=== PATIENT | male | born 1970 | race Caucasian/White ===

== ENCOUNTER 2017-12-09 12:13 | Inpatient (IN) | payer OTHER ==
[2017-12-09 13:50] VITALS: BMI 27.1
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
[2017-12-09] MEDS ORDERED: LOPERAMIDE HCL 2 MG CAPSULE PO PRN (15:02)
[2017-12-09] MEDS ORDERED: guaiFENesin/D-METHORPHAN HB 10 ML UNIT-DOSE CUPS PO PRN (15:02)
[2017-12-09] MEDS ORDERED: ACETAMINOPHEN 325 MG TABLET (FP) PO PRN (15:02)
[2017-12-09] MEDS ORDERED: NICOTINE POLACRILEX 4 MG GUM BUC PRN (15:02)
[2017-12-09] MEDS ORDERED: MAGNESIUM CITRATE 300 ML BOTTLE PO PRN (15:02)
[2017-12-09] MEDS ORDERED: MAG HYDROX/AL HYDROX/SIMETH 30 ML UNIT-DOSE CUP PO PRN (15:02)
[2017-12-09] MEDS ORDERED: P-EPHED 60MG/TRIPROLIDI 2.5MG TABLET PO PRN (15:02)
[2017-12-09] MEDS ORDERED: MAGNESIUM HYDROX 2400MG/30ML ORAL SUSPENSION 30 ML CUP PO PRN (15:02)
[2017-12-09] MEDS ORDERED: MENTHOL/PHENOL 1 EACH UD MM PRN (15:02)
[2017-12-09] MEDS ORDERED: ALBUTEROL SO4 18 GM HFA INHALER IH PRN (15:03)
[2017-12-09] MEDS ORDERED: COLLOIDAL OATMEAL 1 BAR EACH TP PRN (15:09)
[2017-12-09] MEDS: THIAMINE HCL 100 MG TABLET (FP) PO SCH (21:30)
[2017-12-09] MEDS: MELATONIN 5 MG TABLETS PO PRN (21:30)
[2017-12-09] MEDS: POLYETHYLENE GLYCOL 3350 119 GM BTL PO SCH (21:30)
[2017-12-09] MEDS: BUDESONIDE/FORMETEROL FUMARATE 160/4.5 mcg INHALER IH SCH (21:30)
[2017-12-09] MEDS: NICOTINE 14 MG/24 HOURS TOPICAL PATCH TD SCH (21:30)
[2017-12-09] MEDS: MINERAL OIL/PETROLAT/WATER TOPICAL CREAM 113 GM JAR TP SCH (21:31)
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
[2017-12-10] MEDS ORDERED: METHADONE HCL 10 MG TABLET PO SCH (07:45)
[2017-12-10] MEDS ORDERED: METHADONE HCL 40 MG DISPERSABLE TABLET ONE (08:41)
[2017-12-10] MEDS ORDERED: METHADONE HCL 10 MG TABLET ONE (08:41)
[2017-12-10] MEDS: METHADONE 120 MG, METHADONE 20 MG PO SCH (08:42)
[2017-12-10] MEDS ORDERED: EMTRICITAB/RILPIVIRI/TENOF ALA (ODEFSEY) TABLET PO SCH (10:00)
[2017-12-10] MEDS ORDERED: BUDESONIDE/FORMETEROL FUMARATE 160/4.5 mcg INHALER IH SCH (10:00)
[2017-12-10] MEDS: NICOTINE 14 MG/24 HOURS TOPICAL PATCH TD SCH (10:24)
[2017-12-10] MEDS: PRENATAL VITAMINS W/ FOLIC ACID TABLET (FP) PO SCH (10:24)
[2017-12-10] MEDS: BUDESONIDE/FORMETEROL FUMARATE 160/4.5 mcg INHALER IH SCH ×2 (10:24→21:37)
--- NOTE | 2017-12-10 14:21 | PN ---
S Progress Note Note: Pruritus on both lower extremities, decrease apatite Vital Signs Temperature 97.4 F L 12/10/17 07:06 Pulse Rate 65 12/10/17 07:06 Respiratory Rate 18 12/10/17 07:06 Blood Pressure 129/91 12/10/17 07:06 O2 Sat by Pulse Oximetry (%) A/P : AOx 3 no apparent distress Cardiac: normal HR and rhythm Skin: +hyper pigmentation on both ankles Extremities: pulse present, + b/t varicose veins and b/l lower extremities hyperpigmentation - pruritus secondary suspected peripheral vascular disease Plan: Leg elevation aveno soap Bethmethasome top Cream BID ASA 81 mg QD Increase fluids ambulate Patient to follow up with primary medical provider upon discharge Continue to monitor
[2017-12-10] MEDS: IBUPROFEN 400 MG TABLET (FP) PO PRN ×2 (16:06→21:39)
[2017-12-10] MEDS: THIAMINE HCL 100 MG TABLET (FP) PO SCH (21:37)
[2017-12-10] MEDS: BETAMETHASONE VALER 0.1% OINT 15 GM TUBE TP SCH (21:37)
[2017-12-10] MEDS: MINERAL OIL/PETROLAT/WATER TOPICAL CREAM 113 GM JAR TP SCH (21:38)
[2017-12-10] MEDS ORDERED: PT OWN MED DRAWER 7, Y5N ONE (21:39)
[2017-12-10] MEDS: POLYETHYLENE GLYCOL 3350 119 GM BTL PO SCH (21:40)
[2017-12-11] MEDS: IBUPROFEN 400 MG TABLET (FP) PO PRN (03:29)
[2017-12-11] MEDS ORDERED: METHADONE HCL 10 MG TABLET ONE (04:42)
[2017-12-11] MEDS ORDERED: METHADONE HCL 40 MG DISPERSABLE TABLET ONE (04:42)
[2017-12-11] MEDS: METHADONE 120 MG, METHADONE 20 MG PO SCH (06:07)
[2017-12-11] MEDS: NICOTINE 14 MG/24 HOURS TOPICAL PATCH TD SCH (10:14)
[2017-12-11] MEDS: PRENATAL VITAMINS W/ FOLIC ACID TABLET (FP) PO SCH (10:15)
[2017-12-11] MEDS: EMTRICITAB/RILPIVIRI/TENOF ALA (ODEFSEY) TABLET PO SCH (10:15)
[2017-12-11] MEDS: BUDESONIDE/FORMETEROL FUMARATE 160/4.5 mcg INHALER IH SCH ×2 (10:15→21:38)
[2017-12-11] MEDS: BETAMETHASONE VALER 0.1% OINT 15 GM TUBE TP SCH ×2 (10:16→21:39)
--- NOTE | 2017-12-11 10:27 | PN ---
S Progress Note Note: received nurse call that set of book work and urine analysis results not available a new set of blood work and ua ordered
[2017-12-11 14:34] LABS: HEMATOCRIT 34.4 % (35.4-49); HEMOGLOBIN 11.5 GM/dL (11.7-16.9); MCH 29.5 pg (25.7-33.7); MCHC 33.5 g/dl (32.0-35.9); MEAN CELL VOLUME 88.1 fl (80-96); MEAN PLT VOLUME 8.7 fl (7.5-11.1); PLATELET COUNT 234 K/MM3 (134-434); RBC 3.91 M/mm3 (4.00-5.60); RDW 14.3 % (11.9-15.9)
[2017-12-11 14:47] LABS: ALBUMIN 3.4 g/dl (3.4-5.0); ANION GAP 6 (8-16); BLOOD UREA NITROGEN 13 mg/dL (7-18); CALCIUM 8.7 mg/dL (8.5-10.1); CHLORIDE 102 mmol/L (98-107); CO2 32 mmol/L (21-32); GLUCOSE,RANDOM 88 mg/dL (74-106); POTASSIUM 4.5 mmol/L (3.5-5.1); SGOT/AST 19 U/L (15-37); SGPT/ALT 15 U/L (12-78); SODIUM 140 mmol/L (136-145)
[2017-12-11 14:49] LABS: ALK PHOS 101 U/L (45-117); BILIRUBIN,TOTAL 0.2 mg/dL (0.2-1.0); TOT PROT 8.1 g/dl (6.4-8.2)
--- NOTE | 2017-12-11 14:57 | PN ---
S Progress Note Note: Patient complain of back and joint pain. Vital Signs Temperature 97.7 F 12/11/17 07:07 Pulse Rate 59 L 12/11/17 07:07 Respiratory Rate 18 12/11/17 07:07 Blood Pressure 134/88 12/11/17 07:07 O2 Sat by Pulse Oximetry (%) Laboratory Tests 12/11/17 12/11/17 12:30 12:30 WBC 4.0 RBC 3.91 L Hgb 11.5 L Hct 34.4 L MCV 88.1 MCH 29.5 D MCHC 33.5 RDW 14.3 Plt Count 234 D MPV 8.7 D Sodium 140 Potassium 4.5 Chloride 102 Carbon Dioxide 32 Anion Gap 6 L BUN 13 D Creatinine 1.0 Creat Clearance w eGFR > 60 Random Glucose 88 D Calcium 8.7 Total Bilirubin 0.2 D AST 19 D ALT 15 D Alkaline Phosphatase 101 Total Protein 8.1 Albumin 3.4 OBJ: Skin:warm and dry Car: S1S2, RRR Resp: CTA BL Ext: no edema, FROM A/P: Increase ibuprofen to 600mg TID and add flexeril 10mg TID Continue to monitor
[2017-12-11 16:03] LABS: URINE APPEARANCE CLEAR; URINE BILIRUBIN NEGATIVE (<2.0 mg/dL); URINE BLOOD NEGATIVE (NEGATIVE); URINE COLOR YELLOW; URINE GLUCOSE (UA) NEGATIVE (NEGATIVE); URINE KETONE NEGATIVE (NEGATIVE); URINE LEUK ESTERASE NEGATIVE (NEGATIVE); URINE NITRITE NEGATIVE (NEGATIVE); URINE PROTEIN NEGATIVE (NEGATIVE); URINE UROBILINOGEN NEGATIVE mg/dL (0.2-1.0)
[2017-12-11] MEDS: IBUPROFEN 600 MG TABLET (FP) PO PRN (20:18)
[2017-12-11] MEDS: POLYETHYLENE GLYCOL 3350 119 GM BTL PO SCH (21:38)
[2017-12-11] MEDS: MELATONIN 5 MG TABLETS PO PRN (21:38)
[2017-12-11] MEDS: CYCLOBENZAPRINE HCL 10 MG TABLET (FP) PO PRN (21:38)
[2017-12-11] MEDS: THIAMINE HCL 100 MG TABLET (FP) PO SCH (21:38)
[2017-12-11] MEDS: MINERAL OIL/PETROLAT/WATER TOPICAL CREAM 113 GM JAR TP SCH (21:39)
[2017-12-12] MEDS ORDERED: METHADONE HCL 10 MG TABLET ONE (04:25)
[2017-12-12] MEDS ORDERED: METHADONE HCL 40 MG DISPERSABLE TABLET ONE (04:25)
[2017-12-12] MEDS: METHADONE 120 MG, METHADONE 20 MG PO SCH (05:55)
[2017-12-12] MEDS: NICOTINE 14 MG/24 HOURS TOPICAL PATCH TD SCH (10:13)
[2017-12-12] MEDS: PRENATAL VITAMINS W/ FOLIC ACID TABLET (FP) PO SCH (10:13)
[2017-12-12] MEDS: BETAMETHASONE VALER 0.1% OINT 15 GM TUBE TP SCH ×2 (10:14→22:40)
[2017-12-12] MEDS: EMTRICITAB/RILPIVIRI/TENOF ALA (ODEFSEY) TABLET PO SCH (10:15)
[2017-12-12] MEDS ORDERED: PT OWN MED DRAWER 7, Y5N ONE ×4 (10:18→16:44)
[2017-12-12] MEDS: BUDESONIDE/FORMETEROL FUMARATE 160/4.5 mcg INHALER IH SCH ×2 (10:19→23:09)
[2017-12-12] MEDS: MELATONIN 5 MG TABLETS PO PRN (21:06)
[2017-12-12] MEDS: THIAMINE HCL 100 MG TABLET (FP) PO SCH (21:06)
[2017-12-12] MEDS: CYCLOBENZAPRINE HCL 10 MG TABLET (FP) PO PRN (22:39)
[2017-12-12] MEDS: IBUPROFEN 600 MG TABLET (FP) PO PRN (22:39)
[2017-12-12] MEDS: POLYETHYLENE GLYCOL 3350 119 GM BTL PO SCH (22:40)
[2017-12-12] MEDS: MINERAL OIL/PETROLAT/WATER TOPICAL CREAM 113 GM JAR TP SCH (22:40)
[2017-12-13] MEDS ORDERED: METHADONE HCL 10 MG TABLET ONE (04:18)
[2017-12-13] MEDS ORDERED: METHADONE HCL 40 MG DISPERSABLE TABLET ONE (04:19)
[2017-12-13] MEDS: METHADONE 120 MG, METHADONE 20 MG PO SCH (05:59)
[2017-12-13] MEDS: PRENATAL VITAMINS W/ FOLIC ACID TABLET (FP) PO SCH (10:26)
[2017-12-13] MEDS: EMTRICITAB/RILPIVIRI/TENOF ALA (ODEFSEY) TABLET PO SCH (10:26)
[2017-12-13] MEDS ORDERED: PT OWN MED DRAWER 7, Y5N ONE ×3 (10:29→22:30)
[2017-12-13] MEDS: BETAMETHASONE VALER 0.1% OINT 15 GM TUBE TP SCH ×2 (10:29→21:29)
[2017-12-13] MEDS: BUDESONIDE/FORMETEROL FUMARATE 160/4.5 mcg INHALER IH SCH ×2 (10:29→21:26)
[2017-12-13] MEDS: NICOTINE 14 MG/24 HOURS TOPICAL PATCH TD SCH (10:29)
[2017-12-13] MEDS: THIAMINE HCL 100 MG TABLET (FP) PO SCH (21:27)
[2017-12-13] MEDS: MELATONIN 5 MG TABLETS PO PRN (21:27)
[2017-12-13] MEDS: CYCLOBENZAPRINE HCL 10 MG TABLET (FP) PO PRN (21:27)
[2017-12-13] MEDS: IBUPROFEN 600 MG TABLET (FP) PO PRN (21:28)
[2017-12-13] MEDS: POLYETHYLENE GLYCOL 3350 119 GM BTL PO SCH (21:29)
[2017-12-13] MEDS: MINERAL OIL/PETROLAT/WATER TOPICAL CREAM 113 GM JAR TP SCH (21:30)
[2017-12-14] MEDS ORDERED: METHADONE HCL 10 MG TABLET ONE (03:11)
[2017-12-14] MEDS ORDERED: METHADONE HCL 40 MG DISPERSABLE TABLET ONE (03:11)
[2017-12-14] MEDS: METHADONE 120 MG, METHADONE 20 MG PO SCH (06:01)
[2017-12-14] MEDS: EMTRICITAB/RILPIVIRI/TENOF ALA (ODEFSEY) TABLET PO SCH (09:51)
[2017-12-14] MEDS: BUDESONIDE/FORMETEROL FUMARATE 160/4.5 mcg INHALER IH SCH ×2 (09:52→22:44)
[2017-12-14] MEDS: PRENATAL VITAMINS W/ FOLIC ACID TABLET (FP) PO SCH (09:52)
[2017-12-14] MEDS: BETAMETHASONE VALER 0.1% OINT 15 GM TUBE TP SCH ×2 (09:52→21:51)
[2017-12-14] MEDS: NICOTINE 14 MG/24 HOURS TOPICAL PATCH TD SCH (09:52)
[2017-12-14] MEDS: IBUPROFEN 600 MG TABLET (FP) PO PRN ×2 (09:53→22:56)
[2017-12-14] MEDS: CYCLOBENZAPRINE HCL 10 MG TABLET (FP) PO PRN ×2 (09:53→21:49)
[2017-12-14] MEDS: POLYETHYLENE GLYCOL 3350 119 GM BTL PO SCH (21:48)
[2017-12-14] MEDS ORDERED: PT OWN MED DRAWER 7, Y5N ONE (21:48)
[2017-12-14] MEDS: THIAMINE HCL 100 MG TABLET (FP) PO SCH (21:49)
[2017-12-14] MEDS: MINERAL OIL/PETROLAT/WATER TOPICAL CREAM 113 GM JAR TP SCH (22:44)
[2017-12-15] MEDS ORDERED: METHADONE HCL 10 MG TABLET ONE (02:47)
[2017-12-15] MEDS ORDERED: METHADONE HCL 40 MG DISPERSABLE TABLET ONE (02:48)
[2017-12-15] MEDS: METHADONE 120 MG, METHADONE 20 MG PO SCH (06:04)
[2017-12-15] MEDS ORDERED: PT OWN MED DRAWER 7, Y5N ONE ×3 (08:58→20:16)
[2017-12-15] MEDS: NICOTINE 14 MG/24 HOURS TOPICAL PATCH TD SCH (10:10)
[2017-12-15] MEDS: BUDESONIDE/FORMETEROL FUMARATE 160/4.5 mcg INHALER IH SCH ×2 (10:10→21:54)
[2017-12-15] MEDS: PRENATAL VITAMINS W/ FOLIC ACID TABLET (FP) PO SCH (10:10)
[2017-12-15] MEDS: EMTRICITAB/RILPIVIRI/TENOF ALA (ODEFSEY) TABLET PO SCH (10:10)
[2017-12-15] MEDS: BETAMETHASONE VALER 0.1% OINT 15 GM TUBE TP SCH ×2 (10:10→21:54)
[2017-12-15] MEDS: IBUPROFEN 600 MG TABLET (FP) PO PRN (21:51)
[2017-12-15] MEDS: THIAMINE HCL 100 MG TABLET (FP) PO SCH (21:51)
[2017-12-15] MEDS: POLYETHYLENE GLYCOL 3350 119 GM BTL PO SCH (21:52)
[2017-12-15] MEDS: MELATONIN 5 MG TABLETS PO PRN (21:52)
[2017-12-15] MEDS: CYCLOBENZAPRINE HCL 10 MG TABLET (FP) PO PRN (21:52)
[2017-12-15] MEDS: MINERAL OIL/PETROLAT/WATER TOPICAL CREAM 113 GM JAR TP SCH (21:54)
[2017-12-16] MEDS ORDERED: METHADONE HCL 40 MG DISPERSABLE TABLET ONE (04:27)
[2017-12-16] MEDS ORDERED: METHADONE HCL 10 MG TABLET ONE (04:27)
[2017-12-16] MEDS: METHADONE 120 MG, METHADONE 20 MG PO SCH (06:24)
[2017-12-16] MEDS: BUDESONIDE/FORMETEROL FUMARATE 160/4.5 mcg INHALER IH SCH ×2 (10:24→21:37)
[2017-12-16] MEDS: BETAMETHASONE VALER 0.1% OINT 15 GM TUBE TP SCH ×2 (10:25→21:40)
[2017-12-16] MEDS: PRENATAL VITAMINS W/ FOLIC ACID TABLET (FP) PO SCH (10:25)
[2017-12-16] MEDS: NICOTINE 14 MG/24 HOURS TOPICAL PATCH TD SCH (10:25)
[2017-12-16] MEDS: EMTRICITAB/RILPIVIRI/TENOF ALA (ODEFSEY) TABLET PO SCH (10:25)
--- NOTE | 2017-12-16 15:23 | PN ---
[facility] Progress Note Note: Patient presents with complaints of constipation and left earache x 2 days. Denies sore throat, fever and cough. Vital Signs Period Temp Pulse Resp BP Sys/Benz Pulse Ox Last 24 Hr 97.3 F 56 18 151/89 Obj: Gen: alert and oriented x 3, in NAD, afebrile. ENT: left ear canal with cerumen, TM not visible. +preauricular tenderness. A/P: Left ear pain constipation Exam limited, however, due to ongoing pain will order amoxicillin 500mg BID x 5 days increase oral fluids fleets enema [place] x one continue to monitor clinically
[2017-12-16] MEDS ORDERED: PT OWN MED DRAWER 7, Y5N ONE (19:55)
[2017-12-16] MEDS: MELATONIN 5 MG TABLETS PO PRN (21:37)
[2017-12-16] MEDS: AMOXICILLIN 500 MG CAPSULE (FP) PO SCH (21:38)
[2017-12-16] MEDS: CYCLOBENZAPRINE HCL 10 MG TABLET (FP) PO PRN (21:38)
[2017-12-16] MEDS: POLYETHYLENE GLYCOL 3350 119 GM BTL PO SCH (21:40)
[2017-12-16] MEDS: MINERAL OIL/PETROLAT/WATER TOPICAL CREAM 113 GM JAR TP SCH (21:40)
[2017-12-16] MEDS: THIAMINE HCL 100 MG TABLET (FP) PO SCH (21:40)
[2017-12-16] MEDS: SODIUM PHOSPHATE/NA BIPHOS 133 ML ENEMA PR ONE ×2 (22:02→22:04)
[2017-12-17] MEDS ORDERED: METHADONE HCL 40 MG DISPERSABLE TABLET ONE (04:27)
[2017-12-17] MEDS ORDERED: METHADONE HCL 10 MG TABLET ONE (04:27)
[2017-12-17] MEDS: IBUPROFEN 600 MG TABLET (FP) PO PRN ×2 (06:00→19:19)
[2017-12-17] MEDS: METHADONE 120 MG, METHADONE 20 MG PO SCH (06:01)
[2017-12-17] MEDS: PRENATAL VITAMINS W/ FOLIC ACID TABLET (FP) PO SCH (10:10)
[2017-12-17] MEDS: BUDESONIDE/FORMETEROL FUMARATE 160/4.5 mcg INHALER IH SCH ×2 (10:10→21:36)
[2017-12-17] MEDS: EMTRICITAB/RILPIVIRI/TENOF ALA (ODEFSEY) TABLET PO SCH (10:10)
[2017-12-17] MEDS: AMOXICILLIN 500 MG CAPSULE (FP) PO SCH ×2 (10:11→21:37)
[2017-12-17] MEDS: BETAMETHASONE VALER 0.1% OINT 15 GM TUBE TP SCH ×2 (10:11→21:38)
[2017-12-17] MEDS: NICOTINE 14 MG/24 HOURS TOPICAL PATCH TD SCH (10:11)
[2017-12-17] MEDS ORDERED: PT OWN MED DRAWER 7, Y5N ONE (20:24)
[2017-12-17] MEDS: POLYETHYLENE GLYCOL 3350 119 GM BTL PO SCH (21:36)
[2017-12-17] MEDS: CYCLOBENZAPRINE HCL 10 MG TABLET (FP) PO PRN (21:37)
[2017-12-17] MEDS: MELATONIN 5 MG TABLETS PO PRN (21:37)
[2017-12-17] MEDS: THIAMINE HCL 100 MG TABLET (FP) PO SCH (21:37)
[2017-12-17] MEDS: MINERAL OIL/PETROLAT/WATER TOPICAL CREAM 113 GM JAR TP SCH (21:38)
[2017-12-18] MEDS ORDERED: METHADONE HCL 10 MG TABLET ONE (04:18)
[2017-12-18] MEDS ORDERED: METHADONE HCL 40 MG DISPERSABLE TABLET ONE (04:19)
[2017-12-18] MEDS: METHADONE 120 MG, METHADONE 20 MG PO SCH (05:56)
[2017-12-18] MEDS ORDERED: PT OWN MED DRAWER 7, Y5N ONE (08:55)
[2017-12-18] MEDS: BUDESONIDE/FORMETEROL FUMARATE 160/4.5 mcg INHALER IH SCH ×2 (10:21→21:37)
[2017-12-18] MEDS: EMTRICITAB/RILPIVIRI/TENOF ALA (ODEFSEY) TABLET PO SCH (10:21)
[2017-12-18] MEDS: AMOXICILLIN 500 MG CAPSULE (FP) PO SCH ×2 (10:21→21:37)
[2017-12-18] MEDS: PRENATAL VITAMINS W/ FOLIC ACID TABLET (FP) PO SCH (10:21)
[2017-12-18] MEDS: IBUPROFEN 600 MG TABLET (FP) PO PRN ×2 (10:23→21:58)
[2017-12-18] MEDS: BETAMETHASONE VALER 0.1% OINT 15 GM TUBE TP SCH ×2 (10:24→21:39)
[2017-12-18] MEDS: NICOTINE 14 MG/24 HOURS TOPICAL PATCH TD SCH (10:44)
[2017-12-18] MEDS: MELATONIN 5 MG TABLETS PO PRN (21:38)
[2017-12-18] MEDS: CYCLOBENZAPRINE HCL 10 MG TABLET (FP) PO PRN (21:38)
[2017-12-18] MEDS: THIAMINE HCL 100 MG TABLET (FP) PO SCH (21:39)
[2017-12-18] MEDS: POLYETHYLENE GLYCOL 3350 119 GM BTL PO SCH (21:39)
[2017-12-18] MEDS: MINERAL OIL/PETROLAT/WATER TOPICAL CREAM 113 GM JAR TP SCH (21:39)
[2017-12-19] MEDS ORDERED: METHADONE HCL 10 MG TABLET ONE (05:43)
[2017-12-19] MEDS ORDERED: METHADONE HCL 40 MG DISPERSABLE TABLET ONE (05:43)
[2017-12-19] MEDS: METHADONE 120 MG, METHADONE 20 MG PO SCH (05:52)
[2017-12-19] MEDS ORDERED: PT OWN MED DRAWER 7, Y5N ONE ×3 (08:57→22:32)
[2017-12-19] MEDS: PRENATAL VITAMINS W/ FOLIC ACID TABLET (FP) PO SCH (10:12)
[2017-12-19] MEDS: AMOXICILLIN 500 MG CAPSULE (FP) PO SCH ×2 (10:12→21:51)
[2017-12-19] MEDS: NICOTINE 14 MG/24 HOURS TOPICAL PATCH TD SCH (10:12)
[2017-12-19] MEDS: EMTRICITAB/RILPIVIRI/TENOF ALA (ODEFSEY) TABLET PO SCH (10:12)
[2017-12-19] MEDS: BUDESONIDE/FORMETEROL FUMARATE 160/4.5 mcg INHALER IH SCH ×2 (10:12→21:57)
[2017-12-19] MEDS: BETAMETHASONE VALER 0.1% OINT 15 GM TUBE TP SCH ×2 (10:13→21:54)
[2017-12-19] MEDS: IBUPROFEN 600 MG TABLET (FP) PO PRN ×2 (10:46→17:47)
--- NOTE | 2017-12-19 14:10 | PN ---
[facility] Progress Note Note: Patient presents with complaints of constipation and left earache x 3 days. Reports frequent hx of otitis externa Denies sore throat, fever and cough. Vital Signs Temperature 97.6 F 12/19/17 06:58 Pulse Rate 71 12/19/17 06:58 Respiratory Rate 18 12/19/17 06:58 Blood Pressure 139/82 12/19/17 06:58 O2 Sat by Pulse Oximetry (%) Obj: Gen: alert and oriented x 3, in NAD, afebrile. ENT: left ear canal with cerumen, TM not visible. +preauricular tenderness. A/P: Left ear pain Start cortiporin left ear x 5 days Ibuprofen 600mg PRN for pain increase oral fluids continue to monitor clinically
[2017-12-19] MEDS: THIAMINE HCL 100 MG TABLET (FP) PO SCH (21:51)
[2017-12-19] MEDS: MINERAL OIL/PETROLAT/WATER TOPICAL CREAM 113 GM JAR TP SCH (21:52)
[2017-12-19] MEDS: POLYETHYLENE GLYCOL 3350 119 GM BTL PO SCH (21:55)
[2017-12-19] MEDS: CYCLOBENZAPRINE HCL 10 MG TABLET (FP) PO PRN (21:56)
[2017-12-19] MEDS: MELATONIN 5 MG TABLETS PO PRN (21:56)
[2017-12-20] MEDS: IBUPROFEN 600 MG TABLET (FP) PO PRN ×3 (01:13→21:28)
[2017-12-20] MEDS ORDERED: METHADONE HCL 40 MG DISPERSABLE TABLET ONE (04:10)
[2017-12-20] MEDS ORDERED: METHADONE HCL 10 MG TABLET ONE (04:10)
[2017-12-20] MEDS: METHADONE 120 MG, METHADONE 20 MG PO SCH (06:01)
[2017-12-20] MEDS: PRENATAL VITAMINS W/ FOLIC ACID TABLET (FP) PO SCH (10:15)
[2017-12-20] MEDS: NICOTINE 14 MG/24 HOURS TOPICAL PATCH TD SCH (10:15)
[2017-12-20] MEDS: AMOXICILLIN 500 MG CAPSULE (FP) PO SCH ×2 (10:15→21:28)
[2017-12-20] MEDS: EMTRICITAB/RILPIVIRI/TENOF ALA (ODEFSEY) TABLET PO SCH (10:16)
[2017-12-20] MEDS: BUDESONIDE/FORMETEROL FUMARATE 160/4.5 mcg INHALER IH SCH ×2 (10:16→21:31)
[2017-12-20] MEDS: NEOMYCIN/POLYMYXN/HC OTIC SOLUTION 10 ML BOTTLE AS SCH ×4 (10:16→21:30)
[2017-12-20] MEDS: BETAMETHASONE VALER 0.1% OINT 15 GM TUBE TP SCH ×2 (10:17→21:31)
[2017-12-20] MEDS ORDERED: PT OWN MED DRAWER 7, Y5N ONE (10:18)
[2017-12-20] MEDS: MELATONIN 5 MG TABLETS PO PRN (21:28)
[2017-12-20] MEDS: MINERAL OIL/PETROLAT/WATER TOPICAL CREAM 113 GM JAR TP SCH (21:31)
[2017-12-20] MEDS: THIAMINE HCL 100 MG TABLET (FP) PO SCH (21:31)
[2017-12-20] MEDS: POLYETHYLENE GLYCOL 3350 119 GM BTL PO SCH (21:31)
[2017-12-21] MEDS ORDERED: METHADONE HCL 40 MG DISPERSABLE TABLET ONE (04:01)
[2017-12-21] MEDS ORDERED: METHADONE HCL 10 MG TABLET ONE (04:01)
[2017-12-21] MEDS: METHADONE 120 MG, METHADONE 20 MG PO SCH (06:05)
[2017-12-21] MEDS: AMOXICILLIN 500 MG CAPSULE (FP) PO SCH (10:04)
[2017-12-21] MEDS: NICOTINE 14 MG/24 HOURS TOPICAL PATCH TD SCH (10:04)
[2017-12-21] MEDS: NEOMYCIN/POLYMYXN/HC OTIC SOLUTION 10 ML BOTTLE AS SCH ×4 (10:04→22:11)
[2017-12-21] MEDS: PRENATAL VITAMINS W/ FOLIC ACID TABLET (FP) PO SCH (10:04)
[2017-12-21] MEDS: BUDESONIDE/FORMETEROL FUMARATE 160/4.5 mcg INHALER IH SCH ×2 (10:06→21:40)
[2017-12-21] MEDS: EMTRICITAB/RILPIVIRI/TENOF ALA (ODEFSEY) TABLET PO SCH (10:06)
[2017-12-21] MEDS: IBUPROFEN 600 MG TABLET (FP) PO PRN ×2 (10:07→21:40)
[2017-12-21] MEDS: BETAMETHASONE VALER 0.1% OINT 15 GM TUBE TP SCH ×2 (10:07→21:41)
[2017-12-21] MEDS ORDERED: PT OWN MED DRAWER 7, Y5N ONE ×2 (10:10→14:28)
[2017-12-21] MEDS: THIAMINE HCL 100 MG TABLET (FP) PO SCH (21:40)
[2017-12-21] MEDS: MELATONIN 5 MG TABLETS PO PRN (21:40)
[2017-12-21] MEDS: POLYETHYLENE GLYCOL 3350 119 GM BTL PO SCH (21:41)
[2017-12-21] MEDS: MINERAL OIL/PETROLAT/WATER TOPICAL CREAM 113 GM JAR TP SCH (22:12)
[2017-12-22] MEDS ORDERED: METHADONE HCL 10 MG TABLET ONE (04:12)
[2017-12-22] MEDS ORDERED: METHADONE HCL 40 MG DISPERSABLE TABLET ONE (04:12)
[2017-12-22] MEDS: METHADONE 120 MG, METHADONE 20 MG PO SCH (06:06)
[2017-12-22] MEDS ORDERED: PT OWN MED DRAWER 7, Y5N ONE (08:54)
[2017-12-22] MEDS: PRENATAL VITAMINS W/ FOLIC ACID TABLET (FP) PO SCH (09:54)
[2017-12-22] MEDS: NEOMYCIN/POLYMYXN/HC OTIC SOLUTION 10 ML BOTTLE AS SCH ×4 (09:54→22:03)
[2017-12-22] MEDS: NICOTINE 14 MG/24 HOURS TOPICAL PATCH TD SCH (09:54)
[2017-12-22] MEDS: BUDESONIDE/FORMETEROL FUMARATE 160/4.5 mcg INHALER IH SCH ×2 (09:54→21:32)
[2017-12-22] MEDS: EMTRICITAB/RILPIVIRI/TENOF ALA (ODEFSEY) TABLET PO SCH (09:54)
[2017-12-22] MEDS: IBUPROFEN 600 MG TABLET (FP) PO PRN ×2 (09:55→21:31)
[2017-12-22] MEDS: BETAMETHASONE VALER 0.1% OINT 15 GM TUBE TP SCH ×2 (10:30→21:32)
[2017-12-22] MEDS: MELATONIN 5 MG TABLETS PO PRN (21:31)
[2017-12-22] MEDS: CYCLOBENZAPRINE HCL 10 MG TABLET (FP) PO PRN (21:31)
[2017-12-22] MEDS: THIAMINE HCL 100 MG TABLET (FP) PO SCH (21:31)
[2017-12-22] MEDS: POLYETHYLENE GLYCOL 3350 119 GM BTL PO SCH (22:03)
[2017-12-22] MEDS: MINERAL OIL/PETROLAT/WATER TOPICAL CREAM 113 GM JAR TP SCH (22:03)
[2017-12-23] MEDS ORDERED: METHADONE HCL 10 MG TABLET ONE (03:07)
[2017-12-23] MEDS ORDERED: METHADONE HCL 40 MG DISPERSABLE TABLET ONE (03:08)
[2017-12-23] MEDS: METHADONE 120 MG, METHADONE 20 MG PO SCH (06:17)
[2017-12-23 07:18] VITALS: BP 159/99; PULSE 62; TEMP 97.8
--- NOTE | 2017-12-23 08:08 | PN ---
Psychiatric Progress Note Vital Signs: Vital Signs Period Temp Pulse Resp BP Sys/Benz Pulse Ox Last 24 Hr 97.8 F 62 18-18 159/99 Date of Session: 12/23/17 Chief Complaint:: Discharge Note HPI: Patient addressing Alcohol and Sedative Dependence comorbid with Opioid Dependence on Agonist Therapy. Nicotine Dependence, Substance-Induced Mood Disorder and Substance-induced Sleep Disorder ROS: HIV, Hep C, Asthma, Drug withdrawal seizure Current Medications: Active Medications Generic Name Dose Route Start Last Admin Trade Name Freq PRN Reason Stop Dose Admin Acetaminophen 650 mg 12/09/17 15:02 Tylenol - PO Q4H PRN FEVER Al Hydroxide/Mg Hydroxide 30 ml 12/09/17 15:02 Mylanta Oral Suspension - PO Q6H PRN DYSPEPSIA Albuterol Sulfate 2 puff 12/09/17 15:03 12/15/17 19:56 Ventolin Hfa Inhaler - IH 2 puff Q4H PRN Administration SHORT OF BREATH/WHEEZING Betamethasone Valerate 1 applic 12/10/17 22:00 12/22/17 21:32 Valisone 0.1% Ointment - TP 1 applic BID RENEE Administration Budesonide/Formoterol Fumarate 2 puff 12/09/17 22:00 12/22/17 21:32 Symbicort 160/4.5mcg - IH 2 inh BID RENEE Administration Colloidal Oatmeal 1 applic 12/09/17 15:09 12/10/17 16:06 Aveeno Soap - TP 1 bar DAILY PRN Administration HYGEINE Cyclobenzaprine HCl 10 mg 12/11/17 14:55 12/22/17 21:31 Flexeril - PO 10 mg TID PRN Administration MUSCLE SPASMS Eucalyptus/Menthol/Phenol/Sorbitol 1 each 12/09/17 15:02 Cepastat Lozenge - MM Q4H PRN SORE THROAT Guaifenesin 10 ml 12/09/17 15:02 Robitussin Dm - PO Q6H PRN COUGH Ibuprofen 600 mg 12/11/17 14:54 12/22/17 21:31 Motrin - PO 600 mg Q6H PRN Administration FEVER Loperamide HCl 4 mg 12/09/17 15:02 Imodium - PO Q6H PRN DIARRHEA Magnesium Citrate 300 ml 12/09/17 15:02 Citroma - PO Q48H PRN CONSTIPATION Magnesium Hydroxide 30 ml 12/09/17 15:02 12/12/17 10:16 Milk Of Magnesia - PO 30 ml DAILY PRN Administration CONSTIPATION Melatonin 5 mg 12/09/17 22:00 12/22/17 21:31 Melatonin PO 5 mg HS PRN Administration INSOMNIA Methadone HCl 120 mg/ 140 mg 12/22/17 06:00 12/23/17 06:17 Methadone HCl 20 mg PO 12/29/17 05:59 140 mg DAILY@0600 RENEE Administration Multi-Ingredient Lotion 1 applic 12/09/17 22:00 12/22/17 22:03 Eucerin (Small Jar) - TP 1 applic HS RENEE Administration Neomycin/Polymyxin/Hydrocortisone 4 drop 12/20/17 10:00 12/22/17 22:03 Cortisporin Otic Solution - 4 drop QID RENEE Administration Nicotine 14 mg 12/09/17 15:15 12/22/17 09:54 Nicoderm Patch - TD Not Given DAILY RENEE Nicotine Polacrilex 4 mg 12/09/17 15:02 Nicorette Gum - BUC Q2H PRN NICOTINE REPLACEMENT RX Polyethylene Glycol 17 gm 12/09/17 22:00 12/22/17 22:03 Miralax (For Daily Use) - PO 17 gm HS RENEE Administration Multivit/Folic Acid/Iron 1 tab 12/10/17 10:00 12/22/17 09:54 Vitamins (Sjr) - PO 1 tab DAILY RENEE Administration Pseudoephedrine/Triprolidine 1 combo 12/09/17 15:02 Actifed - PO TID PRN NASAL CONGESTION Thiamine HCl 100 mg 12/09/17 22:00 12/22/17 21:31 Vitamin B1 - PO 100 mg HS RENEE Administration Current Side Effect: No Lab tests ordered: Yes Lab tests reviewed: Yes Provider note:: Patient has completed this program today. He has met his treatment goals and will continue to address his issues in outpatient treatment at [facility]. 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 He is stable for discharge today Total face to face time:: 35 Mental Status Exam - Mental Status Exam Alert and Oriented to: Time, Place, Person Cognitive Function: Fair Patient Appearance: Well Groomed Mood: Hopeful, Euthymic Affect: Appropriate Patient Behavior: Cooperative Speech Pattern: Clear Voice Loudness: Normal Thought Process: Intact, Goal Oriented Thought Disorder: Not Present Hallucinations: Denies Suicidal Ideation: Denies Homicidal Ideation: Denies Insight/Judgement: Fair Sleep: Fair Appetite: Good Muscle strength/Tone: Normal Gait/Station: Normal Psychiatric Treatment Plan - Problem List (1) Alcohol dependence Current Visit: No (2) Sedative hypnotic or anxiolytic dependence Current Visit: Yes (3) Opioid dependence on agonist therapy Current Visit: No (4) Nicotine dependence Current Visit: Yes (5) Schizoaffective disorder Current Visit: Yes (6) Substance induced mood disorder Current Visit: Yes (7) Substance-induced sleep disorder Current Visit: Yes (8) HIV (human immunodeficiency virus infection) Current Visit: Yes (9) Hepatitis C Current Visit: Yes (10) Asthma Current Visit: Yes (11) Drug withdrawal seizure Current Visit: Yes Initial treatment plan: Patient is discharged today and referred to [facility] for outpatient treatment
[2017-12-23] MEDS ORDERED: PT OWN MED DRAWER 7, Y5N ONE (08:48)
[2017-12-23] MEDS: BETAMETHASONE VALER 0.1% OINT 15 GM TUBE TP SCH (09:10)
[2017-12-23] MEDS: PRENATAL VITAMINS W/ FOLIC ACID TABLET (FP) PO SCH (09:10)
[2017-12-23] MEDS: BUDESONIDE/FORMETEROL FUMARATE 160/4.5 mcg INHALER IH SCH (09:10)
[2017-12-23] MEDS: NEOMYCIN/POLYMYXN/HC OTIC SOLUTION 10 ML BOTTLE AS SCH (09:11)
[2017-12-23] MEDS: NICOTINE 14 MG/24 HOURS TOPICAL PATCH TD SCH (09:11)
[2017-12-23] MEDS: EMTRICITAB/RILPIVIRI/TENOF ALA (ODEFSEY) TABLET PO SCH (09:11)
== END 2017-12-23 11:47 | disposition home or self-care (01) | DRG 772 ==
LOC: YASAS 12:13 → Y3W 15:25
PROVIDERS: ADMIT Psychiatry & Neurology Psychiatry; ATTEND Psychiatry & Neurology Psychiatry
PROC: HZ42ZZZ Group Counseling for Substance Abuse Treatment, Cognitive-Behavioral (ICD-10-PCS; principal; 2017-12-09)
DX: F11.20 Opioid dependence, uncomplicated (principal); F13.230 Sedative, hypnotic or anxiolytic dependence with withdrawal, uncomplicated; F10.20 Alcohol dependence, uncomplicated; F17.210 Nicotine dependence, cigarettes, uncomplicated; F19.24 Other psychoactive substance dependence with psychoactive substance-induced mood disorder; F19.282 Other psychoactive substance dependence with psychoactive substance-induced sleep disorder; F25.9 Schizoaffective disorder, unspecified; J45.909 Unspecified asthma, uncomplicated; B18.2 Chronic viral hepatitis C; G40.509 Epileptic seizures related to external causes, not intractable, without status epilepticus; M54.9 Dorsalgia, unspecified; Z21 Asymptomatic human immunodeficiency virus [HIV] infection status; Z87.828 Personal history of other (healed) physical injury and trauma
CPT/HCPCS: 36415; 80053; 81003; 85027; 86593

== ENCOUNTER 2018-04-16 11:00 | Inpatient (IN) | payer OTHER ==
[2018-04-16 11:26] VITALS: BMI 29.0
[2018-04-16] MEDS ORDERED: MAGNESIUM HYDROX 2400MG/30ML ORAL SUSPENSION 30 ML CUP PO PRN (12:48)
[2018-04-16] MEDS ORDERED: P-EPHED 60MG/TRIPROLIDI 2.5MG TABLET PO PRN (12:48)
[2018-04-16] MEDS ORDERED: guaiFENesin/D-METHORPHAN HB 10 ML UNIT-DOSE CUPS PO PRN (12:48)
[2018-04-16] MEDS ORDERED: NICOTINE POLACRILEX 2 MG GUM BUC PRN (12:48)
[2018-04-16] MEDS ORDERED: MAG HYDROX/AL HYDROX/SIMETH 30 ML UNIT-DOSE CUP PO PRN (12:48)
[2018-04-16] MEDS ORDERED: MENTHOL/PHENOL 1 EACH UD MM PRN (12:48)
[2018-04-16] MEDS ORDERED: LOPERAMIDE HCL 2 MG CAPSULE PO PRN (12:48)
[2018-04-16] MEDS ORDERED: MAGNESIUM CITRATE 300 ML BOTTLE PO PRN (12:48)
--- NOTE | 2018-04-16 12:55 | HP ---
[facility] Rehab Assess/Revision - Admission History Admitted to Rehab from: [facility] Date of Admission to Rehab: 04/16/18 - Vital signs Vital Signs: Vital Signs Period Temp Pulse Resp BP Sys/Benz Pulse Ox Last 24 Hr 97.7 F 65 18 116/69 - Findings Detox History & Physical reviewed: Yes Concur with findings: Yes Comments/Additional Findings: DETOX COMPLETED TODAY AND REFERRED TO REHAB. Inpatient Rehab Admission - Initial Determination Are CD services needed?: Yes Free of communicable disease: Yes Not in need of hospitalization: Yes - Rehab Admission Criteria Patient is meeting Inpatient Rehab admission criteria:: Yes
[2018-04-16] MEDS: IBUPROFEN 400 MG TABLET (FP) PO PRN (21:50)
[2018-04-16] MEDS: traZODone HCL 100 MG TABLET (FP) PO SCH (21:50)
[2018-04-16] MEDS: THIAMINE HCL 100 MG TABLET (FP) PO SCH (21:50)
[2018-04-16] MEDS: PSYLLIUM 5.85 GM PACKET PO SCH (21:51)
[2018-04-17] MEDS: METHADONE HCL 40 MG DISPERSABLE TABLET PO SCH (05:52)
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
[2018-04-17] MEDS: PRENATAL VITAMINS W/ FOLIC ACID TABLET (FP) PO SCH (09:49)
[2018-04-17] MEDS: IBUPROFEN 400 MG TABLET (FP) PO PRN ×2 (09:51→21:57)
[2018-04-17] MEDS ORDERED: PT OWN MED DRAWER 7, Y5N ONE (09:52)
[2018-04-17] MEDS: ALBUTEROL SO4 8 GM HFA INHALER IH PRN (09:52)
[2018-04-17] MEDS: PSYLLIUM 5.85 GM PACKET PO SCH ×2 (10:21→22:01)
[2018-04-17] MEDS: BENZTROPINE MESYLATE 1 MG TABLET (FP) PO SCH ×2 (13:18→22:01)
[2018-04-17] MEDS: risperiDONE 1 MG TABLET (FP) PO SCH ×2 (13:18→22:01)
[2018-04-17] MEDS: MELATONIN 5 MG TABLETS PO PRN (21:57)
[2018-04-17] MEDS: THIAMINE HCL 100 MG TABLET (FP) PO SCH (21:57)
[2018-04-17] MEDS: traZODone HCL 100 MG TABLET (FP) PO SCH (22:00)
[2018-04-18] MEDS: METHADONE HCL 40 MG DISPERSABLE TABLET PO SCH (06:18)
[2018-04-18] MEDS: BENZTROPINE MESYLATE 1 MG TABLET (FP) PO SCH ×2 (09:37→21:30)
[2018-04-18] MEDS: PSYLLIUM 5.85 GM PACKET PO SCH ×2 (09:37→21:30)
[2018-04-18] MEDS: risperiDONE 1 MG TABLET (FP) PO SCH ×2 (09:37→21:29)
[2018-04-18] MEDS: PRENATAL VITAMINS W/ FOLIC ACID TABLET (FP) PO SCH (09:37)
[2018-04-18] MEDS: traZODone HCL 100 MG TABLET (FP) PO SCH (21:29)
[2018-04-18] MEDS: IBUPROFEN 400 MG TABLET (FP) PO PRN (21:29)
[2018-04-18] MEDS: THIAMINE HCL 100 MG TABLET (FP) PO SCH (21:30)
[2018-04-19] MEDS: METHADONE HCL 40 MG DISPERSABLE TABLET PO SCH (06:00)
[2018-04-19] MEDS: risperiDONE 1 MG TABLET (FP) PO SCH ×2 (09:28→22:10)
[2018-04-19] MEDS: PSYLLIUM 5.85 GM PACKET PO SCH ×2 (09:28→22:10)
[2018-04-19] MEDS: BENZTROPINE MESYLATE 1 MG TABLET (FP) PO SCH ×2 (09:28→22:10)
[2018-04-19] MEDS: PRENATAL VITAMINS W/ FOLIC ACID TABLET (FP) PO SCH (09:28)
[2018-04-19] MEDS: IBUPROFEN 400 MG TABLET (FP) PO PRN ×2 (09:29→22:11)
[2018-04-19] MEDS: traZODone HCL 100 MG TABLET (FP) PO SCH (22:09)
[2018-04-19] MEDS: THIAMINE HCL 100 MG TABLET (FP) PO SCH (22:10)
[2018-04-20] MEDS: METHADONE HCL 40 MG DISPERSABLE TABLET PO SCH (06:21)
[2018-04-20] MEDS: risperiDONE 1 MG TABLET (FP) PO SCH ×2 (09:21→21:11)
[2018-04-20] MEDS: IBUPROFEN 400 MG TABLET (FP) PO PRN ×2 (09:21→21:13)
[2018-04-20] MEDS: PRENATAL VITAMINS W/ FOLIC ACID TABLET (FP) PO SCH (09:21)
[2018-04-20] MEDS: BENZTROPINE MESYLATE 1 MG TABLET (FP) PO SCH ×2 (09:21→21:11)
[2018-04-20] MEDS: PSYLLIUM 5.85 GM PACKET PO SCH ×2 (09:21→21:11)
[2018-04-20] MEDS: THIAMINE HCL 100 MG TABLET (FP) PO SCH (21:11)
[2018-04-20] MEDS: traZODone HCL 100 MG TABLET (FP) PO SCH (21:11)
[2018-04-21] MEDS: METHADONE HCL 40 MG DISPERSABLE TABLET PO SCH (06:04)
[2018-04-21] MEDS: risperiDONE 1 MG TABLET (FP) PO SCH ×2 (10:06→21:40)
[2018-04-21] MEDS: PSYLLIUM 5.85 GM PACKET PO SCH ×2 (10:06→21:41)
[2018-04-21] MEDS: PRENATAL VITAMINS W/ FOLIC ACID TABLET (FP) PO SCH (10:06)
[2018-04-21] MEDS: IBUPROFEN 400 MG TABLET (FP) PO PRN ×2 (10:08→21:40)
[2018-04-21] MEDS: BENZTROPINE MESYLATE 1 MG TABLET (FP) PO SCH ×2 (10:32→21:41)
[2018-04-21] MEDS: traZODone HCL 100 MG TABLET (FP) PO SCH (21:40)
[2018-04-21] MEDS: THIAMINE HCL 100 MG TABLET (FP) PO SCH (21:40)
[2018-04-21] MEDS: MINERAL OIL/PETROLAT/WATER TOPICAL CREAM 113 GM JAR TP SCH (21:41)
[2018-04-22] MEDS: METHADONE HCL 40 MG DISPERSABLE TABLET PO SCH (06:02)
[2018-04-22] MEDS: BISACODYL 5 MG TABLET.DR (FP) PO PRN (09:46)
[2018-04-22] MEDS ORDERED: PT OWN MED DRAWER 7, Y5N ONE (09:46)
[2018-04-22] MEDS: BENZTROPINE MESYLATE 1 MG TABLET (FP) PO SCH ×2 (09:46→22:00)
[2018-04-22] MEDS: PRENATAL VITAMINS W/ FOLIC ACID TABLET (FP) PO SCH (09:46)
[2018-04-22] MEDS: MINERAL OIL/PETROLAT/WATER TOPICAL CREAM 113 GM JAR TP SCH ×2 (09:46→21:59)
[2018-04-22] MEDS: risperiDONE 1 MG TABLET (FP) PO SCH ×2 (09:46→21:59)
[2018-04-22] MEDS: PSYLLIUM 5.85 GM PACKET PO SCH ×2 (09:47→22:00)
[2018-04-22] MEDS: traZODone HCL 100 MG TABLET (FP) PO SCH (21:59)
[2018-04-22] MEDS: THIAMINE HCL 100 MG TABLET (FP) PO SCH (21:59)
[2018-04-22] MEDS: IBUPROFEN 400 MG TABLET (FP) PO PRN (22:01)
[2018-04-23] MEDS: METHADONE HCL 40 MG DISPERSABLE TABLET PO SCH (06:01)
[2018-04-23] MEDS: BENZTROPINE MESYLATE 1 MG TABLET (FP) PO SCH ×2 (09:42→22:19)
[2018-04-23] MEDS: risperiDONE 1 MG TABLET (FP) PO SCH ×2 (09:42→22:19)
[2018-04-23] MEDS: PSYLLIUM 5.85 GM PACKET PO SCH ×2 (09:42→22:19)
[2018-04-23] MEDS: PRENATAL VITAMINS W/ FOLIC ACID TABLET (FP) PO SCH (09:42)
[2018-04-23] MEDS: MINERAL OIL/PETROLAT/WATER TOPICAL CREAM 113 GM JAR TP SCH ×2 (09:43→22:20)
[2018-04-23] MEDS: BISACODYL 5 MG TABLET.DR (FP) PO PRN (09:44)
--- NOTE | 2018-04-23 17:28 | PN ---
[facility] Progress Note Note: Vital Signs Temperature 97.9 F 04/23/18 06:48 Pulse Rate 65 04/23/18 06:48 Respiratory Rate 18 04/23/18 06:48 Blood Pressure 122/79 04/23/18 06:48 O2 Sat by Pulse Oximetry (%) c/o of poor appetite today. one time dose Ensure PO for today . continue to monitor
[2018-04-23] MEDS: traZODone HCL 100 MG TABLET (FP) PO SCH (22:19)
[2018-04-23] MEDS: THIAMINE HCL 100 MG TABLET (FP) PO SCH (22:19)
[2018-04-23] MEDS: IBUPROFEN 400 MG TABLET (FP) PO PRN (22:22)
[2018-04-24] MEDS: METHADONE HCL 40 MG DISPERSABLE TABLET PO SCH (06:11)
[2018-04-24] MEDS: risperiDONE 1 MG TABLET (FP) PO SCH ×2 (09:53→22:23)
[2018-04-24] MEDS: BISACODYL 5 MG TABLET.DR (FP) PO PRN (09:53)
[2018-04-24] MEDS: PSYLLIUM 5.85 GM PACKET PO SCH ×2 (09:53→22:24)
[2018-04-24] MEDS: PRENATAL VITAMINS W/ FOLIC ACID TABLET (FP) PO SCH (09:53)
[2018-04-24] MEDS: BENZTROPINE MESYLATE 1 MG TABLET (FP) PO SCH ×2 (09:53→22:23)
[2018-04-24] MEDS: MINERAL OIL/PETROLAT/WATER TOPICAL CREAM 113 GM JAR TP SCH ×2 (09:53→22:24)
--- NOTE | 2018-04-24 14:32 | PN ---
S Progress Note Note: Vital Signs Temperature 97.6 F 04/24/18 06:54 Pulse Rate 69 04/24/18 06:54 Respiratory Rate 18 04/24/18 06:54 Blood Pressure 139/98 04/24/18 06:54 O2 Sat by Pulse Oximetry (%) c/o hemorrhoids discomfort anusol tp cream ordered increase fluids increase fiber continue to monitor
[2018-04-24] MEDS: HYDROCORTISONE 2.5% TOPICAL CREAM 30 GM TUBE PR SCH (14:52)
[2018-04-24] MEDS ORDERED: PT OWN MED DRAWER 7, Y5N ONE ×2 (20:46→23:10)
[2018-04-24] MEDS: traZODone HCL 100 MG TABLET (FP) PO SCH (22:23)
[2018-04-24] MEDS: THIAMINE HCL 100 MG TABLET (FP) PO SCH (22:24)
[2018-04-24] MEDS: IBUPROFEN 400 MG TABLET (FP) PO PRN (22:25)
[2018-04-25] MEDS: METHADONE HCL 40 MG DISPERSABLE TABLET PO SCH (06:03)
[2018-04-25] MEDS ORDERED: PT OWN MED DRAWER 7, Y5N ONE ×3 (08:39→19:09)
[2018-04-25] MEDS: risperiDONE 1 MG TABLET (FP) PO SCH ×2 (10:12→21:55)
[2018-04-25] MEDS: PRENATAL VITAMINS W/ FOLIC ACID TABLET (FP) PO SCH (10:12)
[2018-04-25] MEDS: HYDROCORTISONE 2.5% TOPICAL CREAM 30 GM TUBE PR SCH (10:12)
[2018-04-25] MEDS: PSYLLIUM 5.85 GM PACKET PO SCH ×2 (10:12→21:58)
[2018-04-25] MEDS: BENZTROPINE MESYLATE 1 MG TABLET (FP) PO SCH ×2 (10:12→21:55)
[2018-04-25] MEDS: MINERAL OIL/PETROLAT/WATER TOPICAL CREAM 113 GM JAR TP SCH ×2 (10:12→21:58)
[2018-04-25] MEDS: IBUPROFEN 400 MG TABLET (FP) PO PRN ×2 (10:13→21:57)
[2018-04-25] MEDS: BISACODYL 5 MG TABLET.DR (FP) PO PRN (10:15)
[2018-04-25] MEDS ORDERED: SODIUM PHOSPHATE/NA BIPHOS 133 ML ENEMA PR ONE (14:13)
--- NOTE | 2018-04-25 14:15 | PN ---
S Progress Note Note: PATIENT C/O CONSTIPATION AND NO BM X 4 DAYS. DENIES FEVER, NAUSEA AND VOMITING. PATIENT ALERT AND ORIENTED X 3. IN NAD. ABD NT,ND. EXT FULL ROM. A/P CONSTIPATION. WILL ORDER FLEETS ENEMA AK X ONE PATIENT STATES METAMUCIL AND DULCOLAX INEFFECTIVE. ENCOURAGE ORAL FLUIDS. CONTINUE TO MONITOR CLINICALLY.
[2018-04-25] MEDS: THIAMINE HCL 100 MG TABLET (FP) PO SCH (21:55)
[2018-04-25] MEDS: traZODone HCL 100 MG TABLET (FP) PO SCH (21:55)
[2018-04-26] MEDS: METHADONE HCL 40 MG DISPERSABLE TABLET PO SCH (06:00)
[2018-04-26] MEDS: risperiDONE 1 MG TABLET (FP) PO SCH ×2 (09:38→21:51)
[2018-04-26] MEDS: PRENATAL VITAMINS W/ FOLIC ACID TABLET (FP) PO SCH (09:38)
[2018-04-26] MEDS: IBUPROFEN 400 MG TABLET (FP) PO PRN ×2 (09:38→21:53)
[2018-04-26] MEDS: HYDROCORTISONE 2.5% TOPICAL CREAM 30 GM TUBE PR SCH (09:40)
[2018-04-26] MEDS: MINERAL OIL/PETROLAT/WATER TOPICAL CREAM 113 GM JAR TP SCH ×2 (09:41→22:07)
[2018-04-26] MEDS: PSYLLIUM 5.85 GM PACKET PO SCH ×2 (09:41→21:51)
[2018-04-26] MEDS ORDERED: PT OWN MED DRAWER 7, Y5N ONE (09:41)
[2018-04-26] MEDS: BENZTROPINE MESYLATE 1 MG TABLET (FP) PO SCH ×2 (09:41→21:51)
[2018-04-26] MEDS: traZODone HCL 100 MG TABLET (FP) PO SCH (21:50)
[2018-04-26] MEDS: THIAMINE HCL 100 MG TABLET (FP) PO SCH (21:51)
[2018-04-26] MEDS: BISACODYL 5 MG TABLET.DR (FP) PO PRN (21:53)
[2018-04-26] MEDS: MELATONIN 5 MG TABLETS PO PRN (21:53)
[2018-04-27] MEDS: METHADONE HCL 40 MG DISPERSABLE TABLET PO SCH (06:05)
[2018-04-27] MEDS: PRENATAL VITAMINS W/ FOLIC ACID TABLET (FP) PO SCH (10:06)
[2018-04-27] MEDS: risperiDONE 1 MG TABLET (FP) PO SCH ×2 (10:06→21:19)
[2018-04-27] MEDS: IBUPROFEN 400 MG TABLET (FP) PO PRN ×2 (10:06→21:20)
[2018-04-27] MEDS: BISACODYL 5 MG TABLET.DR (FP) PO PRN (10:06)
[2018-04-27] MEDS: PSYLLIUM 5.85 GM PACKET PO SCH ×2 (10:08→21:21)
[2018-04-27] MEDS: HYDROCORTISONE 2.5% TOPICAL CREAM 30 GM TUBE PR SCH (10:08)
[2018-04-27] MEDS: MINERAL OIL/PETROLAT/WATER TOPICAL CREAM 113 GM JAR TP SCH ×2 (10:08→21:22)
[2018-04-27] MEDS: BENZTROPINE MESYLATE 1 MG TABLET (FP) PO SCH ×2 (10:08→21:19)
[2018-04-27] MEDS ORDERED: PT OWN MED DRAWER 7, Y5N ONE (19:57)
[2018-04-27] MEDS: traZODone HCL 100 MG TABLET (FP) PO SCH (21:18)
[2018-04-27] MEDS: THIAMINE HCL 100 MG TABLET (FP) PO SCH (21:19)
[2018-04-28] MEDS: METHADONE HCL 40 MG DISPERSABLE TABLET PO SCH (06:04)
[2018-04-28] MEDS ORDERED: PT OWN MED DRAWER 7, Y5N ONE ×2 (08:24→19:46)
[2018-04-28] MEDS: IBUPROFEN 400 MG TABLET (FP) PO PRN ×2 (09:49→21:26)
[2018-04-28] MEDS: BENZTROPINE MESYLATE 1 MG TABLET (FP) PO SCH ×2 (09:50→21:24)
[2018-04-28] MEDS: PRENATAL VITAMINS W/ FOLIC ACID TABLET (FP) PO SCH (09:50)
[2018-04-28] MEDS: HYDROCORTISONE 2.5% TOPICAL CREAM 30 GM TUBE PR SCH (09:51)
[2018-04-28] MEDS: MINERAL OIL/PETROLAT/WATER TOPICAL CREAM 113 GM JAR TP SCH ×2 (09:52→22:04)
[2018-04-28] MEDS: PSYLLIUM 5.85 GM PACKET PO SCH ×2 (09:53→21:25)
[2018-04-28] MEDS: risperiDONE 1 MG TABLET (FP) PO SCH ×2 (09:53→21:25)
[2018-04-28] MEDS: BISACODYL 5 MG TABLET.DR (FP) PO PRN (09:54)
--- NOTE | 2018-04-28 14:56 | PN ---
S Progress Note Note: Vital Signs Temperature 97.5 F L 04/28/18 06:55 Pulse Rate 74 04/28/18 06:55 Respiratory Rate 18 04/28/18 06:55 Blood Pressure 122/80 04/28/18 06:55 O2 Sat by Pulse Oximetry (%) tinea pedis tinactin cream BIP skin hyguine continue to monitor
[2018-04-28] MEDS: traZODone HCL 100 MG TABLET (FP) PO SCH (21:24)
[2018-04-28] MEDS: THIAMINE HCL 100 MG TABLET (FP) PO SCH (21:25)
[2018-04-28] MEDS: TOLNAFTATE 1% CREAM 15 GM TUBE TP SCH (21:25)
[2018-04-29] MEDS: METHADONE HCL 40 MG DISPERSABLE TABLET PO SCH (06:05)
[2018-04-29] MEDS: risperiDONE 1 MG TABLET (FP) PO SCH ×2 (09:43→21:15)
[2018-04-29] MEDS: IBUPROFEN 400 MG TABLET (FP) PO PRN ×2 (09:43→21:16)
[2018-04-29] MEDS: PSYLLIUM 5.85 GM PACKET PO SCH ×2 (09:43→21:17)
[2018-04-29] MEDS: BISACODYL 5 MG TABLET.DR (FP) PO PRN (09:43)
[2018-04-29] MEDS: TOLNAFTATE 1% CREAM 15 GM TUBE TP SCH ×2 (09:43→22:41)
[2018-04-29] MEDS: PRENATAL VITAMINS W/ FOLIC ACID TABLET (FP) PO SCH (09:43)
[2018-04-29] MEDS: MINERAL OIL/PETROLAT/WATER TOPICAL CREAM 113 GM JAR TP SCH ×2 (09:44→22:40)
[2018-04-29] MEDS: HYDROCORTISONE 2.5% TOPICAL CREAM 30 GM TUBE PR SCH (09:45)
[2018-04-29] MEDS: BENZTROPINE MESYLATE 1 MG TABLET (FP) PO SCH ×2 (10:21→21:15)
[2018-04-29] MEDS: ACETAMINOPHEN 325 MG TABLET (FP) PO PRN (14:41)
[2018-04-29] MEDS: traZODone HCL 100 MG TABLET (FP) PO SCH (21:15)
[2018-04-29] MEDS: THIAMINE HCL 100 MG TABLET (FP) PO SCH (21:16)
[2018-04-30] MEDS: METHADONE HCL 40 MG DISPERSABLE TABLET PO SCH (05:57)
[2018-04-30] MEDS: hydrOXYzine PAMOATE 50 MG CAPSULE (FP) PO PRN (05:58)
[2018-04-30] MEDS: PSYLLIUM 5.85 GM PACKET PO SCH ×2 (09:33→21:55)
[2018-04-30] MEDS: PRENATAL VITAMINS W/ FOLIC ACID TABLET (FP) PO SCH (09:33)
[2018-04-30] MEDS: risperiDONE 1 MG TABLET (FP) PO SCH ×2 (09:33→21:54)
[2018-04-30] MEDS: BISACODYL 5 MG TABLET.DR (FP) PO PRN (09:33)
[2018-04-30] MEDS: BENZTROPINE MESYLATE 1 MG TABLET (FP) PO SCH ×2 (09:34→21:54)
[2018-04-30] MEDS: MINERAL OIL/PETROLAT/WATER TOPICAL CREAM 113 GM JAR TP SCH ×2 (09:34→21:54)
[2018-04-30] MEDS: HYDROCORTISONE 2.5% TOPICAL CREAM 30 GM TUBE PR SCH (09:36)
[2018-04-30] MEDS ORDERED: PT OWN MED DRAWER 7, Y5N ONE (09:37)
[2018-04-30] MEDS: TOLNAFTATE 1% CREAM 15 GM TUBE TP SCH ×2 (09:51→21:55)
[2018-04-30] MEDS: traZODone HCL 100 MG TABLET (FP) PO SCH (21:54)
[2018-04-30] MEDS: THIAMINE HCL 100 MG TABLET (FP) PO SCH (21:54)
[2018-04-30] MEDS: IBUPROFEN 400 MG TABLET (FP) PO PRN (21:55)
[2018-05-01] MEDS: METHADONE HCL 40 MG DISPERSABLE TABLET PO SCH (06:01)
[2018-05-01] MEDS: PSYLLIUM 5.85 GM PACKET PO SCH ×2 (09:28→21:54)
[2018-05-01] MEDS: PRENATAL VITAMINS W/ FOLIC ACID TABLET (FP) PO SCH (09:28)
[2018-05-01] MEDS: risperiDONE 1 MG TABLET (FP) PO SCH ×2 (09:29→21:51)
[2018-05-01] MEDS: BENZTROPINE MESYLATE 1 MG TABLET (FP) PO SCH ×2 (09:29→21:54)
[2018-05-01] MEDS: HYDROCORTISONE 2.5% TOPICAL CREAM 30 GM TUBE PR SCH (09:30)
[2018-05-01] MEDS: TOLNAFTATE 1% CREAM 15 GM TUBE TP SCH ×2 (09:31→21:54)
[2018-05-01] MEDS: MINERAL OIL/PETROLAT/WATER TOPICAL CREAM 113 GM JAR TP SCH ×2 (09:31→21:54)
[2018-05-01] MEDS ORDERED: PT OWN MED DRAWER 7, Y5N ONE (09:32)
[2018-05-01] MEDS: THIAMINE HCL 100 MG TABLET (FP) PO SCH (21:51)
[2018-05-01] MEDS: traZODone HCL 100 MG TABLET (FP) PO SCH (21:53)
[2018-05-01] MEDS: IBUPROFEN 400 MG TABLET (FP) PO PRN (21:53)
[2018-05-02] MEDS: hydrOXYzine PAMOATE 50 MG CAPSULE (FP) PO PRN ×2 (06:06→21:17)
[2018-05-02] MEDS: METHADONE HCL 40 MG DISPERSABLE TABLET PO SCH (06:06)
[2018-05-02] MEDS: MINERAL OIL/PETROLAT/WATER TOPICAL CREAM 113 GM JAR TP SCH ×2 (09:28→21:30)
[2018-05-02] MEDS: PRENATAL VITAMINS W/ FOLIC ACID TABLET (FP) PO SCH (09:28)
[2018-05-02] MEDS: BISACODYL 5 MG TABLET.DR (FP) PO PRN (09:28)
[2018-05-02] MEDS: PSYLLIUM 5.85 GM PACKET PO SCH ×2 (09:28→21:30)
[2018-05-02] MEDS: risperiDONE 1 MG TABLET (FP) PO SCH ×2 (09:28→21:15)
[2018-05-02] MEDS: IBUPROFEN 400 MG TABLET (FP) PO PRN (09:29)
[2018-05-02] MEDS: BENZTROPINE MESYLATE 1 MG TABLET (FP) PO SCH ×2 (09:29→21:15)
[2018-05-02] MEDS: HYDROCORTISONE 2.5% TOPICAL CREAM 30 GM TUBE PR SCH (09:29)
[2018-05-02] MEDS: TOLNAFTATE 1% CREAM 15 GM TUBE TP SCH ×2 (09:31→22:25)
[2018-05-02] MEDS: ALBUTEROL SO4 8 GM HFA INHALER IH PRN (09:31)
[2018-05-02] MEDS: traZODone HCL 100 MG TABLET (FP) PO SCH (21:15)
[2018-05-02] MEDS: THIAMINE HCL 100 MG TABLET (FP) PO SCH (21:16)
[2018-05-03] MEDS: METHADONE HCL 40 MG DISPERSABLE TABLET PO SCH (06:06)
[2018-05-03] MEDS: ACETAMINOPHEN 325 MG TABLET (FP) PO PRN (06:46)
[2018-05-03] MEDS ORDERED: PT OWN MED DRAWER 7, Y5N ONE ×2 (08:32→19:48)
[2018-05-03] MEDS: BENZTROPINE MESYLATE 1 MG TABLET (FP) PO SCH ×2 (09:18→21:28)
[2018-05-03] MEDS: MINERAL OIL/PETROLAT/WATER TOPICAL CREAM 113 GM JAR TP SCH ×2 (09:18→21:28)
[2018-05-03] MEDS: PSYLLIUM 5.85 GM PACKET PO SCH ×2 (09:18→21:27)
[2018-05-03] MEDS: PRENATAL VITAMINS W/ FOLIC ACID TABLET (FP) PO SCH (09:18)
[2018-05-03] MEDS: TOLNAFTATE 1% CREAM 15 GM TUBE TP SCH ×2 (09:18→21:27)
[2018-05-03] MEDS: risperiDONE 1 MG TABLET (FP) PO SCH ×2 (09:18→21:28)
[2018-05-03] MEDS: IBUPROFEN 400 MG TABLET (FP) PO PRN ×2 (09:19→21:29)
[2018-05-03] MEDS: ALBUTEROL SO4 8 GM HFA INHALER IH PRN (09:20)
[2018-05-03] MEDS: HYDROCORTISONE 2.5% TOPICAL CREAM 30 GM TUBE PR SCH (09:20)
[2018-05-03] MEDS: THIAMINE HCL 100 MG TABLET (FP) PO SCH (21:28)
[2018-05-03] MEDS: traZODone HCL 100 MG TABLET (FP) PO SCH (21:28)
[2018-05-03] MEDS: hydrOXYzine PAMOATE 50 MG CAPSULE (FP) PO PRN (21:30)
[2018-05-04] MEDS: METHADONE HCL 40 MG DISPERSABLE TABLET PO SCH (06:07)
[2018-05-04] MEDS: IBUPROFEN 400 MG TABLET (FP) PO PRN ×2 (06:08→21:18)
[2018-05-04] MEDS ORDERED: PT OWN MED DRAWER 7, Y5N ONE ×2 (08:34→11:00)
[2018-05-04] MEDS: BENZTROPINE MESYLATE 1 MG TABLET (FP) PO SCH ×2 (09:45→21:16)
[2018-05-04] MEDS: HYDROCORTISONE 2.5% TOPICAL CREAM 30 GM TUBE PR SCH (09:45)
[2018-05-04] MEDS: PSYLLIUM 5.85 GM PACKET PO SCH ×2 (09:45→22:24)
[2018-05-04] MEDS: PRENATAL VITAMINS W/ FOLIC ACID TABLET (FP) PO SCH (09:45)
[2018-05-04] MEDS: risperiDONE 1 MG TABLET (FP) PO SCH ×2 (09:45→21:16)
[2018-05-04] MEDS: MINERAL OIL/PETROLAT/WATER TOPICAL CREAM 113 GM JAR TP SCH ×2 (09:46→22:24)
[2018-05-04] MEDS: TOLNAFTATE 1% CREAM 15 GM TUBE TP SCH ×2 (09:46→22:24)
[2018-05-04] MEDS: THIAMINE HCL 100 MG TABLET (FP) PO SCH (21:16)
[2018-05-04] MEDS: traZODone HCL 100 MG TABLET (FP) PO SCH (21:16)
[2018-05-05] MEDS: METHADONE HCL 40 MG DISPERSABLE TABLET PO SCH (06:17)
[2018-05-05 06:48] VITALS: BP 142/82; PULSE 74; TEMP 97.7
--- NOTE | 2018-05-05 08:59 | PN ---
Psychiatric Progress Note Vital Signs: Vital Signs Period Temp Pulse Resp BP Sys/Benz Pulse Ox Last 24 Hr 97.7 F 74 18-18 142/82 Date of Session: 05/05/18 Current Medications: Active Medications Generic Name Dose Route Start Last Admin Trade Name Freq PRN Reason Stop Dose Admin Acetaminophen 650 mg 04/16/18 12:48 05/03/18 06:46 Tylenol - PO 650 mg Q4H PRN Administration FEVER Al Hydroxide/Mg Hydroxide 30 ml 04/16/18 12:48 Mylanta Oral Suspension - PO Q6H PRN DYSPEPSIA Albuterol Sulfate 2 puff 04/16/18 12:49 05/03/18 09:20 Ventolin Hfa Inhaler - IH 2 puff Q4H PRN Administration SHORT OF BREATH/WHEEZING Benztropine Mesylate 0.5 mg 04/17/18 13:00 05/04/18 21:16 Cogentin - PO 0.5 mg BID RENEE Administration Bisacodyl 5 mg 04/16/18 12:52 05/02/18 09:28 Dulcolax - PO 5 mg DAILY PRN Administration CONSTIPATION Eucalyptus/Menthol/Phenol/Sorbitol 1 each 04/16/18 12:48 Cepastat Lozenge - MM Q4H PRN SORE THROAT Guaifenesin 10 ml 04/16/18 12:48 Robitussin Dm - PO Q6H PRN COUGH Hydrocortisone 1 applic 04/24/18 14:30 05/04/18 09:45 Anusol 2.5% Hc Cream - TN Not Given DAILY RENEE Hydroxyzine Pamoate 50 mg 04/16/18 12:48 05/03/18 21:30 Vistaril - PO 50 mg Q4H PRN Administration AGITATION Ibuprofen 400 mg 04/16/18 12:48 05/04/18 21:18 Motrin - PO 400 mg Q6H PRN Administration Pain Level 4-6 Loperamide HCl 4 mg 04/16/18 12:48 Imodium - PO Q6H PRN DIARRHEA Magnesium Citrate 300 ml 04/16/18 12:48 Citroma - PO Q48H PRN CONSTIPATION Magnesium Hydroxide 30 ml 04/16/18 12:48 04/25/18 11:56 Milk Of Magnesia - PO 30 ml DAILY PRN Administration CONSTIPATION Melatonin 5 mg 04/16/18 22:00 04/26/18 21:53 Melatonin PO 5 mg HS PRN Administration INSOMNIA Methadone HCl 160 mg 05/01/18 06:00 05/05/18 06:17 Dolophine - PO 05/07/18 05:59 160 mg DAILY@0600 RENEE Administration Multi-Ingredient Lotion 1 applic 04/21/18 22:00 05/04/18 22:24 Eucerin (Small Jar) - TP Not Given BID RENEE Nicotine Polacrilex 2 mg 04/16/18 12:48 Nicorette Gum - BUC Q2H PRN NICOTINE REPLACEMENT RX Multivit/Folic Acid/Iron 1 tab 04/17/18 10:00 05/04/18 09:45 Vitamins (Sjr) - PO 1 tab DAILY RENEE Administration Pseudoephedrine/Triprolidine 1 combo 04/16/18 12:48 Actifed - PO TID PRN NASAL CONGESTION Psyllium Hydrophilic Mucilloid 5.85 gm 04/16/18 22:00 05/04/18 22:24 Metamucil (Sugar-Free) - PO Not Given BID RENEE Risperidone 1 mg 04/17/18 13:00 05/04/18 21:16 Risperdal - PO 1 mg BID RENEE Administration Thiamine HCl 100 mg 04/16/18 22:00 05/04/18 21:16 Vitamin B1 - PO 100 mg HS RENEE Administration Tolnaftate 1 applic 04/28/18 22:00 05/04/18 22:24 Tinactin 1% Cream - TP Not Given BID RENEE Trazodone HCl 200 mg 04/16/18 22:00 05/04/18 21:16 Desyrel - PO 200 mg HS RENEE Administration Provider note:: Trazodone 200 mg po hs,Risperdal 1 mg po bid,Cogentin 1 mg po bid.Ramirez OPD Total face to face time:: 30 Psychiatric Treatment Plan - Problem List (1) Cocaine dependence Current Visit: Yes (2) Substance induced mood disorder Current Visit: Yes (3) Alcohol dependence Current Visit: No (4) Cannabis dependence, uncomplicated Current Visit: No
[2018-05-05] MEDS: PRENATAL VITAMINS W/ FOLIC ACID TABLET (FP) PO SCH (09:06)
[2018-05-05] MEDS: BENZTROPINE MESYLATE 1 MG TABLET (FP) PO SCH (09:06)
[2018-05-05] MEDS: HYDROCORTISONE 2.5% TOPICAL CREAM 30 GM TUBE PR SCH (09:09)
[2018-05-05] MEDS: TOLNAFTATE 1% CREAM 15 GM TUBE TP SCH (09:09)
[2018-05-05] MEDS: risperiDONE 1 MG TABLET (FP) PO SCH (09:09)
[2018-05-05] MEDS: PSYLLIUM 5.85 GM PACKET PO SCH (09:09)
[2018-05-05] MEDS: MINERAL OIL/PETROLAT/WATER TOPICAL CREAM 113 GM JAR TP SCH (09:09)
== END 2018-05-05 09:20 | disposition home or self-care (01) | DRG 772 ==
LOC: YASAS 11:00 → Y3W 11:01
PROVIDERS: ADMIT Psychiatry & Neurology Psychiatry; ATTEND Psychiatry & Neurology Psychiatry
PROC: HZ42ZZZ Group Counseling for Substance Abuse Treatment, Cognitive-Behavioral (ICD-10-PCS; principal; 2018-04-16)
DX: F10.20 Alcohol dependence, uncomplicated (principal); F11.20 Opioid dependence, uncomplicated; F14.20 Cocaine dependence, uncomplicated; F12.20 Cannabis dependence, uncomplicated; F13.20 Sedative, hypnotic or anxiolytic dependence, uncomplicated; F17.210 Nicotine dependence, cigarettes, uncomplicated; F19.24 Other psychoactive substance dependence with psychoactive substance-induced mood disorder; F19.282 Other psychoactive substance dependence with psychoactive substance-induced sleep disorder; F25.9 Schizoaffective disorder, unspecified; Z21 Asymptomatic human immunodeficiency virus [HIV] infection status; B18.2 Chronic viral hepatitis C; B35.3 Tinea pedis; K59.00 Constipation, unspecified; K64.8 Other hemorrhoids; J45.998 Other asthma; Z86.69 Personal history of other diseases of the nervous system and sense organs
CPT/HCPCS: J2794

== ENCOUNTER 2018-06-11 14:53 | Inpatient (IN) | payer OTHER ==
[2018-06-11 15:14] VITALS: BMI 27.1
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
[2018-06-11] MEDS ORDERED: ALBUTEROL SO4 8 GM HFA INHALER IH PRN (17:19)
[2018-06-11] MEDS ORDERED: NICOTINE POLACRILEX 2 MG GUM BC PRN (17:21)
[2018-06-11] MEDS ORDERED: guaiFENesin/D-METHORPHAN HB 10 ML UNIT-DOSE CUPS PO PRN (17:21)
[2018-06-11] MEDS ORDERED: MAG HYDROX/AL HYDROX/SIMETH 30 ML UNIT-DOSE CUP PO PRN (17:21)
[2018-06-11] MEDS ORDERED: MAGNESIUM CITRATE 300 ML BOTTLE PO PRN (17:21)
[2018-06-11] MEDS ORDERED: MAGNESIUM HYDROX 2400MG/30ML ORAL SUSPENSION 30 ML CUP PO PRN (17:21)
[2018-06-11] MEDS ORDERED: LOPERAMIDE HCL 2 MG CAPSULE PO PRN (17:21)
[2018-06-11] MEDS ORDERED: MENTHOL/PHENOL 1 EACH UD MM PRN (17:21)
[2018-06-11] MEDS ORDERED: chlordiazePOXIDE HCL 25 MG CAPSULE PO PRN (17:21)
[2018-06-11] MEDS ORDERED: P-EPHED 60MG/TRIPROLIDI 2.5MG TABLET PO PRN (17:21)
[2018-06-11] MEDS ORDERED: ACETAMINOPHEN 325 MG TABLET (FP) PO PRN (17:21)
[2018-06-11] MEDS ORDERED: ALBUTEROL SO4 0.083% IH SOL 2.5 MG/3 ML VIAL.NEB. NEB PRN (17:53)
[2018-06-11] MEDS ORDERED: chlordiazePOXIDE HCL 25 MG CAPSULE PO ONE (18:00)
[2018-06-11] MEDS ORDERED: MELATONIN 5 MG TABLETS PO PRN (22:00)
[2018-06-11] MEDS: chlordiazePOXIDE HCL 25 MG CAPSULE PO SCH (22:35)
[2018-06-11] MEDS: THIAMINE HCL 100 MG TABLET (FP) PO SCH (22:35)
[2018-06-11] MEDS: IBUPROFEN 400 MG TABLET (FP) PO PRN (22:36)
[2018-06-11 23:12] LABS: URINE APPEARANCE TURBID; URINE COLOR YELLOW; URINE GLUCOSE (UA) NEGATIVE (NEGATIVE); URINE KETONE NEGATIVE (NEGATIVE); URINE LEUK ESTERASE TRACE (NEGATIVE); URINE NITRITE NEGATIVE (NEGATIVE); URINE PROTEIN 1+ (NEGATIVE); URINE UROBILINOGEN 4.0 E.U/dl mg/dL (0.2-1.0)
[2018-06-11 23:17] LABS: EPI CELLS RARE /HPF (FEW); URINE MUCUS MANY
[2018-06-12] MEDS: chlordiazePOXIDE HCL 25 MG CAPSULE PO SCH ×4 (05:26→22:48)
[2018-06-12] MEDS ORDERED: METHADONE HCL 10 MG TABLET PO SCH (07:30)
[2018-06-12] MEDS ORDERED: METHADONE HCL 10 MG TABLET ONE (07:57)
[2018-06-12] MEDS ORDERED: METHADONE HCL 40 MG DISPERSABLE TABLET ONE (07:57)
[2018-06-12] MEDS: METHADONE 160 MG, METHADONE 10 MG PO SCH (07:58)
[2018-06-12 09:59] LABS: HEMATOCRIT 39.1 % (35.4-49); HEMOGLOBIN 12.8 GM/dL (11.7-16.9); MCH 27.8 pg (25.7-33.7); MCHC 32.8 g/dl (32.0-35.9); MEAN CELL VOLUME 84.7 fl (80-96); MEAN PLT VOLUME 8.4 fl (7.5-11.1); PLATELET COUNT 192 K/MM3 (134-434); RBC 4.62 M/mm3 (4.00-5.60); RDW 14.4 % (11.9-15.9)
[2018-06-12] MEDS: PRENATAL VITAMINS W/ FOLIC ACID TABLET (FP) PO SCH (10:16)
[2018-06-12] MEDS: NICOTINE 14 MG/24 HOURS TOPICAL PATCH TD SCH (10:16)
[2018-06-12] MEDS: IBUPROFEN 400 MG TABLET (FP) PO PRN ×2 (10:17→17:23)
[2018-06-12 10:30] LABS: ALBUMIN 3.1 g/dl (3.4-5.0); ALK PHOS 98 U/L (45-117); ANION GAP 5 MMOL/L (8-16); BILIRUBIN,TOTAL 0.3 mg/dL (0.2-1); BLOOD UREA NITROGEN 15 mg/dL (7-18); CHLORIDE 104 mmol/L (98-107); CO2 32 mmol/L (21-32); CREATININE 0.9 mg/dL (0.55-1.3); GLUCOSE,RANDOM 103 mg/dL (74-106); POTASSIUM 4.4 mmol/L (3.5-5.1); SGOT/AST 35 U/L (15-37); SGPT/ALT 38 U/L (13-61); SODIUM 141 mmol/L (136-145); TOT PROT 7.2 g/dl (6.4-8.2)
--- NOTE | 2018-06-12 11:26 | PN ---
S CIWA - CIWA Score Nausea/Vomitin Muscle Tremors: 2 Anxiety: 2 Agitation: 2 Paroxysmal Sweats: No Perspiration Orientation: 0-Oriented Tacttile Disturbances: 0-None Auditory Disturbances: 0-None Visual Disturbances: 0-None Headache: 3-Moderate CIWA-Ar Total Score: 12 BHS Progress Note (SOAP) Subjective: PATIENT C/O SHAKES, ANXIETY/DIFFICULTY TO SIT STILL AND DIARRHEA. Objective: 06/12/18 11:24 Laboratory Tests 06/11/18 06/12/18 06/12/18 Unknown 07:00 07:00 WBC 4.0 RBC 4.62 Hgb 12.8 Hct 39.1 MCV 84.7 MCH 27.8 MCHC 32.8 RDW 14.4 Plt Count 192 D MPV 8.4 Sodium 141 Potassium 4.4 Chloride 104 Carbon Dioxide 32 Anion Gap 5 L BUN 15 Creatinine 0.9 Creat Clearance w eGFR > 60 Random Glucose 103 Calcium 9.0 Total Bilirubin 0.3 AST 35 ALT 38 Alkaline Phosphatase 98 Total Protein 7.2 Albumin 3.1 L Urine Color Yellow Urine Appearance Turbid Urine pH 5.0 Ur Specific [place] 1.028 Urine Protein 1+ H Urine Glucose (UA) Negative Urine Ketones Negative Urine Blood Negative Urine Nitrite Negative Urine Bilirubin 2.0 Urine Urobilinogen 4.0 e.u/dl Ur Leukocyte Esterase Trace Urine WBC (Auto) None Urine RBC (Auto) None Ur Epithelial Cells Rare Urine Mucus Many Vital Signs Temperature 97.7 F 06/12/18 10:17 Pulse Rate 52 L 06/12/18 10:17 Respiratory Rate 18 06/12/18 10:17 Blood Pressure 118/75 06/12/18 10:17 O2 Sat by Pulse Oximetry (%) PE; SKIN WARM AND DRY ALERT AND ORIENTED CAR S1S2 RESP CTA BL, + DRY COUGH GI SOFT, BS+, NT,ND PSYCH +ANXIETY Assessment: 06/12/18 11:25 WITHDRAWAL SYNDROME Plan: CONTINUE DETOX ORDERED ENCOURAGE ORAL FLUIDS CONTINUE TO MONITOR CLINICALLY
[2018-06-12] MEDS ORDERED: FLU VACCINE QUAD 60 MCG/0.5 ML (MDV 18-19) IM ONE (12:00)
--- NOTE | 2018-06-12 14:45 | CONSULT ---
[facility] Psychiatric Consult - Data Date of interview: 06/12/18 Admission source: [facility] Identifying data: Patient is a 47 year old male, , domiciled, without children and supported by [employer]. This is one of multiple admissions for patient. Patient admitted to for alcohol, benzodiazepine, and cocaine dependence. Substance Abuse History: Smoking Cessation. Smoking history: Current every day smoker. Have you smoked in the past 12 months: Yes. Aproximately how many cigarettes per day: 3. Cigars Per Day: 0. Hx Chewing Tobacco Use: No. Initiated information on smoking cessation: Yes. 'Breaking Loose' booklet given : 06/11/18. - Substance & Tx. History. Hx Alcohol Use: Yes. Hx Substance Use : Yes. Substance Use Type: Alcohol, Tranquilizers. Hx Substance Use Treatment : Yes ([facility] detox and rehab 04/12/19 -05/05/18). - Substances Abused. Cocaine. Route: Injection. Frequency: Daily. Amount used: $40. Age of first use: 32. Date of Last Use: 06/10/18. Heroin. Route: Injection. Frequency : Daily. Amount used: 3 bags. Age of first use: 17. Date of Last Use: . Alcohol-vodka/beer. Route: Oral. Frequency: Daily. Amount used: 2 pts./3-6 pks. Age of first use: 17. Date of Last Use: 06/11/18. Xanax. Route: Oral. Frequency: Daily. Amount used: 8 mg. Age of first use: 44. Date of Last Use: 06/10/18 Medical History: Hep C, HIV Psychiatric History: Patient reports one psychiatric hospitalization at [facility] in 2017 for depression. Claims to have a diagnosis of schizophrenia, bipolar type. He reports h/o of outpatient department but states he is nonadherent to treatment. States the medications have not worked which is why he stops taking them. Patient has multiple admissions to [facility], most recently in April of 2018. He was prescribed risperdal 1mg BID + Trazoodone 100mg + Cogentin 0.5mg. After discharge from rehab patient reports discontinuing medication. As per chart patient has also been admitted to [facility] (2004) for auditory hallucinations, delusions, irritability and mood swings in addition to being tried on various agents notably Risperdal, Olanzapine, Quetiapine, Trazodone. Currently, patient denies feeling depressed but did reports poor sleep and mild auditory hallucinations last night of voices telling him to stop. Pt. denies endorsing command auditory hallucinations. Patient is currently enrolled at the [facility]done program. He is on methadone maintenance of 170mg daily. Patient denies h/o suicide attempt. Physical/Sexual Abuse/Trauma History: denies. Mental Status Exam - Mental Status Exam Alert and Oriented to: Time, Place, Person Cognitive Function: Good Patient Appearance: Well Groomed Mood: Euthymic Affect: Mood Congruent Patient Behavior: Fatigued, Cooperative Speech Pattern: Appropriate Voice Loudness: Normal Thought Process: Intact, Goal Oriented Hallucinations: Denies Suicidal Ideation: Denies Homicidal Ideation: Denies Insight/Judgement: Poor Sleep: Fair Appetite: Fair Muscle strength/Tone: Normal Gait/Station: Normal Psychiatric Findings - Problem List ([place] 1, 2,3) (1) Alcohol dependence with uncomplicated withdrawal Current Visit: Yes Status: Acute (2) Cocaine dependence, uncomplicated Current Visit: Yes Status: Acute (3) Sedative, hypnotic or anxiolytic dependence with withdrawal, uncomplicated Current Visit: Yes Status: Acute (4) Opioid dependence on agonist therapy Current Visit: Yes Status: Chronic Comment: MMTP: [facility] [phone] on methadone maintenance 170 mgs/day last medicated today. (5) Substance-induced sleep disorder Current Visit: Yes Status: Acute (6) Schizoaffective disorder Current Visit: Yes Status: Chronic - Initial Treatment Plan Initial Treatment Plan: Psychoeducation provided. Detoxification in progress. Will restart risperdal 1mg BID + Trazodone 50mg + Cogentin 0.5mg. Benefits and side effects discussed. Verbal consent given.
--- NOTE | 2018-06-12 22:19 | EKG ---
Test Reason : Blood Pressure : / mmHG Vent. Rate : 057 BPM Atrial Rate : 057 BPM P-R Int : 124 ms QRS Dur : 080 ms QT Int : 384 ms P-R-T Axes : 016 075 045 degrees QTc Int : 373 ms SINUS BRADYCARDIA NONSPECIFIC ST AND T WAVE ABNORMALITY ABNORMAL ECG WHEN COMPARED WITH ECG OF 12-APR-2018 19:57, QT HAS SHORTENED Confirmed by SERGO COTA MD ([id number]) on 06/12/2018 10:19:35 PM Referred By: Confirmed By:SERGO COTA MD
[2018-06-12] MEDS: THIAMINE HCL 100 MG TABLET (FP) PO SCH (22:48)
[2018-06-12] MEDS: BENZTROPINE MESYLATE 1 MG TABLET (FP) PO SCH (22:48)
[2018-06-12] MEDS: risperiDONE 1 MG TABLET (FP) PO SCH (22:48)
[2018-06-12] MEDS: traZODone HCL 50 MG TABLET (FP) PO SCH (22:48)
[2018-06-13] MEDS ORDERED: METHADONE HCL 10 MG TABLET ONE (04:20)
[2018-06-13] MEDS ORDERED: METHADONE HCL 40 MG DISPERSABLE TABLET ONE (04:21)
[2018-06-13] MEDS: chlordiazePOXIDE HCL 25 MG CAPSULE PO SCH ×3 (05:22→17:28)
[2018-06-13] MEDS: METHADONE 160 MG, METHADONE 10 MG PO SCH (05:23)
[2018-06-13] MEDS: BENZTROPINE MESYLATE 1 MG TABLET (FP) PO SCH ×2 (10:08→22:34)
[2018-06-13] MEDS: risperiDONE 1 MG TABLET (FP) PO SCH ×2 (10:08→22:34)
[2018-06-13] MEDS: NICOTINE 14 MG/24 HOURS TOPICAL PATCH TD SCH (10:09)
[2018-06-13] MEDS: PRENATAL VITAMINS W/ FOLIC ACID TABLET (FP) PO SCH (10:09)
[2018-06-13] MEDS: IBUPROFEN 400 MG TABLET (FP) PO PRN ×2 (10:11→17:30)
--- NOTE | 2018-06-13 12:46 | PN ---
[facility] CIWA - CIWA Score Nausea/Vomitin-Mild Nausea/No Vomiting Muscle Tremors: 3 Anxiety: 3 Agitation: 1-Slight > Activity Paroxysmal Sweats: 2 Orientation: 0-Oriented Tacttile Disturbances: 0-None Auditory Disturbances: 0-None Visual Disturbances: 0-None Headache: 1-Very Mild CIWA-Ar Total Score: 11 S Progress Note (SOAP) Subjective: Tremor, chills, sweating Objective: 06/13/18 12:44 Last Vital Signs Temp Pulse Resp BP Pulse Ox 97.4 F L 67 20 111/79 06/13/18 10:01 06/13/18 10:01 06/13/18 10:01 06/13/18 10:01 Laboratory Tests 06/11/18 06/12/18 06/12/18 Unknown 07:00 07:00 WBC 4.0 RBC 4.62 Hgb 12.8 Hct 39.1 MCV 84.7 MCH 27.8 MCHC 32.8 RDW 14.4 Plt Count 192 D MPV 8.4 Sodium 141 Potassium 4.4 Chloride 104 Carbon Dioxide 32 Anion Gap 5 L BUN 15 Creatinine 0.9 Creat Clearance w eGFR > 60 Random Glucose 103 Calcium 9.0 Total Bilirubin 0.3 AST 35 ALT 38 Alkaline Phosphatase 98 Total Protein 7.2 Albumin 3.1 L Urine Color Yellow Urine Appearance Turbid Urine pH 5.0 Ur Specific [place] 1.028 Urine Protein 1+ H Urine Glucose (UA) Negative Urine Ketones Negative Urine Blood Negative Urine Nitrite Negative Urine Bilirubin 2.0 Urine Urobilinogen 4.0 e.u/dl Ur Leukocyte Esterase Trace Urine WBC (Auto) None Urine RBC (Auto) None Ur Epithelial Cells Rare Urine Mucus Many RPR Titer 06/12/18 07:00 WBC RBC Hgb Hct MCV MCH MCHC RDW Plt Count MPV Sodium Potassium Chloride Carbon Dioxide Anion Gap BUN Creatinine Creat Clearance w eGFR Random Glucose Calcium Total Bilirubin AST ALT Alkaline Phosphatase Total Protein Albumin Urine Color Urine Appearance Urine pH Ur Specific [place] Urine Protein Urine Glucose (UA) Urine Ketones Urine Blood Urine Nitrite Urine Bilirubin Urine Urobilinogen Ur Leukocyte Esterase Urine WBC (Auto) Urine RBC (Auto) Ur Epithelial Cells Urine Mucus RPR Titer Nonreactive Labs reviewed: UA shows 1+ protein Assessment: 06/13/18 12:45 Withdrawal sxs Noted with proteinuria Plan: Continue detox Proteinuria: encouraged PO water intake, repeat UA
[2018-06-13] MEDS: THIAMINE HCL 100 MG TABLET (FP) PO SCH (22:33)
[2018-06-13] MEDS: chlordiazePOXIDE 5 MG CAPSULE PO SCH (22:34)
[2018-06-13] MEDS: traZODone HCL 50 MG TABLET (FP) PO SCH (22:34)
[2018-06-14] MEDS ORDERED: METHADONE HCL 10 MG TABLET ONE (03:35)
[2018-06-14] MEDS ORDERED: METHADONE HCL 40 MG DISPERSABLE TABLET ONE (03:36)
[2018-06-14] MEDS: METHADONE 160 MG, METHADONE 10 MG PO SCH (05:46)
[2018-06-14] MEDS: chlordiazePOXIDE 5 MG CAPSULE PO SCH ×3 (05:46→17:51)
[2018-06-14 10:18] LABS: URINE APPEARANCE CLEAR; URINE BILIRUBIN NEGATIVE (<2.0 mg/dL); URINE COLOR STRAW; URINE GLUCOSE (UA) NEGATIVE (NEGATIVE); URINE KETONE NEGATIVE (NEGATIVE); URINE LEUK ESTERASE NEGATIVE (NEGATIVE); URINE NITRITE NEGATIVE (NEGATIVE); URINE PROTEIN NEGATIVE (NEGATIVE); URINE UROBILINOGEN NEGATIVE mg/dL (0.2-1.0)
[2018-06-14] MEDS: BENZTROPINE MESYLATE 1 MG TABLET (FP) PO SCH ×2 (10:25→22:36)
[2018-06-14] MEDS: risperiDONE 1 MG TABLET (FP) PO SCH ×2 (10:26→22:35)
[2018-06-14] MEDS: PRENATAL VITAMINS W/ FOLIC ACID TABLET (FP) PO SCH (10:26)
[2018-06-14] MEDS: NICOTINE 14 MG/24 HOURS TOPICAL PATCH TD SCH (10:28)
--- NOTE | 2018-06-14 12:27 | PN ---
[facility] Progress Note Note: Vital Signs Temperature 96.9 F L 06/14/18 09:21 Pulse Rate 50 L 06/14/18 09:21 Respiratory Rate 18 06/14/18 09:21 Blood Pressure 142/88 06/14/18 09:21 O2 Sat by Pulse Oximetry (%) Patient medically stable. Reports he will follow up with [facility] tomorrow in AM and requested to leave today. Patient may be discharge after completing Cindy 15 mg dose. Increase POP fluids continue to monitor
--- NOTE | 2018-06-14 12:40 | PN ---
[facility] Progress Note Note: Vital Signs Temperature 96.9 F L 06/14/18 09:21 Pulse Rate 50 L 06/14/18 09:21 Respiratory Rate 18 06/14/18 09:21 Blood Pressure 142/88 06/14/18 09:21 O2 Sat by Pulse Oximetry (%) Laboratory Last Values WBC 4.0 K/mm3 (4.0-10.0) 06/12/18 07:00 RBC 4.62 M/mm3 (4.00-5.60) 06/12/18 07:00 Hgb 12.8 GM/dL (11.7-16.9) 06/12/18 07:00 Hct 39.1 % (35.4-49) 06/12/18 07:00 MCV 84.7 fl (80-96) 06/12/18 07:00 MCH 27.8 pg (25.7-33.7) 06/12/18 07:00 MCHC 32.8 g/dl (32.0-35.9) 06/12/18 07:00 RDW 14.4 % (11.9-15.9) 06/12/18 07:00 Plt Count 192 K/MM3 (134-434) D 06/12/18 07:00 MPV 8.4 fl (7.5-11.1) 06/12/18 07:00 Sodium 141 mmol/L (136-145) 06/12/18 07:00 Potassium 4.4 mmol/L (3.5-5.1) 06/12/18 07:00 Chloride 104 mmol/L (98-107) 06/12/18 07:00 Carbon Dioxide 32 mmol/L (21-32) 06/12/18 07:00 Anion Gap 5 MMOL/L (8-16) L 06/12/18 07:00 BUN 15 mg/dL (7-18) 06/12/18 07:00 Creatinine 0.9 mg/dL (0.55-1.3) 06/12/18 07:00 Creat Clearance w eGFR > 60 (>60) 06/12/18 07:00 Random Glucose 103 mg/dL (74-106) 06/12/18 07:00 Calcium 9.0 mg/dL (8.5-10.1) 06/12/18 07:00 Total Bilirubin 0.3 mg/dL (0.2-1) 06/12/18 07:00 AST 35 U/L (15-37) 06/12/18 07:00 ALT 38 U/L (13-61) 06/12/18 07:00 Alkaline Phosphatase 98 U/L (45-117) 06/12/18 07:00 Total Protein 7.2 g/dl (6.4-8.2) 06/12/18 07:00 Albumin 3.1 g/dl (3.4-5.0) L 06/12/18 07:00 Urine Color Straw 06/14/18 08:30 Urine Appearance Clear 06/14/18 08:30 Urine pH 6.0 (5.0-8.0) 06/14/18 08:30 Ur Specific [place] 1.012 (1.010-1.035) 06/14/18 08:30 Urine Protein Negative (NEGATIVE) 06/14/18 08:30 Urine Glucose (UA) Negative (NEGATIVE) 06/14/18 08:30 Urine Ketones Negative (NEGATIVE) 06/14/18 08:30 Urine Blood Negative (NEGATIVE) 06/14/18 08:30 Urine Nitrite Negative (NEGATIVE) 06/14/18 08:30 Urine Bilirubin Negative (<2.0 mg/dL) 06/14/18 08:30 Urine Urobilinogen Negative mg/dL (0.2-1.0) 06/14/18 08:30 Ur Leukocyte Esterase Negative (NEGATIVE) 06/14/18 08:30 Urine WBC (Auto) None /hpf (3-5) 06/11/18 Unknown Urine RBC (Auto) None /hpf (0-3) 06/11/18 Unknown Ur Epithelial Cells Rare /HPF (FEW) 06/11/18 Unknown Urine Mucus Many 06/11/18 Unknown RPR Titer Nonreactive (NONREACTIVE) 06/12/18 07:00 c/o interrupted sleep and chronic back pain Patient Aox3 no distress No adventitious breath sounds full ROM ambulating in the unit withdrawal sx increase PO fluids continue detox continue to monitor
--- NOTE | 2018-06-14 13:24 | PN ---
[facility] Progress Note Note: Vital Signs Temperature 96.9 F L 06/14/18 09:21 Pulse Rate 50 L 06/14/18 09:21 Respiratory Rate 18 06/14/18 09:21 Blood Pressure 142/88 06/14/18 09:21 O2 Sat by Pulse Oximetry (%) Patient decided to leave tomorrow AM as originally planned. d/c updated to in AM.
[2018-06-14] MEDS: THIAMINE HCL 100 MG TABLET (FP) PO SCH (22:35)
[2018-06-14] MEDS: chlordiazePOXIDE HCL 10 MG CAPSULE PO SCH (22:35)
[2018-06-14] MEDS: traZODone HCL 50 MG TABLET (FP) PO SCH (22:36)
[2018-06-15] MEDS ORDERED: METHADONE HCL 40 MG DISPERSABLE TABLET ONE (03:34)
[2018-06-15] MEDS ORDERED: METHADONE HCL 10 MG TABLET ONE (03:34)
[2018-06-15] MEDS: METHADONE 160 MG, METHADONE 10 MG PO SCH (05:48)
[2018-06-15] MEDS: chlordiazePOXIDE HCL 10 MG CAPSULE PO SCH (05:48)
[2018-06-15 06:15] VITALS: BP 137/93; PULSE 70; TEMP 97.1
== END 2018-06-15 06:30 | disposition home or self-care (01) | DRG 773 ==
LOC: YASAS 14:53 → Y3N 17:32
PROC: HZ2ZZZZ Detoxification Services for Substance Abuse Treatment (ICD-10-PCS; principal; 2018-06-11)
DX: F10.230 Alcohol dependence with withdrawal, uncomplicated (principal); F13.230 Sedative, hypnotic or anxiolytic dependence with withdrawal, uncomplicated; F14.20 Cocaine dependence, uncomplicated; F11.20 Opioid dependence, uncomplicated; F31.9 Bipolar disorder, unspecified; F19.282 Other psychoactive substance dependence with psychoactive substance-induced sleep disorder; F25.9 Schizoaffective disorder, unspecified; F99 Mental disorder, not otherwise specified; Z21 Asymptomatic human immunodeficiency virus [HIV] infection status; J45.909 Unspecified asthma, uncomplicated; K59.00 Constipation, unspecified; B18.2 Chronic viral hepatitis C; R80.9 Proteinuria, unspecified; R63.4 Abnormal weight loss; Z68.27 Body mass index [BMI] 27.0-27.9, adult
CPT/HCPCS: 36415; 80053; 81003; 81015; 85027; 86593; 93005; 93010; J2794

== ENCOUNTER 2018-08-07 11:20 | Inpatient (IN) | payer OTHER ==
[2018-08-07 11:53] VITALS: BMI 25.2
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
[2018-08-07] MEDS ORDERED: hydrOXYzine PAMOATE 50 MG CAPSULE (FP) PO PRN (13:04)
[2018-08-07] MEDS ORDERED: MAGNESIUM CITRATE 300 ML BOTTLE PO PRN (13:04)
[2018-08-07] MEDS ORDERED: MAG HYDROX/AL HYDROX/SIMETH 30 ML UNIT-DOSE CUP PO PRN (13:04)
[2018-08-07] MEDS ORDERED: P-EPHED 60MG/TRIPROLIDI 2.5MG TABLET PO PRN (13:04)
[2018-08-07] MEDS ORDERED: guaiFENesin/D-METHORPHAN HB 10 ML UNIT-DOSE CUPS PO PRN (13:04)
[2018-08-07] MEDS ORDERED: ACETAMINOPHEN 325 MG TABLET (FP) PO PRN (13:04)
[2018-08-07] MEDS ORDERED: MENTHOL/PHENOL 1 EACH UD MM PRN (13:04)
[2018-08-07] MEDS ORDERED: MAGNESIUM HYDROX 2400MG/30ML ORAL SUSPENSION 30 ML CUP PO PRN (13:04)
[2018-08-07] MEDS ORDERED: NICOTINE POLACRILEX 2 MG GUM BUC PRN (13:04)
[2018-08-07] MEDS ORDERED: LOPERAMIDE HCL 2 MG CAPSULE PO PRN (13:04)
[2018-08-07] MEDS ORDERED: ALBUTEROL SO4 8 GM HFA INHALER IH PRN (13:06)
[2018-08-07] MEDS ORDERED: diazePAM 5 MG TABLET PO PRN (13:08)
[2018-08-07] MEDS ORDERED: diazePAM 5 MG TABLET PO ONE (14:00)
[2018-08-07] MEDS: diazePAM 5 MG TABLET PO SCH ×2 (15:03→23:00)
--- NOTE | 2018-08-07 15:28 | EKG ---
Test Reason : Blood Pressure : / mmHG Vent. Rate : 070 BPM Atrial Rate : 070 BPM P-R Int : 118 ms QRS Dur : 090 ms QT Int : 404 ms P-R-T Axes : 019 072 042 degrees QTc Int : 436 ms NORMAL SINUS RHYTHM NONSPECIFIC T WAVE ABNORMALITY ABNORMAL ECG WHEN COMPARED WITH ECG OF 11-JUN-2018 18:28, QT HAS LENGTHENED Confirmed by TONY FRIAS MD ([id number]) on 08/07/2018 3:28:26 PM Referred By: Confirmed By:TONY FRIAS MD
[2018-08-07 18:45] LABS: URINE APPEARANCE CLEAR; URINE BILIRUBIN NEGATIVE (<2.0 mg/dL); URINE COLOR AMBER; URINE GLUCOSE (UA) NEGATIVE (NEGATIVE); URINE KETONE TRACE (NEGATIVE); URINE LEUK ESTERASE NEGATIVE (NEGATIVE); URINE NITRITE NEGATIVE (NEGATIVE); URINE PROTEIN 1+ (NEGATIVE); URINE UROBILINOGEN 4.0 E.U/dl mg/dL (0.2-1.0)
[2018-08-07 19:04] LABS: CALCIUM OXALATE CRYSTALS FEW /hpf (NONE SEEN); EPI CELLS RARE /HPF (FEW); URINE BACTERIA RARE /hpf (NONE SEEN); URINE MUCUS MANY
[2018-08-07] MEDS ORDERED: MELATONIN 5 MG TABLETS PO PRN (22:00)
[2018-08-07] MEDS: THIAMINE HCL 100 MG TABLET (FP) PO SCH (23:00)
[2018-08-08] MEDS: diazePAM 5 MG TABLET PO SCH ×3 (05:43→22:35)
[2018-08-08] MEDS ORDERED: METHADONE HCL 10 MG TABLET PO ONE (10:01)
[2018-08-08] MEDS ORDERED: METHADONE 160 MG, METHADONE 10 MG PO ONE (10:15)
[2018-08-08] MEDS ORDERED: METHADONE HCL 10 MG TABLET ONE (10:21)
[2018-08-08] MEDS ORDERED: METHADONE HCL 40 MG DISPERSABLE TABLET ONE (10:21)
[2018-08-08] MEDS: NICOTINE 7 MG/24 HOURS TOPICAL PATCH TD SCH (10:22)
[2018-08-08] MEDS: PRENATAL VITAMINS W/ FOLIC ACID TABLET (FP) PO SCH (10:22)
[2018-08-08 10:26] LABS: HEMATOCRIT 36.5 % (35.4-49); HEMOGLOBIN 12.8 GM/dL (11.7-16.9); MCH 28.7 pg (25.7-33.7); MCHC 35.1 g/dl (32.0-35.9); MEAN CELL VOLUME 81.9 fl (80-96); MEAN PLT VOLUME 9.8 fl (7.5-11.1); PLATELET COUNT 188 K/MM3 (134-434); RBC 4.45 M/mm3 (4.00-5.60); RDW 14.6 % (11.9-15.9); WHITE BLOOD COUNT 5.3 K/mm3 (4.0-10.0)
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
--- NOTE | 2018-08-08 10:45 | PN ---
S CIWA - CIWA Score Nausea/Vomitin-No Nausea/No Vomiting Muscle Tremors: 4-Moderate,w/Arms Extend Anxiety: 3 Agitation: 4-Moderately Restless Paroxysmal Sweats: 3 Orientation: 0-Oriented Tacttile Disturbances: 0-None Auditory Disturbances: 0-None Visual Disturbances: 0-None Headache: 0-None Present CIWA-Ar Total Score: 14 B[facility] Progress Note (SOAP) Subjective: anxiety sweats irritable anxious interrupted sleep Objective: 08/08/18 10:44 Vital Signs Temperature 97.9 F 08/08/18 10:02 Pulse Rate 68 08/08/18 10:02 Respiratory Rate 18 08/08/18 10:02 Blood Pressure 132/68 08/08/18 10:02 O2 Sat by Pulse Oximetry (%) Laboratory Tests 08/07/18 08/08/18 17:30 05:55 WBC 5.3 RBC 4.45 Hgb 12.8 Hct 36.5 MCV 81.9 MCH 28.7 MCHC 35.1 RDW 14.6 Plt Count 188 MPV 9.8 D Urine Color Kiki Urine Appearance Clear Urine pH 5.0 Ur Specific [place] 1.030 Urine Protein 1+ H Urine Glucose (UA) Negative Urine Ketones Trace H Urine Blood Negative Urine Nitrite Negative Urine Bilirubin Negative Urine Urobilinogen 4.0 e.u/dl Ur Leukocyte Esterase Negative Urine WBC (Auto) 1 Urine RBC (Auto) None Ur Epithelial Cells Rare Calcium Oxalate Crystal Few Urine Bacteria Rare Urine Mucus Many rest of labs pending aaox3 ambulating no acute distress Assessment: 08/08/18 10:45 withdrawal sx Plan: continue detox increase fluids f/u pending labs
[2018-08-08 10:56] LABS: ALBUMIN 3.6 g/dl (3.4-5.0); ALK PHOS 93 U/L (45-117); ANION GAP 9 MMOL/L (8-16); BILIRUBIN,TOTAL 0.4 mg/dL (0.2-1); BLOOD UREA NITROGEN 17 mg/dL (7-18); CALCIUM 8.7 mg/dL (8.5-10.1); CHLORIDE 104 mmol/L (98-107); CO2 26 mmol/L (21-32); GLUCOSE,RANDOM 80 mg/dL (74-106); POTASSIUM 3.8 mmol/L (3.5-5.1); SGOT/AST 25 U/L (15-37); SGPT/ALT 32 U/L (13-61); SODIUM 138 mmol/L (136-145); TOT PROT 8.4 g/dl (6.4-8.2)
[2018-08-08] MEDS ORDERED: FLU VACCINE QUAD 60 MCG/0.5 ML (MDV 18-19) IM ONE (12:00)
[2018-08-08] MEDS ORDERED: PNEUMOC 13-VAL CONJ-DIP CRM/PF 0.5 ML DISP.SYRIN IM ONE (12:00)
[2018-08-08] MEDS: IBUPROFEN 400 MG TABLET (FP) PO PRN (15:18)
[2018-08-08] MEDS: traZODone HCL 50 MG TABLET (FP) PO SCH (22:35)
[2018-08-08] MEDS: BENZTROPINE MESYLATE 1 MG TABLET (FP) PO SCH (22:35)
[2018-08-08] MEDS: risperiDONE 1 MG TABLET (FP) PO SCH (22:35)
[2018-08-08] MEDS: THIAMINE HCL 100 MG TABLET (FP) PO SCH (23:40)
[2018-08-09] MEDS ORDERED: METHADONE HCL 40 MG DISPERSABLE TABLET ONE (04:50)
[2018-08-09] MEDS ORDERED: METHADONE HCL 10 MG TABLET ONE (04:50)
[2018-08-09] MEDS: METHADONE 160 MG, METHADONE 10 MG PO SCH (05:08)
[2018-08-09] MEDS ORDERED: METHADONE HCL 40 MG DISPERSABLE TABLET PO SCH (06:00)
[2018-08-09] MEDS: NICOTINE 7 MG/24 HOURS TOPICAL PATCH TD SCH (10:28)
[2018-08-09] MEDS: diazePAM 5 MG TABLET PO SCH ×2 (10:29→22:19)
[2018-08-09] MEDS: BENZTROPINE MESYLATE 1 MG TABLET (FP) PO SCH ×2 (10:29→22:19)
[2018-08-09] MEDS: PRENATAL VITAMINS W/ FOLIC ACID TABLET (FP) PO SCH (10:29)
[2018-08-09] MEDS: risperiDONE 1 MG TABLET (FP) PO SCH ×2 (10:29→22:19)
--- NOTE | 2018-08-09 13:50 | PN ---
S CIWA - CIWA Score Nausea/Vomitin Muscle Tremors: 3 Anxiety: 2 Agitation: 2 Paroxysmal Sweats: 3 Orientation: 0-Oriented Tacttile Disturbances: 0-None Auditory Disturbances: 0-None Visual Disturbances: 0-None Headache: 0-None Present CIWA-Ar Total Score: 12 BHS Progress Note (SOAP) Subjective: sweats itchy shakes Objective: 08/09/18 13:47 in bed A & O x 3 Vital Signs Temperature 98.1 F 08/09/18 10:39 Pulse Rate 85 08/09/18 10:39 Respiratory Rate 18 08/09/18 10:39 Blood Pressure 144/91 08/09/18 10:39 O2 Sat by Pulse Oximetry (%) Laboratory Last Values WBC 5.3 K/mm3 (4.0-10.0) 08/08/18 05:55 RBC 4.45 M/mm3 (4.00-5.60) 08/08/18 05:55 Hgb 12.8 GM/dL (11.7-16.9) 08/08/18 05:55 Hct 36.5 % (35.4-49) 08/08/18 05:55 MCV 81.9 fl (80-96) 08/08/18 05:55 MCH 28.7 pg (25.7-33.7) 08/08/18 05:55 MCHC 35.1 g/dl (32.0-35.9) 08/08/18 05:55 RDW 14.6 % (11.9-15.9) 08/08/18 05:55 Plt Count 188 K/MM3 (134-434) 08/08/18 05:55 MPV 9.8 fl (7.5-11.1) D 08/08/18 05:55 Sodium 138 mmol/L (136-145) 08/08/18 05:55 Potassium 3.8 mmol/L (3.5-5.1) 08/08/18 05:55 Chloride 104 mmol/L (98-107) 08/08/18 05:55 Carbon Dioxide 26 mmol/L (21-32) 08/08/18 05:55 Anion Gap 9 MMOL/L (8-16) 08/08/18 05:55 BUN 17 mg/dL (7-18) 08/08/18 05:55 Creatinine 1.0 mg/dL (0.55-1.3) 08/08/18 05:55 Creat Clearance w eGFR > 60 (>60) 08/08/18 05:55 Random Glucose 80 mg/dL (74-106) 08/08/18 05:55 Calcium 8.7 mg/dL (8.5-10.1) 08/08/18 05:55 Total Bilirubin 0.4 mg/dL (0.2-1) 08/08/18 05:55 AST 25 U/L (15-37) 08/08/18 05:55 ALT 32 U/L (13-61) 08/08/18 05:55 Alkaline Phosphatase 93 U/L (45-117) 08/08/18 05:55 Total Protein 8.4 g/dl (6.4-8.2) H 08/08/18 05:55 Albumin 3.6 g/dl (3.4-5.0) 08/08/18 05:55 Urine Color Kiki 08/07/18 17:30 Urine Appearance Clear 08/07/18 17:30 Urine pH 5.0 (5.0-8.0) 08/07/18 17:30 Ur Specific [place] 1.030 (1.010-1.035) 08/07/18 17:30 Urine Protein 1+ (NEGATIVE) H 08/07/18 17:30 Urine Glucose (UA) Negative (NEGATIVE) 08/07/18 17:30 Urine Ketones Trace (NEGATIVE) H 08/07/18 17:30 Urine Blood Negative (NEGATIVE) 08/07/18 17:30 Urine Nitrite Negative (NEGATIVE) 08/07/18 17:30 Urine Bilirubin Negative (<2.0 mg/dL) 08/07/18 17:30 Urine Urobilinogen 4.0 e.u/dl mg/dL (0.2-1.0) 08/07/18 17:30 Ur Leukocyte Esterase Negative (NEGATIVE) 08/07/18 17:30 Urine WBC (Auto) 1 /hpf (3-5) 08/07/18 17:30 Urine RBC (Auto) None /hpf (0-3) 08/07/18 17:30 Ur Epithelial Cells Rare /HPF (FEW) 08/07/18 17:30 Calcium Oxalate Crystal Few /hpf (NONE SEEN) 08/07/18 17:30 Urine Bacteria Rare /hpf (NONE SEEN) 08/07/18 17:30 Urine Mucus Many 08/07/18 17:30 RPR Titer Nonreactive (NONREACTIVE) 08/08/18 05:55 labs noted abnormal urine results Assessment: 08/09/18 13:49 withdrawal sx Plan: continue detox continue increased hydration repeat ua in a.m
[2018-08-09] MEDS: THIAMINE HCL 100 MG TABLET (FP) PO SCH (22:17)
[2018-08-09] MEDS: traZODone HCL 50 MG TABLET (FP) PO SCH (22:18)
[2018-08-09] MEDS: IBUPROFEN 400 MG TABLET (FP) PO PRN (22:18)
[2018-08-10] MEDS ORDERED: METHADONE HCL 10 MG TABLET ONE (04:05)
[2018-08-10] MEDS ORDERED: METHADONE HCL 40 MG DISPERSABLE TABLET ONE (04:05)
[2018-08-10] MEDS: METHADONE 160 MG, METHADONE 10 MG PO SCH (05:37)
[2018-08-10] MEDS: BENZTROPINE MESYLATE 1 MG TABLET (FP) PO SCH ×2 (10:02→22:28)
[2018-08-10] MEDS: PRENATAL VITAMINS W/ FOLIC ACID TABLET (FP) PO SCH (10:02)
[2018-08-10] MEDS: NICOTINE 7 MG/24 HOURS TOPICAL PATCH TD SCH (10:02)
[2018-08-10] MEDS: risperiDONE 1 MG TABLET (FP) PO SCH ×2 (10:02→22:27)
[2018-08-10] MEDS: diazePAM 5 MG TABLET PO SCH ×2 (10:02→22:27)
[2018-08-10 11:01] LABS: URINE APPEARANCE CLEAR; URINE BILIRUBIN NEGATIVE (<2.0 mg/dL); URINE COLOR STRAW; URINE GLUCOSE (UA) NEGATIVE (NEGATIVE); URINE KETONE NEGATIVE (NEGATIVE); URINE LEUK ESTERASE NEGATIVE (NEGATIVE); URINE NITRITE NEGATIVE (NEGATIVE); URINE PROTEIN NEGATIVE (NEGATIVE); URINE UROBILINOGEN NEGATIVE mg/dL (0.2-1.0)
--- NOTE | 2018-08-10 14:32 | PN ---
B[facility] Progress Note (SOAP) Subjective: feeling better no tremor less sweat irritable about leaving detox unit tomorrow hiv + treated with odefsey encourage the patient to bring in ART medication from home while in detox and rehab Objective: 08/10/18 14:31 Vital Signs Temperature 96.3 F L 08/10/18 14:08 Pulse Rate 75 08/10/18 14:08 Respiratory Rate 18 08/10/18 14:08 Blood Pressure 123/87 08/10/18 14:08 O2 Sat by Pulse Oximetry (%) Laboratory Last Values WBC 5.3 K/mm3 (4.0-10.0) 08/08/18 05:55 RBC 4.45 M/mm3 (4.00-5.60) 08/08/18 05:55 Hgb 12.8 GM/dL (11.7-16.9) 08/08/18 05:55 Hct 36.5 % (35.4-49) 08/08/18 05:55 MCV 81.9 fl (80-96) 08/08/18 05:55 MCH 28.7 pg (25.7-33.7) 08/08/18 05:55 MCHC 35.1 g/dl (32.0-35.9) 08/08/18 05:55 RDW 14.6 % (11.9-15.9) 08/08/18 05:55 Plt Count 188 K/MM3 (134-434) 08/08/18 05:55 MPV 9.8 fl (7.5-11.1) D 08/08/18 05:55 Sodium 138 mmol/L (136-145) 08/08/18 05:55 Potassium 3.8 mmol/L (3.5-5.1) 08/08/18 05:55 Chloride 104 mmol/L (98-107) 08/08/18 05:55 Carbon Dioxide 26 mmol/L (21-32) 08/08/18 05:55 Anion Gap 9 MMOL/L (8-16) 08/08/18 05:55 BUN 17 mg/dL (7-18) 08/08/18 05:55 Creatinine 1.0 mg/dL (0.55-1.3) 08/08/18 05:55 Creat Clearance w eGFR > 60 (>60) 08/08/18 05:55 Random Glucose 80 mg/dL (74-106) 08/08/18 05:55 Calcium 8.7 mg/dL (8.5-10.1) 08/08/18 05:55 Total Bilirubin 0.4 mg/dL (0.2-1) 08/08/18 05:55 AST 25 U/L (15-37) 08/08/18 05:55 ALT 32 U/L (13-61) 08/08/18 05:55 Alkaline Phosphatase 93 U/L (45-117) 08/08/18 05:55 Total Protein 8.4 g/dl (6.4-8.2) H 08/08/18 05:55 Albumin 3.6 g/dl (3.4-5.0) 08/08/18 05:55 Urine Color Straw 08/10/18 07:10 Urine Appearance Clear 08/10/18 07:10 Urine pH 6.0 (5.0-8.0) 08/10/18 07:10 Ur Specific [place] 1.005 (1.010-1.035) L 08/10/18 07:10 Urine Protein Negative (NEGATIVE) 08/10/18 07:10 Urine Glucose (UA) Negative (NEGATIVE) 08/10/18 07:10 Urine Ketones Negative (NEGATIVE) 08/10/18 07:10 Urine Blood Negative (NEGATIVE) 08/10/18 07:10 Urine Nitrite Negative (NEGATIVE) 08/10/18 07:10 Urine Bilirubin Negative (<2.0 mg/dL) 08/10/18 07:10 Urine Urobilinogen Negative mg/dL (0.2-1.0) 08/10/18 07:10 Ur Leukocyte Esterase Negative (NEGATIVE) 08/10/18 07:10 Urine WBC (Auto) 1 /hpf (3-5) 08/07/18 17:30 Urine RBC (Auto) None /hpf (0-3) 08/07/18 17:30 Ur Epithelial Cells Rare /HPF (FEW) 08/07/18 17:30 Calcium Oxalate Crystal Few /hpf (NONE SEEN) 08/07/18 17:30 Urine Bacteria Rare /hpf (NONE SEEN) 08/07/18 17:30 Urine Mucus Many 08/07/18 17:30 RPR Titer Nonreactive (NONREACTIVE) 08/08/18 05:55 lab noted Assessment: 08/10/18 14:36 withdrawal sx Plan: continue detox encourage to bring in own HIV medication
[2018-08-10] MEDS: traZODone HCL 50 MG TABLET (FP) PO SCH (22:27)
[2018-08-10] MEDS: THIAMINE HCL 100 MG TABLET (FP) PO SCH (22:27)
[2018-08-11] MEDS ORDERED: METHADONE HCL 10 MG TABLET ONE (05:02)
[2018-08-11] MEDS ORDERED: METHADONE HCL 40 MG DISPERSABLE TABLET ONE (05:02)
[2018-08-11] MEDS: METHADONE 160 MG, METHADONE 10 MG PO SCH (05:26)
--- NOTE | 2018-08-11 08:35 | DS ---
[facility] Detox Discharge Summary Admission Date: 08/07/18 Discharge Date: 08/11/18 - History Present History: Alcohol Dependence, Cannabis Dependence - Physical Exam Results Vital Signs: Vital Signs Temperature 99.1 F 08/11/18 08:04 Pulse Rate 63 08/11/18 08:04 Respiratory Rate 18 08/11/18 08:04 Blood Pressure 138/78 08/11/18 08:04 O2 Sat by Pulse Oximetry (%) - Treatment Hospital Course: Detox Protocol Followed, Detoxed Safely, Responded well, Discharged Condition Good, Rehab Referral Accepted - Medication Discharge Medications: Ambulatory Orders Benztropine Mesylate [Cogentin -] 0.5 mg PO BID #60 tablet 05/05/18 Risperidone [Risperdal -] 1 mg PO BID #60 tablet 05/05/18 traZODone HCL [Desyrel -] 200 mg PO HS #60 tablet 05/05/18 Albuterol Sulfate Inhaler - [Ventolin HFA Inhaler -] 2 puff IH Q4H PRN #1 inhaler 08/10/18 Emtricitab/Rilpiviri/Tenof Ala [Odefsey Tablet] 1 each PO DAILY 08/10/18 - Diagnosis (1) Alcohol dependence with uncomplicated withdrawal Current Visit: Yes Status: Chronic (2) Sedative, hypnotic or anxiolytic dependence with withdrawal, uncomplicated Current Visit: Yes Status: Chronic (3) Anxiety and depression Current Visit: Yes Status: Chronic (4) Cocaine dependence Current Visit: Yes Status: Chronic Qualifiers: Substance use status: uncomplicated Qualified Code(s): F14.20 - Cocaine dependence, uncomplicated (5) HIV (human immunodeficiency virus infection) Current Visit: Yes Status: Chronic (6) Hepatitis C Current Visit: Yes Status: Chronic Qualifiers: Viral hepatitis chronicity: chronic (7) Nicotine dependence Current Visit: Yes Status: Chronic Qualifiers: Nicotine product type: cigarettes Substance use status: uncomplicated Qualified Code(s): F17.210 - Nicotine dependence, cigarettes, uncomplicated (8) Opioid dependence on agonist therapy Current Visit: Yes Status: Chronic (9) Substance induced mood disorder Current Visit: Yes Status: Chronic (10) Substance-induced sleep disorder Current Visit: No Status: Acute (11) Substance-induced sleep disorder Current Visit: No Status: Chronic (12) Asthma Current Visit: No Status: Chronic Qualifiers: Asthma severity: mild Asthma persistence: unspecified Asthma complication type: uncomplicated Qualified Code(s): J45.909 - Unspecified asthma, uncomplicated (13) Back pain Current Visit: No Status: Chronic Qualifiers: Chronicity: chronic Sciatica presence: unspecified whether sciatica present (14) Cannabis dependence, uncomplicated Current Visit: Yes Status: Chronic (15) Methadone maintenance therapy patient Current Visit: Yes Status: Chronic (16) Schizo-affective schizophrenia Current Visit: No Status: Chronic (17) Schizophrenia Current Visit: No Status: Chronic (18) Substance induced mood disorder Current Visit: No Status: Chronic - AMA Did Patient Leave Against Medical Advice: No (referred to [facility])
[2018-08-11] MEDS: risperiDONE 1 MG TABLET (FP) PO SCH (09:05)
[2018-08-11] MEDS: BENZTROPINE MESYLATE 1 MG TABLET (FP) PO SCH (09:05)
[2018-08-11] MEDS: NICOTINE 7 MG/24 HOURS TOPICAL PATCH TD SCH (09:05)
[2018-08-11] MEDS: PRENATAL VITAMINS W/ FOLIC ACID TABLET (FP) PO SCH (09:05)
[2018-08-11 09:09] VITALS: TEMP 96.8
[2018-08-11] MEDS ORDERED: diazePAM 5 MG TABLET PO SCH (10:00)
[2018-08-11 13:52] VITALS: BP 109/62; PULSE 75
== END 2018-08-11 14:57 | disposition home or self-care (01) | DRG 773 ==
LOC: YASAS 11:20 → Y6N 13:20
PROC: HZ2ZZZZ Detoxification Services for Substance Abuse Treatment (ICD-10-PCS; principal; 2018-08-07)
DX: F10.230 Alcohol dependence with withdrawal, uncomplicated (principal); F13.230 Sedative, hypnotic or anxiolytic dependence with withdrawal, uncomplicated; F14.20 Cocaine dependence, uncomplicated; F12.20 Cannabis dependence, uncomplicated; F11.20 Opioid dependence, uncomplicated; F17.210 Nicotine dependence, cigarettes, uncomplicated; F19.24 Other psychoactive substance dependence with psychoactive substance-induced mood disorder; F19.282 Other psychoactive substance dependence with psychoactive substance-induced sleep disorder; F31.9 Bipolar disorder, unspecified; F41.8 Other specified anxiety disorders; F32.9 Major depressive disorder, single episode, unspecified; F20.9 Schizophrenia, unspecified; Z21 Asymptomatic human immunodeficiency virus [HIV] infection status; J45.909 Unspecified asthma, uncomplicated; M54.9 Dorsalgia, unspecified; B18.2 Chronic viral hepatitis C; G47.00 Insomnia, unspecified; Z91.19 Patient's noncompliance with other medical treatment and regimen
CPT/HCPCS: 36415; 80053; 81003; 81015; 85027; 86593; 90670; 90688; 93005; 93010; G0008; G0009; J2794

== ENCOUNTER 2018-08-11 15:12 | Inpatient (IN) | payer OTHER ==
[2018-08-11] MEDS ORDERED: MENTHOL/PHENOL 1 EACH UD MM PRN (19:01)
[2018-08-11] MEDS ORDERED: MAGNESIUM CITRATE 300 ML BOTTLE PO PRN (19:01)
[2018-08-11] MEDS ORDERED: P-EPHED 60MG/TRIPROLIDI 2.5MG TABLET PO PRN (19:01)
[2018-08-11] MEDS ORDERED: MAG HYDROX/AL HYDROX/SIMETH 30 ML UNIT-DOSE CUP PO PRN (19:01)
[2018-08-11] MEDS ORDERED: LOPERAMIDE HCL 2 MG CAPSULE PO PRN (19:01)
--- NOTE | 2018-08-11 19:24 | HP ---
[facility] Rehab Assess/Revision - Admission History Admitted to Rehab from: [facility] Date of Admission to Rehab: 08/11/18 - Vital signs Vital Signs: Vital Signs Period Temp Pulse Resp BP Sys/Benz Pulse Ox Last 24 Hr 98.7 F 92 18 122/67 - Findings Detox History & Physical reviewed: Yes Concur with findings: Yes (Completed detox for xanax use disorder) Comments/Additional Findings: PATIENT PMH INCLUDES ASTHMA, DEPRESSION/ANXIETY. HEP C (UNTREATED), HIV (NON-COMPLIANT WITH MEDS) AND INSOMNIA. DENIES SI/HI AND SUICIDE ATTEMPTS. Inpatient Rehab Admission - Initial Determination Are CD services needed?: Yes Free of communicable disease: Yes Not in need of hospitalization: Yes - Rehab Admission Criteria Previous failed treatment: Yes Poor recovery environment: Yes Comorbidities: Yes Lacks judgement: No Patient is meeting Inpatient Rehab admission criteria:: Yes
[2018-08-11] MEDS ORDERED: NICOTINE POLACRILEX 2 MG GUM BUC PRN (19:32)
[2018-08-11] MEDS: IBUPROFEN 400 MG TABLET (FP) PO PRN (21:32)
[2018-08-11] MEDS: THIAMINE HCL 100 MG TABLET (FP) PO SCH (21:32)
[2018-08-11] MEDS: MELATONIN 5 MG TABLETS PO PRN (21:33)
[2018-08-12] MEDS ORDERED: METHADONE HCL 10 MG TABLET PO SCH (06:00)
[2018-08-12] MEDS: MAGNESIUM HYDROX 2400MG/30ML ORAL SUSPENSION 30 ML CUP PO PRN (07:13)
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
[2018-08-12] MEDS ORDERED: METHADONE HCL 10 MG TABLET ONE (09:27)
[2018-08-12] MEDS ORDERED: METHADONE HCL 40 MG DISPERSABLE TABLET ONE (09:28)
[2018-08-12] MEDS: METHADONE 160 MG, METHADONE 10 MG PO SCH (09:28)
[2018-08-12] MEDS: PRENATAL VITAMINS W/ FOLIC ACID TABLET (FP) PO SCH (09:31)
[2018-08-12] MEDS: NICOTINE 7 MG/24 HOURS TOPICAL PATCH TD SCH (09:32)
--- NOTE | 2018-08-12 10:52 | PN ---
[facility] Progress Note Note: C/O DRY ITCHY SKIN AND HX OF HEMORRHOIDS AND REQUESTING SKIN CREAM AND HEMORRHOIDAL TX. PT NEWLY ADMITTED FROM [address] [place] [address] TO REHAB YESTERDAY. Vital Signs 08/12/18 08/12/18 03:25 06:45 Temperature 97.6 F Pulse Rate 84 Respiratory 18 18 Rate Blood Pressure 138/75 NAD PLAN:EUCERINE CREAM APPLY DAILY ANUSOL HC CREAM DIRECTED.
[2018-08-12] MEDS: risperiDONE 1 MG TABLET (FP) PO SCH ×2 (11:07→21:49)
[2018-08-12] MEDS: BENZTROPINE MESYLATE 1 MG TABLET (FP) PO SCH ×2 (11:07→21:50)
[2018-08-12] MEDS: MINERAL OIL/PETROLAT/WATER TOPICAL CREAM 113 GM JAR TP SCH (12:19)
[2018-08-12] MEDS: HYDROCORTISONE 2.5% TOPICAL CREAM 30 GM TUBE TP SCH ×2 (12:19→21:50)
[2018-08-12] MEDS: THIAMINE HCL 100 MG TABLET (FP) PO SCH (21:49)
[2018-08-12] MEDS: traZODone HCL 100 MG TABLET (FP) PO SCH (21:49)
[2018-08-12] MEDS: MELATONIN 5 MG TABLETS PO PRN (21:50)
[2018-08-13] MEDS ORDERED: METHADONE HCL 10 MG TABLET ONE (02:49)
[2018-08-13] MEDS ORDERED: METHADONE HCL 40 MG DISPERSABLE TABLET ONE (02:49)
[2018-08-13] MEDS: METHADONE 160 MG, METHADONE 10 MG PO SCH (06:00)
[2018-08-13] MEDS: NICOTINE 7 MG/24 HOURS TOPICAL PATCH TD SCH (10:51)
[2018-08-13] MEDS: risperiDONE 1 MG TABLET (FP) PO SCH ×2 (10:52→21:25)
[2018-08-13] MEDS: BENZTROPINE MESYLATE 1 MG TABLET (FP) PO SCH ×2 (10:52→21:25)
[2018-08-13] MEDS: MINERAL OIL/PETROLAT/WATER TOPICAL CREAM 113 GM JAR TP SCH (10:52)
[2018-08-13] MEDS: PRENATAL VITAMINS W/ FOLIC ACID TABLET (FP) PO SCH (10:52)
[2018-08-13] MEDS: HYDROCORTISONE 2.5% TOPICAL CREAM 30 GM TUBE TP SCH ×2 (10:54→21:25)
--- NOTE | 2018-08-13 11:01 | PN ---
S Progress Note Note: Requesting ensure- says was getting it in Detox- given for once a day
[2018-08-13] MEDS: traZODone HCL 100 MG TABLET (FP) PO SCH (21:24)
[2018-08-13] MEDS: THIAMINE HCL 100 MG TABLET (FP) PO SCH (21:24)
[2018-08-13] MEDS: MELATONIN 5 MG TABLETS PO PRN (21:25)
[2018-08-14] MEDS ORDERED: METHADONE HCL 10 MG TABLET ONE (04:48)
[2018-08-14] MEDS ORDERED: METHADONE HCL 40 MG DISPERSABLE TABLET ONE (04:49)
[2018-08-14] MEDS: METHADONE 160 MG, METHADONE 10 MG PO SCH (06:18)
[2018-08-14] MEDS: IBUPROFEN 400 MG TABLET (FP) PO PRN ×2 (06:19→21:23)
[2018-08-14] MEDS: HYDROCORTISONE 2.5% TOPICAL CREAM 30 GM TUBE TP SCH ×2 (10:14→21:25)
[2018-08-14] MEDS: MINERAL OIL/PETROLAT/WATER TOPICAL CREAM 113 GM JAR TP SCH (10:15)
[2018-08-14] MEDS: BENZTROPINE MESYLATE 1 MG TABLET (FP) PO SCH ×2 (10:15→21:23)
[2018-08-14] MEDS: PRENATAL VITAMINS W/ FOLIC ACID TABLET (FP) PO SCH (10:15)
[2018-08-14] MEDS: risperiDONE 1 MG TABLET (FP) PO SCH ×2 (10:16→21:23)
[2018-08-14] MEDS: NICOTINE 7 MG/24 HOURS TOPICAL PATCH TD SCH (10:16)
[2018-08-14] MEDS: MAGNESIUM HYDROX 2400MG/30ML ORAL SUSPENSION 30 ML CUP PO PRN (10:18)
[2018-08-14] MEDS: ACETAMINOPHEN 325 MG TABLET (FP) PO PRN (10:18)
[2018-08-14] MEDS: THIAMINE HCL 100 MG TABLET (FP) PO SCH (21:22)
[2018-08-14] MEDS: traZODone HCL 100 MG TABLET (FP) PO SCH (21:22)
[2018-08-14] MEDS: MELATONIN 5 MG TABLETS PO PRN (21:23)
[2018-08-14] MEDS ORDERED: ALBUTEROL SO4 8 GM HFA INHALER IH PRN (22:05)
[2018-08-15] MEDS ORDERED: METHADONE HCL 10 MG TABLET ONE (05:43)
[2018-08-15] MEDS ORDERED: METHADONE HCL 40 MG DISPERSABLE TABLET ONE (05:43)
[2018-08-15] MEDS: METHADONE 160 MG, METHADONE 10 MG PO SCH (05:56)
[2018-08-15] MEDS: HYDROCORTISONE 2.5% TOPICAL CREAM 30 GM TUBE TP SCH ×2 (10:25→22:14)
[2018-08-15] MEDS: BENZTROPINE MESYLATE 1 MG TABLET (FP) PO SCH ×2 (10:25→21:34)
[2018-08-15] MEDS: risperiDONE 1 MG TABLET (FP) PO SCH ×2 (10:25→21:34)
[2018-08-15] MEDS: MINERAL OIL/PETROLAT/WATER TOPICAL CREAM 113 GM JAR TP SCH (10:27)
[2018-08-15] MEDS: NICOTINE 7 MG/24 HOURS TOPICAL PATCH TD SCH (10:28)
[2018-08-15] MEDS: PRENATAL VITAMINS W/ FOLIC ACID TABLET (FP) PO SCH (11:02)
[2018-08-15] MEDS: HYDROCORTISONE 0.5% TOPICAL CREAM 30 GM TUBE TP PRN (17:41)
[2018-08-15] MEDS: guaiFENesin/D-METHORPHAN HB 10 ML UNIT-DOSE CUPS PO PRN (19:02)
[2018-08-15] MEDS: IBUPROFEN 400 MG TABLET (FP) PO PRN (21:34)
[2018-08-15] MEDS: traZODone HCL 100 MG TABLET (FP) PO SCH (21:34)
[2018-08-15] MEDS: MELATONIN 5 MG TABLETS PO PRN (21:34)
[2018-08-15] MEDS: THIAMINE HCL 100 MG TABLET (FP) PO SCH (21:34)
[2018-08-16] MEDS ORDERED: METHADONE HCL 10 MG TABLET ONE (04:06)
[2018-08-16] MEDS ORDERED: METHADONE HCL 40 MG DISPERSABLE TABLET ONE (04:07)
[2018-08-16] MEDS: METHADONE 160 MG, METHADONE 10 MG PO SCH (06:02)
[2018-08-16] MEDS: risperiDONE 1 MG TABLET (FP) PO SCH ×2 (09:48→21:54)
[2018-08-16] MEDS: BENZTROPINE MESYLATE 1 MG TABLET (FP) PO SCH ×2 (09:48→21:53)
[2018-08-16] MEDS: IBUPROFEN 400 MG TABLET (FP) PO PRN ×2 (09:49→21:57)
[2018-08-16] MEDS: PRENATAL VITAMINS W/ FOLIC ACID TABLET (FP) PO SCH (10:20)
[2018-08-16] MEDS: MINERAL OIL/PETROLAT/WATER TOPICAL CREAM 113 GM JAR TP SCH (10:56)
[2018-08-16] MEDS: HYDROCORTISONE 2.5% TOPICAL CREAM 30 GM TUBE TP SCH ×2 (10:57→22:40)
[2018-08-16] MEDS: NICOTINE 7 MG/24 HOURS TOPICAL PATCH TD SCH (10:58)
[2018-08-16] MEDS: THIAMINE HCL 100 MG TABLET (FP) PO SCH (21:53)
[2018-08-16] MEDS: traZODone HCL 100 MG TABLET (FP) PO SCH (21:53)
[2018-08-16] MEDS: MELATONIN 5 MG TABLETS PO PRN (21:57)
[2018-08-17] MEDS ORDERED: METHADONE HCL 10 MG TABLET ONE (03:27)
[2018-08-17] MEDS ORDERED: METHADONE HCL 40 MG DISPERSABLE TABLET ONE (03:27)
[2018-08-17] MEDS: METHADONE 160 MG, METHADONE 10 MG PO SCH (06:09)
[2018-08-17] MEDS: MINERAL OIL/PETROLAT/WATER TOPICAL CREAM 113 GM JAR TP SCH (10:15)
[2018-08-17] MEDS: PRENATAL VITAMINS W/ FOLIC ACID TABLET (FP) PO SCH (10:15)
[2018-08-17] MEDS: risperiDONE 1 MG TABLET (FP) PO SCH ×2 (10:15→22:16)
[2018-08-17] MEDS: HYDROCORTISONE 0.5% TOPICAL CREAM 30 GM TUBE TP PRN ×2 (10:15→22:14)
[2018-08-17] MEDS: IBUPROFEN 400 MG TABLET (FP) PO PRN (10:15)
[2018-08-17] MEDS: HYDROCORTISONE 2.5% TOPICAL CREAM 30 GM TUBE TP SCH ×2 (10:16→22:17)
[2018-08-17] MEDS: BENZTROPINE MESYLATE 1 MG TABLET (FP) PO SCH ×2 (10:16→22:13)
[2018-08-17] MEDS: NICOTINE 7 MG/24 HOURS TOPICAL PATCH TD SCH (10:16)
[2018-08-17] MEDS: THIAMINE HCL 100 MG TABLET (FP) PO SCH (22:11)
[2018-08-17] MEDS: MELATONIN 5 MG TABLETS PO PRN (22:13)
[2018-08-17] MEDS: traZODone HCL 100 MG TABLET (FP) PO SCH (22:13)
[2018-08-17] MEDS: ACETAMINOPHEN 325 MG TABLET (FP) PO PRN (22:14)
[2018-08-17] MEDS: MAGNESIUM HYDROX 2400MG/30ML ORAL SUSPENSION 30 ML CUP PO PRN (22:15)
[2018-08-18] MEDS ORDERED: METHADONE HCL 40 MG DISPERSABLE TABLET ONE (02:52)
[2018-08-18] MEDS ORDERED: METHADONE HCL 10 MG TABLET ONE (02:52)
[2018-08-18] MEDS: METHADONE 160 MG, METHADONE 10 MG PO SCH (06:11)
[2018-08-18] MEDS: risperiDONE 1 MG TABLET (FP) PO SCH ×2 (10:08→21:53)
[2018-08-18] MEDS: PRENATAL VITAMINS W/ FOLIC ACID TABLET (FP) PO SCH (10:09)
[2018-08-18] MEDS: NICOTINE 7 MG/24 HOURS TOPICAL PATCH TD SCH (10:09)
[2018-08-18] MEDS: MINERAL OIL/PETROLAT/WATER TOPICAL CREAM 113 GM JAR TP SCH (10:10)
[2018-08-18] MEDS: BENZTROPINE MESYLATE 1 MG TABLET (FP) PO SCH ×2 (10:10→21:54)
[2018-08-18] MEDS: IBUPROFEN 400 MG TABLET (FP) PO PRN (10:11)
[2018-08-18] MEDS: HYDROCORTISONE 2.5% TOPICAL CREAM 30 GM TUBE TP SCH ×2 (10:13→21:55)
[2018-08-18] MEDS ORDERED: PT OWN MED DRAWER 7, Y5N ONE (19:40)
[2018-08-18] MEDS: THIAMINE HCL 100 MG TABLET (FP) PO SCH (21:53)
[2018-08-18] MEDS: traZODone HCL 100 MG TABLET (FP) PO SCH (21:53)
[2018-08-19] MEDS: IBUPROFEN 400 MG TABLET (FP) PO PRN ×3 (00:30→21:36)
[2018-08-19] MEDS ORDERED: METHADONE HCL 10 MG TABLET ONE (04:12)
[2018-08-19] MEDS ORDERED: METHADONE HCL 40 MG DISPERSABLE TABLET ONE (04:12)
[2018-08-19] MEDS: METHADONE 160 MG, METHADONE 10 MG PO SCH (06:15)
[2018-08-19] MEDS: ACETAMINOPHEN 325 MG TABLET (FP) PO PRN (06:17)
[2018-08-19] MEDS: HYDROCORTISONE 2.5% TOPICAL CREAM 30 GM TUBE TP SCH ×2 (10:45→22:31)
[2018-08-19] MEDS: PRENATAL VITAMINS W/ FOLIC ACID TABLET (FP) PO SCH (10:46)
[2018-08-19] MEDS: BENZTROPINE MESYLATE 1 MG TABLET (FP) PO SCH ×2 (10:46→21:36)
[2018-08-19] MEDS: risperiDONE 1 MG TABLET (FP) PO SCH ×2 (10:46→21:36)
[2018-08-19] MEDS: MINERAL OIL/PETROLAT/WATER TOPICAL CREAM 113 GM JAR TP SCH (10:48)
[2018-08-19] MEDS: NICOTINE 7 MG/24 HOURS TOPICAL PATCH TD SCH (10:48)
[2018-08-19] MEDS: traZODone HCL 100 MG TABLET (FP) PO SCH (21:36)
[2018-08-19] MEDS: THIAMINE HCL 100 MG TABLET (FP) PO SCH (21:36)
[2018-08-20] MEDS ORDERED: METHADONE HCL 40 MG DISPERSABLE TABLET ONE (03:33)
[2018-08-20] MEDS ORDERED: METHADONE HCL 10 MG TABLET ONE (03:33)
[2018-08-20] MEDS: METHADONE 160 MG, METHADONE 10 MG PO SCH (06:10)
[2018-08-20] MEDS: risperiDONE 1 MG TABLET (FP) PO SCH ×2 (10:28→21:39)
[2018-08-20] MEDS: PRENATAL VITAMINS W/ FOLIC ACID TABLET (FP) PO SCH (10:28)
[2018-08-20] MEDS: NICOTINE 7 MG/24 HOURS TOPICAL PATCH TD SCH (10:29)
[2018-08-20] MEDS: BENZTROPINE MESYLATE 1 MG TABLET (FP) PO SCH ×2 (10:29→21:39)
[2018-08-20] MEDS: IBUPROFEN 400 MG TABLET (FP) PO PRN ×2 (10:29→21:40)
[2018-08-20] MEDS: MINERAL OIL/PETROLAT/WATER TOPICAL CREAM 113 GM JAR TP SCH (10:31)
[2018-08-20] MEDS: HYDROCORTISONE 2.5% TOPICAL CREAM 30 GM TUBE TP SCH ×2 (10:31→21:39)
[2018-08-20] MEDS: HYDROCORTISONE 0.5% TOPICAL CREAM 30 GM TUBE TP PRN (10:31)
[2018-08-20] MEDS: MELATONIN 5 MG TABLETS PO PRN (21:39)
[2018-08-20] MEDS: THIAMINE HCL 100 MG TABLET (FP) PO SCH (21:39)
[2018-08-20] MEDS: traZODone HCL 100 MG TABLET (FP) PO SCH (21:39)
[2018-08-21] MEDS ORDERED: METHADONE HCL 10 MG TABLET ONE (03:30)
[2018-08-21] MEDS ORDERED: METHADONE HCL 40 MG DISPERSABLE TABLET ONE (03:30)
[2018-08-21] MEDS: IBUPROFEN 400 MG TABLET (FP) PO PRN ×2 (06:04→21:48)
[2018-08-21] MEDS: METHADONE 160 MG, METHADONE 10 MG PO SCH (06:05)
[2018-08-21] MEDS: BENZTROPINE MESYLATE 1 MG TABLET (FP) PO SCH ×2 (10:36→21:46)
[2018-08-21] MEDS: risperiDONE 1 MG TABLET (FP) PO SCH ×2 (10:36→21:46)
[2018-08-21] MEDS: MINERAL OIL/PETROLAT/WATER TOPICAL CREAM 113 GM JAR TP SCH (10:38)
[2018-08-21] MEDS: HYDROCORTISONE 2.5% TOPICAL CREAM 30 GM TUBE TP SCH ×2 (10:38→22:28)
[2018-08-21] MEDS: NICOTINE 7 MG/24 HOURS TOPICAL PATCH TD SCH (10:38)
[2018-08-21] MEDS: PRENATAL VITAMINS W/ FOLIC ACID TABLET (FP) PO SCH (10:39)
[2018-08-21] MEDS: ARTIFICIAL TEARS (POLYVINYL ALCOHOL) OPTH DROPS OU PRN (17:11)
[2018-08-21] MEDS: COLLOIDAL OATMEAL 1 BAR EACH TP PRN (17:12)
[2018-08-21] MEDS: traZODone HCL 100 MG TABLET (FP) PO SCH (21:46)
[2018-08-21] MEDS: THIAMINE HCL 100 MG TABLET (FP) PO SCH (21:46)
[2018-08-22] MEDS ORDERED: METHADONE HCL 40 MG DISPERSABLE TABLET ONE (04:07)
[2018-08-22] MEDS ORDERED: METHADONE HCL 10 MG TABLET ONE (04:07)
[2018-08-22] MEDS: METHADONE 160 MG, METHADONE 10 MG PO SCH (06:11)
[2018-08-22] MEDS: PRENATAL VITAMINS W/ FOLIC ACID TABLET (FP) PO SCH (10:58)
[2018-08-22] MEDS: risperiDONE 1 MG TABLET (FP) PO SCH ×2 (10:58→21:40)
[2018-08-22] MEDS: NICOTINE 7 MG/24 HOURS TOPICAL PATCH TD SCH (10:58)
[2018-08-22] MEDS: BENZTROPINE MESYLATE 1 MG TABLET (FP) PO SCH ×2 (10:59→21:40)
[2018-08-22] MEDS: guaiFENesin/D-METHORPHAN HB 10 ML UNIT-DOSE CUPS PO PRN (10:59)
[2018-08-22] MEDS: ACETAMINOPHEN 325 MG TABLET (FP) PO PRN (11:02)
[2018-08-22] MEDS: HYDROCORTISONE 2.5% TOPICAL CREAM 30 GM TUBE TP SCH ×2 (11:04→22:07)
[2018-08-22] MEDS: ARTIFICIAL TEARS (POLYVINYL ALCOHOL) OPTH DROPS OU PRN (11:05)
[2018-08-22] MEDS: MINERAL OIL/PETROLAT/WATER TOPICAL CREAM 113 GM JAR TP SCH (11:06)
[2018-08-22] MEDS: MELATONIN 5 MG TABLETS PO PRN (21:40)
[2018-08-22] MEDS: THIAMINE HCL 100 MG TABLET (FP) PO SCH (21:40)
[2018-08-22] MEDS: IBUPROFEN 400 MG TABLET (FP) PO PRN (21:40)
[2018-08-22] MEDS: traZODone HCL 100 MG TABLET (FP) PO SCH (21:40)
[2018-08-23] MEDS ORDERED: METHADONE HCL 10 MG TABLET ONE (03:09)
[2018-08-23] MEDS ORDERED: METHADONE HCL 40 MG DISPERSABLE TABLET ONE (03:10)
[2018-08-23] MEDS: METHADONE 160 MG, METHADONE 10 MG PO SCH (05:54)
[2018-08-23] MEDS: PRENATAL VITAMINS W/ FOLIC ACID TABLET (FP) PO SCH (10:31)
[2018-08-23] MEDS: BENZTROPINE MESYLATE 1 MG TABLET (FP) PO SCH ×2 (10:31→21:50)
[2018-08-23] MEDS: risperiDONE 1 MG TABLET (FP) PO SCH ×2 (10:31→21:49)
[2018-08-23] MEDS: HYDROCORTISONE 0.5% TOPICAL CREAM 30 GM TUBE TP PRN (10:32)
[2018-08-23] MEDS: IBUPROFEN 400 MG TABLET (FP) PO PRN ×2 (10:33→21:51)
[2018-08-23] MEDS: MINERAL OIL/PETROLAT/WATER TOPICAL CREAM 113 GM JAR TP SCH (10:33)
[2018-08-23] MEDS: NICOTINE 7 MG/24 HOURS TOPICAL PATCH TD SCH (10:33)
[2018-08-23] MEDS: HYDROCORTISONE 2.5% TOPICAL CREAM 30 GM TUBE TP SCH ×2 (10:33→21:49)
[2018-08-23] MEDS: guaiFENesin/D-METHORPHAN HB 10 ML UNIT-DOSE CUPS PO PRN ×2 (10:35→21:52)
[2018-08-23] MEDS: traZODone HCL 100 MG TABLET (FP) PO SCH (21:49)
[2018-08-23] MEDS: THIAMINE HCL 100 MG TABLET (FP) PO SCH (21:50)
[2018-08-24] MEDS ORDERED: METHADONE HCL 10 MG TABLET ONE (02:52)
[2018-08-24] MEDS ORDERED: METHADONE HCL 40 MG DISPERSABLE TABLET ONE (02:53)
[2018-08-24] MEDS: METHADONE 160 MG, METHADONE 10 MG PO SCH (05:56)
[2018-08-24] MEDS: IBUPROFEN 400 MG TABLET (FP) PO PRN ×2 (07:12→21:46)
[2018-08-24] MEDS: BENZTROPINE MESYLATE 1 MG TABLET (FP) PO SCH ×2 (10:08→22:30)
[2018-08-24] MEDS: PRENATAL VITAMINS W/ FOLIC ACID TABLET (FP) PO SCH (10:08)
[2018-08-24] MEDS: MINERAL OIL/PETROLAT/WATER TOPICAL CREAM 113 GM JAR TP SCH (10:09)
[2018-08-24] MEDS: risperiDONE 1 MG TABLET (FP) PO SCH ×2 (10:09→21:46)
[2018-08-24] MEDS: NICOTINE 7 MG/24 HOURS TOPICAL PATCH TD SCH (10:09)
[2018-08-24] MEDS: HYDROCORTISONE 2.5% TOPICAL CREAM 30 GM TUBE TP SCH ×2 (10:09→22:30)
[2018-08-24] MEDS: guaiFENesin/D-METHORPHAN HB 10 ML UNIT-DOSE CUPS PO PRN (10:10)
[2018-08-24] MEDS: MAGNESIUM HYDROX 2400MG/30ML ORAL SUSPENSION 30 ML CUP PO PRN (10:11)
--- NOTE | 2018-08-24 11:53 | PN ---
Psychiatric Progress Note Vital Signs: Vital Signs Period Temp Pulse Resp BP Sys/Benz Pulse Ox Last 24 Hr 97.8 F 68 18-18 131/80 Date of Session: 08/24/18 Chief Complaint:: Discharge Note HPI: Patient addressing Alcohol, Cocaine, Sedative and Cannabis dependence comorbid with Opioid Dependence on Agonist Therapy, Nicotine Dependence, Schizoaffective Disorder and Substance-Induced Sleep Disorder ROS: Asthma, HIV, Hep C, Back pain were medically managed Current Medications: Active Medications Generic Name Dose Route Start Last Admin Trade Name Freq PRN Reason Stop Dose Admin Acetaminophen 650 mg 08/11/18 19:01 08/22/18 11:02 Tylenol - PO 650 mg Q4H PRN Administration FEVER Al Hydroxide/Mg Hydroxide 30 ml 08/11/18 19:01 08/22/18 11:05 Mylanta Oral Suspension - PO 30 ml Q6H PRN Administration DYSPEPSIA Albuterol Sulfate 2 puff 08/14/18 22:05 Ventolin Hfa Inhaler - IH Q4H PRN SHORT OF BREATH/WHEEZING Artificial Tears 1 drop 08/21/18 12:44 08/22/18 11:05 Artificial Tears OU 1 drop QID PRN Administration DRY EYES Benztropine Mesylate 0.5 mg 08/12/18 10:15 08/24/18 10:08 Cogentin - PO 0.5 mg BID RENEE Administration Colloidal Oatmeal 1 applic 08/21/18 12:10 08/21/18 17:12 Aveeno Soap - TP 1 applic DAILY PRN Administration HYGEINE Eucalyptus/Menthol/Phenol/Sorbitol 1 each 08/11/18 19:01 Cepastat Lozenge - MM Q4H PRN SORE THROAT Guaifenesin 10 ml 08/11/18 19:01 08/24/18 10:10 Robitussin Dm - PO 10 ml Q6H PRN Administration COUGH Hydrocortisone 1 applic 08/12/18 11:30 08/24/18 10:09 Anusol 2.5% Hc Cream - TP Not Given BID RENEE Hydrocortisone 1 applic 08/15/18 12:31 08/23/18 10:32 Hytone 0.5% Cream - TP 1 applic BID PRN Administration itching Ibuprofen 400 mg 08/11/18 19:01 08/24/18 07:12 Motrin - PO 400 mg Q6H PRN Administration Pain Level 4-6 Loperamide HCl 4 mg 08/11/18 19:01 Imodium - PO Q6H PRN DIARRHEA Magnesium Citrate 300 ml 08/11/18 19:01 08/18/18 18:41 Citroma - PO 300 ml Q48H PRN Administration CONSTIPATION Magnesium Hydroxide 30 ml 08/11/18 19:01 08/24/18 10:11 Milk Of Magnesia - PO 30 ml DAILY PRN Administration CONSTIPATION Melatonin 5 mg 08/11/18 22:00 08/22/18 21:40 Melatonin PO 5 mg HS PRN Administration INSOMNIA Methadone HCl 160 mg/ 170 mg 08/19/18 06:00 08/24/18 05:56 Methadone HCl 10 mg PO 08/26/18 05:59 170 mg DAILY@0600 RENEE Administration Multi-Ingredient Lotion 1 applic 08/12/18 11:30 08/24/18 10:09 Eucerin (Small Jar) - TP Not Given DAILY RENEE Nicotine 7 mg 08/12/18 10:00 08/24/18 10:09 Nicoderm Patch - TD Not Given DAILY RENEE Nicotine Polacrilex 2 mg 08/11/18 19:32 Nicorette Gum - BUC Q2H PRN NICOTINE REPLACEMENT RX Multivit/Folic Acid/Iron 1 tab 08/12/18 10:00 08/24/18 10:08 Vitamins (Sjr) - PO 1 tab DAILY RENEE Administration Pseudoephedrine/Triprolidine 1 combo 08/11/18 19:01 Actifed - PO TID PRN NASAL CONGESTION Risperidone 1 mg 08/12/18 10:15 08/24/18 10:09 Risperdal - PO 1 mg BID RENEE Administration Thiamine HCl 100 mg 08/11/18 22:00 08/23/18 21:50 Vitamin B1 - PO 100 mg HS RENEE Administration Trazodone HCl 200 mg 08/12/18 22:00 08/23/18 21:49 Desyrel - PO 200 mg HS RENEE Administration Current Side Effect: No Lab tests ordered: Yes Lab tests reviewed: Yes Provider note:: Patient will complete this program on 08/25/18. He has met his treatment goals and will continue to address his issues in outpatient program at [facility]. Told clinical writer that from his participaton in this program, he has learned to stay away from people, places and things and put into practice what he learned in this program. He responded well to Risperdal 1 mg po BID, Cogentin 0.5 mg po BID and Trazadone 200 mg po HS. Scripts for 30 days supply of medications will be electronically transmitted to [facility] and [facility] at [address] [place] [address]. He is stable for discharge on Total face to face time:: 35 Mental Status Exam - Mental Status Exam Alert and Oriented to: Time, Place, Person Cognitive Function: Fair Patient Appearance: Well Groomed Mood: Hopeful, Euthymic Affect: Appropriate Patient Behavior: Cooperative Speech Pattern: Clear Voice Loudness: Normal Thought Process: Intact Thought Disorder: Not Present Hallucinations: Denies Suicidal Ideation: Denies Homicidal Ideation: Denies Insight/Judgement: Fair Sleep: Fair Appetite: Good Muscle strength/Tone: Normal Gait/Station: Normal Psychiatric Treatment Plan - Problem List (1) Alcohol dependence Current Visit: Yes (2) Cocaine dependence Current Visit: No Qualifiers: Substance use status: uncomplicated Qualified Code(s): F14.20 - Cocaine dependence, uncomplicated (3) Sedative hypnotic or anxiolytic dependence Current Visit: Yes (4) Cannabis dependence Current Visit: Yes (5) Opioid dependence on agonist therapy [facility] 170 mgs/day last medicated today. (6) Nicotine dependence Current Visit: No Qualifiers: Nicotine product type: cigarettes Substance use status: uncomplicated Qualified Code(s): F17.210 - Nicotine dependence, cigarettes, uncomplicated (7) Schizoaffective disorder Current Visit: No (8) Substance-induced anxiety disorder Current Visit: Yes (9) Substance-induced sleep disorder Current Visit: No (10) Asthma Current Visit: No Qualifiers: Asthma severity: mild Asthma persistence: unspecified Asthma complication type: uncomplicated Qualified Code(s): J45.909 - Unspecified asthma, uncomplicated (11) Back pain Current Visit: No Qualifiers: Chronicity: chronic Sciatica presence: unspecified whether sciatica present (12) HIV (human immunodeficiency virus infection) Current Visit: No (13) Hepatitis C Current Visit: No Qualifiers: Viral hepatitis chronicity: chronic Initial treatment plan: Patient will be discharged tomorrow and referred to [facility] for outpatient treatment
[2018-08-24] MEDS: traZODone HCL 100 MG TABLET (FP) PO SCH (21:46)
[2018-08-24] MEDS: THIAMINE HCL 100 MG TABLET (FP) PO SCH (21:47)
[2018-08-25] MEDS ORDERED: METHADONE HCL 40 MG DISPERSABLE TABLET ONE (03:10)
[2018-08-25] MEDS ORDERED: METHADONE HCL 10 MG TABLET ONE (03:10)
[2018-08-25] MEDS: METHADONE 160 MG, METHADONE 10 MG PO SCH (06:00)
[2018-08-25] MEDS: COLLOIDAL OATMEAL 1 BAR EACH TP PRN (06:03)
[2018-08-25 06:57] VITALS: BP 132/73; PULSE 69; TEMP 98.1
[2018-08-25] MEDS: PRENATAL VITAMINS W/ FOLIC ACID TABLET (FP) PO SCH (09:51)
[2018-08-25] MEDS: NICOTINE 7 MG/24 HOURS TOPICAL PATCH TD SCH (09:51)
[2018-08-25] MEDS: risperiDONE 1 MG TABLET (FP) PO SCH (09:51)
[2018-08-25] MEDS: MINERAL OIL/PETROLAT/WATER TOPICAL CREAM 113 GM JAR TP SCH (09:53)
[2018-08-25] MEDS: HYDROCORTISONE 2.5% TOPICAL CREAM 30 GM TUBE TP SCH (09:53)
[2018-08-25] MEDS: BENZTROPINE MESYLATE 1 MG TABLET (FP) PO SCH (10:09)
--- NOTE | 2018-08-25 11:48 | PN ---
S Progress Note Note: REHAB COMPLETED. PT REPORTS HE WILL BE GOING BACK TO HIS MMTP AT [facility]. PT REPORTS HIS PRIMARY CARE AT [facility] WITH DR. ROSS. Vital Signs 08/25/18 06:56 Temperature 98.1 F Pulse Rate 69 Respiratory 16 Rate Blood Pressure 132/73 NAD PLAN:D/C PT TODAY FOLLOW UP WITH PCP DR. ROSS IN 1-2 WEEKS AFTER DISCHARGE.
== END 2018-08-25 10:25 | disposition home or self-care (01) | DRG 772 ==
LOC: YASAS 15:12 → Y5N 15:14
PROVIDERS: ADMIT Psychiatry & Neurology Psychiatry; ATTEND Psychiatry & Neurology Psychiatry
PROC: HZ42ZZZ Group Counseling for Substance Abuse Treatment, Cognitive-Behavioral (ICD-10-PCS; principal; 2018-08-11)
DX: F10.20 Alcohol dependence, uncomplicated (principal); F11.20 Opioid dependence, uncomplicated; F13.20 Sedative, hypnotic or anxiolytic dependence, uncomplicated; F14.20 Cocaine dependence, uncomplicated; F12.20 Cannabis dependence, uncomplicated; F17.210 Nicotine dependence, cigarettes, uncomplicated; F25.9 Schizoaffective disorder, unspecified; F19.280 Other psychoactive substance dependence with psychoactive substance-induced anxiety disorder; F19.282 Other psychoactive substance dependence with psychoactive substance-induced sleep disorder; Z21 Asymptomatic human immunodeficiency virus [HIV] infection status; J45.909 Unspecified asthma, uncomplicated; G89.29 Other chronic pain; B18.2 Chronic viral hepatitis C; M54.9 Dorsalgia, unspecified; Z86.69 Personal history of other diseases of the nervous system and sense organs
CPT/HCPCS: J2794

== ENCOUNTER 2019-02-09 14:57 | Inpatient (IN) | payer OTHER | END 2019-02-12 19:37 | disposition other institution (70) | LOC: Y3N 02-10 00:53 → YASAS 14:57 ==

== ENCOUNTER 2019-02-12 19:46 | Inpatient (IN) | payer OTHER ==
--- NOTE | 2019-02-12 14:26 | HP ---
[facility] Rehab Assess/Revision - Admission History Admitted to Rehab from: [facility] Date of Admission to Rehab: 02/12/2019 - Vital signs Vital Signs: NOTED; STABLE. - Findings Detox History & Physical reviewed: Yes Concur with findings: Yes Comments/Additional Findings: PATIENT'S MEDICAL / MEDICATION HISTORY REVIEWED PRIOR TO DISCHARGE FROM DETOX UNIT. PATIENT WAS DISCHARGED FROM DETOX UNIT TO BE TAKEN OVER TO REHAB UNIT IN STABLE MEDICAL CONDITION. Inpatient Rehab Admission - Rehab Decision to Admit Inpatient rehab admission?: Yes - Initial Determination Are CD services needed?: Yes Free of communicable disease: Yes Not in need of hospitalization: Yes - Rehab Admission Criteria Previous failed treatment: Yes Poor recovery environment: Yes Comorbidities: Yes Lacks judgement: No Patient is meeting Inpatient Rehab admission criteria:: Yes
[~2019-02-12 19:46] MED LIST: ACETAMINOPHEN 325 MG TABLET (FP) PO PRN; ALBUTEROL SO4 8 GM HFA INHALER IH PRN; IBUPROFEN 400 MG TABLET (FP) PO PRN; LOPERAMIDE HCL 2 MG CAPSULE PO PRN; MAG HYDROX/AL HYDROX/SIMETH 30 ML UNIT-DOSE CUP PO PRN; MAGNESIUM CITRATE 300 ML BOTTLE PO PRN; MENTHOL/PHENOL 1 EACH UD MM PRN; NICOTINE POLACRILEX 2 MG GUM BUC PRN; P-EPHED 60MG/TRIPROLIDI 2.5MG TABLET PO PRN; guaiFENesin 200 MG/10 ML 10 ML UNIT-DOSE CUPS PO PRN
[2019-02-12] MEDS: THIAMINE HCL 100 MG TABLET (FP) PO SCH (21:39)
[2019-02-12] MEDS: MELATONIN 5 MG TABLETS PO PRN (21:39)
[2019-02-13] MEDS ORDERED: METHADONE HCL 10 MG TABLET ONE (04:27)
[2019-02-13] MEDS ORDERED: METHADONE HCL 40 MG DISPERSABLE TABLET ONE (04:27)
[2019-02-13] MEDS ORDERED: METHADONE HCL 10 MG TABLET PO SCH (06:00)
[2019-02-13] MEDS: METHADONE PO SCH (06:12)
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
[2019-02-13] MEDS ORDERED: hydrOXYzine PAMOATE 50 MG CAPSULE (FP) PO PRN (09:38)
[2019-02-13] MEDS: PRENATAL VITAMINS W/ FOLIC ACID TABLET (FP) PO SCH (10:58)
[2019-02-13] MEDS: NICOTINE 7 MG/24 HOURS TOPICAL PATCH TD SCH (10:58)
[2019-02-13] MEDS: MAGNESIUM HYDROX 2400MG/30ML ORAL SUSPENSION 30 ML CUP PO PRN (10:59)
[2019-02-13] MEDS: risperiDONE 1 MG TABLET (FP) PO SCH ×2 (10:59→21:51)
[2019-02-13] MEDS: BENZTROPINE MESYLATE 1 MG TABLET (FP) PO SCH ×2 (11:14→21:52)
[2019-02-13] MEDS: THIAMINE HCL 100 MG TABLET (FP) PO SCH (21:51)
[2019-02-13] MEDS: traZODone HCL 100 MG TABLET (FP) PO SCH (21:51)
[2019-02-13] MEDS: MELATONIN 5 MG TABLETS PO PRN (21:51)
[2019-02-14] MEDS ORDERED: METHADONE HCL 10 MG TABLET ONE (05:25)
[2019-02-14] MEDS ORDERED: METHADONE HCL 40 MG DISPERSABLE TABLET ONE (05:26)
[2019-02-14] MEDS: METHADONE PO SCH (05:54)
[2019-02-14] MEDS: PRENATAL VITAMINS W/ FOLIC ACID TABLET (FP) PO SCH (10:06)
[2019-02-14] MEDS: NICOTINE 7 MG/24 HOURS TOPICAL PATCH TD SCH (10:06)
[2019-02-14] MEDS: risperiDONE 1 MG TABLET (FP) PO SCH ×2 (10:06→22:01)
[2019-02-14] MEDS: BENZTROPINE MESYLATE 1 MG TABLET (FP) PO SCH ×2 (10:06→22:01)
[2019-02-14] MEDS: THIAMINE HCL 100 MG TABLET (FP) PO SCH (22:01)
[2019-02-14] MEDS: traZODone HCL 100 MG TABLET (FP) PO SCH (22:01)
[2019-02-14] MEDS: MELATONIN 5 MG TABLETS PO PRN (22:01)
[2019-02-15] MEDS: METHADONE PO SCH (06:03)
[2019-02-15] MEDS ORDERED: METHADONE HCL 40 MG DISPERSABLE TABLET ONE (06:03)
[2019-02-15] MEDS ORDERED: METHADONE HCL 10 MG TABLET ONE (06:03)
[2019-02-15] MEDS: BENZTROPINE MESYLATE 1 MG TABLET (FP) PO SCH ×2 (10:13→21:05)
[2019-02-15] MEDS: NICOTINE 7 MG/24 HOURS TOPICAL PATCH TD SCH (10:13)
[2019-02-15] MEDS: risperiDONE 1 MG TABLET (FP) PO SCH ×2 (10:13→21:05)
[2019-02-15] MEDS: PRENATAL VITAMINS W/ FOLIC ACID TABLET (FP) PO SCH (10:13)
[2019-02-15] MEDS: MAGNESIUM HYDROX 2400MG/30ML ORAL SUSPENSION 30 ML CUP PO PRN (19:31)
[2019-02-15] MEDS: THIAMINE HCL 100 MG TABLET (FP) PO SCH (21:05)
[2019-02-15] MEDS: traZODone HCL 100 MG TABLET (FP) PO SCH (21:05)
[2019-02-15] MEDS: MELATONIN 5 MG TABLETS PO PRN (21:06)
[2019-02-16] MEDS ORDERED: METHADONE HCL 10 MG TABLET ONE (02:50)
[2019-02-16] MEDS ORDERED: METHADONE HCL 40 MG DISPERSABLE TABLET ONE (02:50)
[2019-02-16] MEDS: METHADONE PO SCH (06:12)
[2019-02-16 06:53] VITALS: BP 127/71; PULSE 72; TEMP 97.7
[2019-02-16] MEDS: NICOTINE 7 MG/24 HOURS TOPICAL PATCH TD SCH (09:59)
[2019-02-16] MEDS: PRENATAL VITAMINS W/ FOLIC ACID TABLET (FP) PO SCH (09:59)
[2019-02-16] MEDS: BENZTROPINE MESYLATE 1 MG TABLET (FP) PO SCH (11:07)
[2019-02-16] MEDS: risperiDONE 1 MG TABLET (FP) PO SCH (11:07)
--- NOTE | 2019-02-16 14:19 | PN ---
[facility] Progress Note (SOAP) Subjective: PT DECLINED TO CONTINUE WITH REHAB FOR PERSONAL REASONS STATING "I'M FOLLOWING MY FAMILY TO [facility]". ALL EFFORTS TO ENCOURAGE PT TO COMPLETE REHAB TREATMENT BUT WAS UNSUCCESSFUL. PT REPORTS HE HAS PRIMARY CARE AT [facility]. PT IS CURRENTLY ON [facility] AND WILL BE GOING BACK TO HIS CLINIC.ALERT O X 3. DENIES S/H/I. PT MET WITH COUNSELLING BEFORE EXITING. Objective: 02/16/19 15:23 Vital Signs - 24 hr 02/16/19 02/16/19 02/16/19 00:30 03:30 06:52 Temperature 97.7 F Pulse Rate 72 Respiratory 18 18 Rate Blood Pressure 127/71 02/16/19 15:41 Home Medications Medication Instructions Recorded traZODone HCL [Desyrel -] 200 mg PO HS #60 tablet 05/05/18 Albuterol Sulfate Inhaler - 2 puff IH Q4H PRN #1 inhaler 08/10/18 [Ventolin HFA Inhaler -] Risperidone [Risperdal -] 1 mg PO BID #60 tablet 08/24/18 traZODone HCL [Desyrel -] 200 mg PO HS #60 tablet 08/24/18 Assessment: 02/16/19 15:23 NAD Plan: PT SIGNED OUT AMA. FOLLOW UP WITH CD AFTERCARE RECOMMENDATIONS. FOLLOW UP WITH PCP FOR MEDICAL MANAGEMENT WITHIN 1-2 WEEKS AFTER DISCHARGE.
== END 2019-02-16 14:40 | disposition left against medical advice (07) | DRG 770 ==
LOC: YASAS 19:46 → Y5N 19:48
PROVIDERS: ADMIT Neuromusculoskeletal Medicine & OMM; ATTEND Neuromusculoskeletal Medicine & OMM
PROC: HZ42ZZZ Group Counseling for Substance Abuse Treatment, Cognitive-Behavioral (ICD-10-PCS; principal; 2019-02-12)
DX: F10.20 Alcohol dependence, uncomplicated (principal); F11.20 Opioid dependence, uncomplicated; F13.20 Sedative, hypnotic or anxiolytic dependence, uncomplicated; F14.20 Cocaine dependence, uncomplicated; F12.20 Cannabis dependence, uncomplicated; F17.210 Nicotine dependence, cigarettes, uncomplicated; F25.9 Schizoaffective disorder, unspecified; F19.24 Other psychoactive substance dependence with psychoactive substance-induced mood disorder; F19.282 Other psychoactive substance dependence with psychoactive substance-induced sleep disorder; Z21 Asymptomatic human immunodeficiency virus [HIV] infection status; J45.909 Unspecified asthma, uncomplicated; B18.2 Chronic viral hepatitis C; Z91.19 Patient's noncompliance with other medical treatment and regimen
CPT/HCPCS: J2794

== ENCOUNTER 2019-04-12 14:30 | Inpatient (IN) | payer OTHER ==
[2019-04-12 14:57] VITALS: BMI 28.5
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
[2019-04-12] MEDS ORDERED: ACETAMINOPHEN 325 MG TABLET (FP) PO PRN ×2 (15:29)
[2019-04-12] MEDS ORDERED: hydrOXYzine PAMOATE 25 MG CAPSULE (FP) PO PRN (15:29)
[2019-04-12] MEDS ORDERED: MENTHOL/PHENOL 1 EACH UD MM PRN (15:29)
[2019-04-12] MEDS ORDERED: chlordiazePOXIDE HCL 25 MG CAPSULE PO PRN (15:29)
[2019-04-12] MEDS ORDERED: MAGNESIUM CITRATE 300 ML BOTTLE PO PRN (15:29)
[2019-04-12] MEDS ORDERED: MAG HYDROX/AL HYDROX/SIMETH 30 ML UNIT-DOSE CUP PO PRN (15:29)
[2019-04-12] MEDS ORDERED: MAGNESIUM HYDROX 2400MG/30ML ORAL SUSPENSION 30 ML CUP PO PRN (15:29)
[2019-04-12] MEDS ORDERED: MELATONIN 5 MG TABLETS PO PRN (15:29)
[2019-04-12] MEDS ORDERED: BISMUTH SUBSALICYLATE 524 MG/30 ML UD PO PRN (15:29)
[2019-04-12] MEDS ORDERED: METHOCARBAMOL 500 MG TABLET PO PRN (15:29)
[2019-04-12] MEDS ORDERED: ALBUTEROL SO4 8 GM HFA INHALER IH PRN (15:36)
[2019-04-12] MEDS: chlordiazePOXIDE HCL 25 MG CAPSULE PO SCH ×2 (16:52→22:24)
[2019-04-12] MEDS: THIAMINE HCL 100 MG TABLET (FP) PO SCH (22:24)
[2019-04-12] MEDS: IBUPROFEN 400 MG TABLET (FP) PO PRN (22:25)
[2019-04-12] MEDS: chlordiazePOXIDE 5 MG CAPSULE PO SCH (23:37)
[2019-04-13] MEDS: chlordiazePOXIDE 5 MG CAPSULE PO SCH (05:20)
[2019-04-13] MEDS: chlordiazePOXIDE HCL 25 MG CAPSULE PO SCH ×4 (05:27→22:22)
[2019-04-13] MEDS ORDERED: METHADONE HCL 10 MG TABLET PO ONE (08:07)
[2019-04-13] MEDS ORDERED: METHADONE HCL 10 MG TABLET ONE (08:46)
[2019-04-13] MEDS ORDERED: METHADONE HCL 40 MG DISPERSABLE TABLET ONE (08:47)
[2019-04-13] MEDS ORDERED: METHADONE 160 MG, METHADONE 10 MG PO ONE (09:00)
[2019-04-13] MEDS: PRENATAL VITAMINS W/ FOLIC ACID TABLET (FP) PO SCH (10:03)
--- NOTE | 2019-04-13 10:35 | PN ---
S CIWA - CIWA Score Nausea/Vomitin-Mild Nausea/No Vomiting Muscle Tremors: 3 Anxiety: 4-Mod. Anxious/Guarded Agitation: 3 Paroxysmal Sweats: 1-Minimal Palms Moist Orientation: 0-Oriented Tacttile Disturbances: 0-None Auditory Disturbances: 0-None Visual Disturbances: 0-None Headache: 2-Mild CIWA-Ar Total Score: 14 BHS Progress Note (SOAP) Subjective: 48 years old male admitted on 04/12/19 for alcohol and benzo withdrawal sx management doing well with librium detox regimen ambulating on hallway received methadone 170 mg po today feeling better Objective: 04/13/19 10:34 Vital Signs Temperature 97.8 F 04/13/19 09:56 Pulse Rate 84 04/13/19 09:56 Respiratory Rate 18 04/13/19 09:56 Blood Pressure 118/82 04/13/19 09:56 O2 Sat by Pulse Oximetry (%) 04/13/19 10:35 lab pending Assessment: 04/13/19 10:37 alcohol and benzo withdrawal sx Plan: continue alcohol and benzo detox
[2019-04-13 10:48] LABS: HEMATOCRIT 35.9 % (35.4-49); HEMOGLOBIN 12.2 GM/dL (11.7-16.9); MCH 27.8 pg (25.7-33.7); MCHC 34.1 g/dl (32.0-35.9); MEAN CELL VOLUME 81.7 fl (80-96); PLATELET COUNT 184 K/MM3 (134-434); RBC 4.39 M/mm3 (4.00-5.60); RDW 15.8 % (11.9-15.9); WHITE BLOOD COUNT 3.1 K/mm3 (4.0-10.0)
[2019-04-13 10:58] LABS: BILIRUBIN,TOTAL 0.2 mg/dL (0.2-1); BLOOD UREA NITROGEN 19.3 mg/dL (7-18); CALCIUM 8.8 mg/dL (8.5-10.1); CREATININE 0.8 mg/dL (0.55-1.3); POTASSIUM 4.5 mmol/L (3.5-5.1); TOT PROT 7.6 g/dl (6.4-8.2)
[2019-04-13 13:32] LABS: URINE APPEARANCE CLEAR; URINE BILIRUBIN NEGATIVE (NEGATIVE); URINE COLOR YELLOW; URINE GLUCOSE (UA) NEGATIVE (NEGATIVE); URINE KETONE NEGATIVE (NEGATIVE); URINE LEUK ESTERASE NEGATIVE (NEGATIVE); URINE NITRITE NEGATIVE (NEGATIVE); URINE PROTEIN NEGATIVE (NEGATIVE)
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
[2019-04-13] MEDS: IBUPROFEN 400 MG TABLET (FP) PO PRN (19:55)
[2019-04-13] MEDS: THIAMINE HCL 100 MG TABLET (FP) PO SCH (22:22)
[2019-04-13] MEDS: QUEtiapine FUMARATE 50 MG TABLET PO SCH (22:22)
[2019-04-14] MEDS ORDERED: METHADONE HCL 10 MG TABLET ONE (05:15)
[2019-04-14] MEDS ORDERED: METHADONE HCL 40 MG DISPERSABLE TABLET ONE (05:16)
[2019-04-14] MEDS: METHADONE 160 MG, METHADONE 10 MG PO SCH (05:49)
[2019-04-14] MEDS: chlordiazePOXIDE HCL 25 MG CAPSULE PO SCH ×4 (05:49→22:17)
[2019-04-14] MEDS ORDERED: METHADONE HCL 10 MG TABLET PO SCH (06:00)
--- NOTE | 2019-04-14 09:17 | PN ---
S CIWA - CIWA Score Nausea/Vomitin-Mild Nausea/No Vomiting Muscle Tremors: 2 Anxiety: 3 Agitation: 2 Paroxysmal Sweats: 1-Minimal Palms Moist Orientation: 0-Oriented Tacttile Disturbances: 1-Very Mild Itch/Numbness Auditory Disturbances: 0-None Visual Disturbances: 0-None Headache: 2-Mild CIWA-Ar Total Score: 12 S Progress Note (SOAP) Subjective: received methadone 170 mg po today mild body aches headaches anxious less tremor Objective: 04/14/19 09:15 Vital Signs Temperature 96.9 F L 04/14/19 06:24 Pulse Rate 52 L 04/14/19 06:24 Respiratory Rate 18 04/14/19 06:24 Blood Pressure 123/76 04/14/19 06:24 O2 Sat by Pulse Oximetry (%) Laboratory Last Values WBC 3.1 K/mm3 (4.0-10.0) L 04/13/19 07:00 RBC 4.39 M/mm3 (4.00-5.60) 04/13/19 07:00 Hgb 12.2 GM/dL (11.7-16.9) 04/13/19 07:00 Hct 35.9 % (35.4-49) 04/13/19 07:00 MCV 81.7 fl (80-96) 04/13/19 07:00 MCH 27.8 pg (25.7-33.7) 04/13/19 07:00 MCHC 34.1 g/dl (32.0-35.9) 04/13/19 07:00 RDW 15.8 % (11.9-15.9) 04/13/19 07:00 Plt Count 184 K/MM3 (134-434) 04/13/19 07:00 MPV 8.0 fl (7.5-11.1) 04/13/19 07:00 Sodium 140 mmol/L (136-145) 04/13/19 07:00 Potassium 4.5 mmol/L (3.5-5.1) 04/13/19 07:00 Chloride 104 mmol/L (98-107) 04/13/19 07:00 Carbon Dioxide 32 mmol/L (21-32) 04/13/19 07:00 Anion Gap 4 MMOL/L (8-16) L 04/13/19 07:00 BUN 19.3 mg/dL (7-18) H 04/13/19 07:00 Creatinine 0.8 mg/dL (0.55-1.3) 04/13/19 07:00 Est GFR (CKD-EPI)AfAm 120.72 04/13/19 07:00 Est GFR (CKD-EPI)NonAf 104.16 04/13/19 07:00 Random Glucose 85 mg/dL (74-106) 04/13/19 07:00 Calcium 8.8 mg/dL (8.5-10.1) 04/13/19 07:00 Total Bilirubin 0.2 mg/dL (0.2-1) 04/13/19 07:00 AST 20 U/L (15-37) 04/13/19 07:00 ALT 19 U/L (13-61) 04/13/19 07:00 Alkaline Phosphatase 109 U/L (45-117) 04/13/19 07:00 Total Protein 7.6 g/dl (6.4-8.2) 04/13/19 07:00 Albumin 3.0 g/dl (3.4-5.0) L 04/13/19 07:00 Urine Color Yellow 04/13/19 11:25 Urine Appearance Clear 04/13/19 11:25 Urine pH 6.0 (5.0-8.0) 04/13/19 11:25 Ur Specific [place] 1.018 (1.010-1.035) 04/13/19 11:25 Urine Protein Negative (NEGATIVE) 04/13/19 11:25 Urine Glucose (UA) Negative (NEGATIVE) 04/13/19 11:25 Urine Ketones Negative (NEGATIVE) 04/13/19 11:25 Urine Blood Negative (NEGATIVE) 04/13/19 11:25 Urine Nitrite Negative (NEGATIVE) 04/13/19 11:25 Urine Bilirubin Negative (NEGATIVE) 04/13/19 11:25 Urine Urobilinogen 1.0 mg/dL (0.2-1.0) 04/13/19 11:25 Ur Leukocyte Esterase Negative (NEGATIVE) 04/13/19 11:25 RPR Titer Nonreactive (NONREACTIVE) 04/13/19 07:00 lab noted 04/14/19 09:16 patient agrees to follow up low wbc with infectious disease specialist Assessment: 04/14/19 09:16 alcohol and benzo withdrawal sx Plan: continue alcohol and benzo detox
[2019-04-14] MEDS: PRENATAL VITAMINS W/ FOLIC ACID TABLET (FP) PO SCH (10:21)
[2019-04-14] MEDS: SERTRALINE HCL 50 MG TABLET (FP) PO SCH (10:21)
[2019-04-14] MEDS: THIAMINE HCL 100 MG TABLET (FP) PO SCH (22:16)
[2019-04-14] MEDS: QUEtiapine FUMARATE 50 MG TABLET PO SCH (22:16)
[2019-04-15] MEDS ORDERED: chlordiazePOXIDE HCL 10 MG CAPSULE PO PRN
[2019-04-15] MEDS ORDERED: METHADONE HCL 40 MG DISPERSABLE TABLET ONE (05:24)
[2019-04-15] MEDS ORDERED: METHADONE HCL 10 MG TABLET ONE (05:24)
[2019-04-15] MEDS: METHADONE 160 MG, METHADONE 10 MG PO SCH (06:26)
[2019-04-15] MEDS: chlordiazePOXIDE HCL 10 MG CAPSULE PO SCH ×4 (06:27→22:13)
[2019-04-15] MEDS: PRENATAL VITAMINS W/ FOLIC ACID TABLET (FP) PO SCH (10:35)
[2019-04-15] MEDS: SERTRALINE HCL 50 MG TABLET (FP) PO SCH (10:35)
--- NOTE | 2019-04-15 11:39 | PN ---
[facility] CIWA - CIWA Score Nausea/Vomitin-No Nausea/No Vomiting Muscle Tremors: 3 Anxiety: 2 Agitation: 2 Paroxysmal Sweats: 1-Minimal Palms Moist Orientation: 0-Oriented Tacttile Disturbances: 0-None Auditory Disturbances: 0-None Visual Disturbances: 0-None Headache: 0-None Present CIWA-Ar Total Score: 8 S Progress Note (SOAP) Subjective: doing well with librium detox protocol ambulating on hallway watching TV discuss aftercare with staff prefers [facility] Objective: 04/15/19 11:41 Vital Signs Temperature 97.1 F L 04/15/19 09:22 Pulse Rate 67 04/15/19 09:22 Respiratory Rate 18 04/15/19 09:22 Blood Pressure 125/84 04/15/19 09:22 O2 Sat by Pulse Oximetry (%) Laboratory Last Values WBC 3.1 K/mm3 (4.0-10.0) L 04/13/19 07:00 RBC 4.39 M/mm3 (4.00-5.60) 04/13/19 07:00 Hgb 12.2 GM/dL (11.7-16.9) 04/13/19 07:00 Hct 35.9 % (35.4-49) 04/13/19 07:00 MCV 81.7 fl (80-96) 04/13/19 07:00 MCH 27.8 pg (25.7-33.7) 04/13/19 07:00 MCHC 34.1 g/dl (32.0-35.9) 04/13/19 07:00 RDW 15.8 % (11.9-15.9) 04/13/19 07:00 Plt Count 184 K/MM3 (134-434) 04/13/19 07:00 MPV 8.0 fl (7.5-11.1) 04/13/19 07:00 Sodium 140 mmol/L (136-145) 04/13/19 07:00 Potassium 4.5 mmol/L (3.5-5.1) 04/13/19 07:00 Chloride 104 mmol/L (98-107) 04/13/19 07:00 Carbon Dioxide 32 mmol/L (21-32) 04/13/19 07:00 Anion Gap 4 MMOL/L (8-16) L 04/13/19 07:00 BUN 19.3 mg/dL (7-18) H 04/13/19 07:00 Creatinine 0.8 mg/dL (0.55-1.3) 04/13/19 07:00 Est GFR (CKD-EPI)AfAm 120.72 04/13/19 07:00 Est GFR (CKD-EPI)NonAf 104.16 04/13/19 07:00 Random Glucose 85 mg/dL (74-106) 04/13/19 07:00 Calcium 8.8 mg/dL (8.5-10.1) 04/13/19 07:00 Total Bilirubin 0.2 mg/dL (0.2-1) 04/13/19 07:00 AST 20 U/L (15-37) 04/13/19 07:00 ALT 19 U/L (13-61) 04/13/19 07:00 Alkaline Phosphatase 109 U/L (45-117) 04/13/19 07:00 Total Protein 7.6 g/dl (6.4-8.2) 04/13/19 07:00 Albumin 3.0 g/dl (3.4-5.0) L 04/13/19 07:00 Urine Color Yellow 04/13/19 11:25 Urine Appearance Clear 04/13/19 11:25 Urine pH 6.0 (5.0-8.0) 04/13/19 11:25 Ur Specific [place] 1.018 (1.010-1.035) 04/13/19 11:25 Urine Protein Negative (NEGATIVE) 04/13/19 11:25 Urine Glucose (UA) Negative (NEGATIVE) 04/13/19 11:25 Urine Ketones Negative (NEGATIVE) 04/13/19 11:25 Urine Blood Negative (NEGATIVE) 04/13/19 11:25 Urine Nitrite Negative (NEGATIVE) 04/13/19 11:25 Urine Bilirubin Negative (NEGATIVE) 04/13/19 11:25 Urine Urobilinogen 1.0 mg/dL (0.2-1.0) 04/13/19 11:25 Ur Leukocyte Esterase Negative (NEGATIVE) 04/13/19 11:25 RPR Titer Nonreactive (NONREACTIVE) 04/13/19 07:00 lab noted Assessment: 04/15/19 11:41 alcohol and benzo detox Plan: continue benzo and alcohol detox
[2019-04-15] MEDS: THIAMINE HCL 100 MG TABLET (FP) PO SCH (22:13)
[2019-04-15] MEDS: QUEtiapine FUMARATE 50 MG TABLET PO SCH (22:14)
[2019-04-16] MEDS ORDERED: METHADONE HCL 40 MG DISPERSABLE TABLET ONE (03:59)
[2019-04-16] MEDS ORDERED: METHADONE HCL 10 MG TABLET ONE (03:59)
[2019-04-16] MEDS: METHADONE 160 MG, METHADONE 10 MG PO SCH (06:13)
[2019-04-16] MEDS: chlordiazePOXIDE HCL 10 MG CAPSULE PO SCH ×2 (06:13→17:02)
[2019-04-16] MEDS: PRENATAL VITAMINS W/ FOLIC ACID TABLET (FP) PO SCH (10:31)
[2019-04-16] MEDS: SERTRALINE HCL 50 MG TABLET (FP) PO SCH (10:31)
--- NOTE | 2019-04-16 14:55 | PN ---
S CIWA - CIWA Score Nausea/Vomitin-No Nausea/No Vomiting Muscle Tremors: 1-None Visible, but [place] Anxiety: 2 Agitation: 1-Slight > Activity Paroxysmal Sweats: No Perspiration Orientation: 0-Oriented Tacttile Disturbances: 0-None Auditory Disturbances: 0-None Visual Disturbances: 0-None Headache: 0-None Present CIWA-Ar Total Score: 4 BHS Progress Note (SOAP) Subjective: feeling better today social with peers in day room less tremor mild sweating Objective: 04/16/19 14:53 Vital Signs Temperature 97.5 F L 04/16/19 13:42 Pulse Rate 82 04/16/19 13:42 Respiratory Rate 18 04/16/19 13:42 Blood Pressure 105/69 04/16/19 13:42 O2 Sat by Pulse Oximetry (%) Laboratory Last Values WBC 3.1 K/mm3 (4.0-10.0) L 04/13/19 07:00 RBC 4.39 M/mm3 (4.00-5.60) 04/13/19 07:00 Hgb 12.2 GM/dL (11.7-16.9) 04/13/19 07:00 Hct 35.9 % (35.4-49) 04/13/19 07:00 MCV 81.7 fl (80-96) 04/13/19 07:00 MCH 27.8 pg (25.7-33.7) 04/13/19 07:00 MCHC 34.1 g/dl (32.0-35.9) 04/13/19 07:00 RDW 15.8 % (11.9-15.9) 04/13/19 07:00 Plt Count 184 K/MM3 (134-434) 04/13/19 07:00 MPV 8.0 fl (7.5-11.1) 04/13/19 07:00 Sodium 140 mmol/L (136-145) 04/13/19 07:00 Potassium 4.5 mmol/L (3.5-5.1) 04/13/19 07:00 Chloride 104 mmol/L (98-107) 04/13/19 07:00 Carbon Dioxide 32 mmol/L (21-32) 04/13/19 07:00 Anion Gap 4 MMOL/L (8-16) L 04/13/19 07:00 BUN 19.3 mg/dL (7-18) H 04/13/19 07:00 Creatinine 0.8 mg/dL (0.55-1.3) 04/13/19 07:00 Est GFR (CKD-EPI)AfAm 120.72 04/13/19 07:00 Est GFR (CKD-EPI)NonAf 104.16 04/13/19 07:00 Random Glucose 85 mg/dL (74-106) 04/13/19 07:00 Calcium 8.8 mg/dL (8.5-10.1) 04/13/19 07:00 Total Bilirubin 0.2 mg/dL (0.2-1) 04/13/19 07:00 AST 20 U/L (15-37) 04/13/19 07:00 ALT 19 U/L (13-61) 04/13/19 07:00 Alkaline Phosphatase 109 U/L (45-117) 04/13/19 07:00 Total Protein 7.6 g/dl (6.4-8.2) 04/13/19 07:00 Albumin 3.0 g/dl (3.4-5.0) L 04/13/19 07:00 Urine Color Yellow 04/13/19 11:25 Urine Appearance Clear 04/13/19 11:25 Urine pH 6.0 (5.0-8.0) 04/13/19 11:25 Ur Specific [place] 1.018 (1.010-1.035) 04/13/19 11:25 Urine Protein Negative (NEGATIVE) 04/13/19 11:25 Urine Glucose (UA) Negative (NEGATIVE) 04/13/19 11:25 Urine Ketones Negative (NEGATIVE) 04/13/19 11:25 Urine Blood Negative (NEGATIVE) 04/13/19 11:25 Urine Nitrite Negative (NEGATIVE) 04/13/19 11:25 Urine Bilirubin Negative (NEGATIVE) 04/13/19 11:25 Urine Urobilinogen 1.0 mg/dL (0.2-1.0) 04/13/19 11:25 Ur Leukocyte Esterase Negative (NEGATIVE) 04/13/19 11:25 RPR Titer Nonreactive (NONREACTIVE) 04/13/19 07:00 TB (QFT) Incubation (.) 04/13/19 07:00 TB Test (QFT) Nil 0.00 IU/mL (.) 04/13/19 07:00 TB Test (QFT) Mitogen 2.03 IU/mL (.) 04/13/19 07:00 TB Test (QFT) Antigen 0.11 IU/mL (.) 04/13/19 07:00 TB Test (QFT) Negative (Negative) 04/13/19 07:00 TB Positive Criteria (.) 04/13/19 07:00 patient agrees to bring in lab report to methadone maintenance program for follow up lab noted 04/16/19 14:54 Assessment: 04/16/19 14:54 alcohol and benzo withdrawal sx Plan: continue alcohol and benzo detox
[2019-04-16] MEDS: IBUPROFEN 400 MG TABLET (FP) PO PRN (17:04)
[2019-04-16] MEDS: THIAMINE HCL 100 MG TABLET (FP) PO SCH (22:18)
[2019-04-16] MEDS: QUEtiapine FUMARATE 50 MG TABLET PO SCH (22:18)
[2019-04-17] MEDS ORDERED: METHADONE HCL 10 MG TABLET ONE (04:53)
[2019-04-17] MEDS ORDERED: METHADONE HCL 40 MG DISPERSABLE TABLET ONE (04:53)
[2019-04-17] MEDS ORDERED: chlordiazePOXIDE HCL 10 MG CAPSULE PO ONE (05:00)
[2019-04-17] MEDS: METHADONE 160 MG, METHADONE 10 MG PO SCH (05:57)
[2019-04-17] MEDS: PRENATAL VITAMINS W/ FOLIC ACID TABLET (FP) PO SCH (09:37)
[2019-04-17] MEDS: SERTRALINE HCL 50 MG TABLET (FP) PO SCH (09:38)
[2019-04-17 14:02] VITALS: BP 110/69; PULSE 73; TEMP 98.2
--- NOTE | 2019-04-17 16:17 | DS ---
[facility] Detox Discharge Summary Admission Date: 04/12/19 Discharge Date: 04/17/19 - History Present History: Alcohol Dependence Additional Comments: PATIENT GOING TO [facility] ([place], [place]) FOR AFTERCARE. PATIENT WAS DISCHARGED FROM DETOX UNIT TO BE TAKEN OVER TO REHAB UNIT IN STABLE MEDICAL CONDITION. Pertinent Past History: Hep C (treated), Weight Loss, H.I.V., History Of Chronic Constipation, Asthma, Depression, Bipolar Disorder, Varicose Vein Of Left Leg, History Of Back Pain, M.M.T.P., Leukopenia, Nicotine Dependence, Insomnia, Schizoaffective Disorder. - Physical Exam Results Vital Signs: Vital Signs Temperature 98.2 F 04/17/19 14:01 Pulse Rate 73 04/17/19 14:01 Respiratory Rate 18 04/17/19 14:01 Blood Pressure 110/69 04/17/19 14:01 O2 Sat by Pulse Oximetry (%) Pertinent Admission Physical Exam Findings: WITHDRAWAL SYMPTOMS. Laboratory Tests 04/13/19 04/13/19 04/13/19 07:00 07:00 07:00 WBC 3.1 L RBC 4.39 Hgb 12.2 Hct 35.9 MCV 81.7 MCH 27.8 MCHC 34.1 RDW 15.8 Plt Count 184 MPV 8.0 Sodium 140 Potassium 4.5 Chloride 104 Carbon Dioxide 32 Anion Gap 4 L BUN 19.3 H Creatinine 0.8 Est GFR (CKD-EPI)AfAm 120.72 Est GFR (CKD-EPI)NonAf 104.16 Random Glucose 85 Calcium 8.8 Total Bilirubin 0.2 AST 20 ALT 19 Alkaline Phosphatase 109 Total Protein 7.6 Albumin 3.0 L Urine Color Urine Appearance Urine pH Ur Specific [place] Urine Protein Urine Glucose (UA) Urine Ketones Urine Blood Urine Nitrite Urine Bilirubin Urine Urobilinogen Ur Leukocyte Esterase RPR Titer Nonreactive TB (QFT) Incubation TB Test (QFT) Nil TB Test (QFT) Mitogen TB Test (QFT) Antigen TB Test (QFT) TB Positive Criteria 04/13/19 04/13/19 07:00 11:25 WBC RBC Hgb Hct MCV MCH MCHC RDW Plt Count MPV Sodium Potassium Chloride Carbon Dioxide Anion Gap BUN Creatinine Est GFR (CKD-EPI)AfAm Est GFR (CKD-EPI)NonAf Random Glucose Calcium Total Bilirubin AST ALT Alkaline Phosphatase Total Protein Albumin Urine Color Yellow Urine Appearance Clear Urine pH 6.0 Ur Specific [place] 1.018 Urine Protein Negative Urine Glucose (UA) Negative Urine Ketones Negative Urine Blood Negative Urine Nitrite Negative Urine Bilirubin Negative Urine Urobilinogen 1.0 Ur Leukocyte Esterase Negative RPR Titer TB (QFT) Incubation TB Test (QFT) Nil 0.00 TB Test (QFT) Mitogen 2.03 TB Test (QFT) Antigen 0.11 TB Test (QFT) Negative TB Positive Criteria LABS NOTED. - Treatment Hospital Course: Detox Protocol Followed, Detoxed Safely, Responded well, Discharged Condition Good, Rehab Referral Accepted Patient has Accepted a Rehab Referral to: [facility] ([place], [place]). - Medication Discharge Medications: Ambulatory Orders Albuterol Sulfate Inhaler - [Ventolin HFA Inhaler -] 2 puff IH Q4H PRN #1 inhaler 04/16/19 - Diagnosis (1) Alcohol dependence with uncomplicated withdrawal Status: Acute (2) Bipolar disorder Status: Acute Qualifiers: Active/Remission status: remission status unspecified Qualified Code(s): F31.9 - Bipolar disorder, unspecified (3) Weight loss Status: Acute (4) Asthma Status: Chronic Qualifiers: Asthma severity: mild Asthma persistence: unspecified Asthma complication type: uncomplicated Qualified Code(s): J45.909 - Unspecified asthma, uncomplicated (5) Back pain Status: Chronic Qualifiers: Back pain location: back pain in unspecified location Chronicity: unspecified Back pain laterality: unspecified Qualified Code(s): M54.9 - Dorsalgia, unspecified (6) HIV (human immunodeficiency virus infection) Status: Chronic Qualifiers: HIV symptom status: unspecified Qualified Code(s): B20 - Human immunodeficiency virus [HIV] disease (7) Hepatitis C Status: Chronic Qualifiers: Viral hepatitis chronicity: chronic Hepatic coma status: without hepatic coma Qualified Code(s): B18.2 - Chronic viral hepatitis C (8) Methadone maintenance therapy patient Status: Chronic (9) Nicotine dependence Status: Chronic Qualifiers: Nicotine product type: cigarettes Substance use status: uncomplicated Qualified Code(s): F17.210 - Nicotine dependence, cigarettes, uncomplicated (10) Sedative, hypnotic or anxiolytic dependence with withdrawal, uncomplicated Status: Chronic (11) Cannabis dependence, uncomplicated Status: Chronic (12) Cocaine dependence Status: Chronic Qualifiers: Substance use status: uncomplicated Qualified Code(s): F14.20 - Cocaine dependence, uncomplicated (13) Insomnia Status: Chronic (14) Non-compliant patient Status: Chronic (15) Schizoaffective disorder Status: Chronic (16) Substance induced mood disorder Status: Chronic - AMA Did Patient Leave Against Medical Advice: No
== END 2019-04-17 15:37 | disposition other institution (70) | DRG 773 ==
LOC: YASAS 14:30 → Y3N 15:30
PROVIDERS: ADMIT Surgery; ATTEND Allergy & Immunology
PROC: HZ2ZZZZ Detoxification Services for Substance Abuse Treatment (ICD-10-PCS; principal; 2019-04-12)
DX: F10.230 Alcohol dependence with withdrawal, uncomplicated (principal); F11.20 Opioid dependence, uncomplicated; F13.230 Sedative, hypnotic or anxiolytic dependence with withdrawal, uncomplicated; F14.20 Cocaine dependence, uncomplicated; F12.20 Cannabis dependence, uncomplicated; F17.210 Nicotine dependence, cigarettes, uncomplicated; F31.9 Bipolar disorder, unspecified; F25.9 Schizoaffective disorder, unspecified; F19.24 Other psychoactive substance dependence with psychoactive substance-induced mood disorder; G47.00 Insomnia, unspecified; Z21 Asymptomatic human immunodeficiency virus [HIV] infection status; J45.909 Unspecified asthma, uncomplicated; R63.4 Abnormal weight loss; M54.9 Dorsalgia, unspecified; G89.29 Other chronic pain; B18.2 Chronic viral hepatitis C; Z91.14 Patient's other noncompliance with medication regimen
CPT/HCPCS: 36415; 80053; 81003; 85027; 86480; 86593

== ENCOUNTER 2019-04-17 15:46 | Inpatient (IN) | payer OTHER ==
[2019-04-17] MEDS ORDERED: ALBUTEROL SO4 8 GM HFA INHALER IH PRN (16:22)
[2019-04-17] MEDS ORDERED: MENTHOL/PHENOL 1 EACH UD MM PRN (16:22)
[2019-04-17] MEDS ORDERED: ACETAMINOPHEN 325 MG TABLET (FP) PO PRN (16:22)
[2019-04-17] MEDS ORDERED: LOPERAMIDE HCL 2 MG CAPSULE PO PRN (16:22)
[2019-04-17] MEDS ORDERED: MAGNESIUM CITRATE 300 ML BOTTLE PO PRN (16:22)
[2019-04-17] MEDS ORDERED: P-EPHED 60MG/TRIPROLIDI 2.5MG TABLET PO PRN (16:22)
--- NOTE | 2019-04-17 16:24 | HP ---
[facility] Rehab Assess/Revision - Admission History Admitted to Rehab from: [facility] Date of Admission to Rehab: 04/17/2019 - Vital signs Vital Signs: NOTED; STABLE. - Findings Detox History & Physical reviewed: Yes Concur with findings: Yes Comments/Additional Findings: PATIENT'S MEDICAL / MEDICATION HISTORY REVIEWED PRIOR TO DISCHARGE FROM DETOX UNIT. PATIENT WAS DISCHARGED FROM DETOX UNIT TO BE TAKEN OVER TO REHAB UNIT IN STABLE MEDICAL CONDITION. Inpatient Rehab Admission - Rehab Decision to Admit Inpatient rehab admission?: Yes - Initial Determination Are CD services needed?: Yes Free of communicable disease: Yes Not in need of hospitalization: Yes - Rehab Admission Criteria Previous failed treatment: Yes Poor recovery environment: Yes Comorbidities: Yes Lacks judgement: No Patient is meeting Inpatient Rehab admission criteria:: Yes
[2019-04-17] MEDS ORDERED: QUEtiapine FUMARATE 50 MG TABLET PO SCH (22:25)
[2019-04-17] MEDS: THIAMINE HCL 100 MG TABLET (FP) PO SCH (22:42)
[2019-04-18] MEDS ORDERED: METHADONE HCL 10 MG TABLET ONE (04:10)
[2019-04-18] MEDS ORDERED: METHADONE HCL 40 MG DISPERSABLE TABLET ONE (04:10)
[2019-04-18] MEDS ORDERED: METHADONE HCL 10 MG TABLET PO SCH (06:00)
[2019-04-18] MEDS: METHADONE 160 MG, METHADONE 10 MG PO SCH (06:26)
[2019-04-18] MEDS: SERTRALINE HCL 50 MG TABLET (FP) PO SCH (09:52)
[2019-04-18] MEDS: PRENATAL VITAMINS W/ FOLIC ACID TABLET (FP) PO SCH (09:53)
[2019-04-18] MEDS: QUEtiapine FUMARATE 50 MG TABLET PO SCH (21:23)
[2019-04-18] MEDS: THIAMINE HCL 100 MG TABLET (FP) PO SCH (21:24)
[2019-04-18] MEDS: MAGNESIUM HYDROX 2400MG/30ML ORAL SUSPENSION 30 ML CUP PO PRN (21:26)
[2019-04-18] MEDS ORDERED: QUEtiapine FUMARATE 50 MG TABLET PO SCH (22:00)
[2019-04-19] MEDS ORDERED: METHADONE HCL 10 MG TABLET ONE (03:22)
[2019-04-19] MEDS ORDERED: METHADONE HCL 40 MG DISPERSABLE TABLET ONE (03:22)
[2019-04-19] MEDS: METHADONE 160 MG, METHADONE 10 MG PO SCH (06:09)
[2019-04-19] MEDS: SERTRALINE HCL 50 MG TABLET (FP) PO SCH (09:43)
[2019-04-19] MEDS: PRENATAL VITAMINS W/ FOLIC ACID TABLET (FP) PO SCH (09:43)
[2019-04-19] MEDS: QUEtiapine FUMARATE 50 MG TABLET PO SCH (21:43)
[2019-04-19] MEDS: THIAMINE HCL 100 MG TABLET (FP) PO SCH (21:43)
[2019-04-19] MEDS: IBUPROFEN 400 MG TABLET (FP) PO PRN (21:44)
[2019-04-20] MEDS ORDERED: METHADONE HCL 10 MG TABLET ONE (02:46)
[2019-04-20] MEDS ORDERED: METHADONE HCL 40 MG DISPERSABLE TABLET ONE (02:46)
[2019-04-20] MEDS: METHADONE 160 MG, METHADONE 10 MG PO SCH (06:04)
[2019-04-20] MEDS: SERTRALINE HCL 50 MG TABLET (FP) PO SCH (09:48)
[2019-04-20] MEDS: PRENATAL VITAMINS W/ FOLIC ACID TABLET (FP) PO SCH (09:48)
[2019-04-20] MEDS: MAG HYDROX/AL HYDROX/SIMETH 30 ML UNIT-DOSE CUP PO PRN ×2 (09:49→21:44)
--- NOTE | 2019-04-20 10:24 | PN ---
S Progress Note Note: PATIENT SEEN FOR C/O DRY SKIN, CONSTIPATION AND HEMORRHOIDS. PATIENT DENIES N/V/ D AND RECTAL BLEEDING. C/O HARD STOOLS AND STRAINING. Vital Signs (72 hours) 04/17/19 04/18/19 04/18/19 16:22 03:30 07:21 Temperature 98.2 F 97.8 F Pulse Rate 74 68 Respiratory 18 18 18 Rate Blood Pressure 110/69 138/84 04/19/19 04/19/19 04/20/19 03:30 06:51 03:30 Temperature 98.2 F Pulse Rate 63 Respiratory 18 18 18 Rate Blood Pressure 144/83 04/20/19 07:44 Temperature 98.2 F Pulse Rate 68 Respiratory 18 Rate Blood Pressure 128/80 PE: ALERT AND ORIENTED X 3 SKIN WARM, + DRY PATCHES ON LEGS, INTACT +PERRLA, EOMS INTACT BL GI NT, ND EXT FULL ROM, AMB AD ANTWAN A/P: DRY SKIN HX OF HEMORRHOIDS CONSTIPATION WILL ORDER EUCERIN CREAM ANUSOL HC HS METAMUCIL PACKET DAILY ENCOURAGE ORAL FLUIDS MONITOR CLINICALLY
[2019-04-20] MEDS: MINERAL OIL/PETROLAT/WATER TOPICAL CREAM 113 GM JAR TP SCH ×2 (13:44→21:44)
[2019-04-20] MEDS: PSYLLIUM 5.85 GM PACKET PO SCH (13:44)
[2019-04-20] MEDS: HYDROCORTISONE 2.5% TOPICAL CREAM 30 GM TUBE PR SCH (21:41)
[2019-04-20] MEDS: QUEtiapine FUMARATE 50 MG TABLET PO SCH (21:42)
[2019-04-20] MEDS: THIAMINE HCL 100 MG TABLET (FP) PO SCH (21:42)
[2019-04-21] MEDS ORDERED: METHADONE HCL 10 MG TABLET ONE (04:34)
[2019-04-21] MEDS ORDERED: METHADONE HCL 40 MG DISPERSABLE TABLET ONE (04:35)
[2019-04-21] MEDS: METHADONE 160 MG, METHADONE 10 MG PO SCH (06:22)
[2019-04-21] MEDS: PRENATAL VITAMINS W/ FOLIC ACID TABLET (FP) PO SCH (09:37)
[2019-04-21] MEDS: SERTRALINE HCL 50 MG TABLET (FP) PO SCH (09:38)
[2019-04-21] MEDS ORDERED: PT OWN MED DRAWER 7, Y5N ONE (09:38)
[2019-04-21] MEDS: PSYLLIUM 5.85 GM PACKET PO SCH (09:40)
[2019-04-21] MEDS: MINERAL OIL/PETROLAT/WATER TOPICAL CREAM 113 GM JAR TP SCH ×2 (10:08→21:58)
[2019-04-21] MEDS: THIAMINE HCL 100 MG TABLET (FP) PO SCH (21:58)
[2019-04-21] MEDS: HYDROCORTISONE 2.5% TOPICAL CREAM 30 GM TUBE PR SCH (21:58)
[2019-04-21] MEDS: QUEtiapine FUMARATE 50 MG TABLET PO SCH (21:58)
[2019-04-21] MEDS: MAG HYDROX/AL HYDROX/SIMETH 30 ML UNIT-DOSE CUP PO PRN (21:59)
[2019-04-22] MEDS ORDERED: METHADONE HCL 10 MG TABLET ONE (04:36)
[2019-04-22] MEDS ORDERED: METHADONE HCL 40 MG DISPERSABLE TABLET ONE (04:36)
[2019-04-22] MEDS: METHADONE 160 MG, METHADONE 10 MG PO SCH (06:21)
[2019-04-22] MEDS ORDERED: PT OWN MED DRAWER 7, Y5N ONE (08:54)
[2019-04-22] MEDS: PRENATAL VITAMINS W/ FOLIC ACID TABLET (FP) PO SCH (09:17)
[2019-04-22] MEDS: SERTRALINE HCL 50 MG TABLET (FP) PO SCH (09:17)
[2019-04-22] MEDS: PSYLLIUM 5.85 GM PACKET PO SCH (09:19)
[2019-04-22] MEDS: MINERAL OIL/PETROLAT/WATER TOPICAL CREAM 113 GM JAR TP SCH ×2 (09:58→21:53)
[2019-04-22] MEDS: QUEtiapine FUMARATE 50 MG TABLET PO SCH (21:51)
[2019-04-22] MEDS: THIAMINE HCL 100 MG TABLET (FP) PO SCH (21:51)
[2019-04-22] MEDS: MAG HYDROX/AL HYDROX/SIMETH 30 ML UNIT-DOSE CUP PO PRN (21:52)
[2019-04-22] MEDS: HYDROCORTISONE 2.5% TOPICAL CREAM 30 GM TUBE PR SCH (21:54)
[2019-04-22] MEDS: guaiFENesin 200 MG/10 ML 10 ML UNIT-DOSE CUPS PO PRN (22:04)
[2019-04-23] MEDS ORDERED: METHADONE HCL 40 MG DISPERSABLE TABLET ONE (06:22)
[2019-04-23] MEDS ORDERED: METHADONE HCL 10 MG TABLET ONE (06:22)
[2019-04-23] MEDS: METHADONE 160 MG, METHADONE 10 MG PO SCH (06:23)
[2019-04-23] MEDS ORDERED: PT OWN MED DRAWER 7, Y5N ONE (09:00)
[2019-04-23] MEDS: SERTRALINE HCL 50 MG TABLET (FP) PO SCH (09:46)
[2019-04-23] MEDS: PSYLLIUM 5.85 GM PACKET PO SCH (09:46)
[2019-04-23] MEDS: PRENATAL VITAMINS W/ FOLIC ACID TABLET (FP) PO SCH (09:46)
[2019-04-23] MEDS: MINERAL OIL/PETROLAT/WATER TOPICAL CREAM 113 GM JAR TP SCH ×2 (09:47→21:11)
[2019-04-23] MEDS: THIAMINE HCL 100 MG TABLET (FP) PO SCH (21:11)
[2019-04-23] MEDS: QUEtiapine FUMARATE 50 MG TABLET PO SCH (21:11)
[2019-04-23] MEDS: guaiFENesin 200 MG/10 ML 10 ML UNIT-DOSE CUPS PO PRN (21:12)
[2019-04-23] MEDS: HYDROCORTISONE 2.5% TOPICAL CREAM 30 GM TUBE PR SCH (21:13)
[2019-04-24] MEDS ORDERED: METHADONE HCL 10 MG TABLET ONE (05:08)
[2019-04-24] MEDS ORDERED: METHADONE HCL 40 MG DISPERSABLE TABLET ONE (05:08)
[2019-04-24] MEDS: METHADONE 160 MG, METHADONE 10 MG PO SCH (05:55)
[2019-04-24] MEDS ORDERED: METHADONE HCL 10 MG TABLET PO SCH (06:00)
[2019-04-24] MEDS: SERTRALINE HCL 50 MG TABLET (FP) PO SCH (10:32)
[2019-04-24] MEDS: PRENATAL VITAMINS W/ FOLIC ACID TABLET (FP) PO SCH (10:32)
[2019-04-24] MEDS: PSYLLIUM 5.85 GM PACKET PO SCH (10:33)
[2019-04-24] MEDS: MINERAL OIL/PETROLAT/WATER TOPICAL CREAM 113 GM JAR TP SCH ×2 (10:33→21:28)
[2019-04-24] MEDS: THIAMINE HCL 100 MG TABLET (FP) PO SCH (21:27)
[2019-04-24] MEDS: HYDROCORTISONE 2.5% TOPICAL CREAM 30 GM TUBE PR SCH (21:28)
[2019-04-25] MEDS ORDERED: METHADONE HCL 40 MG DISPERSABLE TABLET ONE (03:59)
[2019-04-25] MEDS ORDERED: METHADONE HCL 10 MG TABLET ONE (03:59)
[2019-04-25] MEDS: METHADONE 160 MG, METHADONE 10 MG PO SCH (06:14)
[2019-04-25] MEDS: PSYLLIUM 5.85 GM PACKET PO SCH (10:06)
[2019-04-25] MEDS: PRENATAL VITAMINS W/ FOLIC ACID TABLET (FP) PO SCH (10:06)
[2019-04-25] MEDS: SERTRALINE HCL 50 MG TABLET (FP) PO SCH (10:06)
[2019-04-25] MEDS: MINERAL OIL/PETROLAT/WATER TOPICAL CREAM 113 GM JAR TP SCH ×2 (10:08→21:28)
[2019-04-25] MEDS ORDERED: PT OWN MED DRAWER 7, Y5N ONE (10:09)
[2019-04-25] MEDS: guaiFENesin 200 MG/10 ML 10 ML UNIT-DOSE CUPS PO PRN (16:43)
[2019-04-25] MEDS: HYDROCORTISONE 2.5% TOPICAL CREAM 30 GM TUBE PR SCH (21:27)
[2019-04-25] MEDS: THIAMINE HCL 100 MG TABLET (FP) PO SCH (21:28)
[2019-04-25] MEDS: MELATONIN 5 MG TABLETS PO PRN (22:27)
[2019-04-26] MEDS ORDERED: METHADONE HCL 40 MG DISPERSABLE TABLET ONE (03:50)
[2019-04-26] MEDS ORDERED: METHADONE HCL 10 MG TABLET ONE (03:50)
[2019-04-26] MEDS: METHADONE 160 MG, METHADONE 10 MG PO SCH (06:11)
--- NOTE | 2019-04-26 06:59 | PN ---
[facility] Progress Note Note: Patient complains to life insurance underwriter that Seroquel that he received earlier was stopped. Review of record shows that while in detox he saw Dr Hoffmann on 04/13/19 and was ordered Zoloft 100 mg/day and Seroquel 150 mg/hs. So Seroquel 150 mg/hs is resumed
[2019-04-26] MEDS: SERTRALINE HCL 50 MG TABLET (FP) PO SCH (09:36)
[2019-04-26] MEDS: MINERAL OIL/PETROLAT/WATER TOPICAL CREAM 113 GM JAR TP SCH ×2 (09:36→21:40)
[2019-04-26] MEDS: PRENATAL VITAMINS W/ FOLIC ACID TABLET (FP) PO SCH (09:36)
[2019-04-26] MEDS: PSYLLIUM 5.85 GM PACKET PO SCH (09:36)
[2019-04-26] MEDS: QUEtiapine FUMARATE 50 MG TABLET PO SCH (21:39)
[2019-04-26] MEDS: MELATONIN 5 MG TABLETS PO PRN (21:39)
[2019-04-26] MEDS: THIAMINE HCL 100 MG TABLET (FP) PO SCH (21:40)
[2019-04-26] MEDS: HYDROCORTISONE 2.5% TOPICAL CREAM 30 GM TUBE PR SCH (21:41)
[2019-04-27] MEDS ORDERED: METHADONE HCL 10 MG TABLET ONE (04:00)
[2019-04-27] MEDS ORDERED: METHADONE HCL 40 MG DISPERSABLE TABLET ONE (04:00)
[2019-04-27] MEDS: METHADONE 160 MG, METHADONE 10 MG PO SCH (05:59)
[2019-04-27] MEDS: SERTRALINE HCL 50 MG TABLET (FP) PO SCH (10:15)
[2019-04-27] MEDS: guaiFENesin 200 MG/10 ML 10 ML UNIT-DOSE CUPS PO PRN (10:17)
[2019-04-27] MEDS: PRENATAL VITAMINS W/ FOLIC ACID TABLET (FP) PO SCH (10:17)
[2019-04-27] MEDS: PSYLLIUM 5.85 GM PACKET PO SCH ×2 (10:17→21:31)
[2019-04-27] MEDS: MINERAL OIL/PETROLAT/WATER TOPICAL CREAM 113 GM JAR TP SCH ×2 (10:18→21:29)
[2019-04-27] MEDS: HYDROCORTISONE 2.5% TOPICAL CREAM 30 GM TUBE PR SCH (21:28)
[2019-04-27] MEDS: QUEtiapine FUMARATE 50 MG TABLET PO SCH (21:28)
[2019-04-27] MEDS: THIAMINE HCL 100 MG TABLET (FP) PO SCH (21:28)
[2019-04-28] MEDS ORDERED: METHADONE HCL 40 MG DISPERSABLE TABLET ONE (04:03)
[2019-04-28] MEDS ORDERED: METHADONE HCL 10 MG TABLET ONE (04:03)
[2019-04-28] MEDS: METHADONE 160 MG, METHADONE 10 MG PO SCH (06:03)
[2019-04-28] MEDS: PSYLLIUM 5.85 GM PACKET PO SCH ×2 (10:10→23:02)
[2019-04-28] MEDS: PRENATAL VITAMINS W/ FOLIC ACID TABLET (FP) PO SCH (10:11)
[2019-04-28] MEDS: MINERAL OIL/PETROLAT/WATER TOPICAL CREAM 113 GM JAR TP SCH ×2 (10:12→21:14)
[2019-04-28] MEDS: SERTRALINE HCL 50 MG TABLET (FP) PO SCH (10:12)
[2019-04-28] MEDS: QUEtiapine FUMARATE 50 MG TABLET PO SCH (21:14)
[2019-04-28] MEDS: MELATONIN 5 MG TABLETS PO PRN (21:14)
[2019-04-28] MEDS: HYDROCORTISONE 2.5% TOPICAL CREAM 30 GM TUBE PR SCH (21:14)
[2019-04-28] MEDS: THIAMINE HCL 100 MG TABLET (FP) PO SCH (21:14)
[2019-04-29] MEDS ORDERED: METHADONE HCL 40 MG DISPERSABLE TABLET ONE (04:15)
[2019-04-29] MEDS ORDERED: METHADONE HCL 10 MG TABLET ONE (04:15)
[2019-04-29] MEDS: METHADONE 160 MG, METHADONE 10 MG PO SCH (06:17)
[2019-04-29] MEDS: SERTRALINE HCL 50 MG TABLET (FP) PO SCH (09:38)
[2019-04-29] MEDS: MINERAL OIL/PETROLAT/WATER TOPICAL CREAM 113 GM JAR TP SCH ×2 (09:38→21:01)
[2019-04-29] MEDS: PRENATAL VITAMINS W/ FOLIC ACID TABLET (FP) PO SCH (09:38)
[2019-04-29] MEDS: PSYLLIUM 5.85 GM PACKET PO SCH ×2 (09:38→21:03)
[2019-04-29] MEDS: IBUPROFEN 400 MG TABLET (FP) PO PRN ×2 (09:39→21:02)
[2019-04-29] MEDS: QUEtiapine FUMARATE 50 MG TABLET PO SCH (21:01)
[2019-04-29] MEDS: THIAMINE HCL 100 MG TABLET (FP) PO SCH (21:01)
[2019-04-29] MEDS: HYDROCORTISONE 2.5% TOPICAL CREAM 30 GM TUBE PR SCH (21:01)
[2019-04-30] MEDS ORDERED: METHADONE HCL 10 MG TABLET ONE (05:32)
[2019-04-30] MEDS ORDERED: METHADONE HCL 40 MG DISPERSABLE TABLET ONE (05:32)
[2019-04-30] MEDS: METHADONE 160 MG, METHADONE 10 MG PO SCH (06:12)
[2019-04-30] MEDS: MINERAL OIL/PETROLAT/WATER TOPICAL CREAM 113 GM JAR TP SCH ×2 (09:25→22:11)
[2019-04-30] MEDS: PSYLLIUM 5.85 GM PACKET PO SCH ×2 (09:26→21:24)
[2019-04-30] MEDS: SERTRALINE HCL 50 MG TABLET (FP) PO SCH (09:27)
[2019-04-30] MEDS: PRENATAL VITAMINS W/ FOLIC ACID TABLET (FP) PO SCH (09:27)
[2019-04-30] MEDS: QUEtiapine FUMARATE 50 MG TABLET PO SCH (21:00)
[2019-04-30] MEDS: THIAMINE HCL 100 MG TABLET (FP) PO SCH (21:23)
[2019-04-30] MEDS: CYCLOBENZAPRINE HCL 10 MG TABLET (FP) PO SCH (21:25)
[2019-04-30] MEDS: MELATONIN 5 MG TABLETS PO PRN (21:25)
[2019-04-30] MEDS: HYDROCORTISONE 2.5% TOPICAL CREAM 30 GM TUBE PR SCH (22:11)
[2019-05-01] MEDS ORDERED: METHADONE HCL 10 MG TABLET ONE (05:47)
[2019-05-01] MEDS ORDERED: METHADONE HCL 40 MG DISPERSABLE TABLET ONE (05:47)
[2019-05-01] MEDS: METHADONE 160 MG, METHADONE 10 MG PO SCH (06:23)
[2019-05-01] MEDS: CYCLOBENZAPRINE HCL 10 MG TABLET (FP) PO SCH ×3 (06:23→21:32)
[2019-05-01] MEDS: PSYLLIUM 5.85 GM PACKET PO SCH ×2 (10:13→21:32)
[2019-05-01] MEDS: MINERAL OIL/PETROLAT/WATER TOPICAL CREAM 113 GM JAR TP SCH ×2 (10:13→21:34)
[2019-05-01] MEDS: SERTRALINE HCL 50 MG TABLET (FP) PO SCH (10:14)
[2019-05-01] MEDS: PRENATAL VITAMINS W/ FOLIC ACID TABLET (FP) PO SCH (10:14)
[2019-05-01] MEDS ORDERED: PT OWN MED DRAWER 7, Y5N ONE (10:52)
[2019-05-01] MEDS: QUEtiapine FUMARATE 50 MG TABLET PO SCH (21:32)
[2019-05-01] MEDS: THIAMINE HCL 100 MG TABLET (FP) PO SCH (21:32)
[2019-05-01] MEDS: MELATONIN 5 MG TABLETS PO PRN (21:33)
[2019-05-01] MEDS: HYDROCORTISONE 2.5% TOPICAL CREAM 30 GM TUBE PR SCH (21:34)
[2019-05-02] MEDS ORDERED: METHADONE HCL 40 MG DISPERSABLE TABLET ONE (05:42)
[2019-05-02] MEDS ORDERED: METHADONE HCL 10 MG TABLET ONE (05:42)
[2019-05-02] MEDS: CYCLOBENZAPRINE HCL 10 MG TABLET (FP) PO SCH ×3 (05:51→21:18)
[2019-05-02] MEDS: METHADONE 160 MG, METHADONE 10 MG PO SCH (05:51)
[2019-05-02] MEDS: MINERAL OIL/PETROLAT/WATER TOPICAL CREAM 113 GM JAR TP SCH ×2 (10:51→21:19)
[2019-05-02] MEDS: SERTRALINE HCL 50 MG TABLET (FP) PO SCH (10:52)
[2019-05-02] MEDS: PSYLLIUM 5.85 GM PACKET PO SCH ×2 (10:52→21:18)
[2019-05-02] MEDS: PRENATAL VITAMINS W/ FOLIC ACID TABLET (FP) PO SCH (10:52)
[2019-05-02] MEDS: THIAMINE HCL 100 MG TABLET (FP) PO SCH (21:17)
[2019-05-02] MEDS: QUEtiapine FUMARATE 50 MG TABLET PO SCH (21:18)
[2019-05-02] MEDS: IBUPROFEN 400 MG TABLET (FP) PO PRN (21:19)
[2019-05-02] MEDS: HYDROCORTISONE 2.5% TOPICAL CREAM 30 GM TUBE PR SCH (21:19)
[2019-05-03] MEDS ORDERED: METHADONE HCL 10 MG TABLET ONE (03:44)
[2019-05-03] MEDS ORDERED: METHADONE HCL 40 MG DISPERSABLE TABLET ONE (03:44)
[2019-05-03] MEDS: CYCLOBENZAPRINE HCL 10 MG TABLET (FP) PO SCH ×3 (05:54→21:25)
[2019-05-03] MEDS: METHADONE 160 MG, METHADONE 10 MG PO SCH (05:55)
[2019-05-03] MEDS: PSYLLIUM 5.85 GM PACKET PO SCH ×2 (09:11→21:28)
[2019-05-03] MEDS: SERTRALINE HCL 50 MG TABLET (FP) PO SCH (09:12)
[2019-05-03] MEDS: PRENATAL VITAMINS W/ FOLIC ACID TABLET (FP) PO SCH (09:12)
[2019-05-03] MEDS: MINERAL OIL/PETROLAT/WATER TOPICAL CREAM 113 GM JAR TP SCH ×2 (09:13→21:28)
[2019-05-03] MEDS: QUEtiapine FUMARATE 50 MG TABLET PO SCH (21:26)
[2019-05-03] MEDS: HYDROCORTISONE 2.5% TOPICAL CREAM 30 GM TUBE PR SCH (21:28)
[2019-05-03] MEDS: THIAMINE HCL 100 MG TABLET (FP) PO SCH (21:28)
[2019-05-04] MEDS ORDERED: METHADONE HCL 10 MG TABLET ONE (05:24)
[2019-05-04] MEDS ORDERED: METHADONE HCL 40 MG DISPERSABLE TABLET ONE (05:25)
[2019-05-04] MEDS: CYCLOBENZAPRINE HCL 10 MG TABLET (FP) PO SCH ×3 (05:56→21:22)
[2019-05-04] MEDS: METHADONE 160 MG, METHADONE 10 MG PO SCH (05:56)
[2019-05-04] MEDS ORDERED: PT OWN MED DRAWER 7, Y5N ONE ×2 (09:36→20:31)
[2019-05-04] MEDS: PSYLLIUM 5.85 GM PACKET PO SCH ×2 (10:02→21:24)
[2019-05-04] MEDS: PRENATAL VITAMINS W/ FOLIC ACID TABLET (FP) PO SCH (10:02)
[2019-05-04] MEDS: SERTRALINE HCL 50 MG TABLET (FP) PO SCH (10:02)
[2019-05-04] MEDS: MINERAL OIL/PETROLAT/WATER TOPICAL CREAM 113 GM JAR TP SCH ×2 (10:15→21:24)
[2019-05-04] MEDS: MAGNESIUM HYDROX 2400MG/30ML ORAL SUSPENSION 30 ML CUP PO PRN (14:48)
[2019-05-04] MEDS: QUEtiapine FUMARATE 50 MG TABLET PO SCH (21:22)
[2019-05-04] MEDS: THIAMINE HCL 100 MG TABLET (FP) PO SCH (21:22)
[2019-05-04] MEDS: HYDROCORTISONE 2.5% TOPICAL CREAM 30 GM TUBE PR SCH (21:23)
[2019-05-05] MEDS ORDERED: METHADONE HCL 10 MG TABLET ONE (05:29)
[2019-05-05] MEDS ORDERED: METHADONE HCL 40 MG DISPERSABLE TABLET ONE (05:30)
[2019-05-05] MEDS: CYCLOBENZAPRINE HCL 10 MG TABLET (FP) PO SCH (05:53)
[2019-05-05] MEDS: METHADONE 160 MG, METHADONE 10 MG PO SCH (05:53)
[2019-05-05 06:37] VITALS: BP 148/99; PULSE 77; TEMP 97.9
--- NOTE | 2019-05-05 07:21 | PN ---
[facility] Progress Note Note: Patient is scheduled for discharge today. Scripts for 30 days supply of medications(Seroquel 150 mg/hs, Zoloft 100 mg/day) are electronically transmitted to [facility] at [address] [place] [id number]
[2019-05-05] MEDS: MINERAL OIL/PETROLAT/WATER TOPICAL CREAM 113 GM JAR TP SCH (09:23)
[2019-05-05] MEDS: PRENATAL VITAMINS W/ FOLIC ACID TABLET (FP) PO SCH (09:23)
[2019-05-05] MEDS: PSYLLIUM 5.85 GM PACKET PO SCH (09:23)
[2019-05-05] MEDS: SERTRALINE HCL 50 MG TABLET (FP) PO SCH (09:23)
[2019-05-05] MEDS ORDERED: PT OWN MED DRAWER 7, Y5N ONE (09:24)
--- NOTE | 2019-05-05 09:29 | DS ---
[facility] Rehab Discharge Summary - [facility] Rehab Discharge Summary Admission Date: 04/17/19 Discharge Date: 05/05/19 - History Present History: Alcohol dependence, Cannabis dependence, Cocaine dependence, MMTP, Opioid dependence Pertinent Past History: This 48 years old male with alcohol and xanax dependence,heroin abused,mmtp 170 mgs/day no seizure no syncope hepattits c hiv since 1988 no medication weight loss chronic constipation insomnia asthma multiple admission in the past but keep relapsing,last detox [facility] 02/10/19 to 02/25,rehab 02/12/19 to 02/16/19 longest sobriety 2 years - Discharge Physical Exam Vital Signs: Vital Signs Temperature 97.9 F 05/05/19 06:36 Pulse Rate 77 05/05/19 06:36 Respiratory Rate 18 05/05/19 06:36 Blood Pressure 148/99 05/05/19 06:36 O2 Sat by Pulse Oximetry (%) Pertinent Admission Physical Exam Findings: Physical General Appearance: No apparent distress HEENTM: LORETO, Respiratory: Lungs Clear Cardiology: Regular Rhythm, Regular Rate, S1, S2 Abdominal: +Bowel Sounds, Flat, Soft, Musculoskeletal:full range of Motion, full weight bearing, steady gait Extremities:varocose vein left leg Neurological: : amalgamator II-XII NML intactMotor Strength 5/5 Integumentary: color consistent throughout trunk and extremities Lymphatic: no palpable lymph nodes - Treatment Discharge Condition: Discharge condition good Hospital Course: Patient attended groups, was adherent to treatment plan and medication regimen. Was seen by psychiatric provider for insomnia and medical provider for constipation. He had no acute or urgent medical problems during rehab and is medically stable for discharge. He will seek on-going care at [place] and will continue MMTP. - Medication Discharge Medications: Ambulatory Orders Albuterol Sulfate Inhaler - [Ventolin HFA Inhaler -] 2 puff IH Q4H PRN #1 inhaler 05/04/19 Albuterol Sulfate Inhaler - [Ventolin HFA Inhaler -] 2 puff IH Q4H PRN #1 inhaler 05/05/19 Quetiapine Fumarate [Seroquel -] 150 mg PO HS #90 tablet 05/05/19 Sertraline HCl [Zoloft] 100 mg PO DAILY #30 tablet 05/05/19 - Medication-Assisted Treatment (MAT) Medication-Assisted Treatment (MAT): No - Discharge Instructions Diet, activity, other medical instructions: Diet: As tolerated Activity: as tolerated Other medical instructions: Aftercare and medical care at [place], MMTP at [place]. - Diagnosis (1) Alcohol dependence with uncomplicated withdrawal Current Visit: Yes Status: Chronic (2) Asthma Current Visit: Yes Status: Chronic Qualifiers: Asthma severity: mild Asthma persistence: intermittent Asthma complication type: uncomplicated Qualified Code(s): J45.20 - Mild intermittent asthma, uncomplicated (3) Cannabis dependence, uncomplicated Current Visit: Yes Status: Chronic (4) Cocaine dependence Current Visit: Yes Status: Chronic Qualifiers: Substance use status: uncomplicated Qualified Code(s): F14.20 - Cocaine dependence, uncomplicated (5) HIV (human immunodeficiency virus infection) Current Visit: Yes Status: Chronic Qualifiers: HIV symptom status: unspecified Qualified Code(s): B20 - Human immunodeficiency virus [HIV] disease (6) Hepatitis C Current Visit: Yes Status: Chronic Qualifiers: Viral hepatitis chronicity: chronic Hepatic coma status: without hepatic coma Qualified Code(s): B18.2 - Chronic viral hepatitis C (7) Methadone maintenance therapy patient Current Visit: Yes Status: Chronic (8) Opioid dependence Current Visit: Yes Status: Chronic Qualifiers: Substance use status: uncomplicated Qualified Code(s): F11.20 - Opioid dependence, uncomplicated - Follow-up Referral Minutes to complete discharge: 20 - AMA Did Patient Leave Against Medical Advice: No
== END 2019-05-05 09:40 | disposition home or self-care (01) | DRG 772 ==
LOC: YASAS 15:46 → Y3W 15:47
PROVIDERS: ADMIT Neuromusculoskeletal Medicine & OMM; ATTEND Neuromusculoskeletal Medicine & OMM
PROC: HZ42ZZZ Group Counseling for Substance Abuse Treatment, Cognitive-Behavioral (ICD-10-PCS; principal; 2019-04-17)
DX: F10.20 Alcohol dependence, uncomplicated (principal); F11.20 Opioid dependence, uncomplicated; F14.20 Cocaine dependence, uncomplicated; F12.20 Cannabis dependence, uncomplicated; Z21 Asymptomatic human immunodeficiency virus [HIV] infection status; B18.2 Chronic viral hepatitis C; L98.8 Other specified disorders of the skin and subcutaneous tissue; K57.00 Diverticulitis of small intestine with perforation and abscess without bleeding
CPT/HCPCS: 82962

== ENCOUNTER 2019-10-14 13:08 | Inpatient (IN) | payer OTHER ==
[2019-10-14 14:26] VITALS: BMI 29.1
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
[2019-10-14] MEDS ORDERED: BISMUTH SUBSALICYLATE 262 MG/15 ML BTL PO PRN (15:20)
[2019-10-14] MEDS ORDERED: IBUPROFEN 400 MG TABLET (FP) PO PRN (15:20)
[2019-10-14] MEDS ORDERED: MAG HYDROX/AL HYDROX/SIMETH 30 ML UNIT-DOSE CUP PO PRN (15:20)
[2019-10-14] MEDS ORDERED: MENTHOL/PHENOL 1 EACH UD MM PRN (15:20)
[2019-10-14] MEDS ORDERED: MAGNESIUM CITRATE 300 ML BOTTLE PO PRN (15:20)
[2019-10-14] MEDS ORDERED: ACETAMINOPHEN 325 MG TABLET (FP) PO PRN ×2 (15:20)
[2019-10-14] MEDS ORDERED: chlordiazePOXIDE HCL 25 MG CAPSULE PO PRN (15:20)
[2019-10-14] MEDS: chlordiazePOXIDE HCL 25 MG CAPSULE PO SCH ×2 (18:37→22:14)
[2019-10-14] MEDS: THIAMINE HCL 100 MG TABLET (FP) PO SCH (22:14)
[2019-10-14] MEDS: MELATONIN 5 MG TABLETS PO PRN (22:14)
[2019-10-15] MEDS: chlordiazePOXIDE HCL 25 MG CAPSULE PO SCH ×2 (06:19→10:18)
[2019-10-15 09:43] LABS: HEMATOCRIT 36.5 % (35.4-49); HEMOGLOBIN 12.3 GM/dL (11.7-16.9); MCH 27.4 pg (25.7-33.7); MCHC 33.8 g/dl (32.0-35.9); MEAN CELL VOLUME 81.1 fl (80-96); MEAN PLT VOLUME 8.4 fl (7.5-11.1); PLATELET COUNT 169 K/MM3 (134-434); RDW 14.9 % (11.9-15.9); WHITE BLOOD COUNT 3.6 K/mm3 (4.0-10.0)
[2019-10-15 09:53] LABS: ALBUMIN 3.6 g/dl (3.4-5.0); BILIRUBIN,TOTAL 0.8 mg/dL (0.2-1); BLOOD UREA NITROGEN 19.8 mg/dL (7-18); CALCIUM 8.8 mg/dL (8.5-10.1); CREATININE 1.1 mg/dL (0.55-1.3); POTASSIUM 3.6 mmol/L (3.5-5.1); TOT PROT 8.3 g/dl (6.4-8.2)
[2019-10-15] MEDS ORDERED: METHADONE HCL 10 MG TABLET PO ONE (09:56)
[2019-10-15] MEDS ORDERED: METHADONE 160 MG, METHADONE 20 MG PO ONE (10:01)
[2019-10-15] MEDS ORDERED: METHADONE HCL 10 MG TABLET ONE (10:13)
[2019-10-15] MEDS ORDERED: METHADONE HCL 40 MG DISPERSABLE TABLET ONE (10:14)
[2019-10-15] MEDS: PRENATAL VITAMINS W/ FOLIC ACID TABLET (FP) PO SCH (10:19)
[2019-10-15] MEDS: NICOTINE 21 MG/24 HOURS TOPICAL PATCH TD SCH (10:24)
--- NOTE | 2019-10-15 11:32 | PN ---
[facility] CIWA - CIWA Score Nausea/Vomitin-Mild Nausea/No Vomiting Muscle Tremors: 4-Moderate,w/Arms Extend Anxiety: 3 Agitation: 2 Paroxysmal Sweats: 1-Minimal Palms Moist Orientation: 0-Oriented Tacttile Disturbances: 0-None Auditory Disturbances: 0-None Visual Disturbances: 1-Very Mild Sensitivity Headache: 0-None Present CIWA-Ar Total Score: 12 S Progress Note (SOAP) Subjective: 49 years old male admitted on 10/14/19 for alcohol and benzo withdrawal sx management treating with librium detox regiment reports taking neurontin 300 mg po tid resume neurontine Objective: 10/15/19 12:04 Vital Signs Temperature 98.1 F 10/15/19 08:31 Pulse Rate 95 H 10/15/19 08:31 Respiratory Rate 18 10/15/19 08:31 Blood Pressure 119/81 10/15/19 08:31 O2 Sat by Pulse Oximetry (%) Laboratory Last Values WBC 3.6 K/mm3 (4.0-10.0) L 10/15/19 08:00 RBC 4.50 M/mm3 (4.00-5.60) 10/15/19 08:00 Hgb 12.3 GM/dL (11.7-16.9) 10/15/19 08:00 Hct 36.5 % (35.4-49) 10/15/19 08:00 MCV 81.1 fl (80-96) 10/15/19 08:00 MCH 27.4 pg (25.7-33.7) 10/15/19 08:00 MCHC 33.8 g/dl (32.0-35.9) 10/15/19 08:00 RDW 14.9 % (11.9-15.9) 10/15/19 08:00 Plt Count 169 K/MM3 (134-434) 10/15/19 08:00 MPV 8.4 fl (7.5-11.1) 10/15/19 08:00 Sodium 138 mmol/L (136-145) 10/15/19 08:00 Potassium 3.6 mmol/L (3.5-5.1) 10/15/19 08:00 Chloride 104 mmol/L (98-107) 10/15/19 08:00 Carbon Dioxide 28 mmol/L (21-32) 10/15/19 08:00 Anion Gap 5 MMOL/L (8-16) L 10/15/19 08:00 BUN 19.8 mg/dL (7-18) H 10/15/19 08:00 Creatinine 1.1 mg/dL (0.55-1.3) 10/15/19 08:00 Est GFR (CKD-EPI)AfAm 89.61 10/15/19 08:00 Est GFR (CKD-EPI)NonAf 77.32 10/15/19 08:00 Random Glucose 119 mg/dL (74-106) H 10/15/19 08:00 Calcium 8.8 mg/dL (8.5-10.1) 10/15/19 08:00 Total Bilirubin 0.8 mg/dL (0.2-1) 10/15/19 08:00 AST 131 U/L (15-37) H 10/15/19 08:00 ALT 60 U/L (13-61) 10/15/19 08:00 Alkaline Phosphatase 103 U/L (45-117) 10/15/19 08:00 Total Protein 8.3 g/dl (6.4-8.2) H 10/15/19 08:00 Albumin 3.6 g/dl (3.4-5.0) 10/15/19 08:00 lab noted ast elevation repeat ast Assessment: 10/15/19 12:06 alcohol and benzo withdrawal Plan: librium regiment will discuss benefits of ativan regiment in relation to ast elevation
[2019-10-15] MEDS ORDERED: GABAPENTIN 300 MG CAPSULE PO PRN (12:02)
[2019-10-15] MEDS ORDERED: LORazepam 0.5 MG TABLET PO PRN (12:41)
[2019-10-15] MEDS: LORazepam 1 MG TABLET PO SCH ×2 (14:23→22:07)
[2019-10-15] MEDS: THIAMINE HCL 100 MG TABLET (FP) PO SCH (22:07)
[2019-10-15] MEDS: MELATONIN 5 MG TABLETS PO PRN (22:08)
[2019-10-16] MEDS ORDERED: METHADONE HCL 10 MG TABLET ONE (04:47)
[2019-10-16] MEDS ORDERED: METHADONE HCL 40 MG DISPERSABLE TABLET ONE (04:47)
[2019-10-16] MEDS ORDERED: chlordiazePOXIDE HCL 25 MG CAPSULE PO SCH (05:00)
[2019-10-16] MEDS: LORazepam 0.5 MG TABLET PO SCH ×4 (05:31→22:19)
[2019-10-16] MEDS: METHADONE 160 MG, METHADONE 20 MG PO SCH (05:32)
[2019-10-16] MEDS: hydrOXYzine PAMOATE 25 MG CAPSULE (FP) PO PRN (05:32)
[2019-10-16] MEDS ORDERED: METHADONE HCL 10 MG TABLET PO SCH (06:00)
[2019-10-16] MEDS: NICOTINE 21 MG/24 HOURS TOPICAL PATCH TD SCH (10:23)
[2019-10-16] MEDS: PRENATAL VITAMINS W/ FOLIC ACID TABLET (FP) PO SCH (10:23)
[2019-10-16] MEDS: METHOCARBAMOL 500 MG TABLET PO PRN (10:24)
[2019-10-16] MEDS: MAGNESIUM HYDROX 2400MG/30ML ORAL SUSPENSION 30 ML CUP PO PRN (10:49)
--- NOTE | 2019-10-16 14:55 | PN ---
[facility] CIWA - CIWA Score Nausea/Vomitin-Mild Nausea/No Vomiting Muscle Tremors: 1-None Visible, but [place] Anxiety: 0-No Anxiety, at Ease Agitation: 1-Slight > Activity Paroxysmal Sweats: No Perspiration Orientation: 2-Disoriented Date<2 days Tacttile Disturbances: 0-None Auditory Disturbances: 0-None Visual Disturbances: 0-None Headache: 0-None Present CIWA-Ar Total Score: 5 [facility] Progress Note (SOAP) Subjective: Complaints of chronic back pain, constipation, asking for Miralax Objective: 10/16/19 14:52 Abnormal Lab Results 10/16/19 08:00 AST 65 H Laboratory Tests 10/15/19 10/15/19 10/15/19 08:00 08:00 08:00 WBC 3.6 L RBC 4.50 Hgb 12.3 Hct 36.5 MCV 81.1 MCH 27.4 MCHC 33.8 RDW 14.9 Plt Count 169 MPV 8.4 Sodium 138 Potassium 3.6 Chloride 104 Carbon Dioxide 28 Anion Gap 5 L BUN 19.8 H Creatinine 1.1 Est GFR (CKD-EPI)AfAm 89.61 Est GFR (CKD-EPI)NonAf 77.32 Random Glucose 119 H Calcium 8.8 Total Bilirubin 0.8 AST 131 H ALT 60 Alkaline Phosphatase 103 Total Protein 8.3 H Albumin 3.6 RPR Titer Nonreactive 10/16/19 08:00 WBC RBC Hgb Hct MCV MCH MCHC RDW Plt Count MPV Sodium Potassium Chloride Carbon Dioxide Anion Gap BUN Creatinine Est GFR (CKD-EPI)AfAm Est GFR (CKD-EPI)NonAf Random Glucose Calcium Total Bilirubin AST 65 H ALT Alkaline Phosphatase Total Protein Albumin RPR Titer Vital Signs - 24 hr 10/15/19 10/15/19 10/16/19 16:35 21:20 00:30 Temperature 97.3 F L 97.9 F Pulse Rate 61 76 Respiratory 18 18 18 Rate Blood Pressure 118/80 129/79 10/16/19 10/16/19 10/16/19 03:30 06:37 08:33 Temperature 97.0 F L 97.4 F L Pulse Rate 64 71 Respiratory 16 18 18 Rate Blood Pressure 133/89 122/73 10/16/19 12:49 Temperature 96.5 F L Pulse Rate 71 Respiratory 18 Rate Blood Pressure 133/91 PE Gnl: WDWN, in no distress MS: awake, alert, follows commands CN; face symmetric, hearing grossly nl Motor:nl Gait: nl Assessment: 10/16/19 14:53 1. Alcohol use disorder 2. constipation 3. chronic low back pain 4. on maintenance methadone 10/16/19 14:54 Plan: 1. continue alcohol wihtdrawal protocol 2. encouraged pt to try MOM 3. gabapentin increased to 400 mg tid
[2019-10-16] MEDS: GABAPENTIN 400 MG CAPSULE PO PRN ×2 (15:07→23:47)
[2019-10-16] MEDS: THIAMINE HCL 100 MG TABLET (FP) PO SCH (22:18)
[2019-10-16] MEDS: MELATONIN 5 MG TABLETS PO PRN (22:20)
[2019-10-17] MEDS ORDERED: chlordiazePOXIDE HCL 10 MG CAPSULE PO PRN
[2019-10-17] MEDS ORDERED: METHADONE HCL 10 MG TABLET ONE (03:22)
[2019-10-17] MEDS ORDERED: METHADONE HCL 40 MG DISPERSABLE TABLET ONE (03:23)
[2019-10-17] MEDS ORDERED: chlordiazePOXIDE HCL 10 MG CAPSULE PO SCH (05:00)
[2019-10-17] MEDS: METHADONE 160 MG, METHADONE 20 MG PO SCH (05:44)
[2019-10-17] MEDS: GABAPENTIN 400 MG CAPSULE PO PRN ×2 (05:44→18:37)
[2019-10-17] MEDS: LORazepam 0.5 MG TABLET PO SCH ×3 (05:45→22:14)
[2019-10-17] MEDS: NICOTINE 21 MG/24 HOURS TOPICAL PATCH TD SCH (10:43)
[2019-10-17] MEDS: PRENATAL VITAMINS W/ FOLIC ACID TABLET (FP) PO SCH (10:43)
[2019-10-17] MEDS: hydrOXYzine PAMOATE 25 MG CAPSULE (FP) PO PRN (10:44)
[2019-10-17] MEDS: METHOCARBAMOL 500 MG TABLET PO PRN (10:44)
--- NOTE | 2019-10-17 11:48 | PN ---
S CIWA - CIWA Score Nausea/Vomitin-No Nausea/No Vomiting Muscle Tremors: None Anxiety: 3 Agitation: 0-Normal Activity Paroxysmal Sweats: 3 Orientation: 0-Oriented Tacttile Disturbances: 0-None Auditory Disturbances: 0-None Visual Disturbances: 0-None Headache: 0-None Present CIWA-Ar Total Score: 6 [facility] Progress Note (SOAP) Subjective: c/o sweats and anxiety. Objective: 10/17/19 11:47 Vital Signs 10/17/19 10/17/19 06:40 08:32 Temperature 97.4 F L 96.8 F L Pulse Rate 72 65 Respiratory 18 18 Rate Blood Pressure 123/86 146/93 Laboratory Last Values WBC 3.6 K/mm3 (4.0-10.0) L 10/15/19 08:00 RBC 4.50 M/mm3 (4.00-5.60) 10/15/19 08:00 Hgb 12.3 GM/dL (11.7-16.9) 10/15/19 08:00 Hct 36.5 % (35.4-49) 10/15/19 08:00 MCV 81.1 fl (80-96) 10/15/19 08:00 MCH 27.4 pg (25.7-33.7) 10/15/19 08:00 MCHC 33.8 g/dl (32.0-35.9) 10/15/19 08:00 RDW 14.9 % (11.9-15.9) 10/15/19 08:00 Plt Count 169 K/MM3 (134-434) 10/15/19 08:00 MPV 8.4 fl (7.5-11.1) 10/15/19 08:00 Sodium 138 mmol/L (136-145) 10/15/19 08:00 Potassium 3.6 mmol/L (3.5-5.1) 10/15/19 08:00 Chloride 104 mmol/L (98-107) 10/15/19 08:00 Carbon Dioxide 28 mmol/L (21-32) 10/15/19 08:00 Anion Gap 5 MMOL/L (8-16) L 10/15/19 08:00 BUN 19.8 mg/dL (7-18) H 10/15/19 08:00 Creatinine 1.1 mg/dL (0.55-1.3) 10/15/19 08:00 Est GFR (CKD-EPI)AfAm 89.61 10/15/19 08:00 Est GFR (CKD-EPI)NonAf 77.32 10/15/19 08:00 Random Glucose 119 mg/dL (74-106) H 10/15/19 08:00 Calcium 8.8 mg/dL (8.5-10.1) 10/15/19 08:00 Total Bilirubin 0.8 mg/dL (0.2-1) 10/15/19 08:00 AST 65 U/L (15-37) H 10/16/19 08:00 ALT 60 U/L (13-61) 10/15/19 08:00 Alkaline Phosphatase 103 U/L (45-117) 10/15/19 08:00 Total Protein 8.3 g/dl (6.4-8.2) H 10/15/19 08:00 Albumin 3.6 g/dl (3.4-5.0) 10/15/19 08:00 RPR Titer Nonreactive (NONREACTIVE) 10/15/19 08:00 Labs noted. Assessment: 10/17/19 11:47 AOX 3, in no respiratory distress. Full ROM, ambulating in the unit. Withdrawal symptoms. Plan: continue detox.
[2019-10-17] MEDS: MAGNESIUM HYDROX 2400MG/30ML ORAL SUSPENSION 30 ML CUP PO PRN (18:37)
[2019-10-17] MEDS: MELATONIN 5 MG TABLETS PO PRN (22:14)
[2019-10-17] MEDS: THIAMINE HCL 100 MG TABLET (FP) PO SCH (22:14)
[2019-10-17] MEDS ORDERED: ALBUTEROL SO4 HFA INHALER IH ONE (22:16)
[2019-10-17] MEDS ORDERED: ALBUTEROL SO4 0.083% IH SOL 2.5 MG/3 ML VIAL.NEB. NEB PRN (22:25)
[2019-10-17] MEDS ORDERED: ALBUTEROL SO4 HFA INHALER IH PRN (22:26)
[2019-10-18] MEDS ORDERED: LORazepam 0.5 MG TABLET PO PRN (01:00)
[2019-10-18] MEDS ORDERED: METHADONE HCL 10 MG TABLET ONE (03:30)
[2019-10-18] MEDS ORDERED: METHADONE HCL 40 MG DISPERSABLE TABLET ONE (03:30)
[2019-10-18] MEDS ORDERED: chlordiazePOXIDE HCL 10 MG CAPSULE PO SCH (05:00)
[2019-10-18] MEDS: METHADONE 160 MG, METHADONE 20 MG PO SCH (05:55)
[2019-10-18] MEDS: LORazepam 0.5 MG TABLET PO SCH ×2 (05:55→10:13)
[2019-10-18] MEDS: GABAPENTIN 400 MG CAPSULE PO PRN ×2 (05:59→17:02)
--- NOTE | 2019-10-18 09:33 | PN ---
[facility] CIWA - CIWA Score Nausea/Vomitin-No Nausea/No Vomiting Muscle Tremors: 1-None Visible, but [place] Anxiety: 1-Mildly Anxious Agitation: 0-Normal Activity Paroxysmal Sweats: No Perspiration Orientation: 0-Oriented Tacttile Disturbances: 0-None Auditory Disturbances: 0-None Visual Disturbances: 1-Very Mild Sensitivity Headache: 0-None Present CIWA-Ar Total Score: 3 BHS Progress Note (SOAP) Subjective: 49 years old male admitted on 10/14/19 for alcohol benzo withdrawal sx management treating with ativan detox regiment feeling better today less tremor less anxiety patient demands raising neurontine dose encourage the patient return to primary care infectious disease provider for neurontine dosage adjustment patient began to criticize creative services writer out loud that "why not raise my neurontine?" "you think it is a jok?" Mr Neal speaks out loud "why, why, why........." "you do not care" patient requests to be seen by a psychiatrist that he is taking psychotropic medication seroquel every day last dose 10/13/19 psychiatrist referral Objective: 10/18/19 09:41 Vital Signs Temperature 98.2 F 10/18/19 08:33 Pulse Rate 79 10/18/19 08:33 Respiratory Rate 18 10/18/19 08:33 Blood Pressure 141/65 10/18/19 08:33 O2 Sat by Pulse Oximetry (%) Laboratory Last Values WBC 3.6 K/mm3 (4.0-10.0) L 10/15/19 08:00 RBC 4.50 M/mm3 (4.00-5.60) 10/15/19 08:00 Hgb 12.3 GM/dL (11.7-16.9) 10/15/19 08:00 Hct 36.5 % (35.4-49) 10/15/19 08:00 MCV 81.1 fl (80-96) 10/15/19 08:00 MCH 27.4 pg (25.7-33.7) 10/15/19 08:00 MCHC 33.8 g/dl (32.0-35.9) 10/15/19 08:00 RDW 14.9 % (11.9-15.9) 10/15/19 08:00 Plt Count 169 K/MM3 (134-434) 10/15/19 08:00 MPV 8.4 fl (7.5-11.1) 10/15/19 08:00 Sodium 138 mmol/L (136-145) 10/15/19 08:00 Potassium 3.6 mmol/L (3.5-5.1) 10/15/19 08:00 Chloride 104 mmol/L (98-107) 10/15/19 08:00 Carbon Dioxide 28 mmol/L (21-32) 10/15/19 08:00 Anion Gap 5 MMOL/L (8-16) L 10/15/19 08:00 BUN 19.8 mg/dL (7-18) H 10/15/19 08:00 Creatinine 1.1 mg/dL (0.55-1.3) 10/15/19 08:00 Est GFR (CKD-EPI)AfAm 89.61 10/15/19 08:00 Est GFR (CKD-EPI)NonAf 77.32 10/15/19 08:00 Random Glucose 119 mg/dL (74-106) H 10/15/19 08:00 Calcium 8.8 mg/dL (8.5-10.1) 10/15/19 08:00 Total Bilirubin 0.8 mg/dL (0.2-1) 10/15/19 08:00 AST 65 U/L (15-37) H 10/16/19 08:00 ALT 60 U/L (13-61) 10/15/19 08:00 Alkaline Phosphatase 103 U/L (45-117) 10/15/19 08:00 Total Protein 8.3 g/dl (6.4-8.2) H 10/15/19 08:00 Albumin 3.6 g/dl (3.4-5.0) 10/15/19 08:00 RPR Titer Nonreactive (NONREACTIVE) 10/15/19 08:00 lab noted 10/18/19 09:43 clonidine 0.1mg po prn for bp elevation Assessment: 10/18/19 09:43 alcohol and benzo withdrawal Plan: ativan regiment neurontine dosage had been raised from 300mg to 400mg patient continues requesting to raise neurontine strong recommend the patient returning to primary care provider for neurontine dosage adjustment
[2019-10-18] MEDS ORDERED: cloNIDine HCL 0.1 MG TABLET PO PRN (09:42)
[2019-10-18] MEDS: PRENATAL VITAMINS W/ FOLIC ACID TABLET (FP) PO SCH (10:12)
[2019-10-18] MEDS: NICOTINE 21 MG/24 HOURS TOPICAL PATCH TD SCH (10:13)
[2019-10-18] MEDS: MAGNESIUM HYDROX 2400MG/30ML ORAL SUSPENSION 30 ML CUP PO PRN (11:06)
[2019-10-18] MEDS: MELATONIN 5 MG TABLETS PO PRN (21:57)
[2019-10-18] MEDS: THIAMINE HCL 100 MG TABLET (FP) PO SCH (21:57)
[2019-10-18] MEDS: METHOCARBAMOL 500 MG TABLET PO PRN (21:58)
[2019-10-18] MEDS: hydrOXYzine PAMOATE 25 MG CAPSULE (FP) PO PRN (21:58)
[2019-10-19] MEDS ORDERED: chlordiazePOXIDE HCL 10 MG CAPSULE PO ONE (05:00)
[2019-10-19] MEDS ORDERED: LORazepam 0.5 MG TABLET PO ONE (05:00)
[2019-10-19] MEDS ORDERED: METHADONE HCL 10 MG TABLET ONE (05:09)
[2019-10-19] MEDS ORDERED: METHADONE HCL 40 MG DISPERSABLE TABLET ONE (05:10)
[2019-10-19] MEDS: METHADONE 160 MG, METHADONE 20 MG PO SCH (05:44)
[2019-10-19] MEDS: GABAPENTIN 400 MG CAPSULE PO PRN (07:28)
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
--- NOTE | 2019-10-19 09:26 | DS ---
[facility] Detox Discharge Summary Admission Date: 10/14/19 Discharge Date: 10/19/19 - History Present History: Alcohol Dependence, Sedative Dependence Additional Comments: 49 years old male admitted on 10/14/19 for alcohol and benzo withdrawal sx management treated with ativan detox regiment Mr Neal had completed the ativan regiment ant tolerated well seen by psychiatrist abbie stewart and seroquel patient is alert oriented x 3 respiratory clear lungs bilaterally on auscultation extremities full range of motion skin warm and dry Pertinent Past History: time for discharge: 34 minutes patient is constantly asking for neurontine dosage increase - Physical Exam Results Vital Signs: Vital Signs Temperature 97.1 F L 10/19/19 05:41 Pulse Rate 57 L 10/19/19 05:41 Respiratory Rate 18 10/19/19 05:41 Blood Pressure 115/72 10/19/19 05:41 O2 Sat by Pulse Oximetry (%) Pertinent Admission Physical Exam Findings: alcohol and benzo withdrawal Laboratory Last Values WBC 3.6 K/mm3 (4.0-10.0) L 10/15/19 08:00 RBC 4.50 M/mm3 (4.00-5.60) 10/15/19 08:00 Hgb 12.3 GM/dL (11.7-16.9) 10/15/19 08:00 Hct 36.5 % (35.4-49) 10/15/19 08:00 MCV 81.1 fl (80-96) 10/15/19 08:00 MCH 27.4 pg (25.7-33.7) 10/15/19 08:00 MCHC 33.8 g/dl (32.0-35.9) 10/15/19 08:00 RDW 14.9 % (11.9-15.9) 10/15/19 08:00 Plt Count 169 K/MM3 (134-434) 10/15/19 08:00 MPV 8.4 fl (7.5-11.1) 10/15/19 08:00 Sodium 138 mmol/L (136-145) 10/15/19 08:00 Potassium 3.6 mmol/L (3.5-5.1) 10/15/19 08:00 Chloride 104 mmol/L (98-107) 10/15/19 08:00 Carbon Dioxide 28 mmol/L (21-32) 10/15/19 08:00 Anion Gap 5 MMOL/L (8-16) L 10/15/19 08:00 BUN 19.8 mg/dL (7-18) H 10/15/19 08:00 Creatinine 1.1 mg/dL (0.55-1.3) 10/15/19 08:00 Est GFR (CKD-EPI)AfAm 89.61 10/15/19 08:00 Est GFR (CKD-EPI)NonAf 77.32 10/15/19 08:00 Random Glucose 119 mg/dL (74-106) H 10/15/19 08:00 Calcium 8.8 mg/dL (8.5-10.1) 10/15/19 08:00 Total Bilirubin 0.8 mg/dL (0.2-1) 10/15/19 08:00 AST 65 U/L (15-37) H 10/16/19 08:00 ALT 60 U/L (13-61) 10/15/19 08:00 Alkaline Phosphatase 103 U/L (45-117) 10/15/19 08:00 Total Protein 8.3 g/dl (6.4-8.2) H 10/15/19 08:00 Albumin 3.6 g/dl (3.4-5.0) 10/15/19 08:00 RPR Titer Nonreactive (NONREACTIVE) 10/15/19 08:00 lab noted - Treatment Hospital Course: Detox Protocol Followed, Detoxed Safely, Responded well, Discharged Condition Good, Rehab Referral Accepted Patient has Accepted a [facility] Referral [facility] - Medication Discharge Medications: Ambulatory Orders Albuterol Sulfate Inhaler - [Ventolin HFA Inhaler -] 2 puff IH Q4H PRN #1 inhaler 05/05/19 Quetiapine Fumarate [Seroquel -] 150 mg PO HS #90 tablet 05/05/19 Sertraline HCl [Zoloft] 100 mg PO DAILY #30 tablet 05/05/19 Gabapentin [Neurontin -] 300 mg PO Q8H 10/14/19 - Diagnosis (1) Substance induced mood disorder Current Visit: Yes Status: Suspected (2) Nicotine dependence Current Visit: Yes Status: Acute Qualifiers: Nicotine product type: cigarettes Substance use status: in withdrawal Qualified Code(s): F17.213 - Nicotine dependence, cigarettes, with withdrawal (3) Alcohol dependence with uncomplicated withdrawal Current Visit: Yes Status: Acute (4) Sedative, hypnotic or anxiolytic dependence with withdrawal, uncomplicated Current Visit: Yes Status: Acute (5) Asthma Current Visit: Yes Status: Chronic Qualifiers: Asthma severity: mild Asthma persistence: intermittent Asthma complication type: uncomplicated Qualified Code(s): J45.20 - Mild intermittent asthma, uncomplicated (6) HIV (human immunodeficiency virus infection) Current Visit: Yes Status: Chronic Qualifiers: HIV symptom status: asymptomatic Qualified Code(s): Z21 - Asymptomatic human immunodeficiency virus [HIV] infection status (7) Hepatitis C Current Visit: Yes Status: Chronic Qualifiers: Viral hepatitis chronicity: chronic Hepatic coma status: without hepatic coma Qualified Code(s): B18.2 - Chronic viral hepatitis C (8) Methadone maintenance therapy patient Current Visit: Yes Status: Chronic (9) Nicotine dependence Current Visit: Yes Status: Acute Qualifiers: Nicotine product type: cigarettes Substance use status: in withdrawal Qualified Code(s): F17.213 - Nicotine dependence, cigarettes, with withdrawal (10) Substance induced mood disorder Current Visit: Yes Status: Suspected - AMA Did Patient Leave Against Medical Advice: No CIWA Score - CIWA Score Nausea/Vomitin-No Nausea/No Vomiting Muscle Tremors: 1-None Visible, but [place] Anxiety: 1-Mildly Anxious Agitation: 0-Normal Activity Paroxysmal Sweats: No Perspiration Orientation: 0-Oriented Tacttile Disturbances: 0-None Auditory Disturbances: 0-None Visual Disturbances: 0-None Headache: 0-None Present CIWA-Ar Total Score: 2
[2019-10-19 09:35] VITALS: BP 131/78; PULSE 66; TEMP 97.9
[2019-10-19] MEDS ORDERED: SERTRALINE HCL 50 MG TABLET (FP) PO SCH (10:00)
[2019-10-19] MEDS: PRENATAL VITAMINS W/ FOLIC ACID TABLET (FP) PO SCH (10:15)
[2019-10-19] MEDS: NICOTINE 21 MG/24 HOURS TOPICAL PATCH TD SCH (10:15)
[2019-10-19] MEDS ORDERED: QUEtiapine FUMARATE 100 MG TABLET (FP) PO SCH (22:00)
== END 2019-10-19 12:17 | disposition home or self-care (01) | DRG 773 ==
LOC: YASAS 13:08 → Y3N 14:56
PROVIDERS: ADMIT Allergy & Immunology; ATTEND Allergy & Immunology
PROC: HZ2ZZZZ Detoxification Services for Substance Abuse Treatment (ICD-10-PCS; principal; 2019-10-14)
DX: F10.230 Alcohol dependence with withdrawal, uncomplicated (principal); F13.230 Sedative, hypnotic or anxiolytic dependence with withdrawal, uncomplicated; F11.20 Opioid dependence, uncomplicated; F14.20 Cocaine dependence, uncomplicated; F12.20 Cannabis dependence, uncomplicated; F17.213 Nicotine dependence, cigarettes, with withdrawal; F25.9 Schizoaffective disorder, unspecified; F19.282 Other psychoactive substance dependence with psychoactive substance-induced sleep disorder; F19.24 Other psychoactive substance dependence with psychoactive substance-induced mood disorder; Z21 Asymptomatic human immunodeficiency virus [HIV] infection status; I10 Essential (primary) hypertension; J45.20 Mild intermittent asthma, uncomplicated; B18.2 Chronic viral hepatitis C; K59.00 Constipation, unspecified; M54.5 Low back pain; G89.29 Other chronic pain; Z86.69 Personal history of other diseases of the nervous system and sense organs; Z87.828 Personal history of other (healed) physical injury and trauma
CPT/HCPCS: 36415; 80053; 84450; 85027; 86593

== ENCOUNTER 2019-10-19 12:36 | Inpatient (IN) | payer OTHER ==
--- NOTE | 2019-10-19 10:01 | HP ---
[facility] Rehab Assess/Revision - Admission History Admitted to Rehab from: [facility] Date of Admission to Rehab: 10/19/19 - Findings Detox History & Physical reviewed: Yes Concur with findings: Yes Comments/Additional Findings: transferred from detox to rehab admission as per protocol Inpatient Rehab Admission - Rehab Decision to Admit Inpatient rehab admission?: Yes - Initial Determination Are CD services needed?: Yes Free of communicable disease: Yes Not in need of hospitalization: Yes - Rehab Admission Criteria Previous failed treatment: Yes Poor recovery environment: Yes Comorbidities: Yes Lacks judgement: Yes Patient is meeting Inpatient Rehab admission criteria:: Yes
[~2019-10-19 12:36] MED LIST changes: -ACETAMINOPHEN 325 MG TABLET (FP) PO PRN; -ALBUTEROL SO4 8 GM HFA INHALER IH PRN; +GABAPENTIN 300 MG CAPSULE PO PRN; -MAG HYDROX/AL HYDROX/SIMETH 30 ML UNIT-DOSE CUP PO PRN; -NICOTINE POLACRILEX 2 MG GUM BUC PRN; -guaiFENesin 200 MG/10 ML 10 ML UNIT-DOSE CUPS PO PRN
[2019-10-19] MEDS ORDERED: GABAPENTIN 300 MG CAPSULE PO PRN (15:19)
[2019-10-19] MEDS: ACETAMINOPHEN 325 MG TABLET (FP) PO PRN (16:45)
[2019-10-19] MEDS: GABAPENTIN 400 MG CAPSULE PO PRN (17:31)
[2019-10-19] MEDS: QUEtiapine FUMARATE 100 MG TABLET (FP) PO SCH (21:12)
[2019-10-19] MEDS: THIAMINE HCL 100 MG TABLET (FP) PO SCH (21:12)
[2019-10-19] MEDS: MELATONIN 5 MG TABLETS PO PRN (21:12)
[2019-10-20] MEDS ORDERED: METHADONE HCL 10 MG TABLET ONE (05:25)
[2019-10-20] MEDS ORDERED: METHADONE HCL 40 MG DISPERSABLE TABLET ONE (05:25)
[2019-10-20] MEDS ORDERED: METHADONE HCL 10 MG TABLET PO SCH (06:00)
[2019-10-20] MEDS: METHADONE 160 MG, METHADONE 20 MG PO SCH (06:10)
[2019-10-20] MEDS: GABAPENTIN 400 MG CAPSULE PO PRN ×2 (07:27→21:14)
[2019-10-20] MEDS: NICOTINE 21 MG/24 HOURS TOPICAL PATCH TD SCH (10:55)
[2019-10-20] MEDS: SERTRALINE HCL 50 MG TABLET (FP) PO SCH (10:55)
[2019-10-20] MEDS: PRENATAL VITAMINS W/ FOLIC ACID TABLET (FP) PO SCH (10:55)
--- NOTE | 2019-10-20 11:43 | PN ---
[facility] Progress Note (SOAP) Subjective: Patient admitted to unit. Reports anxiety and states that he was on xanax in the past. Also states that he needs his gabapentin increased because of left leg pain. Presently on gabapentin 400mg TID, which is 100mg higher than home medication dose. Wants ensure because he is not eating. PMHx: takes 2 mg tabs of xanax, which he buys on the street. Started age 45 Objective: 10/20/19 11:41 Vital Signs Period Temp Pulse Resp BP Sys/Benz Pulse Ox Last 24 Hr 97.9 F-98.2 F 63-73 18-18 107-123/75-75 General: appears anxious HEENTM: normocephalic Neuro: Cn 2-12 intact MSK: full weight bearing, full ROM, steady gait without assistive device. Assessment: anxiety- leg pain need for supplemental nutrition Need for substance use treatment 10/20/19 11:49 10/20/19 11:50 10/20/19 11:56 Plan: visteril started, psych consult place Increased patient's motrin, added flexeril and lidoderm patch Continue rehab treatment, maintain safety
[2019-10-20] MEDS ORDERED: IBUPROFEN 600 MG TABLET (FP) PO PRN (11:52)
[2019-10-20] MEDS: CYCLOBENZAPRINE HCL 5 MG TABLET PO SCH ×2 (13:46→21:13)
[2019-10-20] MEDS: LIDOCAINE 5% TOPICAL PATCH TP SCH (13:46)
[2019-10-20] MEDS: hydrOXYzine PAMOATE 50 MG CAPSULE (FP) PO PRN (13:46)
[2019-10-20] MEDS: LIDOCAINE PATCH REMOVAL MC SCH (21:13)
[2019-10-20] MEDS: THIAMINE HCL 100 MG TABLET (FP) PO SCH (21:13)
[2019-10-20] MEDS: MELATONIN 5 MG TABLETS PO PRN (21:13)
[2019-10-20] MEDS: QUEtiapine FUMARATE 100 MG TABLET (FP) PO SCH (21:13)
[2019-10-21] MEDS ORDERED: METHADONE HCL 10 MG TABLET ONE (05:31)
[2019-10-21] MEDS ORDERED: METHADONE HCL 40 MG DISPERSABLE TABLET ONE (05:31)
[2019-10-21] MEDS: GABAPENTIN 400 MG CAPSULE PO PRN (06:01)
[2019-10-21] MEDS: METHADONE 160 MG, METHADONE 20 MG PO SCH (06:01)
[2019-10-21] MEDS: CYCLOBENZAPRINE HCL 5 MG TABLET PO SCH ×3 (06:01→21:10)
[2019-10-21] MEDS ORDERED: AMMONIUM LACTATE 12% LOTION 225 GM BOTTLE TP PRN (08:42)
[2019-10-21] MEDS: LIDOCAINE 5% TOPICAL PATCH TP SCH (10:00)
[2019-10-21] MEDS: SERTRALINE HCL 50 MG TABLET (FP) PO SCH (10:00)
[2019-10-21] MEDS: PRENATAL VITAMINS W/ FOLIC ACID TABLET (FP) PO SCH (10:00)
[2019-10-21] MEDS: NICOTINE 21 MG/24 HOURS TOPICAL PATCH TD SCH (10:01)
[2019-10-21] MEDS: hydrOXYzine PAMOATE 50 MG CAPSULE (FP) PO PRN ×2 (10:12→21:11)
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
[2019-10-21] MEDS: MAGNESIUM HYDROX 2400MG/30ML ORAL SUSPENSION 30 ML CUP PO PRN (14:25)
[2019-10-21] MEDS: QUEtiapine FUMARATE 100 MG TABLET (FP) PO SCH (21:10)
[2019-10-21] MEDS: THIAMINE HCL 100 MG TABLET (FP) PO SCH (21:10)
[2019-10-21] MEDS: MELATONIN 5 MG TABLETS PO PRN (21:10)
[2019-10-21] MEDS: LIDOCAINE PATCH REMOVAL MC SCH (21:10)
[2019-10-21] MEDS ORDERED: SUVOREXANT 10 MG TABLET PO PRN (22:00)
[2019-10-22] MEDS ORDERED: METHADONE HCL 10 MG TABLET ONE (05:51)
[2019-10-22] MEDS ORDERED: METHADONE HCL 40 MG DISPERSABLE TABLET ONE (05:51)
[2019-10-22] MEDS: CYCLOBENZAPRINE HCL 5 MG TABLET PO SCH ×3 (06:00→21:36)
[2019-10-22] MEDS: GABAPENTIN 400 MG CAPSULE PO PRN ×2 (06:00→15:08)
[2019-10-22] MEDS: METHADONE 160 MG, METHADONE 20 MG PO SCH (06:00)
[2019-10-22] MEDS: PRENATAL VITAMINS W/ FOLIC ACID TABLET (FP) PO SCH (09:25)
[2019-10-22] MEDS: hydrOXYzine PAMOATE 50 MG CAPSULE (FP) PO PRN ×2 (09:25→21:38)
[2019-10-22] MEDS: SERTRALINE HCL 50 MG TABLET (FP) PO SCH (09:25)
[2019-10-22] MEDS: LIDOCAINE 5% TOPICAL PATCH TP SCH (09:26)
[2019-10-22] MEDS: NICOTINE 21 MG/24 HOURS TOPICAL PATCH TD SCH (09:26)
[2019-10-22] MEDS: MAGNESIUM HYDROX 2400MG/30ML ORAL SUSPENSION 30 ML CUP PO PRN ×2 (09:28→21:38)
--- NOTE | 2019-10-22 10:00 | PN ---
S Progress Note (SOAP) Subjective: patient reporting constipation, has not moved his bowels for 2 days. On 180mg of methadone. Objective: P/E General: no apparent distress GI: +BS Neuro: Cn 2-12 intact MSK: steady gait, full ROM 10/22/19 09:58 Vital Signs Period Temp Pulse Resp BP Sys/Benz Pulse Ox Last 24 Hr 98.3 F 80 18-18 132/88 Assessment: constipation 10/22/19 09:59 Plan: Miralax ordered.
[2019-10-22] MEDS: POLYETHYLENE GLYCOL 3350 119 GM BTL PO SCH (13:47)
[2019-10-22] MEDS: THIAMINE HCL 100 MG TABLET (FP) PO SCH (21:36)
[2019-10-22] MEDS: QUEtiapine FUMARATE 100 MG TABLET (FP) PO SCH (21:36)
[2019-10-22] MEDS: MELATONIN 5 MG TABLETS PO PRN (21:36)
[2019-10-22] MEDS: LIDOCAINE PATCH REMOVAL MC SCH (21:36)
[2019-10-23] MEDS ORDERED: METHADONE HCL 10 MG TABLET ONE (05:59)
[2019-10-23] MEDS ORDERED: METHADONE HCL 40 MG DISPERSABLE TABLET ONE (05:59)
[2019-10-23] MEDS: GABAPENTIN 400 MG CAPSULE PO PRN (06:10)
[2019-10-23] MEDS: CYCLOBENZAPRINE HCL 5 MG TABLET PO SCH ×3 (06:10→21:01)
[2019-10-23] MEDS: METHADONE 160 MG, METHADONE 20 MG PO SCH (06:10)
[2019-10-23] MEDS: PRENATAL VITAMINS W/ FOLIC ACID TABLET (FP) PO SCH (09:31)
[2019-10-23] MEDS: hydrOXYzine PAMOATE 50 MG CAPSULE (FP) PO PRN ×2 (09:31→21:03)
[2019-10-23] MEDS: SERTRALINE HCL 50 MG TABLET (FP) PO SCH (09:31)
[2019-10-23] MEDS: POLYETHYLENE GLYCOL 3350 119 GM BTL PO SCH ×2 (09:31→21:04)
[2019-10-23] MEDS: LIDOCAINE 5% TOPICAL PATCH TP SCH (09:32)
[2019-10-23] MEDS: NICOTINE 21 MG/24 HOURS TOPICAL PATCH TD SCH (09:32)
[2019-10-23] MEDS: THIAMINE HCL 100 MG TABLET (FP) PO SCH (21:01)
[2019-10-23] MEDS: QUEtiapine FUMARATE 100 MG TABLET (FP) PO SCH (21:01)
[2019-10-23] MEDS: MELATONIN 5 MG TABLETS PO PRN (21:01)
[2019-10-23] MEDS: LIDOCAINE PATCH REMOVAL MC SCH (21:02)
[2019-10-24] MEDS ORDERED: METHADONE HCL 10 MG TABLET ONE (05:35)
[2019-10-24] MEDS ORDERED: METHADONE HCL 40 MG DISPERSABLE TABLET ONE (05:36)
[2019-10-24] MEDS: CYCLOBENZAPRINE HCL 5 MG TABLET PO SCH ×3 (06:21→21:02)
[2019-10-24] MEDS: METHADONE 160 MG, METHADONE 20 MG PO SCH (06:21)
[2019-10-24] MEDS: SERTRALINE HCL 50 MG TABLET (FP) PO SCH (09:40)
[2019-10-24] MEDS: NICOTINE 21 MG/24 HOURS TOPICAL PATCH TD SCH (09:40)
[2019-10-24] MEDS: PRENATAL VITAMINS W/ FOLIC ACID TABLET (FP) PO SCH (09:40)
[2019-10-24] MEDS: hydrOXYzine PAMOATE 50 MG CAPSULE (FP) PO PRN ×2 (09:40→15:03)
[2019-10-24] MEDS: POLYETHYLENE GLYCOL 3350 119 GM BTL PO SCH ×2 (09:41→21:03)
[2019-10-24] MEDS: LIDOCAINE 5% TOPICAL PATCH TP SCH (09:42)
[2019-10-24] MEDS ORDERED: PT OWN MED DRAWER 7, Y5N ONE ×2 (09:42→20:05)
--- NOTE | 2019-10-24 13:48 | PN ---
[facility] Progress Note Note: Psychiatry Attending's note : Renewal of suvorexant is requested. Chart reviewed. Dr Montelongo's note of 10/21/19 : read. Medication confirmed. No report of adverse side effects. Belsomra 10 mg po hs prn. Re-ordered upon request from nurse.
[2019-10-24] MEDS: QUEtiapine FUMARATE 100 MG TABLET (FP) PO SCH (21:02)
[2019-10-24] MEDS: LIDOCAINE PATCH REMOVAL MC SCH (21:02)
[2019-10-24] MEDS: THIAMINE HCL 100 MG TABLET (FP) PO SCH (21:02)
[2019-10-24] MEDS: GABAPENTIN 400 MG CAPSULE PO PRN (21:04)
[2019-10-24] MEDS: MELATONIN 5 MG TABLETS PO PRN (21:05)
[2019-10-24] MEDS ORDERED: SUVOREXANT 10 MG TABLET PO PRN (22:00)
[2019-10-25] MEDS ORDERED: METHADONE HCL 10 MG TABLET ONE (05:35)
[2019-10-25] MEDS ORDERED: METHADONE HCL 40 MG DISPERSABLE TABLET ONE (05:36)
[2019-10-25] MEDS: CYCLOBENZAPRINE HCL 5 MG TABLET PO SCH ×3 (06:19→21:08)
[2019-10-25] MEDS: METHADONE 160 MG, METHADONE 20 MG PO SCH (06:19)
[2019-10-25] MEDS: GABAPENTIN 400 MG CAPSULE PO PRN (06:20)
[2019-10-25] MEDS: guaiFENesin 200 MG/10 ML 10 ML UNIT-DOSE CUPS PO PRN ×2 (06:21→17:12)
[2019-10-25] MEDS ORDERED: PT OWN MED DRAWER 7, Y5N ONE ×2 (08:44→20:04)
[2019-10-25] MEDS: POLYETHYLENE GLYCOL 3350 119 GM BTL PO SCH ×2 (09:30→21:09)
[2019-10-25] MEDS: PRENATAL VITAMINS W/ FOLIC ACID TABLET (FP) PO SCH (09:30)
[2019-10-25] MEDS: SERTRALINE HCL 50 MG TABLET (FP) PO SCH (09:30)
[2019-10-25] MEDS: hydrOXYzine PAMOATE 50 MG CAPSULE (FP) PO PRN ×3 (09:30→21:11)
[2019-10-25] MEDS: LIDOCAINE 5% TOPICAL PATCH TP SCH (09:31)
[2019-10-25] MEDS: NICOTINE 21 MG/24 HOURS TOPICAL PATCH TD SCH (09:31)
[2019-10-25] MEDS: LIDOCAINE PATCH REMOVAL MC SCH (21:08)
[2019-10-25] MEDS: THIAMINE HCL 100 MG TABLET (FP) PO SCH (21:09)
[2019-10-25] MEDS: QUEtiapine FUMARATE 100 MG TABLET (FP) PO SCH (21:09)
[2019-10-26] MEDS ORDERED: METHADONE HCL 10 MG TABLET ONE (05:52)
[2019-10-26] MEDS ORDERED: METHADONE HCL 40 MG DISPERSABLE TABLET ONE (05:52)
[2019-10-26] MEDS: METHADONE 160 MG, METHADONE 20 MG PO SCH (06:18)
[2019-10-26] MEDS: GABAPENTIN 400 MG CAPSULE PO PRN ×2 (06:19→15:01)
[2019-10-26] MEDS: CYCLOBENZAPRINE HCL 5 MG TABLET PO SCH ×3 (06:19→21:27)
[2019-10-26] MEDS: hydrOXYzine PAMOATE 50 MG CAPSULE (FP) PO PRN ×3 (09:21→21:28)
[2019-10-26] MEDS: PRENATAL VITAMINS W/ FOLIC ACID TABLET (FP) PO SCH (09:21)
[2019-10-26] MEDS ORDERED: PT OWN MED DRAWER 7, Y5N ONE (09:22)
[2019-10-26] MEDS: POLYETHYLENE GLYCOL 3350 119 GM BTL PO SCH ×2 (09:23→21:28)
[2019-10-26] MEDS: NICOTINE 21 MG/24 HOURS TOPICAL PATCH TD SCH (09:23)
[2019-10-26] MEDS: guaiFENesin 200 MG/10 ML 10 ML UNIT-DOSE CUPS PO PRN (09:23)
[2019-10-26] MEDS: LIDOCAINE 5% TOPICAL PATCH TP SCH (09:23)
[2019-10-26] MEDS: SERTRALINE HCL 50 MG TABLET (FP) PO SCH (09:23)
[2019-10-26] MEDS: ALBUTEROL SO4 HFA INHALER IH PRN (09:24)
[2019-10-26] MEDS: ACETAMINOPHEN 325 MG TABLET (FP) PO PRN (15:01)
[2019-10-26] MEDS: QUEtiapine FUMARATE 100 MG TABLET (FP) PO SCH (21:27)
[2019-10-26] MEDS: MELATONIN 5 MG TABLETS PO PRN (21:27)
[2019-10-26] MEDS: THIAMINE HCL 100 MG TABLET (FP) PO SCH (21:27)
[2019-10-26] MEDS: LIDOCAINE PATCH REMOVAL MC SCH (21:28)
[2019-10-26] MEDS: IBUPROFEN 600 MG TABLET (FP) PO PRN (21:29)
[2019-10-27] MEDS ORDERED: METHADONE HCL 10 MG TABLET ONE (05:54)
[2019-10-27] MEDS ORDERED: METHADONE HCL 40 MG DISPERSABLE TABLET ONE (05:54)
[2019-10-27] MEDS: METHADONE 160 MG, METHADONE 20 MG PO SCH (06:18)
[2019-10-27] MEDS: CYCLOBENZAPRINE HCL 5 MG TABLET PO SCH ×3 (06:18→21:00)
[2019-10-27] MEDS: NICOTINE POLACRILEX 4 MG GUM BUC PRN (06:18)
[2019-10-27] MEDS: GABAPENTIN 400 MG CAPSULE PO PRN ×2 (06:18→13:06)
[2019-10-27] MEDS: hydrOXYzine PAMOATE 50 MG CAPSULE (FP) PO PRN ×3 (10:07→19:10)
[2019-10-27] MEDS: NICOTINE 21 MG/24 HOURS TOPICAL PATCH TD SCH (10:07)
[2019-10-27] MEDS: PRENATAL VITAMINS W/ FOLIC ACID TABLET (FP) PO SCH (10:07)
[2019-10-27] MEDS: SERTRALINE HCL 50 MG TABLET (FP) PO SCH (10:07)
[2019-10-27] MEDS: POLYETHYLENE GLYCOL 3350 119 GM BTL PO SCH ×2 (10:07→21:01)
[2019-10-27] MEDS: IBUPROFEN 600 MG TABLET (FP) PO PRN (10:08)
[2019-10-27] MEDS: LIDOCAINE 5% TOPICAL PATCH TP SCH (10:08)
[2019-10-27] MEDS: ACETAMINOPHEN 325 MG TABLET (FP) PO PRN (13:06)
[2019-10-27] MEDS: guaiFENesin 600 MG TABLET.ER (FP) PO PRN (13:06)
[2019-10-27] MEDS: THIAMINE HCL 100 MG TABLET (FP) PO SCH (21:00)
[2019-10-27] MEDS: QUEtiapine FUMARATE 100 MG TABLET (FP) PO SCH (21:00)
[2019-10-27] MEDS: MELATONIN 5 MG TABLETS PO PRN (21:00)
[2019-10-27] MEDS: LIDOCAINE PATCH REMOVAL MC SCH (21:01)
[2019-10-27] MEDS ORDERED: SUVOREXANT 10 MG TABLET PO PRN (22:00)
[2019-10-28] MEDS ORDERED: METHADONE HCL 40 MG DISPERSABLE TABLET ONE (05:35)
[2019-10-28] MEDS ORDERED: METHADONE HCL 10 MG TABLET ONE (05:35)
[2019-10-28] MEDS: NICOTINE POLACRILEX 4 MG GUM BUC PRN (05:48)
[2019-10-28] MEDS: METHADONE 160 MG, METHADONE 20 MG PO SCH (05:48)
[2019-10-28] MEDS: GABAPENTIN 400 MG CAPSULE PO PRN ×2 (05:48→14:21)
[2019-10-28] MEDS: CYCLOBENZAPRINE HCL 5 MG TABLET PO SCH ×3 (05:48→21:32)
[2019-10-28] MEDS: IBUPROFEN 600 MG TABLET (FP) PO PRN ×2 (09:24→21:33)
[2019-10-28] MEDS: guaiFENesin 600 MG TABLET.ER (FP) PO PRN (09:24)
[2019-10-28] MEDS: hydrOXYzine PAMOATE 50 MG CAPSULE (FP) PO PRN ×3 (09:24→21:32)
[2019-10-28] MEDS: SERTRALINE HCL 50 MG TABLET (FP) PO SCH (09:24)
[2019-10-28] MEDS: PRENATAL VITAMINS W/ FOLIC ACID TABLET (FP) PO SCH (09:24)
[2019-10-28] MEDS: NICOTINE 21 MG/24 HOURS TOPICAL PATCH TD SCH (09:25)
[2019-10-28] MEDS: POLYETHYLENE GLYCOL 3350 119 GM BTL PO SCH ×2 (09:26→21:32)
[2019-10-28] MEDS ORDERED: PT OWN MED DRAWER 7, Y5N ONE ×2 (09:27→18:50)
[2019-10-28] MEDS: LIDOCAINE 5% TOPICAL PATCH TP SCH (09:27)
[2019-10-28] MEDS: LIDOCAINE PATCH REMOVAL MC SCH (21:32)
[2019-10-28] MEDS: QUEtiapine FUMARATE 100 MG TABLET (FP) PO SCH (21:32)
[2019-10-28] MEDS: THIAMINE HCL 100 MG TABLET (FP) PO SCH (21:32)
[2019-10-28] MEDS: MELATONIN 5 MG TABLETS PO PRN (21:32)
[2019-10-29] MEDS ORDERED: METHADONE HCL 10 MG TABLET ONE (06:02)
[2019-10-29] MEDS ORDERED: METHADONE HCL 40 MG DISPERSABLE TABLET ONE (06:03)
[2019-10-29] MEDS: METHADONE 160 MG, METHADONE 20 MG PO SCH (06:08)
[2019-10-29] MEDS: CYCLOBENZAPRINE HCL 5 MG TABLET PO SCH ×3 (06:09→21:02)
[2019-10-29] MEDS: GABAPENTIN 400 MG CAPSULE PO PRN ×2 (06:09→21:03)
[2019-10-29] MEDS: PRENATAL VITAMINS W/ FOLIC ACID TABLET (FP) PO SCH (10:17)
[2019-10-29] MEDS: SERTRALINE HCL 50 MG TABLET (FP) PO SCH (10:17)
[2019-10-29] MEDS: guaiFENesin 600 MG TABLET.ER (FP) PO PRN (10:18)
[2019-10-29] MEDS: POLYETHYLENE GLYCOL 3350 119 GM BTL PO SCH ×2 (10:18→23:18)
[2019-10-29] MEDS: hydrOXYzine PAMOATE 50 MG CAPSULE (FP) PO PRN ×2 (10:19→14:00)
[2019-10-29] MEDS: LIDOCAINE 5% TOPICAL PATCH TP SCH (10:20)
[2019-10-29] MEDS: NICOTINE 21 MG/24 HOURS TOPICAL PATCH TD SCH (10:20)
[2019-10-29] MEDS: ALBUTEROL SO4 HFA INHALER IH PRN (10:20)
[2019-10-29] MEDS: IBUPROFEN 600 MG TABLET (FP) PO PRN ×2 (14:00→21:05)
[2019-10-29] MEDS: MELATONIN 5 MG TABLETS PO PRN (21:03)
[2019-10-29] MEDS: QUEtiapine FUMARATE 100 MG TABLET (FP) PO SCH (21:03)
[2019-10-29] MEDS: THIAMINE HCL 100 MG TABLET (FP) PO SCH (21:03)
[2019-10-29] MEDS ORDERED: PT OWN MED DRAWER 7, Y5N ONE (21:07)
[2019-10-29] MEDS: LIDOCAINE PATCH REMOVAL MC SCH (23:18)
[2019-10-30] MEDS ORDERED: METHADONE HCL 40 MG DISPERSABLE TABLET ONE (05:50)
[2019-10-30] MEDS ORDERED: METHADONE HCL 10 MG TABLET ONE (05:50)
[2019-10-30] MEDS: CYCLOBENZAPRINE HCL 5 MG TABLET PO SCH ×3 (06:04→21:30)
[2019-10-30] MEDS: GABAPENTIN 400 MG CAPSULE PO PRN (06:04)
[2019-10-30] MEDS: METHADONE 160 MG, METHADONE 20 MG PO SCH (06:04)
[2019-10-30] MEDS: guaiFENesin 600 MG TABLET.ER (FP) PO PRN (10:09)
[2019-10-30] MEDS: PRENATAL VITAMINS W/ FOLIC ACID TABLET (FP) PO SCH (10:10)
[2019-10-30] MEDS: SERTRALINE HCL 50 MG TABLET (FP) PO SCH (10:10)
[2019-10-30] MEDS: IBUPROFEN 600 MG TABLET (FP) PO PRN ×3 (10:10→21:31)
[2019-10-30] MEDS: LIDOCAINE 5% TOPICAL PATCH TP SCH (10:12)
[2019-10-30] MEDS: NICOTINE 21 MG/24 HOURS TOPICAL PATCH TD SCH (10:12)
[2019-10-30] MEDS: POLYETHYLENE GLYCOL 3350 119 GM BTL PO SCH ×2 (10:12→21:30)
[2019-10-30] MEDS: hydrOXYzine PAMOATE 50 MG CAPSULE (FP) PO PRN ×2 (13:49→21:30)
[2019-10-30] MEDS: MELATONIN 5 MG TABLETS PO PRN (21:30)
[2019-10-30] MEDS: THIAMINE HCL 100 MG TABLET (FP) PO SCH (21:30)
[2019-10-30] MEDS: QUEtiapine FUMARATE 100 MG TABLET (FP) PO SCH (21:30)
[2019-10-30] MEDS: LIDOCAINE PATCH REMOVAL MC SCH (21:32)
[2019-10-30] MEDS ORDERED: SUVOREXANT 10 MG TABLET PO PRN (22:00)
[2019-10-31] MEDS ORDERED: METHADONE HCL 40 MG DISPERSABLE TABLET ONE (05:58)
[2019-10-31] MEDS ORDERED: METHADONE HCL 10 MG TABLET ONE (05:58)
[2019-10-31] MEDS: METHADONE 160 MG, METHADONE 20 MG PO SCH (06:11)
[2019-10-31] MEDS: CYCLOBENZAPRINE HCL 5 MG TABLET PO SCH ×3 (06:12→21:01)
[2019-10-31] MEDS: GABAPENTIN 400 MG CAPSULE PO PRN (06:12)
[2019-10-31] MEDS: POLYETHYLENE GLYCOL 3350 119 GM BTL PO SCH ×2 (09:34→21:01)
[2019-10-31] MEDS: LIDOCAINE 5% TOPICAL PATCH TP SCH (09:34)
[2019-10-31] MEDS: PRENATAL VITAMINS W/ FOLIC ACID TABLET (FP) PO SCH (09:35)
[2019-10-31] MEDS: SERTRALINE HCL 50 MG TABLET (FP) PO SCH (09:35)
[2019-10-31] MEDS: NICOTINE 21 MG/24 HOURS TOPICAL PATCH TD SCH (09:35)
[2019-10-31] MEDS: hydrOXYzine PAMOATE 50 MG CAPSULE (FP) PO PRN ×2 (09:36→21:01)
[2019-10-31] MEDS: IBUPROFEN 600 MG TABLET (FP) PO PRN ×2 (09:36→21:02)
[2019-10-31] MEDS: MAG HYDROX/AL HYDROX/SIMETH 30 ML UNIT-DOSE CUP PO PRN (10:33)
[2019-10-31] MEDS ORDERED: PT OWN MED DRAWER 7, Y5N ONE (19:05)
[2019-10-31] MEDS: MELATONIN 5 MG TABLETS PO PRN (21:01)
[2019-10-31] MEDS: THIAMINE HCL 100 MG TABLET (FP) PO SCH (21:01)
[2019-10-31] MEDS: LIDOCAINE PATCH REMOVAL MC SCH (21:01)
[2019-10-31] MEDS: QUEtiapine FUMARATE 100 MG TABLET (FP) PO SCH (21:01)
[2019-11-01] MEDS ORDERED: METHADONE HCL 40 MG DISPERSABLE TABLET ONE (05:45)
[2019-11-01] MEDS ORDERED: METHADONE HCL 10 MG TABLET ONE (05:45)
[2019-11-01] MEDS: NICOTINE POLACRILEX 4 MG GUM BUC PRN (06:07)
[2019-11-01] MEDS: IBUPROFEN 600 MG TABLET (FP) PO PRN ×3 (06:07→21:28)
[2019-11-01] MEDS: METHADONE 160 MG, METHADONE 20 MG PO SCH (06:07)
[2019-11-01] MEDS: CYCLOBENZAPRINE HCL 5 MG TABLET PO SCH ×3 (06:07→21:28)
[2019-11-01] MEDS: GABAPENTIN 400 MG CAPSULE PO PRN ×2 (06:07→13:59)
[2019-11-01] MEDS: SERTRALINE HCL 50 MG TABLET (FP) PO SCH (09:26)
[2019-11-01] MEDS: NICOTINE 21 MG/24 HOURS TOPICAL PATCH TD SCH (09:26)
[2019-11-01] MEDS: LIDOCAINE 5% TOPICAL PATCH TP SCH (09:26)
[2019-11-01] MEDS: PRENATAL VITAMINS W/ FOLIC ACID TABLET (FP) PO SCH (09:26)
[2019-11-01] MEDS: POLYETHYLENE GLYCOL 3350 119 GM BTL PO SCH ×2 (09:26→21:29)
[2019-11-01] MEDS ORDERED: PT OWN MED DRAWER 7, Y5N ONE (10:15)
[2019-11-01] MEDS: hydrOXYzine PAMOATE 50 MG CAPSULE (FP) PO PRN ×2 (13:59→21:28)
[2019-11-01] MEDS: THIAMINE HCL 100 MG TABLET (FP) PO SCH (21:28)
[2019-11-01] MEDS: MELATONIN 5 MG TABLETS PO PRN (21:28)
[2019-11-01] MEDS: QUEtiapine FUMARATE 100 MG TABLET (FP) PO SCH (21:28)
[2019-11-01] MEDS: LIDOCAINE PATCH REMOVAL MC SCH (21:29)
[2019-11-02] MEDS ORDERED: METHADONE HCL 40 MG DISPERSABLE TABLET ONE (05:47)
[2019-11-02] MEDS ORDERED: METHADONE HCL 10 MG TABLET ONE (05:47)
[2019-11-02] MEDS ORDERED: METHADONE HCL 40 MG DISPERSABLE TABLET PO SCH (06:00)
[2019-11-02] MEDS: CYCLOBENZAPRINE HCL 5 MG TABLET PO SCH ×3 (06:01→21:05)
[2019-11-02] MEDS: METHADONE 160 MG, METHADONE 20 MG PO SCH (06:01)
[2019-11-02] MEDS: GABAPENTIN 400 MG CAPSULE PO PRN (06:01)
[2019-11-02] MEDS: PRENATAL VITAMINS W/ FOLIC ACID TABLET (FP) PO SCH (09:30)
[2019-11-02] MEDS: POLYETHYLENE GLYCOL 3350 119 GM BTL PO SCH ×2 (09:30→22:59)
[2019-11-02] MEDS: SERTRALINE HCL 50 MG TABLET (FP) PO SCH (09:30)
[2019-11-02] MEDS: guaiFENesin 600 MG TABLET.ER (FP) PO PRN ×2 (09:30→21:03)
[2019-11-02] MEDS: hydrOXYzine PAMOATE 50 MG CAPSULE (FP) PO PRN (09:31)
[2019-11-02] MEDS: LIDOCAINE 5% TOPICAL PATCH TP SCH (09:33)
[2019-11-02] MEDS: NICOTINE 21 MG/24 HOURS TOPICAL PATCH TD SCH (09:33)
[2019-11-02] MEDS: GABAPENTIN 400 MG CAPSULE PO SCH ×2 (11:58→19:03)
[2019-11-02] MEDS: ACETAMINOPHEN 325 MG TABLET (FP) PO PRN (11:58)
[2019-11-02] MEDS: THIAMINE HCL 100 MG TABLET (FP) PO SCH (21:04)
[2019-11-02] MEDS: IBUPROFEN 600 MG TABLET (FP) PO PRN (21:04)
[2019-11-02] MEDS: QUEtiapine FUMARATE 100 MG TABLET (FP) PO SCH (21:04)
[2019-11-02] MEDS ORDERED: SUVOREXANT 10 MG TABLET PO PRN (22:00)
[2019-11-02] MEDS: LIDOCAINE PATCH REMOVAL MC SCH (22:58)
[2019-11-03] MEDS: GABAPENTIN 400 MG CAPSULE PO SCH ×4 (01:45→21:38)
[2019-11-03] MEDS ORDERED: METHADONE HCL 10 MG TABLET ONE (05:31)
[2019-11-03] MEDS ORDERED: METHADONE HCL 40 MG DISPERSABLE TABLET ONE (05:31)
[2019-11-03] MEDS: METHADONE 160 MG, METHADONE 20 MG PO SCH (06:30)
[2019-11-03] MEDS: CYCLOBENZAPRINE HCL 5 MG TABLET PO SCH ×3 (06:30→21:37)
[2019-11-03] MEDS: PRENATAL VITAMINS W/ FOLIC ACID TABLET (FP) PO SCH (09:39)
[2019-11-03] MEDS: ALBUTEROL SO4 HFA INHALER IH PRN (09:39)
[2019-11-03] MEDS: hydrOXYzine PAMOATE 50 MG CAPSULE (FP) PO PRN ×3 (09:39→21:37)
[2019-11-03] MEDS: SERTRALINE HCL 50 MG TABLET (FP) PO SCH (09:39)
[2019-11-03] MEDS: NICOTINE 21 MG/24 HOURS TOPICAL PATCH TD SCH (09:40)
[2019-11-03] MEDS: LIDOCAINE 5% TOPICAL PATCH TP SCH (09:40)
[2019-11-03] MEDS: POLYETHYLENE GLYCOL 3350 119 GM BTL PO SCH ×2 (09:40→21:37)
[2019-11-03] MEDS ORDERED: BENZOCAINE 28 GM HEMORRHOIDAL OINTMENT PR PRN (09:49)
[2019-11-03] MEDS: IBUPROFEN 600 MG TABLET (FP) PO PRN ×2 (14:51→21:37)
[2019-11-03] MEDS ORDERED: PT OWN MED DRAWER 7, Y5N ONE (18:52)
[2019-11-03] MEDS: MELATONIN 5 MG TABLETS PO PRN (21:36)
[2019-11-03] MEDS: THIAMINE HCL 100 MG TABLET (FP) PO SCH (21:36)
[2019-11-03] MEDS: LIDOCAINE PATCH REMOVAL MC SCH (21:37)
[2019-11-03] MEDS: QUEtiapine FUMARATE 100 MG TABLET (FP) PO SCH (21:37)
[2019-11-04] MEDS ORDERED: METHADONE HCL 40 MG DISPERSABLE TABLET ONE (05:35)
[2019-11-04] MEDS ORDERED: METHADONE HCL 10 MG TABLET ONE (05:35)
[2019-11-04] MEDS: CYCLOBENZAPRINE HCL 5 MG TABLET PO SCH ×3 (05:55→21:02)
[2019-11-04] MEDS: GABAPENTIN 400 MG CAPSULE PO SCH ×3 (05:55→21:02)
[2019-11-04] MEDS: METHADONE 160 MG, METHADONE 20 MG PO SCH (05:55)
[2019-11-04] MEDS ORDERED: PT OWN MED DRAWER 7, Y5N ONE ×2 (08:34→09:35)
[2019-11-04] MEDS ORDERED: BENZOCAINE 28 GM HEMORRHOIDAL OINTMENT PR PRN (08:44)
[2019-11-04] MEDS ORDERED: WITCH HAZEL 50% (TUCKS) 40 PAD/JAR PAD TP PRN (08:45)
[2019-11-04] MEDS: hydrOXYzine PAMOATE 50 MG CAPSULE (FP) PO PRN ×3 (09:44→21:02)
[2019-11-04] MEDS: IBUPROFEN 600 MG TABLET (FP) PO PRN ×3 (09:44→21:02)
[2019-11-04] MEDS: POLYETHYLENE GLYCOL 3350 119 GM BTL PO SCH ×2 (09:45→21:03)
[2019-11-04] MEDS: SERTRALINE HCL 50 MG TABLET (FP) PO SCH (09:45)
[2019-11-04] MEDS: LIDOCAINE 5% TOPICAL PATCH TP SCH (09:46)
[2019-11-04] MEDS: PRENATAL VITAMINS W/ FOLIC ACID TABLET (FP) PO SCH (09:46)
[2019-11-04] MEDS: NICOTINE 21 MG/24 HOURS TOPICAL PATCH TD SCH (10:53)
[2019-11-04] MEDS: THIAMINE HCL 100 MG TABLET (FP) PO SCH (21:01)
[2019-11-04] MEDS: MELATONIN 5 MG TABLETS PO PRN (21:01)
[2019-11-04] MEDS: QUEtiapine FUMARATE 100 MG TABLET (FP) PO SCH (21:02)
[2019-11-04] MEDS: LIDOCAINE PATCH REMOVAL MC SCH (21:03)
[2019-11-04] MEDS: PRAMOXINE HCL/MINERAL OIL/ZNOX 30 GM TUBE RC SCH (21:03)
[2019-11-05] MEDS ORDERED: METHADONE HCL 40 MG DISPERSABLE TABLET ONE (03:25)
[2019-11-05] MEDS ORDERED: METHADONE HCL 10 MG TABLET ONE (03:25)
[2019-11-05] MEDS: CYCLOBENZAPRINE HCL 5 MG TABLET PO SCH ×3 (06:08→21:36)
[2019-11-05] MEDS: GABAPENTIN 400 MG CAPSULE PO SCH ×3 (06:08→21:36)
[2019-11-05] MEDS: METHADONE 160 MG, METHADONE 20 MG PO SCH (06:08)
[2019-11-05] MEDS: NICOTINE POLACRILEX 4 MG GUM BUC PRN (06:10)
[2019-11-05] MEDS: hydrOXYzine PAMOATE 50 MG CAPSULE (FP) PO PRN ×2 (09:37→21:36)
[2019-11-05] MEDS: NICOTINE 21 MG/24 HOURS TOPICAL PATCH TD SCH (09:37)
[2019-11-05] MEDS: PRENATAL VITAMINS W/ FOLIC ACID TABLET (FP) PO SCH (09:37)
[2019-11-05] MEDS: LIDOCAINE 5% TOPICAL PATCH TP SCH (09:37)
[2019-11-05] MEDS: POLYETHYLENE GLYCOL 3350 119 GM BTL PO SCH (09:37)
[2019-11-05] MEDS: SERTRALINE HCL 50 MG TABLET (FP) PO SCH (09:37)
[2019-11-05] MEDS: IBUPROFEN 600 MG TABLET (FP) PO PRN ×3 (09:38→21:36)
[2019-11-05] MEDS ORDERED: BENZOCAINE 28 GM HEMORRHOIDAL OINTMENT PR PRN (14:22)
[2019-11-05] MEDS: MELATONIN 5 MG TABLETS PO PRN (21:36)
[2019-11-05] MEDS: THIAMINE HCL 100 MG TABLET (FP) PO SCH (21:36)
[2019-11-05] MEDS: QUEtiapine FUMARATE 100 MG TABLET (FP) PO SCH (21:36)
[2019-11-05] MEDS: LIDOCAINE PATCH REMOVAL MC SCH (21:37)
[2019-11-05] MEDS: PRAMOXINE HCL/MINERAL OIL/ZNOX 30 GM TUBE RC SCH (21:38)
[2019-11-05] MEDS ORDERED: SUVOREXANT 10 MG TABLET PO PRN (22:00)
[2019-11-06] MEDS ORDERED: METHADONE HCL 10 MG TABLET ONE (05:15)
[2019-11-06] MEDS ORDERED: METHADONE HCL 40 MG DISPERSABLE TABLET ONE (05:15)
[2019-11-06] MEDS: GABAPENTIN 400 MG CAPSULE PO SCH ×3 (06:33→21:01)
[2019-11-06] MEDS: METHADONE 160 MG, METHADONE 20 MG PO SCH (06:33)
[2019-11-06] MEDS: CYCLOBENZAPRINE HCL 5 MG TABLET PO SCH ×3 (06:33→21:00)
[2019-11-06] MEDS: IBUPROFEN 600 MG TABLET (FP) PO PRN ×3 (06:34→21:01)
[2019-11-06] MEDS: LIDOCAINE 5% TOPICAL PATCH TP SCH (09:26)
[2019-11-06] MEDS: hydrOXYzine PAMOATE 50 MG CAPSULE (FP) PO PRN ×3 (09:26→21:00)
[2019-11-06] MEDS: NICOTINE 21 MG/24 HOURS TOPICAL PATCH TD SCH (09:26)
[2019-11-06] MEDS: PRENATAL VITAMINS W/ FOLIC ACID TABLET (FP) PO SCH (09:26)
[2019-11-06] MEDS: SERTRALINE HCL 50 MG TABLET (FP) PO SCH (09:26)
[2019-11-06] MEDS ORDERED: PT OWN MED DRAWER 7, Y5N ONE (09:47)
[2019-11-06] MEDS: POLYETHYLENE GLYCOL 3350 119 GM BTL PO SCH ×2 (11:09→21:02)
[2019-11-06] MEDS: THIAMINE HCL 100 MG TABLET (FP) PO SCH (21:00)
[2019-11-06] MEDS: MELATONIN 5 MG TABLETS PO PRN (21:00)
[2019-11-06] MEDS: QUEtiapine FUMARATE 100 MG TABLET (FP) PO SCH (21:00)
[2019-11-06] MEDS: LIDOCAINE PATCH REMOVAL MC SCH (21:02)
[2019-11-06] MEDS: PRAMOXINE HCL/MINERAL OIL/ZNOX 30 GM TUBE RC SCH (21:02)
[2019-11-07] MEDS ORDERED: METHADONE HCL 40 MG DISPERSABLE TABLET ONE (05:33)
[2019-11-07] MEDS ORDERED: METHADONE HCL 10 MG TABLET ONE (05:33)
[2019-11-07] MEDS: METHADONE 160 MG, METHADONE 20 MG PO SCH (05:48)
[2019-11-07] MEDS: GABAPENTIN 400 MG CAPSULE PO SCH ×3 (05:48→21:35)
[2019-11-07] MEDS: CYCLOBENZAPRINE HCL 5 MG TABLET PO SCH ×3 (05:48→21:35)
[2019-11-07] MEDS: PRENATAL VITAMINS W/ FOLIC ACID TABLET (FP) PO SCH (09:57)
[2019-11-07] MEDS: hydrOXYzine PAMOATE 50 MG CAPSULE (FP) PO PRN ×3 (09:57→21:37)
[2019-11-07] MEDS: SERTRALINE HCL 50 MG TABLET (FP) PO SCH (09:57)
[2019-11-07] MEDS: POLYETHYLENE GLYCOL 3350 119 GM BTL PO SCH (09:58)
[2019-11-07] MEDS: NICOTINE 21 MG/24 HOURS TOPICAL PATCH TD SCH (09:59)
[2019-11-07] MEDS: LIDOCAINE 5% TOPICAL PATCH TP SCH (09:59)
[2019-11-07] MEDS: IBUPROFEN 600 MG TABLET (FP) PO PRN ×3 (10:01→21:37)
[2019-11-07] MEDS ORDERED: PT OWN MED DRAWER 7, Y5N ONE (20:36)
[2019-11-07] MEDS: ALBUTEROL SO4 HFA INHALER IH PRN (21:03)
[2019-11-07] MEDS: THIAMINE HCL 100 MG TABLET (FP) PO SCH (21:35)
[2019-11-07] MEDS: LIDOCAINE PATCH REMOVAL MC SCH (21:35)
[2019-11-07] MEDS: QUEtiapine FUMARATE 100 MG TABLET (FP) PO SCH (21:35)
[2019-11-07] MEDS: guaiFENesin 600 MG TABLET.ER (FP) PO PRN (21:39)
[2019-11-08] MEDS: PRAMOXINE HCL/MINERAL OIL/ZNOX 30 GM TUBE RC SCH ×2 (00:31→22:20)
[2019-11-08] MEDS: POLYETHYLENE GLYCOL 3350 119 GM BTL PO SCH ×3 (00:32→22:20)
[2019-11-08] MEDS ORDERED: METHADONE HCL 40 MG DISPERSABLE TABLET ONE (05:39)
[2019-11-08] MEDS ORDERED: METHADONE HCL 10 MG TABLET ONE (05:39)
[2019-11-08] MEDS: GABAPENTIN 400 MG CAPSULE PO SCH ×3 (05:44→22:20)
[2019-11-08] MEDS: METHADONE 160 MG, METHADONE 20 MG PO SCH (05:44)
[2019-11-08] MEDS: CYCLOBENZAPRINE HCL 5 MG TABLET PO SCH ×3 (05:44→22:19)
[2019-11-08] MEDS: PRENATAL VITAMINS W/ FOLIC ACID TABLET (FP) PO SCH (10:09)
[2019-11-08] MEDS: LIDOCAINE 5% TOPICAL PATCH TP SCH (10:09)
[2019-11-08] MEDS: SERTRALINE HCL 50 MG TABLET (FP) PO SCH (10:10)
[2019-11-08] MEDS: NICOTINE 21 MG/24 HOURS TOPICAL PATCH TD SCH (10:10)
[2019-11-08] MEDS: hydrOXYzine PAMOATE 50 MG CAPSULE (FP) PO PRN (10:10)
[2019-11-08] MEDS: MELATONIN 5 MG TABLETS PO PRN (22:18)
[2019-11-08] MEDS: LIDOCAINE PATCH REMOVAL MC SCH (22:20)
[2019-11-08] MEDS: THIAMINE HCL 100 MG TABLET (FP) PO SCH (22:20)
[2019-11-08] MEDS: QUEtiapine FUMARATE 100 MG TABLET (FP) PO SCH (22:20)
[2019-11-09] MEDS ORDERED: METHADONE HCL 10 MG TABLET ONE (05:43)
[2019-11-09] MEDS ORDERED: METHADONE HCL 40 MG DISPERSABLE TABLET ONE (05:43)
[2019-11-09] MEDS: METHADONE 160 MG, METHADONE 20 MG PO SCH (06:18)
[2019-11-09] MEDS: CYCLOBENZAPRINE HCL 5 MG TABLET PO SCH ×3 (06:19→21:36)
[2019-11-09] MEDS: GABAPENTIN 400 MG CAPSULE PO SCH ×3 (06:19→21:35)
[2019-11-09] MEDS ORDERED: PT OWN MED DRAWER 7, Y5N ONE ×2 (09:18→21:34)
[2019-11-09] MEDS: PRENATAL VITAMINS W/ FOLIC ACID TABLET (FP) PO SCH (09:44)
[2019-11-09] MEDS: NICOTINE 21 MG/24 HOURS TOPICAL PATCH TD SCH (09:45)
[2019-11-09] MEDS: POLYETHYLENE GLYCOL 3350 119 GM BTL PO SCH ×2 (09:45→21:37)
[2019-11-09] MEDS: LIDOCAINE 5% TOPICAL PATCH TP SCH (09:45)
[2019-11-09] MEDS: SERTRALINE HCL 50 MG TABLET (FP) PO SCH (09:46)
[2019-11-09] MEDS: IBUPROFEN 600 MG TABLET (FP) PO PRN ×2 (12:20→21:36)
[2019-11-09] MEDS: LIDOCAINE PATCH REMOVAL MC SCH (21:35)
[2019-11-09] MEDS: guaiFENesin 600 MG TABLET.ER (FP) PO PRN (21:35)
[2019-11-09] MEDS: THIAMINE HCL 100 MG TABLET (FP) PO SCH (21:36)
[2019-11-09] MEDS: MELATONIN 5 MG TABLETS PO PRN (21:36)
[2019-11-09] MEDS: QUEtiapine FUMARATE 100 MG TABLET (FP) PO SCH (21:36)
[2019-11-09] MEDS: PRAMOXINE HCL/MINERAL OIL/ZNOX 30 GM TUBE RC SCH (21:37)
[2019-11-10] MEDS ORDERED: PT OWN MED DRAWER 7, Y5N ONE ×2 (04:24→09:29)
[2019-11-10] MEDS ORDERED: METHADONE HCL 10 MG TABLET ONE (05:37)
[2019-11-10] MEDS ORDERED: METHADONE HCL 40 MG DISPERSABLE TABLET ONE (05:37)
[2019-11-10] MEDS: METHADONE 160 MG, METHADONE 20 MG PO SCH (05:44)
[2019-11-10] MEDS: CYCLOBENZAPRINE HCL 5 MG TABLET PO SCH ×3 (05:44→21:00)
[2019-11-10] MEDS: GABAPENTIN 400 MG CAPSULE PO SCH ×3 (05:44→21:00)
[2019-11-10] MEDS: MAG HYDROX/AL HYDROX/SIMETH 30 ML UNIT-DOSE CUP PO PRN (05:47)
[2019-11-10] MEDS: IBUPROFEN 600 MG TABLET (FP) PO PRN ×3 (09:56→20:58)
[2019-11-10] MEDS: SERTRALINE HCL 50 MG TABLET (FP) PO SCH (09:58)
[2019-11-10] MEDS: POLYETHYLENE GLYCOL 3350 119 GM BTL PO SCH ×2 (09:58→21:00)
[2019-11-10] MEDS: LIDOCAINE 5% TOPICAL PATCH TP SCH (09:58)
[2019-11-10] MEDS: NICOTINE 21 MG/24 HOURS TOPICAL PATCH TD SCH (09:58)
[2019-11-10] MEDS: PRENATAL VITAMINS W/ FOLIC ACID TABLET (FP) PO SCH (09:58)
[2019-11-10] MEDS ORDERED: FAMOTIDINE 20 MG TABLET PO SCH (11:30)
--- NOTE | 2019-11-10 11:56 | PN ---
S Progress Note (SOAP) Subjective: patient c/o pain on inspiration, and right flank pain.PMHx of Hepatitis C, states his was treated and cured, HIV positive, he is not taking any HIV medications, and has not take any ART for some time. Objective: Vital Signs Period Temp Pulse Resp BP Sys/Benz Pulse Ox Last 24 Hr 97.6 F 80 18-20 118/61 P/E; General: no apparent distress HEENTM: normocephalic Neck: supple Lungs: clear Heart: s1 s2 ABD: tenderness on palpation, upper right quadrant, protuberant, obese 11/10/19 11:50 Assessment: general malaise R/O respiratory infection (PJP); pancreatitis. 11/10/19 11:52 11/10/19 11:55 Plan: CXR ordered, Chemistry ordered. Will continue to monitor.
[2019-11-10] MEDS: hydrOXYzine PAMOATE 50 MG CAPSULE (FP) PO PRN ×2 (14:03→20:59)
[2019-11-10] MEDS: MELATONIN 5 MG TABLETS PO PRN (20:59)
[2019-11-10] MEDS: QUEtiapine FUMARATE 100 MG TABLET (FP) PO SCH (21:00)
[2019-11-10] MEDS: THIAMINE HCL 100 MG TABLET (FP) PO SCH (21:00)
[2019-11-10] MEDS: PRAMOXINE HCL/MINERAL OIL/ZNOX 30 GM TUBE RC SCH (21:00)
[2019-11-10] MEDS: LIDOCAINE PATCH REMOVAL MC SCH (21:02)
[2019-11-11] MEDS ORDERED: METHADONE HCL 10 MG TABLET ONE (05:37)
[2019-11-11] MEDS ORDERED: METHADONE HCL 40 MG DISPERSABLE TABLET ONE (05:37)
[2019-11-11] MEDS: GABAPENTIN 400 MG CAPSULE PO SCH ×3 (05:43→21:32)
[2019-11-11] MEDS: METHADONE 160 MG, METHADONE 20 MG PO SCH (05:43)
[2019-11-11] MEDS: CYCLOBENZAPRINE HCL 5 MG TABLET PO SCH ×3 (05:43→21:33)
[2019-11-11] MEDS ORDERED: PT OWN MED DRAWER 7, Y5N ONE ×3 (09:12→19:11)
[2019-11-11] MEDS: POLYETHYLENE GLYCOL 3350 119 GM BTL PO SCH ×2 (10:17→21:32)
[2019-11-11] MEDS: guaiFENesin 600 MG TABLET.ER (FP) PO PRN (10:17)
[2019-11-11] MEDS: LIDOCAINE 5% TOPICAL PATCH TP SCH (10:19)
[2019-11-11] MEDS: PHENYLEPHRINE HCL/COCOA BUTTER SUPPOSITORY RC SCH (10:19)
[2019-11-11] MEDS: NICOTINE 21 MG/24 HOURS TOPICAL PATCH TD SCH (10:19)
[2019-11-11] MEDS: PRENATAL VITAMINS W/ FOLIC ACID TABLET (FP) PO SCH (10:19)
[2019-11-11] MEDS: ALBUTEROL SO4 HFA INHALER IH PRN (10:20)
[2019-11-11] MEDS: SERTRALINE HCL 50 MG TABLET (FP) PO SCH (10:21)
[2019-11-11 13:09] LABS: ALBUMIN 3.6 g/dl (3.4-5.0); BILIRUBIN,TOTAL 0.3 mg/dL (0.2-1); BLOOD UREA NITROGEN 24.1 mg/dL (7-18); CALCIUM 8.7 mg/dL (8.5-10.1); CREATININE 1.1 mg/dL (0.55-1.3); POTASSIUM 5.3 mmol/L (3.5-5.1); TOT PROT 8.6 g/dl (6.4-8.2)
[2019-11-11] MEDS: MELATONIN 5 MG TABLETS PO PRN (21:31)
[2019-11-11] MEDS: hydrOXYzine PAMOATE 50 MG CAPSULE (FP) PO PRN (21:32)
[2019-11-11] MEDS: LIDOCAINE PATCH REMOVAL MC SCH (21:32)
[2019-11-11] MEDS: THIAMINE HCL 100 MG TABLET (FP) PO SCH (21:33)
[2019-11-11] MEDS: QUEtiapine FUMARATE 100 MG TABLET (FP) PO SCH (21:33)
[2019-11-12] MEDS ORDERED: METHADONE HCL 40 MG DISPERSABLE TABLET ONE (05:36)
[2019-11-12] MEDS ORDERED: METHADONE HCL 10 MG TABLET ONE (05:36)
[2019-11-12] MEDS: CYCLOBENZAPRINE HCL 5 MG TABLET PO SCH ×3 (07:24→21:08)
[2019-11-12] MEDS: GABAPENTIN 400 MG CAPSULE PO SCH ×3 (07:24→21:08)
[2019-11-12] MEDS: METHADONE 160 MG, METHADONE 20 MG PO SCH (07:25)
[2019-11-12] MEDS: ALBUTEROL SO4 HFA INHALER IH PRN (09:30)
[2019-11-12] MEDS: PRENATAL VITAMINS W/ FOLIC ACID TABLET (FP) PO SCH (09:31)
[2019-11-12] MEDS: guaiFENesin 600 MG TABLET.ER (FP) PO PRN (09:31)
[2019-11-12] MEDS: SERTRALINE HCL 50 MG TABLET (FP) PO SCH (09:31)
[2019-11-12] MEDS: IBUPROFEN 600 MG TABLET (FP) PO PRN (09:31)
[2019-11-12] MEDS: NICOTINE 21 MG/24 HOURS TOPICAL PATCH TD SCH (09:34)
[2019-11-12] MEDS: LIDOCAINE 5% TOPICAL PATCH TP SCH (09:34)
[2019-11-12] MEDS: POLYETHYLENE GLYCOL 3350 119 GM BTL PO SCH ×2 (09:34→22:19)
--- NOTE | 2019-11-12 09:35 | PN ---
[facility] Progress Note (SOAP) Subjective: Labs and chest X-ray reviewed. Chest x-ray was negative. Labs indicate slight elevation in potassium, 5.3; elevated BUN at 24.1; Alk Phos elevated at 144. Patient denies constipation, dark urine, no further c/o right flank pain. Objective: P/E: General: no apparent distress HEENTM: sclera clear Lungs: clear Heart: s1 s2 Skin: clear, color consistent throughout trunk and extremities, no discolorations, no jaundice, ABD: non-tender, +BS 11/12/19 10:02 11/12/19 10:08 Laboratory Last Values Sodium 140 mmol/L (136-145) 11/11/19 08:35 Potassium 5.3 mmol/L (3.5-5.1) H 11/11/19 08:35 Chloride 105 mmol/L (98-107) 11/11/19 08:35 Carbon Dioxide 31 mmol/L (21-32) 11/11/19 08:35 Anion Gap 4 MMOL/L (8-16) L 11/11/19 08:35 BUN 24.1 mg/dL (7-18) H 11/11/19 08:35 Creatinine 1.1 mg/dL (0.55-1.3) 11/11/19 08:35 Est GFR (CKD-EPI)AfAm 89.61 11/11/19 08:35 Est GFR (CKD-EPI)NonAf 77.32 11/11/19 08:35 Random Glucose 74 mg/dL (74-106) 11/11/19 08:35 Calcium 8.7 mg/dL (8.5-10.1) 11/11/19 08:35 Total Bilirubin 0.3 mg/dL (0.2-1) 11/11/19 08:35 AST 26 U/L (15-37) 11/11/19 08:35 ALT 28 U/L (13-61) 11/11/19 08:35 Alkaline Phosphatase 144 U/L (45-117) H 11/11/19 08:35 Total Protein 8.6 g/dl (6.4-8.2) H 11/11/19 08:35 Albumin 3.6 g/dl (3.4-5.0) 11/11/19 08:35 Vital Signs Period Temp Pulse Resp BP Sys/Benz Pulse Ox Last 24 Hr 97.6 F 88 18-20 114/70 Assessment: No lung infection; pain is possible radiation from right flank Patient has a hx of hepatitis, which he states was treated, he is HIV positive and not on treatment. Potassium slightly elevated; BUN and Alk Phos elevated Several diagnoses are possible: gallstones or mild chronic pancreatitis 11/12/19 10:04 Plan: Will order lipase and amylase; urinanalysis and urine culture, Increase hydration Continue to monitor Recommend follow up after discharge with PCP and to begin HIV treatment.
[2019-11-12] MEDS: PHENYLEPHRINE HCL/COCOA BUTTER SUPPOSITORY RC SCH (10:51)
[2019-11-12] MEDS ORDERED: PT OWN MED DRAWER 7, Y5N ONE (11:02)
[2019-11-12] MEDS: QUEtiapine FUMARATE 100 MG TABLET (FP) PO SCH (21:08)
[2019-11-12] MEDS: LIDOCAINE PATCH REMOVAL MC SCH (21:09)
[2019-11-12] MEDS: THIAMINE HCL 100 MG TABLET (FP) PO SCH (21:09)
[2019-11-12] MEDS: MELATONIN 5 MG TABLETS PO PRN (21:09)
[2019-11-13] MEDS ORDERED: METHADONE HCL 10 MG TABLET ONE (05:33)
[2019-11-13] MEDS ORDERED: METHADONE HCL 40 MG DISPERSABLE TABLET ONE (05:34)
[2019-11-13] MEDS: METHADONE 160 MG, METHADONE 20 MG PO SCH (06:21)
[2019-11-13] MEDS: GABAPENTIN 400 MG CAPSULE PO SCH ×3 (06:22→21:33)
[2019-11-13] MEDS: CYCLOBENZAPRINE HCL 5 MG TABLET PO SCH ×3 (06:22→21:35)
[2019-11-13] MEDS ORDERED: PT OWN MED DRAWER 7, Y5N ONE (09:08)
[2019-11-13 10:42] LABS: URINE APPEARANCE CLEAR; URINE BILIRUBIN NEGATIVE (NEGATIVE); URINE COLOR YELLOW; URINE GLUCOSE (UA) NEGATIVE (NEGATIVE); URINE KETONE NEGATIVE (NEGATIVE); URINE LEUK ESTERASE NEGATIVE (NEGATIVE); URINE NITRITE NEGATIVE (NEGATIVE); URINE PROTEIN NEGATIVE (NEGATIVE); URINE UROBILINOGEN 0.2 mg/dL (0.2-1.0)
[2019-11-13] MEDS: SERTRALINE HCL 50 MG TABLET (FP) PO SCH (10:55)
[2019-11-13] MEDS: guaiFENesin 600 MG TABLET.ER (FP) PO PRN (10:55)
[2019-11-13] MEDS: PRENATAL VITAMINS W/ FOLIC ACID TABLET (FP) PO SCH (10:55)
[2019-11-13] MEDS: PHENYLEPHRINE HCL/COCOA BUTTER SUPPOSITORY RC SCH (10:57)
[2019-11-13] MEDS: POLYETHYLENE GLYCOL 3350 119 GM BTL PO SCH ×2 (10:57→21:35)
[2019-11-13] MEDS: LIDOCAINE 5% TOPICAL PATCH TP SCH (10:57)
[2019-11-13] MEDS: NICOTINE 21 MG/24 HOURS TOPICAL PATCH TD SCH (10:57)
--- NOTE | 2019-11-13 14:10 | PN ---
[facility] Progress Note Note: Patient seen for follow up right flank area discomfort. Patient denies chest pain, sob and dizziness. Potassium elevated day before, repeated today. Amylase, Lipase and Urine culture also ordered and results pending. CXR negative. Laboratory Tests 11/11/19 11/12/19 08:35 07:45 Sodium 140 Potassium 5.3 H Chloride 105 Carbon Dioxide 31 Anion Gap 4 L BUN 24.1 H Creatinine 1.1 Est GFR (CKD-EPI)AfAm 89.61 Est GFR (CKD-EPI)NonAf 77.32 Random Glucose 74 Calcium 8.7 Total Bilirubin 0.3 AST 26 ALT 28 Alkaline Phosphatase 144 H Total Protein 8.6 H Albumin 3.6 Urine Color Yellow Urine Appearance Clear Urine pH 5.0 Ur Specific [place] 1.014 Urine Protein Negative Urine Glucose (UA) Negative Urine Ketones Negative Urine Blood Negative Urine Nitrite Negative Urine Bilirubin Negative Urine Urobilinogen 0.2 Ur Leukocyte Esterase Negative Vital Signs Temperature 98 F 11/13/19 07:15 Pulse Rate 69 11/13/19 07:15 Respiratory Rate 18 11/13/19 07:15 Blood Pressure 148/81 11/13/19 07:15 O2 Sat by Pulse Oximetry (%) PE alert and oriented x 3 skin warm and dry car s1s2 resp cta bl gi soft, obese, mild tenderness R lateral abdominal area extending to right flank ext full rom amb ad radha A/P: hyperkalemia right flank discomfort EKG ordered: NSR labs pending urine culture pending oral fluids encourage follow up labs when available
[2019-11-13] MEDS: QUEtiapine FUMARATE 100 MG TABLET (FP) PO SCH (21:33)
[2019-11-13] MEDS: MELATONIN 5 MG TABLETS PO PRN (21:34)
[2019-11-13] MEDS: hydrOXYzine PAMOATE 50 MG CAPSULE (FP) PO PRN (21:34)
[2019-11-13] MEDS: LIDOCAINE PATCH REMOVAL MC SCH (21:35)
[2019-11-13] MEDS: THIAMINE HCL 100 MG TABLET (FP) PO SCH (21:35)
[2019-11-14] MEDS ORDERED: METHADONE HCL 40 MG DISPERSABLE TABLET ONE (05:54)
[2019-11-14] MEDS ORDERED: METHADONE HCL 10 MG TABLET ONE (05:54)
[2019-11-14] MEDS: GABAPENTIN 400 MG CAPSULE PO SCH ×3 (06:09→21:03)
[2019-11-14] MEDS: METHADONE 160 MG, METHADONE 20 MG PO SCH (06:09)
[2019-11-14] MEDS: CYCLOBENZAPRINE HCL 5 MG TABLET PO SCH ×3 (06:10→21:03)
[2019-11-14] MEDS ORDERED: PT OWN MED DRAWER 7, Y5N ONE ×2 (09:21→10:00)
[2019-11-14] MEDS: LIDOCAINE 5% TOPICAL PATCH TP SCH (09:57)
[2019-11-14] MEDS: SERTRALINE HCL 50 MG TABLET (FP) PO SCH (09:58)
[2019-11-14] MEDS: POLYETHYLENE GLYCOL 3350 119 GM BTL PO SCH ×2 (09:58→21:03)
[2019-11-14] MEDS: PHENYLEPHRINE HCL/COCOA BUTTER SUPPOSITORY RC SCH (09:58)
[2019-11-14] MEDS: NICOTINE 21 MG/24 HOURS TOPICAL PATCH TD SCH (09:58)
[2019-11-14] MEDS: PRENATAL VITAMINS W/ FOLIC ACID TABLET (FP) PO SCH (09:58)
[2019-11-14] MEDS: guaiFENesin 600 MG TABLET.ER (FP) PO PRN (09:59)
--- NOTE | 2019-11-14 10:31 | EKG ---
Test Reason : Blood Pressure : / mmHG Vent. Rate : 070 BPM Atrial Rate : 070 BPM P-R Int : 152 ms QRS Dur : 086 ms QT Int : 410 ms P-R-T Axes : 039 065 039 degrees QTc Int : 442 ms NORMAL SINUS RHYTHM NORMAL ECG WHEN COMPARED WITH ECG OF 07-AUG-2018 14:24, NO SIGNIFICANT CHANGE WAS FOUND Confirmed by Tom Chapman MD ([id number]) on 11/14/2019 10:31:10 AM Referred By: Confirmed By:Tom Chapman MD
[2019-11-14] MEDS: IBUPROFEN 600 MG TABLET (FP) PO PRN (19:38)
[2019-11-14] MEDS: hydrOXYzine PAMOATE 50 MG CAPSULE (FP) PO PRN (21:03)
[2019-11-14] MEDS: THIAMINE HCL 100 MG TABLET (FP) PO SCH (21:03)
[2019-11-14] MEDS: QUEtiapine FUMARATE 100 MG TABLET (FP) PO SCH (21:03)
[2019-11-14] MEDS: MELATONIN 5 MG TABLETS PO PRN (21:03)
[2019-11-14] MEDS: LIDOCAINE PATCH REMOVAL MC SCH (21:04)
[2019-11-15] MEDS: CYCLOBENZAPRINE HCL 5 MG TABLET PO SCH ×3 (06:36→21:34)
[2019-11-15] MEDS: GABAPENTIN 400 MG CAPSULE PO SCH ×3 (06:36→21:34)
[2019-11-15] MEDS ORDERED: METHADONE HCL 40 MG DISPERSABLE TABLET ONE (06:37)
[2019-11-15] MEDS ORDERED: METHADONE HCL 10 MG TABLET ONE (06:37)
[2019-11-15] MEDS: METHADONE 160 MG, METHADONE 20 MG PO SCH (06:37)
[2019-11-15] MEDS: PHENYLEPHRINE HCL/COCOA BUTTER SUPPOSITORY RC SCH (10:02)
[2019-11-15] MEDS: SERTRALINE HCL 50 MG TABLET (FP) PO SCH (10:02)
[2019-11-15] MEDS: PRENATAL VITAMINS W/ FOLIC ACID TABLET (FP) PO SCH (10:02)
[2019-11-15] MEDS ORDERED: PT OWN MED DRAWER 7, Y5N ONE (10:03)
[2019-11-15] MEDS: LIDOCAINE 5% TOPICAL PATCH TP SCH (10:03)
[2019-11-15] MEDS: NICOTINE 21 MG/24 HOURS TOPICAL PATCH TD SCH (10:03)
[2019-11-15] MEDS: guaiFENesin 600 MG TABLET.ER (FP) PO PRN (10:03)
[2019-11-15] MEDS: POLYETHYLENE GLYCOL 3350 119 GM BTL PO SCH ×2 (10:04→21:35)
[2019-11-15] MEDS: IBUPROFEN 600 MG TABLET (FP) PO PRN (10:05)
[2019-11-15] MEDS: THIAMINE HCL 100 MG TABLET (FP) PO SCH (21:34)
[2019-11-15] MEDS: QUEtiapine FUMARATE 100 MG TABLET (FP) PO SCH (21:34)
[2019-11-15] MEDS: hydrOXYzine PAMOATE 50 MG CAPSULE (FP) PO PRN (21:34)
[2019-11-15] MEDS: MELATONIN 5 MG TABLETS PO PRN (21:34)
[2019-11-15] MEDS: LIDOCAINE PATCH REMOVAL MC SCH (21:34)
[2019-11-16] MEDS ORDERED: METHADONE HCL 10 MG TABLET ONE (05:35)
[2019-11-16] MEDS ORDERED: METHADONE HCL 40 MG DISPERSABLE TABLET ONE (05:35)
[2019-11-16] MEDS: GABAPENTIN 400 MG CAPSULE PO SCH (05:46)
[2019-11-16] MEDS: METHADONE 160 MG, METHADONE 20 MG PO SCH (05:46)
[2019-11-16] MEDS: CYCLOBENZAPRINE HCL 5 MG TABLET PO SCH (05:46)
[2019-11-16 06:05] VITALS: BP 116/71; PULSE 90; TEMP 97.7
--- NOTE | 2019-11-16 06:42 | PN ---
S Progress Note Note: Patient is scheduled for discharge today. Scripts for 30 days supply of medications(Zoloft 50 mg/day, Seroquel 100 mg/hs) are electronically transmitted to [facility] at [address] [place] [id number]
[2019-11-16] MEDS ORDERED: PT OWN MED DRAWER 7, Y5N ONE (09:04)
[2019-11-16] MEDS: SERTRALINE HCL 50 MG TABLET (FP) PO SCH (09:04)
[2019-11-16] MEDS: PRENATAL VITAMINS W/ FOLIC ACID TABLET (FP) PO SCH (09:04)
[2019-11-16] MEDS: PHENYLEPHRINE HCL/COCOA BUTTER SUPPOSITORY RC SCH (09:06)
--- NOTE | 2019-11-16 09:12 | DS ---
[facility] Rehab Discharge Summary - [facility] Rehab Discharge Summary Admission Date: 10/19/19 Discharge Date: 11/16/19 - History Present History: Alcohol dependence, Cocaine dependence, Opioid dependence - Discharge Physical Exam Vital Signs: Vital Signs Temperature 97.7 F 11/16/19 05:40 Pulse Rate 90 11/16/19 05:40 Respiratory Rate 18 11/16/19 05:40 Blood Pressure 116/71 11/16/19 05:40 O2 Sat by Pulse Oximetry (%) ROS: DENIES ALCOHOL, OPIOD CRAVINGS, SWEATS, ANXIETY, CP, SOB AND URINARY DISCOMFORT. PE: ALERT AND ORIENTED X 3 SKIN WARM AND DRY IN NAD EXT FULL ROM, AMB AD ANTWAN NO TREMORS DENIES SI/HI A/P: OPIOD/ALCOHOL DEPENDENCE MMTP PATIENT MEDICALLY STABLE FOR DISCHARGE. - Treatment Discharge Condition: Discharge condition good Hospital Course: PATIENT DISCHARGED FROM REHAB TODAY FOR ALCOHOL DEPENDENCE. PATIENT IS ON MMTP AT [facility] AND IS TO FOLLOW UP TOMORROW MORNING AT PROGRAM. DURING HOSPITAL COURSE, PATIENT ATTENDED GROUP MEETINGS, 1:1 SESSIONS WITH COUNSELOR AND EVALUATED BY PSYCHIATRY TEAM. PATIENT HAD EPISODES OF CONSTIPATION WHICH WAS TREATED EFFECTIVELY WITH MIRALAX. HE ALSO HAD EPISODE OF RIGHT FLANK, CHEST DISCOMFORT AND ELEVATED K+. EKG, CXR AND URINE C/S NEGATIVE. PATIENT ASYMPTOMATIC PRESENTLY. REPEAT K+ 5.0. HE WAS MEDICALLY ADVISED TO FOLLOW UP WITH PCP RECOMMENDED AND CONTINUE GROUP MEETINGS TO PREVENT REOCCURRENCE. PATIENT IS MEDICALLY STABLE FOR D/C AND DENIES SI/HI. Ambulatory Orders Gabapentin [Neurontin -] 300 mg PO Q8H 10/14/19 Albuterol Sulfate Inhaler - [Ventolin HFA Inhaler -] 2 puff IH Q4H PRN #1 inhaler 11/16/19 Gabapentin [Neurontin -] 400 mg PO TID #42 capsule 11/16/19 Quetiapine Fumarate [Seroquel -] 100 mg PO HS #30 tablet 11/16/19 Sertraline HCl [Zoloft -] 50 mg PO DAILY #30 tablet 11/16/19 Vital Signs Temperature 97.7 F 11/16/19 05:40 Pulse Rate 90 11/16/19 05:40 Respiratory Rate 18 11/16/19 05:40 Blood Pressure 116/71 11/16/19 05:40 O2 Sat by Pulse Oximetry (%) - Medication Discharge Medications: Ambulatory Orders Gabapentin [Neurontin -] 300 mg PO Q8H 10/14/19 Albuterol Sulfate Inhaler - [Ventolin HFA Inhaler -] 2 puff IH Q4H PRN #1 inhaler 11/16/19 Gabapentin [Neurontin -] 400 mg PO TID #42 capsule 11/16/19 Quetiapine Fumarate [Seroquel -] 100 mg PO HS #30 tablet 11/16/19 Sertraline HCl [Zoloft -] 50 mg PO DAILY #30 tablet 11/16/19 - Medication-Assisted Treatment (MAT) Medication-Assisted Treatment (MAT): Yes MAT Follow-up Referral: AFTERCARE: [facility] TO CONTINUE MMT. - Discharge Instructions Diet, activity, other medical instructions: Diet: REGULAR Activity: AD ANTWAN Other medical instructions: FOLLOW UP WITH PCP RECOMMENDED - Follow-up Referral Minutes to complete discharge: 35 - AMA Did Patient Leave Against Medical Advice: No
== END 2019-11-16 09:10 | disposition home or self-care (01) | DRG 772 ==
LOC: YASAS 12:36 → Y3W 12:37
PROVIDERS: ADMIT Allergy & Immunology; ATTEND Allergy & Immunology
PROC: HZ42ZZZ Group Counseling for Substance Abuse Treatment, Cognitive-Behavioral (ICD-10-PCS; principal; 2019-10-19)
DX: F10.20 Alcohol dependence, uncomplicated (principal); F11.20 Opioid dependence, uncomplicated; F13.20 Sedative, hypnotic or anxiolytic dependence, uncomplicated; F14.20 Cocaine dependence, uncomplicated; F12.20 Cannabis dependence, uncomplicated; F25.9 Schizoaffective disorder, unspecified; F19.282 Other psychoactive substance dependence with psychoactive substance-induced sleep disorder; F41.9 Anxiety disorder, unspecified; Z21 Asymptomatic human immunodeficiency virus [HIV] infection status; E87.5 Hyperkalemia; R10.31 Right lower quadrant pain; K59.00 Constipation, unspecified; J45.20 Mild intermittent asthma, uncomplicated; M54.5 Low back pain; G89.29 Other chronic pain; M79.605 Pain in left leg; Z87.19 Personal history of other diseases of the digestive system; Z86.19 Personal history of other infectious and parasitic diseases
CPT/HCPCS: 36415; 71046-TC-FY; 80053; 81003; 82150; 83690; 84132; 87086; 93005; 93010

== ENCOUNTER 2020-05-12 15:31 | Inpatient (IN) | payer OTHER ==
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
[2020-05-12] MEDS ORDERED: chlordiazePOXIDE HCL 25 MG CAPSULE PO PRN (18:57)
[2020-05-12] MEDS ORDERED: MAGNESIUM CITRATE 300 ML BOTTLE PO PRN (19:03)
[2020-05-12] MEDS ORDERED: IBUPROFEN 400 MG TABLET (FP) PO PRN (19:03)
[2020-05-12] MEDS ORDERED: METHOCARBAMOL 500 MG TABLET PO PRN (19:03)
[2020-05-12] MEDS ORDERED: NICOTINE POLACRILEX 2 MG GUM BUC PRN (19:03)
[2020-05-12] MEDS ORDERED: ONDANSETRON *ODT* 4 MG TABLET SL ONE (19:03)
[2020-05-12] MEDS ORDERED: BISMUTH SUBSALICYLATE 524 MG/30 ML UD PO PRN (19:03)
[2020-05-12] MEDS ORDERED: MENTHOL/PHENOL 1 EACH UD MM PRN (19:03)
[2020-05-12] MEDS ORDERED: MAGNESIUM HYDROX 2400MG/30ML ORAL SUSPENSION 30 ML CUP PO PRN (19:03)
[2020-05-12] MEDS ORDERED: MAG HYDROX/AL HYDROX/SIMETH 30 ML UNIT-DOSE CUP PO PRN (19:03)
[2020-05-12] MEDS ORDERED: ACETAMINOPHEN 325 MG TABLET (FP) PO PRN ×2 (19:03)
[2020-05-12 19:42] VITALS: BMI 27.1
[2020-05-12] MEDS: chlordiazePOXIDE HCL 25 MG CAPSULE PO SCH (22:34)
[2020-05-12] MEDS: GABAPENTIN 100 MG CAPSULE PO PRN (22:34)
[2020-05-12] MEDS: THIAMINE HCL 100 MG TABLET (FP) PO SCH (22:34)
[2020-05-12] MEDS: MELATONIN 5 MG TABLETS PO SCH (22:34)
[2020-05-13] MEDS: chlordiazePOXIDE HCL 25 MG CAPSULE PO SCH ×4 (05:50→22:23)
[2020-05-13] MEDS ORDERED: ALBUTEROL SO4 HFA INHALER IH PRN (09:29)
[2020-05-13] MEDS: PRENATAL VITAMINS W/ FOLIC ACID TABLET (FP) PO SCH (11:12)
[2020-05-13] MEDS: METHADONE HCL 40 MG DISPERSABLE TABLET PO SCH (11:12)
[2020-05-13] MEDS: NICOTINE 7 MG/24 HOURS TOPICAL PATCH TD SCH (11:18)
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
[2020-05-13] MEDS ORDERED: CEPHALEXIN MONOHYDRATE 500 MG CAPSULE (UD) PO ONE (12:05)
--- NOTE | 2020-05-13 12:08 | PN ---
S CIWA - CIWA Score Nausea/Vomitin Muscle Tremors: 3 Anxiety: 3 Agitation: 3 Paroxysmal Sweats: 1-Minimal Palms Moist Orientation: 0-Oriented Tacttile Disturbances: 1-Very Mild Itch/Numbness Auditory Disturbances: 0-None Visual Disturbances: 0-None Headache: 2-Mild CIWA-Ar Total Score: 15 BHS Progress Note (SOAP) Subjective: alert,irritable,anxious,pain in the body and back,nausea,pain in both elbow from site in injection,erythema,cellulitis varicose veins both leg,no calf tenderness Objective: 05/13/20 16:16 Vital Signs Temperature 97.5 F L 05/13/20 12:53 Pulse Rate 82 05/13/20 12:53 Respiratory Rate 18 05/13/20 12:53 Blood Pressure 124/83 05/13/20 12:53 O2 Sat by Pulse Oximetry (%) 97 05/13/20 12:53 05/13/20 16:16 Laboratory Last Values WBC 2.6 K/mm3 (4.0-10.0) L 05/13/20 08:40 RBC 4.51 M/mm3 (4.00-5.60) 05/13/20 08:40 Hgb 12.4 GM/dL (11.7-16.9) 05/13/20 08:40 Hct 37.1 % (35.4-49) 05/13/20 08:40 MCV 82.3 fl (80-96) 05/13/20 08:40 MCH 27.4 pg (25.7-33.7) 05/13/20 08:40 MCHC 33.3 g/dl (32.0-35.9) 05/13/20 08:40 RDW 15.6 % (11.9-15.9) 05/13/20 08:40 Plt Count 143 K/MM3 (134-434) D 05/13/20 08:40 MPV 8.1 fl (7.5-11.1) 05/13/20 08:40 Sodium 140 mmol/L (136-145) 05/13/20 08:40 Potassium 4.7 mmol/L (3.5-5.1) 05/13/20 08:40 Chloride 104 mmol/L (98-107) 05/13/20 08:40 Carbon Dioxide 32 mmol/L (21-32) 05/13/20 08:40 Anion Gap 5 MMOL/L (8-16) L 05/13/20 08:40 BUN 16.0 mg/dL (7-18) 05/13/20 08:40 Creatinine 1.0 mg/dL (0.55-1.3) 05/13/20 08:40 Est GFR (CKD-EPI)AfAm 100.55 05/13/20 08:40 Est GFR (CKD-EPI)NonAf 86.76 05/13/20 08:40 Random Glucose 90 mg/dL (74-106) 05/13/20 08:40 Calcium 8.3 mg/dL (8.5-10.1) L 05/13/20 08:40 Total Bilirubin 0.4 mg/dL (0.2-1) 05/13/20 08:40 AST 20 U/L (15-37) 05/13/20 08:40 ALT 15 U/L (13-61) 05/13/20 08:40 Alkaline Phosphatase 96 U/L (45-117) 05/13/20 08:40 Total Protein 7.0 g/dl (6.4-8.2) 05/13/20 08:40 Albumin 2.9 g/dl (3.4-5.0) L 05/13/20 08:40 Syphilis Serology Non-reactive (NONREACTIVE) 05/13/20 08:40 Assessment: 05/13/20 16:17 withdrawal symptom Plan: continue detox librium regimen,keflex 5oo mgs po tid for 7 days for cellulitis, lidex cream over the legs itching,continue methadone 200 mgs/day daily maintenance leukopenia wbc 2.600,will repeat cbc in am
[2020-05-13] MEDS ORDERED: FLUOCINONIDE 0.05% CREAM (15 GM TUBE) TP SCH (12:15)
[2020-05-13 12:33] LABS: HEMATOCRIT 37.1 % (35.4-49); HEMOGLOBIN 12.4 GM/dL (11.7-16.9); MCH 27.4 pg (25.7-33.7); MCHC 33.3 g/dl (32.0-35.9); MEAN CELL VOLUME 82.3 fl (80-96); MEAN PLT VOLUME 8.1 fl (7.5-11.1); PLATELET COUNT 143 K/MM3 (134-434); RBC 4.51 M/mm3 (4.00-5.60); RDW 15.6 % (11.9-15.9); WHITE BLOOD COUNT 2.6 K/mm3 (4.0-10.0)
[2020-05-13 12:46] LABS: ALBUMIN 2.9 g/dl (3.4-5.0); BILIRUBIN,TOTAL 0.4 mg/dL (0.2-1); CALCIUM 8.3 mg/dL (8.5-10.1); POTASSIUM 4.7 mmol/L (3.5-5.1)
[2020-05-13] MEDS: CEPHALEXIN MONOHYDRATE 500 MG CAPSULE (UD) PO SCH ×2 (15:15→22:23)
[2020-05-13 17:28] LABS: EPI CELLS 7 /uL (0-25.1); HYALINE CASTS 4 /uL (0-3.1); URINE APPEARANCE CLOUDY; URINE BACTERIA 18 /uL (0-1359); URINE BILIRUBIN NEGATIVE (NEGATIVE); URINE COLOR YELLOW; URINE GLUCOSE (UA) NEGATIVE (NEGATIVE); URINE KETONE TRACE (NEGATIVE); URINE LEUK ESTERASE 2+ (NEGATIVE); URINE NITRITE NEGATIVE (NEGATIVE); URINE PROTEIN NEGATIVE (NEGATIVE); URINE RBC 33 /uL (0-23.9); URINE WBC 7 /uL (0-25.8)
[2020-05-13] MEDS: GABAPENTIN 100 MG CAPSULE PO PRN (17:52)
[2020-05-13 18:14] LABS: URINE CRYSTALS MODERATE /hpf
[2020-05-13] MEDS: risperiDONE 1 MG TABLET PO SCH (22:22)
[2020-05-13] MEDS: traZODone HCL 100 MG TABLET (FP) PO SCH (22:22)
[2020-05-13] MEDS: MELATONIN 5 MG TABLETS PO SCH (22:23)
[2020-05-13] MEDS: THIAMINE HCL 100 MG TABLET (FP) PO SCH (22:23)
[2020-05-13] MEDS: BENZTROPINE MESYLATE 1 MG TABLET PO SCH (22:25)
[2020-05-13] MEDS: FLUOCINONIDE 0.05% CREAM (60 GM TUBE) TP SCH (22:26)
[2020-05-14] MEDS: METHADONE HCL 40 MG DISPERSABLE TABLET PO SCH (05:54)
[2020-05-14] MEDS: chlordiazePOXIDE HCL 25 MG CAPSULE PO SCH ×4 (05:54→22:20)
[2020-05-14] MEDS: CEPHALEXIN MONOHYDRATE 500 MG CAPSULE (UD) PO SCH ×3 (05:54→22:21)
--- NOTE | 2020-05-14 09:49 | PN ---
[facility] CIWA - CIWA Score Nausea/Vomitin-No Nausea/No Vomiting Muscle Tremors: 2 Anxiety: 3 Agitation: 0-Normal Activity Paroxysmal Sweats: 3 Orientation: 0-Oriented Tacttile Disturbances: 1-Very Mild Itch/Numbness Auditory Disturbances: 0-None Visual Disturbances: 0-None Headache: 2-Mild CIWA-Ar Total Score: 11 S Progress Note (SOAP) Subjective: c/o sweats, anxiety, headache, shakes, and irritability. Objective: 05/14/20 12:12 Vital Signs 05/14/20 05/14/20 06:21 08:50 Temperature 97.5 F L 97.8 F Pulse Rate 52 L 79 Respiratory 18 18 Rate Blood Pressure 112/71 100/63 O2 Sat by Pulse 97 Oximetry (%) Laboratory Last Values WBC 3.6 K/mm3 (4.0-10.0) L 05/14/20 07:25 RBC 4.45 M/mm3 (4.00-5.60) 05/14/20 07:25 Hgb 12.3 GM/dL (11.7-16.9) 05/14/20 07:25 Hct 36.5 % (35.4-49) 05/14/20 07:25 MCV 82.1 fl (80-96) 05/14/20 07:25 MCH 27.7 pg (25.7-33.7) 05/14/20 07:25 MCHC 33.7 g/dl (32.0-35.9) 05/14/20 07:25 RDW 15.3 % (11.9-15.9) 05/14/20 07:25 Plt Count 149 K/MM3 (134-434) 05/14/20 07:25 MPV 8.0 fl (7.5-11.1) 05/14/20 07:25 Sodium 140 mmol/L (136-145) 05/13/20 08:40 Potassium 4.7 mmol/L (3.5-5.1) 05/13/20 08:40 Chloride 104 mmol/L (98-107) 05/13/20 08:40 Carbon Dioxide 32 mmol/L (21-32) 05/13/20 08:40 Anion Gap 5 MMOL/L (8-16) L 05/13/20 08:40 BUN 16.0 mg/dL (7-18) 05/13/20 08:40 Creatinine 1.0 mg/dL (0.55-1.3) 05/13/20 08:40 Est GFR (CKD-EPI)AfAm 100.55 05/13/20 08:40 Est GFR (CKD-EPI)NonAf 86.76 05/13/20 08:40 Random Glucose 90 mg/dL (74-106) 05/13/20 08:40 Calcium 8.3 mg/dL (8.5-10.1) L 05/13/20 08:40 Total Bilirubin 0.4 mg/dL (0.2-1) 05/13/20 08:40 AST 20 U/L (15-37) 05/13/20 08:40 ALT 15 U/L (13-61) 05/13/20 08:40 Alkaline Phosphatase 96 U/L (45-117) 05/13/20 08:40 Total Protein 7.0 g/dl (6.4-8.2) 05/13/20 08:40 Albumin 2.9 g/dl (3.4-5.0) L 05/13/20 08:40 Urine Color Yellow 05/13/20 15:11 Urine Appearance Cloudy 05/13/20 15:11 Urine pH 6.0 (5.0-8.0) 05/13/20 15:11 Ur Specific [place] 1.022 (1.010-1.035) 05/13/20 15:11 Urine Protein Negative (NEGATIVE) 05/13/20 15:11 Urine Glucose (UA) Negative (NEGATIVE) 05/13/20 15:11 Urine Ketones Trace (NEGATIVE) H 05/13/20 15:11 Urine Blood Negative (NEGATIVE) 05/13/20 15:11 Urine Nitrite Negative (NEGATIVE) 05/13/20 15:11 Urine Bilirubin Negative (NEGATIVE) 05/13/20 15:11 Urine Urobilinogen 2.0 mg/dL (0.2-1.0) 05/13/20 15:11 Ur Leukocyte Esterase 2+ (NEGATIVE) H 05/13/20 15:11 Urine WBC (Auto) 7 /uL (0-25.8) 05/13/20 15:11 Urine RBC (Auto) 33 /uL (0-23.9) 05/13/20 15:11 Urine Casts (Auto) 4 /uL (0-3.1) 05/13/20 15:11 U Epithel Cells (Auto) 7 /uL (0-25.1) 05/13/20 15:11 Urine Crystals (Auto) Moderate /hpf 05/13/20 15:11 Urine Bacteria (Auto) 18 /uL (0-1359) 05/13/20 15:11 Syphilis Serology Non-reactive (NONREACTIVE) 05/13/20 08:40 COVID-19 (PEDRO) Not detected (Not Detected) 05/12/20 19:55 Labs noted. Assessment: 05/14/20 09:49 AOX3, in no acute respiratory distress. Full ROM, ambulating in the unit. Withdrawal symptoms. Plan: continue detox.
[2020-05-14 10:10] LABS: HEMATOCRIT 36.5 % (35.4-49); HEMOGLOBIN 12.3 GM/dL (11.7-16.9); MCH 27.7 pg (25.7-33.7); MCHC 33.7 g/dl (32.0-35.9); MEAN CELL VOLUME 82.1 fl (80-96); PLATELET COUNT 149 K/MM3 (134-434); RBC 4.45 M/mm3 (4.00-5.60); RDW 15.3 % (11.9-15.9); WHITE BLOOD COUNT 3.6 K/mm3 (4.0-10.0)
[2020-05-14] MEDS: FLUOCINONIDE 0.05% CREAM (60 GM TUBE) TP SCH ×2 (10:28→22:19)
[2020-05-14] MEDS: risperiDONE 1 MG TABLET PO SCH ×2 (10:28→22:21)
[2020-05-14] MEDS: PRENATAL VITAMINS W/ FOLIC ACID TABLET (FP) PO SCH (10:28)
[2020-05-14] MEDS: NICOTINE 7 MG/24 HOURS TOPICAL PATCH TD SCH (10:28)
[2020-05-14] MEDS: BENZTROPINE MESYLATE 1 MG TABLET PO SCH ×2 (10:30→22:21)
[2020-05-14] MEDS: GABAPENTIN 100 MG CAPSULE PO PRN (22:20)
[2020-05-14] MEDS: MELATONIN 5 MG TABLETS PO SCH (22:21)
[2020-05-14] MEDS: traZODone HCL 100 MG TABLET (FP) PO SCH (22:21)
[2020-05-14] MEDS: THIAMINE HCL 100 MG TABLET (FP) PO SCH (22:21)
[2020-05-15] MEDS ORDERED: chlordiazePOXIDE HCL 10 MG CAPSULE PO PRN
[2020-05-15] MEDS: METHADONE HCL 40 MG DISPERSABLE TABLET PO SCH (05:58)
[2020-05-15] MEDS: CEPHALEXIN MONOHYDRATE 500 MG CAPSULE (UD) PO SCH ×3 (05:58→22:10)
[2020-05-15] MEDS: chlordiazePOXIDE HCL 10 MG CAPSULE PO SCH ×4 (05:58→22:10)
[2020-05-15] MEDS: PRENATAL VITAMINS W/ FOLIC ACID TABLET (FP) PO SCH (10:18)
[2020-05-15] MEDS: BENZTROPINE MESYLATE 1 MG TABLET PO SCH ×2 (10:19→22:10)
[2020-05-15] MEDS: FLUOCINONIDE 0.05% CREAM (60 GM TUBE) TP SCH ×2 (10:19→22:13)
[2020-05-15] MEDS: risperiDONE 1 MG TABLET PO SCH ×2 (10:19→22:11)
[2020-05-15] MEDS: NICOTINE 7 MG/24 HOURS TOPICAL PATCH TD SCH (10:20)
--- NOTE | 2020-05-15 16:04 | PN ---
S CIWA - CIWA Score Nausea/Vomitin-Mild Nausea/No Vomiting Muscle Tremors: 1-None Visible, but [place] Anxiety: 1-Mildly Anxious Agitation: 1-Slight > Activity Paroxysmal Sweats: 2 Orientation: 0-Oriented Tacttile Disturbances: 0-None Auditory Disturbances: 0-None Visual Disturbances: 2-Mild Sensitivity Headache: 0-None Present CIWA-Ar Total Score: 8 S Progress Note (SOAP) Subjective: 49 years old male was admitted on 05/12/20 for alcohol and benzo withdrawal sx management treating with librium detox regiment ate breakfast and lunch in room social with peers a short time in day room after breakfast resting in bed after lunch encourage mr gresham to consider aftercare at the [facility] for alcohol abuse treatment Objective: 05/15/20 16:05 Laboratory Tests 05/12/20 05/13/20 05/13/20 19:55 08:40 08:40 WBC 2.6 L RBC 4.51 Hgb 12.4 Hct 37.1 MCV 82.3 MCH 27.4 MCHC 33.3 RDW 15.6 Plt Count 143 D MPV 8.1 Sodium Potassium Chloride Carbon Dioxide Anion Gap BUN Creatinine Est GFR (CKD-EPI)AfAm Est GFR (CKD-EPI)NonAf Random Glucose Calcium Total Bilirubin AST ALT Alkaline Phosphatase Total Protein Albumin Urine Color Urine Appearance Urine pH Ur Specific [place] Urine Protein Urine Glucose (UA) Urine Ketones Urine Blood Urine Nitrite Urine Bilirubin Urine Urobilinogen Ur Leukocyte Esterase Urine WBC (Auto) Urine RBC (Auto) Urine Casts (Auto) U Epithel Cells (Auto) Urine Crystals (Auto) Urine Bacteria (Auto) Syphilis Serology Non-reactive COVID-19 (PEDRO) Not detected 05/13/20 05/13/20 05/14/20 08:40 15:11 07:25 WBC 3.6 L RBC 4.45 Hgb 12.3 Hct 36.5 MCV 82.1 MCH 27.7 MCHC 33.7 RDW 15.3 Plt Count 149 MPV 8.0 Sodium 140 Potassium 4.7 Chloride 104 Carbon Dioxide 32 Anion Gap 5 L BUN 16.0 Creatinine 1.0 Est GFR (CKD-EPI)AfAm 100.55 Est GFR (CKD-EPI)NonAf 86.76 Random Glucose 90 Calcium 8.3 L Total Bilirubin 0.4 AST 20 ALT 15 Alkaline Phosphatase 96 Total Protein 7.0 Albumin 2.9 L Urine Color Yellow Urine Appearance Cloudy Urine pH 6.0 Ur Specific [place] 1.022 Urine Protein Negative Urine Glucose (UA) Negative Urine Ketones Trace H Urine Blood Negative Urine Nitrite Negative Urine Bilirubin Negative Urine Urobilinogen 2.0 Ur Leukocyte Esterase 2+ H Urine WBC (Auto) 7 Urine RBC (Auto) 33 Urine Casts (Auto) 4 U Epithel Cells (Auto) 7 Urine Crystals (Auto) Moderate Urine Bacteria (Auto) 18 Syphilis Serology COVID-19 (PEDRO) lab noted Assessment: 05/15/20 16:06 alcohol and benzo withdrawal Plan: librium regiment
[2020-05-15] MEDS: traZODone HCL 100 MG TABLET (FP) PO SCH (22:10)
[2020-05-15] MEDS: MELATONIN 5 MG TABLETS PO SCH (22:11)
[2020-05-15] MEDS: THIAMINE HCL 100 MG TABLET (FP) PO SCH (22:11)
[2020-05-16] MEDS: METHADONE HCL 40 MG DISPERSABLE TABLET PO SCH (05:28)
[2020-05-16] MEDS: chlordiazePOXIDE HCL 10 MG CAPSULE PO SCH ×2 (05:28→17:47)
[2020-05-16] MEDS: CEPHALEXIN MONOHYDRATE 500 MG CAPSULE (UD) PO SCH ×3 (05:28→22:26)
[2020-05-16] MEDS: BENZTROPINE MESYLATE 1 MG TABLET PO SCH ×2 (10:28→22:27)
[2020-05-16] MEDS: risperiDONE 1 MG TABLET PO SCH ×2 (10:28→22:27)
[2020-05-16] MEDS: PRENATAL VITAMINS W/ FOLIC ACID TABLET (FP) PO SCH (10:28)
[2020-05-16] MEDS: FLUOCINONIDE 0.05% CREAM (60 GM TUBE) TP SCH ×2 (10:28→22:27)
[2020-05-16] MEDS: NICOTINE 7 MG/24 HOURS TOPICAL PATCH TD SCH (10:30)
[2020-05-16] MEDS ORDERED: SODIUM PHOSPHATE/NA BIPHOS 133 ML ENEMA RC ONE (13:30)
--- NOTE | 2020-05-16 14:18 | PN ---
[facility] CIWA - CIWA Score Nausea/Vomitin-Mild Nausea/No Vomiting Muscle Tremors: 2 Anxiety: 2 Agitation: 1-Slight > Activity Paroxysmal Sweats: No Perspiration Orientation: 0-Oriented Tacttile Disturbances: 0-None Auditory Disturbances: 0-None Visual Disturbances: 0-None Headache: 1-Very Mild CIWA-Ar Total Score: 7 S Progress Note (SOAP) Subjective: alert,irritable,anxious,interrupted sleep,no swelling in the leg Objective: 05/16/20 14:17 Vital Signs Temperature 98.0 F 05/16/20 13:00 Pulse Rate 68 05/16/20 13:00 Respiratory Rate 18 05/16/20 13:00 Blood Pressure 112/67 05/16/20 13:00 O2 Sat by Pulse Oximetry (%) 100 05/16/20 13:00 Assessment: 05/16/20 14:17 withdrawal symptom Plan: continue detox librium regimen,continue methadone 200 mgs/day maintenance ,discharge in am
[2020-05-16] MEDS: GABAPENTIN 100 MG CAPSULE PO PRN (22:26)
[2020-05-16] MEDS: THIAMINE HCL 100 MG TABLET (FP) PO SCH (22:27)
[2020-05-16] MEDS: traZODone HCL 100 MG TABLET (FP) PO SCH (22:27)
[2020-05-16] MEDS: MELATONIN 5 MG TABLETS PO SCH (22:27)
[2020-05-17] MEDS ORDERED: chlordiazePOXIDE HCL 10 MG CAPSULE PO ONE (05:00)
[2020-05-17] MEDS: CEPHALEXIN MONOHYDRATE 500 MG CAPSULE (UD) PO SCH (05:18)
[2020-05-17] MEDS: METHADONE HCL 40 MG DISPERSABLE TABLET PO SCH (05:18)
[2020-05-17] MEDS ORDERED: INSULIN SLIDING SCALE (NOVOLOG) 1 VIAL SQ ONE (05:21)
[2020-05-17 06:27] VITALS: BP 117/64; PULSE 63; TEMP 97.1
--- NOTE | 2020-05-17 09:28 | DS ---
[facility] Detox Discharge Summary Admission Date: 05/12/20 Discharge Date: 05/17/20 - History Present History: Alcohol Dependence, MMTP Additional Comments: alert,oriented s 3 ambulation on the unit lung clear on auscultation bilaterally abdomen soft,no distension,no pain both legs no erythema no calf tenderness detox completed,no withdrawal symptom stable for discharge today follow up with after care program [facility] arrangement total time of discharge 35 minutes Pertinent Past History: asthma copd hiv hepatitis c schizoaffective disorder cellulitis of extremities - Physical Exam Results Vital Signs: Vital Signs Temperature 97.1 F L 05/17/20 05:09 Pulse Rate 63 05/17/20 05:09 Respiratory Rate 18 05/17/20 05:09 Blood Pressure 117/64 05/17/20 05:09 O2 Sat by Pulse Oximetry (%) 98 05/17/20 05:09 Pertinent Admission Physical Exam Findings: withdrawal signs and symptom Laboratory Last Values WBC 3.6 K/mm3 (4.0-10.0) L 05/14/20 07:25 RBC 4.45 M/mm3 (4.00-5.60) 05/14/20 07:25 Hgb 12.3 GM/dL (11.7-16.9) 05/14/20 07:25 Hct 36.5 % (35.4-49) 05/14/20 07:25 MCV 82.1 fl (80-96) 05/14/20 07:25 MCH 27.7 pg (25.7-33.7) 05/14/20 07:25 MCHC 33.7 g/dl (32.0-35.9) 05/14/20 07:25 RDW 15.3 % (11.9-15.9) 05/14/20 07:25 Plt Count 149 K/MM3 (134-434) 05/14/20 07:25 MPV 8.0 fl (7.5-11.1) 05/14/20 07:25 Sodium 140 mmol/L (136-145) 05/13/20 08:40 Potassium 4.7 mmol/L (3.5-5.1) 05/13/20 08:40 Chloride 104 mmol/L (98-107) 05/13/20 08:40 Carbon Dioxide 32 mmol/L (21-32) 05/13/20 08:40 Anion Gap 5 MMOL/L (8-16) L 05/13/20 08:40 BUN 16.0 mg/dL (7-18) 05/13/20 08:40 Creatinine 1.0 mg/dL (0.55-1.3) 05/13/20 08:40 Est GFR (CKD-EPI)AfAm 100.55 05/13/20 08:40 Est GFR (CKD-EPI)NonAf 86.76 05/13/20 08:40 Random Glucose 90 mg/dL (74-106) 05/13/20 08:40 Calcium 8.3 mg/dL (8.5-10.1) L 05/13/20 08:40 Total Bilirubin 0.4 mg/dL (0.2-1) 05/13/20 08:40 AST 20 U/L (15-37) 05/13/20 08:40 ALT 15 U/L (13-61) 05/13/20 08:40 Alkaline Phosphatase 96 U/L (45-117) 05/13/20 08:40 Total Protein 7.0 g/dl (6.4-8.2) 05/13/20 08:40 Albumin 2.9 g/dl (3.4-5.0) L 05/13/20 08:40 Urine Color Yellow 05/13/20 15:11 Urine Appearance Cloudy 05/13/20 15:11 Urine pH 6.0 (5.0-8.0) 05/13/20 15:11 Ur Specific [place] 1.022 (1.010-1.035) 05/13/20 15:11 Urine Protein Negative (NEGATIVE) 05/13/20 15:11 Urine Glucose (UA) Negative (NEGATIVE) 05/13/20 15:11 Urine Ketones Trace (NEGATIVE) H 05/13/20 15:11 Urine Blood Negative (NEGATIVE) 05/13/20 15:11 Urine Nitrite Negative (NEGATIVE) 05/13/20 15:11 Urine Bilirubin Negative (NEGATIVE) 05/13/20 15:11 Urine Urobilinogen 2.0 mg/dL (0.2-1.0) 05/13/20 15:11 Ur Leukocyte Esterase 2+ (NEGATIVE) H 05/13/20 15:11 Urine WBC (Auto) 7 /uL (0-25.8) 05/13/20 15:11 Urine RBC (Auto) 33 /uL (0-23.9) 05/13/20 15:11 Urine Casts (Auto) 4 /uL (0-3.1) 05/13/20 15:11 U Epithel Cells (Auto) 7 /uL (0-25.1) 05/13/20 15:11 Urine Crystals (Auto) Moderate /hpf 05/13/20 15:11 Urine Bacteria (Auto) 18 /uL (0-1359) 05/13/20 15:11 Syphilis Serology Non-reactive (NONREACTIVE) 05/13/20 08:40 COVID-19 ([place]) Not detected (Not Detected) 05/12/20 19:55 Vital Signs Temperature 97.1 F L 05/17/20 05:09 Pulse Rate 63 05/17/20 05:09 Respiratory Rate 18 05/17/20 05:09 Blood Pressure 117/64 05/17/20 05:09 O2 Sat by Pulse Oximetry (%) 98 05/17/20 05:09 - Treatment Hospital Course: Detox Protocol Followed, Detoxed Safely, Responded well, Discharged Condition Good, Rehab Referral Accepted Patient has Accepted a Rehab Referral to: [facility] - Medication Discharge Medications: Ambulatory Orders Albuterol Sulfate Inhaler - [Ventolin HFA Inhaler -] 2 puff IH Q4H PRN #1 inhaler 11/16/19 Gabapentin [Neurontin] 600 mg PO TID 02/12/20 Ipratropium [place] [Atrovent Hfa] 12.9 gm IH DAILY 02/12/20 Methadone [Dolophine -] 180 mg PO DAILY 02/12/20 traZODone HCL [Trazodone HCl] 100 mg PO HS 02/12/20 - Diagnosis (1) Alcohol dependence with uncomplicated withdrawal Current Visit: Yes Status: Acute (2) Nicotine dependence Current Visit: Yes Status: Acute Qualifiers: Nicotine product type: cigarettes Substance use status: in withdrawal Qualified Code(s): F17.213 - Nicotine dependence, cigarettes, with withdrawal (3) Asthma Current Visit: Yes Status: Chronic Qualifiers: Asthma severity: mild Asthma persistence: intermittent Asthma complication type: uncomplicated Qualified Code(s): J45.20 - Mild intermittent asthma, uncomplicated (4) HIV (human immunodeficiency virus infection) Current Visit: Yes Status: Chronic Qualifiers: HIV symptom status: asymptomatic Qualified Code(s): Z21 - Asymptomatic human immunodeficiency virus [HIV] infection status (5) Hepatitis C Current Visit: Yes Status: Chronic Qualifiers: Viral hepatitis chronicity: chronic Hepatic coma status: without hepatic coma Qualified Code(s): B18.2 - Chronic viral hepatitis C (6) Methadone maintenance therapy patient Current Visit: Yes Status: Chronic (7) Schizoaffective disorder Current Visit: Yes Status: Chronic (8) Weight loss Current Visit: No Status: Acute (9) Cellulitis Current Visit: Yes Status: Acute - AMA Did Patient Leave Against Medical Advice: No
--- NOTE | 2020-05-17 09:28 | PN ---
[facility] CIWA - CIWA Score Nausea/Vomitin-No Nausea/No Vomiting Muscle Tremors: None Anxiety: 1-Mildly Anxious Agitation: 0-Normal Activity Paroxysmal Sweats: No Perspiration Orientation: 0-Oriented Tacttile Disturbances: 0-None Auditory Disturbances: 0-None Visual Disturbances: 0-None Headache: 0-None Present CIWA-Ar Total Score: 1 S Progress Note (SOAP) Subjective: alert,no complaint Objective: 05/17/20 09:26 Vital Signs Temperature 97.1 F L 05/17/20 05:09 Pulse Rate 63 05/17/20 05:09 Respiratory Rate 18 05/17/20 05:09 Blood Pressure 117/64 05/17/20 05:09 O2 Sat by Pulse Oximetry (%) 98 05/17/20 05:09 Assessment: 05/17/20 09:26 detox completed,no withdrawal symptom Plan: stable for discharge today,follow up with [facility] care [facility] arrangement
[2020-05-17] MEDS: PRENATAL VITAMINS W/ FOLIC ACID TABLET (FP) PO SCH (10:15)
[2020-05-17] MEDS: risperiDONE 1 MG TABLET PO SCH (10:15)
[2020-05-17] MEDS: BENZTROPINE MESYLATE 1 MG TABLET PO SCH (10:16)
[2020-05-17] MEDS: NICOTINE 7 MG/24 HOURS TOPICAL PATCH TD SCH (10:16)
[2020-05-17] MEDS: FLUOCINONIDE 0.05% CREAM (60 GM TUBE) TP SCH (10:16)
== END 2020-05-17 11:46 | disposition other institution (70) | DRG 773 ==
LOC: YASAS 15:31 → Y3N 19:30
PROVIDERS: ADMIT Allergy & Immunology; ATTEND Allergy & Immunology
PROC: HZ2ZZZZ Detoxification Services for Substance Abuse Treatment (ICD-10-PCS; principal; 2020-05-12)
DX: F10.230 Alcohol dependence with withdrawal, uncomplicated (principal); F11.20 Opioid dependence, uncomplicated; F14.20 Cocaine dependence, uncomplicated; F15.20 Other stimulant dependence, uncomplicated; F13.232 Sedative, hypnotic or anxiolytic dependence with withdrawal with perceptual disturbance; F17.211 Nicotine dependence, cigarettes, in remission; F19.24 Other psychoactive substance dependence with psychoactive substance-induced mood disorder; F19.282 Other psychoactive substance dependence with psychoactive substance-induced sleep disorder; F31.9 Bipolar disorder, unspecified; F25.9 Schizoaffective disorder, unspecified; F41.9 Anxiety disorder, unspecified; D72.819 Decreased white blood cell count, unspecified; Z21 Asymptomatic human immunodeficiency virus [HIV] infection status; J44.9 Chronic obstructive pulmonary disease, unspecified; J45.20 Mild intermittent asthma, uncomplicated; L03.115 Cellulitis of right lower limb; L03.116 Cellulitis of left lower limb; B18.2 Chronic viral hepatitis C; R63.4 Abnormal weight loss; Z68.27 Body mass index [BMI] 27.0-27.9, adult; Z56.0 Unemployment, unspecified
CPT/HCPCS: 36415; 80053; 81003; 85027; 86780; J2794; U0003

== ENCOUNTER 2020-05-17 11:51 | Inpatient (IN) | payer OTHER ==
[2020-05-17] MEDS ORDERED: IBUPROFEN 400 MG TABLET (FP) PO PRN (13:00)
[2020-05-17] MEDS ORDERED: MAG HYDROX/AL HYDROX/SIMETH 30 ML UNIT-DOSE CUP PO PRN (13:00)
[2020-05-17] MEDS ORDERED: MENTHOL/PHENOL 1 EACH UD MM PRN (13:00)
[2020-05-17] MEDS ORDERED: MAGNESIUM CITRATE 300 ML BOTTLE PO PRN (13:00)
[2020-05-17] MEDS ORDERED: MAGNESIUM HYDROX 2400MG/30ML ORAL SUSPENSION 30 ML CUP PO PRN (13:00)
[2020-05-17] MEDS ORDERED: LOPERAMIDE HCL 2 MG CAPSULE PO PRN (13:00)
[2020-05-17] MEDS ORDERED: guaiFENesin 200 MG/10 ML 10 ML UNIT-DOSE CUPS PO PRN (13:00)
[2020-05-17] MEDS ORDERED: NICOTINE POLACRILEX 2 MG GUM BUC PRN (13:00)
[2020-05-17] MEDS ORDERED: ACETAMINOPHEN 325 MG TABLET (FP) PO PRN (13:00)
[2020-05-17] MEDS ORDERED: P-EPHED 60MG/TRIPROLIDI 2.5MG TABLET PO PRN (13:00)
[2020-05-17] MEDS ORDERED: ALBUTEROL SO4 HFA INHALER IH PRN (13:02)
--- NOTE | 2020-05-17 13:08 | HP ---
[facility] Rehab Assess/Revision - Admission History Admitted to Rehab from: [address] Date of Admission to Rehab: 05/17/20 - Vital signs Vital Signs: Vital Signs Period Temp Pulse Resp BP Sys/Benz Pulse Ox Last 24 Hr 97.3 F 75 18 105/61 96 - Findings Detox History & Physical reviewed: Yes Concur with findings: Yes Comments/Additional Findings: Pt is a 49 y/o male admitted to Rehab from [address] [place] [address] Detox for alcohol today. PMHx:Asthma, COPD, HIV+(no med), Hep C, Cellulitis LE and Elbow due to IVD use(on Keflex 500 mg po TID x 5 more days(report from Dr. Rosado). Psych Hx:Bipolar Disorder, Schizophrenia, Insomnia. Alert o x 3. nad. oob ambulating with steady gait. MSK:Active FROM,all limbs. Skin:Lower extremities with prominent veins-varicosity; IV drug injection tracts and hardening of veins with discolorations at ankles. Inpatient Rehab Admission - Rehab Decision to Admit Inpatient rehab admission?: Yes - Initial Determination Are CD services needed?: Yes Free of communicable disease: Yes Not in need of hospitalization: Yes - Rehab Admission Criteria Previous failed treatment: Yes Poor recovery environment: Yes Comorbidities: Yes Lacks judgement: Yes Patient is meeting Inpatient Rehab admission criteria:: Yes
[2020-05-17] MEDS: CEPHALEXIN MONOHYDRATE 500 MG CAPSULE (UD) PO SCH ×2 (14:03→21:12)
[2020-05-17] MEDS: THIAMINE HCL 100 MG TABLET (FP) PO SCH (21:12)
[2020-05-17] MEDS: METHOCARBAMOL 500 MG TABLET PO PRN (21:12)
[2020-05-17] MEDS: MELATONIN 5 MG TABLETS PO SCH (21:13)
[2020-05-17] MEDS: FLUOCINONIDE 0.05% CREAM (60 GM TUBE) TP SCH (21:14)
[2020-05-17] MEDS: POLYETHYLENE GLYCOL 3350 119 GM BTL PO SCH (21:16)
[2020-05-18] MEDS: CEPHALEXIN MONOHYDRATE 500 MG CAPSULE (UD) PO SCH ×3 (06:03→21:16)
[2020-05-18] MEDS: METHADONE HCL 40 MG DISPERSABLE TABLET PO SCH (06:04)
[2020-05-18] MEDS: METHOCARBAMOL 500 MG TABLET PO PRN ×2 (10:19→21:16)
[2020-05-18] MEDS: hydrOXYzine PAMOATE 25 MG CAPSULE (FP) PO PRN ×2 (10:19→14:45)
[2020-05-18] MEDS: NICOTINE 7 MG/24 HOURS TOPICAL PATCH TD SCH (10:19)
[2020-05-18] MEDS: PRENATAL VITAMINS W/ FOLIC ACID TABLET (FP) PO SCH (10:19)
[2020-05-18] MEDS: FLUOCINONIDE 0.05% CREAM (60 GM TUBE) TP SCH ×2 (10:20→21:18)
[2020-05-18] MEDS: POLYETHYLENE GLYCOL 3350 119 GM BTL PO SCH ×2 (10:21→21:18)
--- NOTE | 2020-05-18 12:39 | CONSULT ---
[facility] Psychiatric Consult - Data Date of interview: 05/18/20 Admission source: [facility] Identifying data: Patient is a 49 year old single male, without children, unemployed, and is supported with [facility]. This is one of multiple admissions for patient. Patient admitted to rehab for alcohol, cocaine, sedative, and amphetamine dependence. Substance Abuse History: Smoking Cessation. Smoking history: Former smoker. Have you smoked in the past 12 months: Yes. Aproximately how many cigarettes per day: 3. If you are a former smoker, when did you quit?: 2 months ago. Cigars Per Day: 0. Hx Chewing Tobacco Use: No. Initiated information on smoking cessation: Yes. 'Breaking Loose' booklet given: 05/12/20. - Substance & Tx. History. Hx Alcohol Use: Yes. Hx Substance Use: Yes. Substance Use Type: Alcohol. Hx Substance Use Treatment: Yes (02/13/2020 -02/16/2020). - Substances abused. Alcohol. Substance route: Oral. Frequency: Daily. Amount used: 3 pints of beer + 4 nips vodka. Age of first use: 37. Date of last use: 05/11/20. Benzodiazepine (Klonopin). Substance route: Oral. Frequency: Daily. Amount used: 6 - 7 tabs. Age of first use: 45. 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 History remains consistent. Mr. Neal reports a history of multiple psychiatric hospitalizations ([facility], [facility], [facility]) secondary to auditory hallucinations, paranoid ideations and mood dysregulation. Diagnosis of Schizoaffective disorder.. Patient reports past treatment with the following medications: seroquel, risperdal, zyprexa, trazodone, cogentin, and gabapentin in the past. Patient is totally lost in follow up care. Patient with multiple admissions to [facility] and has been treated with seroquel + risperdal + Trazodone + cogentin. Patient currently denies current auditroy/ visual hallucinations, suicidal/ homicidal ideation. Patient in agreement to continue psychotropic medications. Physical/Sexual Abuse/Trauma History: Trauma from 21 years of incarceration in [place]. Mental Status Exam - Mental Status Exam Alert and Oriented to: Time, Place, Person Cognitive Function: Good Patient Appearance: Well Groomed Mood: Hopeful Affect: Appropriate Patient Behavior: Appropriate, Cooperative Speech Pattern: Appropriate Voice Loudness: Normal Thought Process: Goal Oriented Thought Disorder: Not Present Hallucinations: Denies Suicidal Ideation: Denies Homicidal Ideation: Denies Insight/Judgement: Poor Sleep: Fair Appetite: Fair Muscle strength/Tone: Normal Gait/Station: Normal Psychiatric Findings - Problem List ([place] 1, 2,3) (1) Sedative hypnotic or anxiolytic dependence Current Visit: Yes Status: Acute (2) Alcohol dependence Current Visit: Yes Status: Acute (3) Substance-induced sleep disorder Current Visit: Yes Status: Acute (4) Methadone maintenance therapy patient Current Visit: Yes Status: Chronic Comment: on 200mg dose at [facility], reports was dosed today, dose pending verification (5) Nicotine dependence Current Visit: Yes Status: Chronic Qualifiers: Nicotine product type: cigarettes Substance use status: in withdrawal Qualified Code(s): F17.213 - Nicotine dependence, cigarettes, with withdrawal (6) Schizoaffective disorder Current Visit: Yes Status: Chronic Comment: By history. - Initial Treatment Plan Initial Treatment Plan: Psychoeducation provided. Rehab in progress. Will continue Risperdal 1mg BID + Cogentin 0.5mg BID + Trazodone 100mg HS. Benefits and side effects discussed. Verbal consent given.
--- NOTE | 2020-05-18 14:57 | PN ---
[facility] Progress Note Note: Pt requesting for enama for constipation. reports his stool was still hard with the Miralax. Vital Signs - 24 hr 05/17/20 05/17/20 05/18/20 20:53 20:54 05:58 Temperature 97.8 F Pulse Rate 73 Respiratory 18 Rate Blood Pressure 97/67 O2 Sat by Pulse 91 L 91 L 97 Oximetry (%) Alert o x 3 nad oob ambulating with steady gait fleet enema x 1 today
[2020-05-18] MEDS ORDERED: SODIUM PHOSPHATE/NA BIPHOS 133 ML ENEMA RC ONE (15:00)
--- NOTE | 2020-05-18 19:29 | PN ---
[facility] Progress Note Note: Preparation H for hemorrhoids ordered per patient request.Reports history of hemorrhoids.
[2020-05-18] MEDS: THIAMINE HCL 100 MG TABLET (FP) PO SCH (21:16)
[2020-05-18] MEDS: MELATONIN 5 MG TABLETS PO SCH (21:16)
[2020-05-18] MEDS: BENZTROPINE MESYLATE 1 MG TABLET PO SCH (21:16)
[2020-05-18] MEDS: risperiDONE 1 MG TABLET PO SCH (21:16)
[2020-05-18] MEDS ORDERED: traZODone HCL 100 MG TABLET (FP) PO SCH (22:00)
[2020-05-18] MEDS: PHENYLEPHRINE HCL/COCOA BUTTER SUPPOSITORY RC SCH (22:15)
[2020-05-19] MEDS: CEPHALEXIN MONOHYDRATE 500 MG CAPSULE (UD) PO SCH (06:26)
[2020-05-19] MEDS: METHADONE HCL 40 MG DISPERSABLE TABLET PO SCH (06:26)
[2020-05-19 07:09] VITALS: BP 119/75; PULSE 70; TEMP 97.1
[2020-05-19] MEDS: BENZTROPINE MESYLATE 1 MG TABLET PO SCH (09:05)
[2020-05-19] MEDS: hydrOXYzine PAMOATE 25 MG CAPSULE (FP) PO PRN (09:05)
[2020-05-19] MEDS: risperiDONE 1 MG TABLET PO SCH (09:05)
[2020-05-19] MEDS: PRENATAL VITAMINS W/ FOLIC ACID TABLET (FP) PO SCH (09:06)
--- NOTE | 2020-05-19 09:06 | DS ---
[facility] Rehab Discharge Summary - [facility] Rehab Discharge Summary Admission Date: 05/17/20 Discharge Date: 05/19/20 - History Present History: Alcohol dependence, Cocaine dependence, MMTP, Sedative dependence Pertinent Past History: Asthma HIV+ Hep C IVD User LE Varicose Veins, Bilateral Right middle finger joint deformity Chronic Back pain - Discharge Physical Exam Vital Signs: Vital Signs Temperature 97.1 F L 05/19/20 07:06 Pulse Rate 70 05/19/20 07:06 Respiratory Rate 18 05/19/20 07:06 Blood Pressure 119/75 05/19/20 07:06 O2 Sat by Pulse Oximetry (%) 96 05/19/20 07:06 General:alert o x 3 Cardiac:s1 s2,rrr lungs:ctab Abdomen:+bs, ++fatty, nt, nd MSK:Active FROM,all limbs, no pedal edema; skin: varicose veins, Bilateral LE; turgo wnl. skin intact with old healed ivd inj santos. Pertinent Admission Physical Exam Findings: s/p detox ivd inj sites/currently resolving cellulitis of right hand and LEs. Varicose veins, bilateral. - Treatment Discharge Condition: Discharge condition good, Rehabilitated safely, Responded well, Outpatient referral accepted - Medication Discharge Medications: Ambulatory Orders Gabapentin [Neurontin] 600 mg PO TID 02/12/20 Ipratropium [place] [Atrovent Hfa] 12.9 gm IH DAILY 02/12/20 Methadone [Dolophine -] 200 mg PO DAILY 02/12/20 traZODone HCL [Trazodone HCl] 100 mg PO HS 02/12/20 Fluocinonide 0.05% Cream [Lidex 0.05% Cream -] 1 applic TP BID tube 05/17/20 Albuterol Sulfate Inhaler - [Ventolin HFA Inhaler -] 2 puff IH Q4H PRN #1 inhaler 05/19/20 Benztropine Mesylate [Cogentin -] 0.5 mg PO BID #60 tablet 05/19/20 Cephalexin Monohydrate [Keflex -] 500 mg PO TID 3 Days #9 capsule 05/19/20 Risperidone [Risperdal -] 1 mg PO BID #60 tablet 05/19/20 traZODone HCL [Desyrel -] 100 mg PO HS #30 tablet 09/10/20 - Medication-Assisted Treatment (MAT) Medication-Assisted Treatment (MAT): No - Discharge Instructions Diet, activity, other medical instructions: Diet:Regular Activity: oob ad radha Other medical instructions:follow up with CD aftercare at [facility] & medical/psych at [facility] as scheduled. - Diagnosis (1) Alcohol dependence Status: Chronic Qualifiers: Substance use status: uncomplicated Qualified Code(s): F10.20 - Alcohol dependence, uncomplicated (2) Cellulitis Status: Acute Qualifiers: Site of cellulitis: other site Qualified Code(s): L03.818 - Cellulitis of other sites (3) Cocaine dependence Status: Chronic Qualifiers: Substance use status: uncomplicated Qualified Code(s): F14.20 - Cocaine dependence, uncomplicated (4) Nicotine dependence Status: Chronic Qualifiers: Nicotine product type: cigarettes Substance use status: uncomplicated Qualified Code(s): F17.210 - Nicotine dependence, cigarettes, uncomplicated (5) Sedative hypnotic or anxiolytic dependence Status: Chronic (6) Asthma Status: Chronic Qualifiers: Asthma severity: unspecified severity Asthma persistence: unspecified Asthma complication type: unspecified Qualified Code(s): J45.909 - Unspecified asthma, uncomplicated (7) Back pain Status: Chronic Qualifiers: Back pain location: back pain in unspecified location Chronicity: unspecified Back pain laterality: unspecified Qualified Code(s): M54.9 - Dorsalgia, unspecified (8) Cannabis dependence Status: Chronic (9) Cocaine dependence Status: Chronic Qualifiers: Substance use status: uncomplicated Qualified Code(s): F14.20 - Cocaine dependence, uncomplicated (10) HIV (human immunodeficiency virus infection) Status: Chronic Qualifiers: HIV symptom status: asymptomatic Qualified Code(s): Z21 - Asymptomatic human immunodeficiency virus [HIV] infection status (11) Hepatitis C Status: Chronic Qualifiers: Viral hepatitis chronicity: chronic Hepatic coma status: without hepatic coma Qualified Code(s): B18.2 - Chronic viral hepatitis C (12) Methadone maintenance therapy patient Status: Chronic (13) Sedative hypnotic or anxiolytic dependence Status: Chronic - Follow-up Referral Minutes to complete discharge: 25 - AMA Did Patient Leave Against Medical Advice: No Additional Comments: Rx for Keflex 500 mg po TID #9 sent to pt's home pharmacy and instructed to complete the remaining doses at home.
[2020-05-19] MEDS: NICOTINE 7 MG/24 HOURS TOPICAL PATCH TD SCH (09:07)
[2020-05-19] MEDS: FLUOCINONIDE 0.05% CREAM (60 GM TUBE) TP SCH (09:07)
[2020-05-19] MEDS: POLYETHYLENE GLYCOL 3350 119 GM BTL PO SCH (09:07)
[2020-05-19] MEDS: PHENYLEPHRINE HCL/COCOA BUTTER SUPPOSITORY RC SCH (09:08)
--- NOTE | 2020-05-19 11:42 | PN ---
[facility] Progress Note Note: Psychiatric nurse practitioner: Patient being discharged from rehab today. A 30 day prescription of Risperdal 1mg BID + Congentin 0.5mg BID + Trazodone 100mg HS was electronically sent to [facility] @ [address] [place] [id number].
== END 2020-05-19 09:40 | disposition home or self-care (01) | DRG 772 ==
LOC: YASAS 11:51 → Y5N 11:54
PROVIDERS: ADMIT Allergy & Immunology; ATTEND Allergy & Immunology
PROC: HZ42ZZZ Group Counseling for Substance Abuse Treatment, Cognitive-Behavioral (ICD-10-PCS; principal; 2020-05-17)
DX: F10.20 Alcohol dependence, uncomplicated (principal); F11.20 Opioid dependence, uncomplicated; F14.20 Cocaine dependence, uncomplicated; F13.20 Sedative, hypnotic or anxiolytic dependence, uncomplicated; F17.210 Nicotine dependence, cigarettes, uncomplicated; F19.282 Other psychoactive substance dependence with psychoactive substance-induced sleep disorder; F25.9 Schizoaffective disorder, unspecified; Z21 Asymptomatic human immunodeficiency virus [HIV] infection status; J45.909 Unspecified asthma, uncomplicated; I83.93 Asymptomatic varicose veins of bilateral lower extremities; L03.113 Cellulitis of right upper limb; L03.115 Cellulitis of right lower limb; L03.116 Cellulitis of left lower limb; M54.89 Other dorsalgia; G89.29 Other chronic pain; Z56.0 Unemployment, unspecified
CPT/HCPCS: J2794

== ENCOUNTER 2020-12-17 13:41 | Inpatient (IN) | payer OTHER ==
[2020-12-17 14:11] VITALS: BMI 26.8
[2020-12-17] MEDS ORDERED: ACETAMINOPHEN 325 MG TABLET (FP) PO PRN ×2 (15:05)
[2020-12-17] MEDS ORDERED: ONDANSETRON *ODT* 4 MG TABLET SL PRN (15:05)
[2020-12-17] MEDS ORDERED: MAGNESIUM HYDROX 2400MG/30ML ORAL SUSPENSION 30 ML CUP PO PRN (15:05)
[2020-12-17] MEDS ORDERED: MENTHOL/PHENOL 1 EACH UD MM PRN (15:05)
[2020-12-17] MEDS ORDERED: MAGNESIUM CITRATE 300 ML BOTTLE PO PRN (15:05)
[2020-12-17] MEDS ORDERED: NICOTINE POLACRILEX 2 MG GUM BUC PRN (15:05)
[2020-12-17] MEDS ORDERED: MAG HYDROX/AL HYDROX/SIMETH 30 ML UNIT-DOSE CUP PO PRN (15:05)
[2020-12-17] MEDS ORDERED: BISMUTH SUBSALICYLATE 524 MG/30 ML UD PO PRN (15:05)
[2020-12-17] MEDS ORDERED: LORazepam 1 MG TABLET PO PRN (15:05)
[2020-12-17] MEDS ORDERED: ALBUTEROL SO4 HFA INHALER IH PRN (15:09)
[2020-12-17] MEDS: IBUPROFEN 400 MG TABLET (FP) PO PRN (15:46)
[2020-12-17] MEDS: METHOCARBAMOL 500 MG TABLET PO PRN (15:46)
[2020-12-17] MEDS: LORazepam 2 MG TABLET PO SCH ×2 (17:45→22:06)
[2020-12-17] MEDS: hydrOXYzine PAMOATE 25 MG CAPSULE (FP) PO SCH ×2 (17:45→21:51)
[2020-12-17] MEDS: MELATONIN 5 MG TABLETS PO SCH (21:51)
[2020-12-17] MEDS: THIAMINE HCL 100 MG TABLET (FP) PO SCH (21:51)
[2020-12-17] MEDS: GABAPENTIN 300 MG CAPSULE PO SCH (21:51)
[2020-12-17] MEDS: CEPHALEXIN MONOHYDRATE 500 MG CAPSULE (UD) PO SCH (21:51)
[2020-12-18] MEDS ORDERED: METHADONE HCL 10 MG TABLET ONE (04:22)
[2020-12-18] MEDS ORDERED: METHADONE HCL 40 MG DISPERSABLE TABLET ONE (04:23)
[2020-12-18] MEDS: LORazepam 2 MG TABLET PO SCH ×4 (05:27→22:39)
[2020-12-18] MEDS ORDERED: METHADONE HCL 10 MG TABLET PO ONE (06:00)
[2020-12-18] MEDS ORDERED: METHADONE 200 MG, METHADONE 20 MG PO ONE (06:00)
[2020-12-18] MEDS: CEPHALEXIN MONOHYDRATE 500 MG CAPSULE (UD) PO SCH ×3 (06:01→23:54)
[2020-12-18] MEDS: hydrOXYzine PAMOATE 25 MG CAPSULE (FP) PO SCH ×5 (06:01→22:39)
[2020-12-18] MEDS: GABAPENTIN 300 MG CAPSULE PO SCH ×3 (06:01→22:39)
[2020-12-18 09:50] LABS: BLOOD UREA NITROGEN 15.7 mg/dL (7-18); CALCIUM 8.3 mg/dL (8.5-10.1); HEMATOCRIT 35.5 % (35.4-49); HEMOGLOBIN 11.9 GM/dL (11.7-16.9); MCH 26.9 pg (25.7-33.7); MCHC 33.5 g/dl (32.0-35.9); MEAN CELL VOLUME 80.4 fl (80-96); MEAN PLT VOLUME 8.1 fl (7.5-11.1); PLATELET COUNT 192 K/MM3 (134-434); RBC 4.41 M/mm3 (4.00-5.60); RDW 15.5 % (11.9-15.9); WHITE BLOOD COUNT 3.9 K/mm3 (4.0-10.0)
[2020-12-18 09:54] LABS: BILIRUBIN,TOTAL 0.3 mg/dL (0.2-1); TOT PROT 7.5 g/dl (6.4-8.2)
[2020-12-18] MEDS: TAMSULOSIN HCL 0.4 MG CAP PO SCH (10:05)
[2020-12-18] MEDS: PRENATAL VITAMINS W/ FOLIC ACID TABLET (FP) PO SCH (10:05)
[2020-12-18] MEDS ORDERED: FLU VACCINE (FLULAVAL) PF 60 MCG/0.5 ML SYRINGE 2020-2021 IM ONE (12:00)
[2020-12-18] MEDS: guaiFENesin/D-METHORPHAN HB 10 ML UNIT-DOSE CUPS PO SCH ×2 (13:47→22:41)
[2020-12-18] MEDS ORDERED: BENZTROPINE MESYLATE 0.5 MG TABLET (FP) PO SCH (22:00)
[2020-12-18] MEDS: THIAMINE HCL 100 MG TABLET (FP) PO SCH (22:39)
[2020-12-18] MEDS: MELATONIN 5 MG TABLETS PO SCH (22:40)
[2020-12-18] MEDS: risperiDONE 1 MG TABLET PO SCH (22:40)
[2020-12-18] MEDS: traZODone HCL 100 MG TABLET (FP) PO SCH (22:40)
[2020-12-18] MEDS: MONTELUKAST NA 10 MG TABLET PO SCH (22:41)
[2020-12-19] MEDS: hydrOXYzine PAMOATE 25 MG CAPSULE (FP) PO SCH ×5 (05:48→22:15)
[2020-12-19] MEDS: CEPHALEXIN MONOHYDRATE 500 MG CAPSULE (UD) PO SCH ×3 (05:48→22:15)
[2020-12-19] MEDS: LORazepam 1 MG TABLET PO SCH ×4 (05:48→22:14)
[2020-12-19] MEDS: guaiFENesin/D-METHORPHAN HB 10 ML UNIT-DOSE CUPS PO SCH (05:48)
[2020-12-19] MEDS: GABAPENTIN 300 MG CAPSULE PO SCH ×3 (05:48→22:15)
[2020-12-19] MEDS ORDERED: METHADONE HCL 10 MG TABLET PO ONE (09:06)
[2020-12-19] MEDS ORDERED: METHADONE 200 MG, METHADONE 20 MG PO ONE (09:30)
[2020-12-19] MEDS ORDERED: METHADONE HCL 40 MG DISPERSABLE TABLET ONE (09:57)
[2020-12-19] MEDS ORDERED: METHADONE HCL 10 MG TABLET ONE (09:57)
[2020-12-19] MEDS: TAMSULOSIN HCL 0.4 MG CAP PO SCH (10:11)
[2020-12-19] MEDS: METHOCARBAMOL 500 MG TABLET PO PRN ×2 (10:11→22:17)
[2020-12-19] MEDS: PRENATAL VITAMINS W/ FOLIC ACID TABLET (FP) PO SCH (10:11)
[2020-12-19] MEDS ORDERED: guaiFENesin 200 MG/10 ML 10 ML UNIT-DOSE CUPS PO PRN (10:56)
[2020-12-19 17:11] LABS: URINE APPEARANCE CLOUDY; URINE BILIRUBIN NEGATIVE (NEGATIVE); URINE COLOR YELLOW; URINE GLUCOSE (UA) NEGATIVE (NEGATIVE); URINE KETONE NEGATIVE (NEGATIVE); URINE LEUK ESTERASE NEGATIVE (NEGATIVE); URINE NITRITE NEGATIVE (NEGATIVE); URINE PROTEIN NEGATIVE (NEGATIVE); URINE UROBILINOGEN 0.2 mg/dL (0.2-1.0)
[2020-12-19] MEDS: MONTELUKAST NA 10 MG TABLET PO SCH (22:15)
[2020-12-19] MEDS: BENZTROPINE MESYLATE 1 MG TABLET PO SCH (22:15)
[2020-12-19] MEDS: risperiDONE 1 MG TABLET PO SCH (22:15)
[2020-12-19] MEDS: THIAMINE HCL 100 MG TABLET (FP) PO SCH (22:15)
[2020-12-19] MEDS: traZODone HCL 100 MG TABLET (FP) PO SCH (22:15)
[2020-12-19] MEDS: MELATONIN 5 MG TABLETS PO SCH (22:15)
[2020-12-20] MEDS ORDERED: LORazepam 0.5 MG TABLET PO PRN
[2020-12-20] MEDS ORDERED: METHADONE HCL 10 MG TABLET ONE (04:43)
[2020-12-20] MEDS ORDERED: METHADONE HCL 40 MG DISPERSABLE TABLET ONE (04:44)
[2020-12-20] MEDS: CEPHALEXIN MONOHYDRATE 500 MG CAPSULE (UD) PO SCH ×3 (05:24→22:03)
[2020-12-20] MEDS: LORazepam 0.5 MG TABLET PO SCH ×4 (05:24→22:03)
[2020-12-20] MEDS: GABAPENTIN 300 MG CAPSULE PO SCH ×3 (05:24→22:03)
[2020-12-20] MEDS: METHADONE 200 MG, METHADONE 20 MG PO SCH (05:25)
[2020-12-20] MEDS: hydrOXYzine PAMOATE 25 MG CAPSULE (FP) PO SCH ×5 (05:27→22:07)
[2020-12-20] MEDS ORDERED: METHADONE HCL 40 MG DISPERSABLE TABLET PO SCH (06:00)
[2020-12-20] MEDS: TAMSULOSIN HCL 0.4 MG CAP PO SCH (09:19)
[2020-12-20 10:07] LABS: SARS-CoV-2 NAA Not Detected (Not Detected)
[2020-12-20] MEDS: PRENATAL VITAMINS W/ FOLIC ACID TABLET (FP) PO SCH (10:19)
[2020-12-20] MEDS ORDERED: POLYETHYLENE GLYCOL 3350 119 GM BTL PO ONE (19:24)
[2020-12-20] MEDS: risperiDONE 1 MG TABLET PO SCH (22:03)
[2020-12-20] MEDS: MONTELUKAST NA 10 MG TABLET PO SCH (22:03)
[2020-12-20] MEDS: BENZTROPINE MESYLATE 1 MG TABLET PO SCH (22:03)
[2020-12-20] MEDS: traZODone HCL 100 MG TABLET (FP) PO SCH (22:03)
[2020-12-20] MEDS: THIAMINE HCL 100 MG TABLET (FP) PO SCH (22:03)
[2020-12-20] MEDS: MELATONIN 5 MG TABLETS PO SCH (22:04)
[2020-12-20] MEDS: IBUPROFEN 400 MG TABLET (FP) PO PRN (22:06)
[2020-12-21] MEDS ORDERED: METHADONE HCL 40 MG DISPERSABLE TABLET ONE (04:17)
[2020-12-21] MEDS ORDERED: METHADONE HCL 10 MG TABLET ONE (04:17)
[2020-12-21] MEDS ORDERED: LORazepam 0.5 MG TABLET PO ONE (05:00)
[2020-12-21] MEDS: hydrOXYzine PAMOATE 25 MG CAPSULE (FP) PO SCH ×2 (05:23→10:09)
[2020-12-21] MEDS: CEPHALEXIN MONOHYDRATE 500 MG CAPSULE (UD) PO SCH (05:23)
[2020-12-21] MEDS: GABAPENTIN 300 MG CAPSULE PO SCH (05:23)
[2020-12-21] MEDS: METHADONE 200 MG, METHADONE 20 MG PO SCH (05:23)
[2020-12-21 09:17] VITALS: BP 101/67; PULSE 80; TEMP 97.8
[2020-12-21] MEDS: PRENATAL VITAMINS W/ FOLIC ACID TABLET (FP) PO SCH (10:09)
[2020-12-21] MEDS: TAMSULOSIN HCL 0.4 MG CAP PO SCH (10:09)
== END 2020-12-21 10:59 | disposition other institution (70) | DRG 773 ==
LOC: YASAS 13:41 → Y3N 14:49
PROVIDERS: ADMIT Allergy & Immunology; ATTEND Allergy & Immunology
PROC: HZ2ZZZZ Detoxification Services for Substance Abuse Treatment (ICD-10-PCS; principal; 2020-12-17)
DX: F10.230 Alcohol dependence with withdrawal, uncomplicated (principal); F11.20 Opioid dependence, uncomplicated; F13.20 Sedative, hypnotic or anxiolytic dependence, uncomplicated; F14.20 Cocaine dependence, uncomplicated; F17.210 Nicotine dependence, cigarettes, uncomplicated; F25.9 Schizoaffective disorder, unspecified; F19.280 Other psychoactive substance dependence with psychoactive substance-induced anxiety disorder; F19.282 Other psychoactive substance dependence with psychoactive substance-induced sleep disorder; F19.24 Other psychoactive substance dependence with psychoactive substance-induced mood disorder; F31.9 Bipolar disorder, unspecified; Z21 Asymptomatic human immunodeficiency virus [HIV] infection status; E88.09 Other disorders of plasma-protein metabolism, not elsewhere classified; J45.909 Unspecified asthma, uncomplicated; L03.113 Cellulitis of right upper limb; B18.2 Chronic viral hepatitis C; R03.0 Elevated blood-pressure reading, without diagnosis of hypertension; Z91.19 Patient's noncompliance with other medical treatment and regimen
CPT/HCPCS: 36415; 80053; 81003; 85027; 86780; C9803; J2794; U0003; U0005

== ENCOUNTER 2020-12-21 11:08 | Inpatient (IN) | payer OTHER ==
[2020-12-21] MEDS ORDERED: guaiFENesin 200 MG/10 ML 10 ML UNIT-DOSE CUPS PO PRN (13:35)
[2020-12-21] MEDS ORDERED: NICOTINE POLACRILEX 2 MG GUM BUC PRN (13:35)
[2020-12-21] MEDS ORDERED: MAGNESIUM CITRATE 300 ML BOTTLE PO PRN (13:35)
[2020-12-21] MEDS ORDERED: MENTHOL/PHENOL 1 EACH UD MM PRN (13:35)
[2020-12-21] MEDS ORDERED: P-EPHED 60MG/TRIPROLIDI 2.5MG TABLET PO PRN (13:35)
[2020-12-21] MEDS ORDERED: MAG HYDROX/AL HYDROX/SIMETH 30 ML UNIT-DOSE CUP PO PRN (13:35)
[2020-12-21] MEDS ORDERED: LOPERAMIDE HCL 2 MG CAPSULE PO PRN (13:35)
[2020-12-21] MEDS ORDERED: ACETAMINOPHEN 325 MG TABLET (FP) PO PRN (13:35)
[2020-12-21] MEDS: GABAPENTIN 300 MG CAPSULE PO SCH ×2 (14:43→21:25)
[2020-12-21] MEDS: THIAMINE HCL 100 MG TABLET (FP) PO SCH (21:25)
[2020-12-21] MEDS: MELATONIN 5 MG TABLETS PO SCH (21:25)
[2020-12-21] MEDS: CEPHALEXIN MONOHYDRATE 500 MG CAPSULE (UD) PO SCH (21:26)
[2020-12-21] MEDS: risperiDONE 1 MG TABLET PO SCH (21:26)
[2020-12-21] MEDS: BENZTROPINE MESYLATE 1 MG TABLET PO SCH (21:27)
[2020-12-21] MEDS: traZODone HCL 100 MG TABLET (FP) PO SCH (21:27)
[2020-12-21] MEDS: MONTELUKAST NA 10 MG TABLET PO SCH (21:27)
[2020-12-22] MEDS ORDERED: METHADONE HCL 10 MG TABLET ONE (05:31)
[2020-12-22] MEDS ORDERED: METHADONE HCL 40 MG DISPERSABLE TABLET ONE (05:31)
[2020-12-22] MEDS: GABAPENTIN 300 MG CAPSULE PO SCH ×3 (05:44→21:22)
[2020-12-22] MEDS: METHADONE 200 MG, METHADONE 20 MG PO SCH (05:44)
[2020-12-22] MEDS ORDERED: METHADONE HCL 10 MG TABLET PO SCH (06:00)
[2020-12-22] MEDS: TAMSULOSIN HCL 0.4 MG CAP PO SCH (07:35)
[2020-12-22] MEDS: PRENATAL VITAMINS W/ FOLIC ACID TABLET (FP) PO SCH (09:46)
[2020-12-22] MEDS: CEPHALEXIN MONOHYDRATE 500 MG CAPSULE (UD) PO SCH ×2 (09:47→21:23)
[2020-12-22] MEDS: POLYETHYLENE GLYCOL 3350 119 GM BTL PO SCH (09:47)
[2020-12-22] MEDS: MAGNESIUM HYDROX 2400MG/30ML ORAL SUSPENSION 30 ML CUP PO PRN (14:36)
[2020-12-22] MEDS: MELATONIN 5 MG TABLETS PO SCH (21:21)
[2020-12-22] MEDS: traZODone HCL 100 MG TABLET (FP) PO SCH (21:21)
[2020-12-22] MEDS: BENZTROPINE MESYLATE 1 MG TABLET PO SCH (21:22)
[2020-12-22] MEDS: risperiDONE 1 MG TABLET PO SCH (21:23)
[2020-12-22] MEDS: MONTELUKAST NA 10 MG TABLET PO SCH (21:23)
[2020-12-22] MEDS: THIAMINE HCL 100 MG TABLET (FP) PO SCH (21:46)
[2020-12-23] MEDS ORDERED: METHADONE HCL 40 MG DISPERSABLE TABLET ONE (03:21)
[2020-12-23] MEDS ORDERED: METHADONE HCL 10 MG TABLET ONE (03:22)
[2020-12-23] MEDS: METHADONE 200 MG, METHADONE 20 MG PO SCH (06:03)
[2020-12-23] MEDS: GABAPENTIN 300 MG CAPSULE PO SCH ×3 (06:03→21:46)
[2020-12-23] MEDS: TAMSULOSIN HCL 0.4 MG CAP PO SCH (07:32)
[2020-12-23] MEDS: hydrOXYzine PAMOATE 25 MG CAPSULE (FP) PO PRN ×2 (09:49→14:52)
[2020-12-23] MEDS: CEPHALEXIN MONOHYDRATE 500 MG CAPSULE (UD) PO SCH ×2 (09:49→21:47)
[2020-12-23] MEDS: POLYETHYLENE GLYCOL 3350 119 GM BTL PO SCH (09:51)
[2020-12-23] MEDS: PRENATAL VITAMINS W/ FOLIC ACID TABLET (FP) PO SCH (09:52)
[2020-12-23] MEDS: AMMONIUM LACTATE 12% LOTION 225 GM BOTTLE TP SCH ×2 (12:54→22:37)
[2020-12-23] MEDS: MONTELUKAST NA 10 MG TABLET PO SCH (21:46)
[2020-12-23] MEDS: BENZTROPINE MESYLATE 1 MG TABLET PO SCH (21:47)
[2020-12-23] MEDS: risperiDONE 1 MG TABLET PO SCH (21:49)
[2020-12-23] MEDS: THIAMINE HCL 100 MG TABLET (FP) PO SCH (21:49)
[2020-12-23] MEDS: traZODone HCL 100 MG TABLET (FP) PO SCH (21:49)
[2020-12-23] MEDS: MELATONIN 5 MG TABLETS PO SCH (21:49)
[2020-12-23] MEDS: HYDROCORTISONE 2.5% TOPICAL CREAM 30 GM TUBE RC SCH (21:50)
[2020-12-24] MEDS ORDERED: METHADONE HCL 40 MG DISPERSABLE TABLET ONE (03:10)
[2020-12-24] MEDS ORDERED: METHADONE HCL 10 MG TABLET ONE (03:10)
[2020-12-24] MEDS: METHADONE 200 MG, METHADONE 20 MG PO SCH (06:06)
[2020-12-24] MEDS: GABAPENTIN 300 MG CAPSULE PO SCH ×3 (06:07→21:04)
[2020-12-24] MEDS: TAMSULOSIN HCL 0.4 MG CAP PO SCH (07:31)
[2020-12-24] MEDS: PRENATAL VITAMINS W/ FOLIC ACID TABLET (FP) PO SCH (09:45)
[2020-12-24] MEDS: AMMONIUM LACTATE 12% LOTION 225 GM BOTTLE TP SCH ×2 (09:45→21:06)
[2020-12-24] MEDS: CEPHALEXIN MONOHYDRATE 500 MG CAPSULE (UD) PO SCH (09:45)
[2020-12-24] MEDS: POLYETHYLENE GLYCOL 3350 119 GM BTL PO SCH (09:45)
[2020-12-24] MEDS: IBUPROFEN 400 MG TABLET (FP) PO PRN (13:47)
[2020-12-24] MEDS: MELATONIN 5 MG TABLETS PO SCH (21:03)
[2020-12-24] MEDS: THIAMINE HCL 100 MG TABLET (FP) PO SCH (21:03)
[2020-12-24] MEDS: risperiDONE 1 MG TABLET PO SCH (21:04)
[2020-12-24] MEDS: MONTELUKAST NA 10 MG TABLET PO SCH (21:04)
[2020-12-24] MEDS: traZODone HCL 100 MG TABLET (FP) PO SCH (21:04)
[2020-12-24] MEDS: BENZTROPINE MESYLATE 1 MG TABLET PO SCH (21:04)
[2020-12-24] MEDS: HYDROCORTISONE 2.5% TOPICAL CREAM 30 GM TUBE RC SCH (21:06)
[2020-12-25] MEDS ORDERED: METHADONE HCL 10 MG TABLET ONE (03:26)
[2020-12-25] MEDS ORDERED: METHADONE HCL 40 MG DISPERSABLE TABLET ONE (03:26)
[2020-12-25] MEDS: GABAPENTIN 300 MG CAPSULE PO SCH ×3 (05:50→21:38)
[2020-12-25] MEDS: METHADONE 200 MG, METHADONE 20 MG PO SCH (05:50)
[2020-12-25] MEDS: IBUPROFEN 400 MG TABLET (FP) PO PRN ×2 (07:06→13:50)
[2020-12-25] MEDS: TAMSULOSIN HCL 0.4 MG CAP PO SCH (07:52)
[2020-12-25 08:08] LABS: SARS-CoV-2 NAA Not Detected (Not Detected)
[2020-12-25] MEDS: POLYETHYLENE GLYCOL 3350 119 GM BTL PO SCH (09:40)
[2020-12-25] MEDS: PRENATAL VITAMINS W/ FOLIC ACID TABLET (FP) PO SCH (09:41)
[2020-12-25] MEDS: AMMONIUM LACTATE 12% LOTION 225 GM BOTTLE TP SCH ×2 (09:41→21:39)
[2020-12-25] MEDS: ALBUTEROL SO4 HFA INHALER IH PRN (09:43)
[2020-12-25] MEDS ORDERED: PT OWN MED DRAWER 7, Y5N ONE (09:45)
[2020-12-25] MEDS ORDERED: MASKS NR ONE (09:45)
[2020-12-25] MEDS: MELATONIN 5 MG TABLETS PO SCH (21:38)
[2020-12-25] MEDS: BENZTROPINE MESYLATE 1 MG TABLET PO SCH (21:38)
[2020-12-25] MEDS: risperiDONE 1 MG TABLET PO SCH (21:38)
[2020-12-25] MEDS: traZODone HCL 100 MG TABLET (FP) PO SCH (21:38)
[2020-12-25] MEDS: MONTELUKAST NA 10 MG TABLET PO SCH (21:38)
[2020-12-25] MEDS: THIAMINE HCL 100 MG TABLET (FP) PO SCH (21:38)
[2020-12-25] MEDS: HYDROCORTISONE 2.5% TOPICAL CREAM 30 GM TUBE RC SCH (21:39)
[2020-12-26] MEDS ORDERED: METHADONE HCL 40 MG DISPERSABLE TABLET ONE (03:18)
[2020-12-26] MEDS ORDERED: METHADONE HCL 10 MG TABLET ONE (03:18)
[2020-12-26] MEDS: IBUPROFEN 400 MG TABLET (FP) PO PRN ×3 (06:05→21:15)
[2020-12-26] MEDS: METHADONE 200 MG, METHADONE 20 MG PO SCH (06:56)
[2020-12-26] MEDS: GABAPENTIN 300 MG CAPSULE PO SCH ×3 (06:56→21:10)
[2020-12-26] MEDS: TAMSULOSIN HCL 0.4 MG CAP PO SCH (08:06)
[2020-12-26] MEDS ORDERED: PT OWN MED DRAWER 7, Y5N ONE (08:36)
[2020-12-26] MEDS: POLYETHYLENE GLYCOL 3350 119 GM BTL PO SCH ×2 (10:10→21:13)
[2020-12-26] MEDS: PRENATAL VITAMINS W/ FOLIC ACID TABLET (FP) PO SCH (10:10)
[2020-12-26] MEDS: AMMONIUM LACTATE 12% LOTION 225 GM BOTTLE TP SCH ×2 (10:10→21:12)
[2020-12-26] MEDS: MAGNESIUM HYDROX 2400MG/30ML ORAL SUSPENSION 30 ML CUP PO PRN (10:11)
[2020-12-26] MEDS: ALBUTEROL SO4 HFA INHALER IH PRN (10:11)
[2020-12-26] MEDS: hydrOXYzine PAMOATE 25 MG CAPSULE (FP) PO PRN (13:42)
[2020-12-26] MEDS: THIAMINE HCL 100 MG TABLET (FP) PO SCH (21:09)
[2020-12-26] MEDS: MELATONIN 5 MG TABLETS PO SCH (21:10)
[2020-12-26] MEDS: MONTELUKAST NA 10 MG TABLET PO SCH (21:10)
[2020-12-26] MEDS: risperiDONE 1 MG TABLET PO SCH (21:11)
[2020-12-26] MEDS: traZODone HCL 100 MG TABLET (FP) PO SCH (21:11)
[2020-12-26] MEDS: BENZTROPINE MESYLATE 1 MG TABLET PO SCH (21:11)
[2020-12-26] MEDS: HYDROCORTISONE 2.5% TOPICAL CREAM 30 GM TUBE RC SCH (21:12)
[2020-12-27] MEDS ORDERED: METHADONE HCL 10 MG TABLET ONE (05:24)
[2020-12-27] MEDS ORDERED: METHADONE HCL 40 MG DISPERSABLE TABLET ONE (05:24)
[2020-12-27] MEDS: METHADONE 200 MG, METHADONE 20 MG PO SCH (06:08)
[2020-12-27] MEDS: GABAPENTIN 300 MG CAPSULE PO SCH ×3 (06:08→21:29)
[2020-12-27] MEDS: TAMSULOSIN HCL 0.4 MG CAP PO SCH (07:40)
[2020-12-27] MEDS: AMMONIUM LACTATE 12% LOTION 225 GM BOTTLE TP SCH ×2 (10:01→21:32)
[2020-12-27] MEDS: hydrOXYzine PAMOATE 25 MG CAPSULE (FP) PO PRN (10:01)
[2020-12-27] MEDS: PRENATAL VITAMINS W/ FOLIC ACID TABLET (FP) PO SCH (10:01)
[2020-12-27] MEDS: POLYETHYLENE GLYCOL 3350 119 GM BTL PO SCH ×2 (10:01→21:30)
[2020-12-27] MEDS ORDERED: UMECLIDINIUM/VILANTEROL (ANORO) 62.5/25 MCG INHALER IH SCH (15:00)
[2020-12-27] MEDS: MELATONIN 5 MG TABLETS PO SCH (21:29)
[2020-12-27] MEDS: risperiDONE 1 MG TABLET PO SCH (21:29)
[2020-12-27] MEDS: THIAMINE HCL 100 MG TABLET (FP) PO SCH (21:29)
[2020-12-27] MEDS: traZODone HCL 100 MG TABLET (FP) PO SCH (21:29)
[2020-12-27] MEDS: MONTELUKAST NA 10 MG TABLET PO SCH (21:30)
[2020-12-27] MEDS: BENZTROPINE MESYLATE 1 MG TABLET PO SCH (21:30)
[2020-12-27] MEDS: BUDESONIDE/FORMETEROL FUMARATE 160/4.5 mcg INHALER IH SCH (21:32)
[2020-12-27] MEDS: HYDROCORTISONE 2.5% TOPICAL CREAM 30 GM TUBE RC SCH (21:32)
[2020-12-27] MEDS ORDERED: BUDESONIDE/FORMETEROL FUMARATE 160/4.5 mcg INHALER IH SCH (22:00)
[2020-12-28] MEDS ORDERED: METHADONE HCL 40 MG DISPERSABLE TABLET ONE (03:22)
[2020-12-28] MEDS ORDERED: METHADONE HCL 10 MG TABLET ONE (03:22)
[2020-12-28] MEDS: GABAPENTIN 300 MG CAPSULE PO SCH (06:05)
[2020-12-28] MEDS: METHADONE 200 MG, METHADONE 20 MG PO SCH (06:05)
[2020-12-28] MEDS: TAMSULOSIN HCL 0.4 MG CAP PO SCH (07:33)
[2020-12-28] MEDS: PRENATAL VITAMINS W/ FOLIC ACID TABLET (FP) PO SCH (10:13)
[2020-12-28] MEDS: hydrOXYzine PAMOATE 25 MG CAPSULE (FP) PO PRN (10:13)
[2020-12-28] MEDS: POLYETHYLENE GLYCOL 3350 119 GM BTL PO SCH ×2 (10:17→21:13)
[2020-12-28] MEDS: AMMONIUM LACTATE 12% LOTION 225 GM BOTTLE TP SCH ×2 (10:18→21:16)
[2020-12-28] MEDS: BUDESONIDE/FORMETEROL FUMARATE 160/4.5 mcg INHALER IH SCH ×2 (10:18→21:15)
[2020-12-28] MEDS: traZODone HCL 100 MG TABLET (FP) PO SCH (21:11)
[2020-12-28] MEDS: MONTELUKAST NA 10 MG TABLET PO SCH (21:12)
[2020-12-28] MEDS: risperiDONE 1 MG TABLET PO SCH (21:12)
[2020-12-28] MEDS: MELATONIN 5 MG TABLETS PO SCH (21:13)
[2020-12-28] MEDS: BENZTROPINE MESYLATE 1 MG TABLET PO SCH (21:13)
[2020-12-28] MEDS: IBUPROFEN 400 MG TABLET (FP) PO PRN (21:14)
[2020-12-28] MEDS: HYDROCORTISONE 2.5% TOPICAL CREAM 30 GM TUBE RC SCH (21:16)
[2020-12-28] MEDS: THIAMINE HCL 100 MG TABLET (FP) PO SCH (22:13)
[2020-12-29] MEDS ORDERED: METHADONE HCL 40 MG DISPERSABLE TABLET ONE (04:28)
[2020-12-29] MEDS ORDERED: METHADONE HCL 10 MG TABLET ONE (04:28)
[2020-12-29] MEDS: METHADONE 200 MG, METHADONE 20 MG PO SCH (06:06)
[2020-12-29] MEDS: TAMSULOSIN HCL 0.4 MG CAP PO SCH (07:36)
[2020-12-29] MEDS: PRENATAL VITAMINS W/ FOLIC ACID TABLET (FP) PO SCH (10:41)
[2020-12-29] MEDS: GABAPENTIN 100 MG CAPSULE PO SCH (10:41)
[2020-12-29] MEDS: BUDESONIDE/FORMETEROL FUMARATE 160/4.5 mcg INHALER IH SCH ×2 (10:42→21:26)
[2020-12-29] MEDS: POLYETHYLENE GLYCOL 3350 119 GM BTL PO SCH ×2 (10:42→21:26)
[2020-12-29] MEDS: hydrOXYzine PAMOATE 25 MG CAPSULE (FP) PO PRN (10:43)
[2020-12-29] MEDS: AMMONIUM LACTATE 12% LOTION 225 GM BOTTLE TP SCH ×2 (10:44→21:26)
[2020-12-29] MEDS: MAGNESIUM HYDROX 2400MG/30ML ORAL SUSPENSION 30 ML CUP PO PRN (18:44)
[2020-12-29] MEDS: MELATONIN 5 MG TABLETS PO SCH (21:25)
[2020-12-29] MEDS: THIAMINE HCL 100 MG TABLET (FP) PO SCH (21:25)
[2020-12-29] MEDS: traZODone HCL 100 MG TABLET (FP) PO SCH (21:25)
[2020-12-29] MEDS: risperiDONE 1 MG TABLET PO SCH (21:25)
[2020-12-29] MEDS: MONTELUKAST NA 10 MG TABLET PO SCH (21:26)
[2020-12-29] MEDS: BENZTROPINE MESYLATE 1 MG TABLET PO SCH (21:26)
[2020-12-29] MEDS: HYDROCORTISONE 2.5% TOPICAL CREAM 30 GM TUBE RC SCH (21:26)
[2020-12-30] MEDS ORDERED: METHADONE HCL 40 MG DISPERSABLE TABLET ONE (03:16)
[2020-12-30] MEDS ORDERED: METHADONE HCL 10 MG TABLET ONE (03:16)
[2020-12-30] MEDS: METHADONE 200 MG, METHADONE 20 MG PO SCH (05:59)
[2020-12-30] MEDS: TAMSULOSIN HCL 0.4 MG CAP PO SCH (07:34)
[2020-12-30] MEDS ORDERED: PT OWN MED DRAWER 7, Y5N ONE (08:32)
[2020-12-30] MEDS: MAGNESIUM HYDROX 2400MG/30ML ORAL SUSPENSION 30 ML CUP PO PRN (08:35)
[2020-12-30] MEDS: GABAPENTIN 100 MG CAPSULE PO SCH (09:53)
[2020-12-30] MEDS: PRENATAL VITAMINS W/ FOLIC ACID TABLET (FP) PO SCH (09:53)
[2020-12-30] MEDS: POLYETHYLENE GLYCOL 3350 119 GM BTL PO SCH ×2 (09:56→21:46)
[2020-12-30] MEDS: BUDESONIDE/FORMETEROL FUMARATE 160/4.5 mcg INHALER IH SCH ×2 (09:57→21:44)
[2020-12-30] MEDS: AMMONIUM LACTATE 12% LOTION 225 GM BOTTLE TP SCH ×2 (09:57→21:45)
[2020-12-30] MEDS: MONTELUKAST NA 10 MG TABLET PO SCH (21:45)
[2020-12-30] MEDS: HYDROCORTISONE 2.5% TOPICAL CREAM 30 GM TUBE RC SCH (21:45)
[2020-12-30] MEDS: BENZTROPINE MESYLATE 1 MG TABLET PO SCH (21:45)
[2020-12-30] MEDS: traZODone HCL 100 MG TABLET (FP) PO SCH (21:45)
[2020-12-30] MEDS: THIAMINE HCL 100 MG TABLET (FP) PO SCH (21:45)
[2020-12-30] MEDS: MELATONIN 5 MG TABLETS PO SCH (21:45)
[2020-12-30] MEDS: risperiDONE 1 MG TABLET PO SCH (21:45)
[2020-12-31] MEDS ORDERED: METHADONE HCL 40 MG DISPERSABLE TABLET ONE (04:08)
[2020-12-31] MEDS ORDERED: METHADONE HCL 10 MG TABLET ONE (04:08)
[2020-12-31] MEDS: METHADONE 200 MG, METHADONE 20 MG PO SCH (05:34)
[2020-12-31 06:17] VITALS: PULSE 67
[2020-12-31 06:20] VITALS: BP 165/91; TEMP 97.5
[2020-12-31] MEDS ORDERED: cloNIDine HCL 0.1 MG TABLET PO ONE (06:30)
[2020-12-31] MEDS: TAMSULOSIN HCL 0.4 MG CAP PO SCH (07:30)
== END 2020-12-31 08:35 | disposition home or self-care (01) | DRG 772 ==
LOC: YASAS 11:08 → Y3W 11:10
PROVIDERS: ADMIT Allergy & Immunology; ATTEND Allergy & Immunology
PROC: HZ42ZZZ Group Counseling for Substance Abuse Treatment, Cognitive-Behavioral (ICD-10-PCS; principal; 2020-12-21)
DX: F10.20 Alcohol dependence, uncomplicated (principal); F11.20 Opioid dependence, uncomplicated; F14.20 Cocaine dependence, uncomplicated; F13.20 Sedative, hypnotic or anxiolytic dependence, uncomplicated; F12.20 Cannabis dependence, uncomplicated; F17.210 Nicotine dependence, cigarettes, uncomplicated; F19.282 Other psychoactive substance dependence with psychoactive substance-induced sleep disorder; F19.24 Other psychoactive substance dependence with psychoactive substance-induced mood disorder; Z21 Asymptomatic human immunodeficiency virus [HIV] infection status; J45.909 Unspecified asthma, uncomplicated; L03.113 Cellulitis of right upper limb; B18.2 Chronic viral hepatitis C
CPT/HCPCS: C9803; J0735; J2794; U0003; U0005

== ENCOUNTER 2021-03-22 12:57 | Inpatient (IN) | payer OTHER ==
[2021-03-22 16:00] VITALS: BMI 28.2
[2021-03-22] MEDS ORDERED: MAGNESIUM CITRATE 300 ML BOTTLE PO PRN (19:51)
[2021-03-22] MEDS ORDERED: P-EPHED 60MG/TRIPROLIDI 2.5MG TABLET PO PRN (19:51)
[2021-03-22] MEDS ORDERED: MAG HYDROX/AL HYDROX/SIMETH 30 ML UNIT-DOSE CUP PO PRN (19:51)
[2021-03-22] MEDS ORDERED: MAGNESIUM HYDROX 2400MG/30ML ORAL SUSPENSION 30 ML CUP PO PRN (19:51)
[2021-03-22] MEDS ORDERED: NICOTINE POLACRILEX 2 MG GUM BC PRN (19:51)
[2021-03-22] MEDS ORDERED: LOPERAMIDE HCL 2 MG CAPSULE PO PRN (19:51)
[2021-03-22] MEDS ORDERED: TUBERCULIN PPD 5 TU/0.1ML VIAL ID ONE (22:46)
[2021-03-22] MEDS: ALBUTEROL SO4 HFA INHALER IH SCH (22:49)
[2021-03-22] MEDS: MELATONIN 5 MG TABLETS PO SCH (22:50)
[2021-03-22] MEDS: THIAMINE HCL 100 MG TABLET (FP) PO SCH (22:50)
[2021-03-22] MEDS: hydrOXYzine PAMOATE 25 MG CAPSULE (FP) PO SCH (22:50)
[2021-03-22] MEDS: IBUPROFEN 400 MG TABLET (FP) PO PRN (22:53)
[2021-03-23] MEDS: NICOTINE 7 MG/24 HOURS TOPICAL PATCH TD SCH ×2 (00:05→09:20)
[2021-03-23] MEDS: FLUTICASONE/UMECLIDIN/VILANTER (TRELEGY ELLIPTA 100-62.5-25) INAHLER IH SCH ×2 (00:05→09:20)
[2021-03-23] MEDS: ALBUTEROL SO4 HFA INHALER IH SCH ×3 (00:06→07:36)
[2021-03-23] MEDS: hydrOXYzine PAMOATE 25 MG CAPSULE (FP) PO SCH ×2 (06:18→09:20)
[2021-03-23] MEDS ORDERED: methaDONE HCL 10 MG TABLET PO ONE (07:49)
[2021-03-23] MEDS ORDERED: methaDONE HCL 40 MG DISPERSABLE TABLET ONE (08:00)
[2021-03-23] MEDS: METHADONE PO SCH (08:01)
[2021-03-23] MEDS: IBUPROFEN 400 MG TABLET (FP) PO PRN (08:54)
[2021-03-23] MEDS: PRENATAL VITAMINS W/ FOLIC ACID TABLET (FP) PO SCH (09:20)
[2021-03-23] MEDS: guaiFENesin 200 MG/10 ML 10 ML UNIT-DOSE CUPS PO PRN (10:22)
[2021-03-23] MEDS ORDERED: ALBUTEROL SO4 HFA INHALER IH PRN (11:15)
[2021-03-23 13:43] LABS: PH,URINE 7.5 (5.0-8.0); URINE APPEARANCE CLEAR; URINE BILIRUBIN NEGATIVE (NEGATIVE); URINE COLOR YELLOW; URINE GLUCOSE (UA) NEGATIVE (NEGATIVE); URINE KETONE NEGATIVE (NEGATIVE); URINE LEUK ESTERASE NEGATIVE (NEGATIVE); URINE NITRITE NEGATIVE (NEGATIVE); URINE PROTEIN NEGATIVE (NEGATIVE)
[2021-03-23] MEDS ORDERED: SODIUM PHOSPHATE/NA BIPHOS 133 ML ENEMA PR ONE (17:07)
[2021-03-23] MEDS: ACETAMINOPHEN 325 MG TABLET (FP) PO PRN (17:50)
[2021-03-23] MEDS: traZODone HCL 100 MG TABLET (FP) PO SCH (21:11)
[2021-03-23] MEDS: risperiDONE 1 MG TABLET PO SCH (21:11)
[2021-03-23] MEDS: THIAMINE HCL 100 MG TABLET (FP) PO SCH (21:12)
[2021-03-23] MEDS: hydrOXYzine PAMOATE 25 MG CAPSULE (FP) PO PRN (21:12)
[2021-03-23] MEDS: MELATONIN 5 MG TABLETS PO SCH (21:28)
[2021-03-24] MEDS: ACETAMINOPHEN 325 MG TABLET (FP) PO PRN ×2 (01:53→06:16)
[2021-03-24] MEDS ORDERED: methaDONE HCL 10 MG TABLET PO SCH (06:00)
[2021-03-24] MEDS ORDERED: methaDONE HCL 40 MG DISPERSABLE TABLET ONE (06:13)
[2021-03-24] MEDS: METHADONE PO SCH (06:15)
[2021-03-24] MEDS: ALBUTEROL SO4 HFA INHALER IH PRN (09:02)
[2021-03-24] MEDS: FLUTICASONE/UMECLIDIN/VILANTER (TRELEGY ELLIPTA 100-62.5-25) INAHLER IH SCH (09:33)
[2021-03-24] MEDS: NICOTINE 7 MG/24 HOURS TOPICAL PATCH TD SCH (09:33)
[2021-03-24] MEDS: PRENATAL VITAMINS W/ FOLIC ACID TABLET (FP) PO SCH (09:33)
[2021-03-24] MEDS: POLYETHYLENE GLYCOL (HEALTHYLAX) 3350 17 GM PACKET PO SCH ×2 (12:05→21:03)
[2021-03-24] MEDS: AMMONIUM LACTATE 12% LOTION 225 GM BOTTLE TP SCH ×2 (12:06→21:05)
[2021-03-24] MEDS: TAMSULOSIN HCL 0.4 MG CAP PO SCH (12:06)
[2021-03-24] MEDS ORDERED: PT OWN MED DRAWER 7, Y5N ONE (12:08)
[2021-03-24] MEDS: GABAPENTIN 300 MG CAPSULE PO SCH ×2 (13:34→21:04)
[2021-03-24] MEDS: THIAMINE HCL 100 MG TABLET (FP) PO SCH (21:04)
[2021-03-24] MEDS: traZODone HCL 100 MG TABLET (FP) PO SCH (21:04)
[2021-03-24] MEDS: risperiDONE 1 MG TABLET PO SCH (21:05)
[2021-03-24] MEDS: MELATONIN 5 MG TABLETS PO SCH (21:05)
[2021-03-25] MEDS ORDERED: methaDONE HCL 40 MG DISPERSABLE TABLET ONE (05:43)
[2021-03-25] MEDS: METHADONE PO SCH (05:49)
[2021-03-25] MEDS: GABAPENTIN 300 MG CAPSULE PO SCH ×3 (05:49→21:11)
[2021-03-25] MEDS ORDERED: PT OWN MED DRAWER 7, Y5N ONE ×3 (08:44→19:54)
[2021-03-25] MEDS: FLUTICASONE/UMECLIDIN/VILANTER (TRELEGY ELLIPTA 100-62.5-25) INAHLER IH SCH (09:49)
[2021-03-25] MEDS: NICOTINE 7 MG/24 HOURS TOPICAL PATCH TD SCH (09:49)
[2021-03-25] MEDS: PRENATAL VITAMINS W/ FOLIC ACID TABLET (FP) PO SCH (09:49)
[2021-03-25] MEDS: TAMSULOSIN HCL 0.4 MG CAP PO SCH (09:49)
[2021-03-25] MEDS: AMMONIUM LACTATE 12% LOTION 225 GM BOTTLE TP SCH ×2 (09:49→21:12)
[2021-03-25] MEDS: POLYETHYLENE GLYCOL (HEALTHYLAX) 3350 17 GM PACKET PO SCH ×2 (09:51→21:12)
[2021-03-25] MEDS: THIAMINE HCL 100 MG TABLET (FP) PO SCH (21:10)
[2021-03-25] MEDS: traZODone HCL 100 MG TABLET (FP) PO SCH (21:10)
[2021-03-25] MEDS: hydrOXYzine PAMOATE 25 MG CAPSULE (FP) PO PRN (21:10)
[2021-03-25] MEDS: risperiDONE 1 MG TABLET PO SCH (21:11)
[2021-03-25] MEDS: MELATONIN 5 MG TABLETS PO SCH (21:12)
[2021-03-26] MEDS ORDERED: methaDONE HCL 40 MG DISPERSABLE TABLET ONE (03:41)
[2021-03-26] MEDS: METHADONE PO SCH (06:06)
[2021-03-26] MEDS: GABAPENTIN 300 MG CAPSULE PO SCH ×3 (06:07→21:05)
[2021-03-26] MEDS: ALBUTEROL SO4 HFA INHALER IH PRN (08:31)
[2021-03-26] MEDS: guaiFENesin 200 MG/10 ML 10 ML UNIT-DOSE CUPS PO PRN ×2 (08:31→21:07)
[2021-03-26] MEDS: POLYETHYLENE GLYCOL (HEALTHYLAX) 3350 17 GM PACKET PO SCH ×2 (09:35→21:03)
[2021-03-26] MEDS: PRENATAL VITAMINS W/ FOLIC ACID TABLET (FP) PO SCH (09:35)
[2021-03-26] MEDS: TAMSULOSIN HCL 0.4 MG CAP PO SCH (09:35)
[2021-03-26] MEDS: NICOTINE 7 MG/24 HOURS TOPICAL PATCH TD SCH (09:36)
[2021-03-26] MEDS: AMMONIUM LACTATE 12% LOTION 225 GM BOTTLE TP SCH ×2 (09:36→21:06)
[2021-03-26] MEDS: FLUTICASONE/UMECLIDIN/VILANTER (TRELEGY ELLIPTA 100-62.5-25) INAHLER IH SCH (09:36)
[2021-03-26] MEDS ORDERED: PT OWN MED DRAWER 7, Y5N ONE (19:20)
[2021-03-26] MEDS: risperiDONE 1 MG TABLET PO SCH (21:05)
[2021-03-26] MEDS: THIAMINE HCL 100 MG TABLET (FP) PO SCH (21:05)
[2021-03-26] MEDS: hydrOXYzine PAMOATE 25 MG CAPSULE (FP) PO PRN (21:05)
[2021-03-26] MEDS: MELATONIN 5 MG TABLETS PO SCH (21:05)
[2021-03-26] MEDS: traZODone HCL 100 MG TABLET (FP) PO SCH (21:05)
[2021-03-27] MEDS ORDERED: methaDONE HCL 40 MG DISPERSABLE TABLET ONE (03:14)
[2021-03-27] MEDS: METHADONE PO SCH (06:08)
[2021-03-27] MEDS: GABAPENTIN 300 MG CAPSULE PO SCH (06:11)
[2021-03-27] MEDS ORDERED: PT OWN MED DRAWER 7, Y5N ONE ×2 (08:35→19:15)
[2021-03-27] MEDS: PRENATAL VITAMINS W/ FOLIC ACID TABLET (FP) PO SCH (09:54)
[2021-03-27] MEDS: ALBUTEROL SO4 HFA INHALER IH PRN ×2 (09:54→21:40)
[2021-03-27] MEDS: AMMONIUM LACTATE 12% LOTION 225 GM BOTTLE TP SCH ×2 (09:54→21:41)
[2021-03-27] MEDS: TAMSULOSIN HCL 0.4 MG CAP PO SCH (09:54)
[2021-03-27] MEDS: POLYETHYLENE GLYCOL (HEALTHYLAX) 3350 17 GM PACKET PO SCH ×2 (09:54→21:41)
[2021-03-27] MEDS: NICOTINE 7 MG/24 HOURS TOPICAL PATCH TD SCH (09:57)
[2021-03-27] MEDS: FLUTICASONE/UMECLIDIN/VILANTER (TRELEGY ELLIPTA 100-62.5-25) INAHLER IH SCH (10:02)
[2021-03-27] MEDS: BICTEGRAV/EMTRICIT/TENOFOV (BIKTARVY) 50-200-25 MG TABLET PO SCH (11:54)
[2021-03-27] MEDS: GABAPENTIN 100 MG CAPSULE PO SCH (18:05)
[2021-03-27] MEDS: THIAMINE HCL 100 MG TABLET (FP) PO SCH (21:41)
[2021-03-27] MEDS: hydrOXYzine PAMOATE 25 MG CAPSULE (FP) PO PRN (21:41)
[2021-03-27] MEDS: risperiDONE 1 MG TABLET PO SCH (21:41)
[2021-03-27] MEDS: traZODone HCL 100 MG TABLET (FP) PO SCH (21:41)
[2021-03-27] MEDS: MELATONIN 5 MG TABLETS PO SCH (21:41)
[2021-03-27] MEDS: ACETAMINOPHEN 325 MG TABLET (FP) PO PRN (21:42)
[2021-03-27] MEDS ORDERED: GABAPENTIN 100 MG CAPSULE PO SCH (22:00)
[2021-03-28] MEDS ORDERED: methaDONE HCL 40 MG DISPERSABLE TABLET ONE (03:22)
[2021-03-28] MEDS ORDERED: PT OWN MED DRAWER 7, Y5N ONE ×3 (03:23→20:13)
[2021-03-28] MEDS: METHADONE PO SCH (06:13)
[2021-03-28] MEDS: GABAPENTIN 100 MG CAPSULE PO SCH ×2 (06:14→17:42)
[2021-03-28] MEDS: TAMSULOSIN HCL 0.4 MG CAP PO SCH (06:14)
[2021-03-28] MEDS: BICTEGRAV/EMTRICIT/TENOFOV (BIKTARVY) 50-200-25 MG TABLET PO SCH (07:16)
[2021-03-28] MEDS: POLYETHYLENE GLYCOL (HEALTHYLAX) 3350 17 GM PACKET PO SCH ×2 (09:32→22:00)
[2021-03-28] MEDS: FLUTICASONE/UMECLIDIN/VILANTER (TRELEGY ELLIPTA 100-62.5-25) INAHLER IH SCH (09:32)
[2021-03-28] MEDS: PRENATAL VITAMINS W/ FOLIC ACID TABLET (FP) PO SCH (09:32)
[2021-03-28] MEDS: NICOTINE 7 MG/24 HOURS TOPICAL PATCH TD SCH (09:34)
[2021-03-28] MEDS: AMMONIUM LACTATE 12% LOTION 225 GM BOTTLE TP SCH ×2 (09:34→22:00)
[2021-03-28] MEDS: MELATONIN 5 MG TABLETS PO SCH (22:00)
[2021-03-28] MEDS: THIAMINE HCL 100 MG TABLET (FP) PO SCH (22:00)
[2021-03-28] MEDS: risperiDONE 1 MG TABLET PO SCH (22:00)
[2021-03-28] MEDS: traZODone HCL 100 MG TABLET (FP) PO SCH (22:00)
[2021-03-28] MEDS: hydrOXYzine PAMOATE 25 MG CAPSULE (FP) PO PRN (22:01)
[2021-03-29] MEDS ORDERED: methaDONE HCL 40 MG DISPERSABLE TABLET ONE (03:34)
[2021-03-29] MEDS: METHADONE PO SCH (06:11)
[2021-03-29] MEDS: GABAPENTIN 100 MG CAPSULE PO SCH (06:12)
[2021-03-29] MEDS: TAMSULOSIN HCL 0.4 MG CAP PO SCH (06:12)
[2021-03-29 06:51] VITALS: BP 152/87; PULSE 68; TEMP 97.1
[2021-03-29] MEDS: BICTEGRAV/EMTRICIT/TENOFOV (BIKTARVY) 50-200-25 MG TABLET PO SCH (07:39)
[2021-03-29] MEDS ORDERED: PT OWN MED DRAWER 7, Y5N ONE (08:50)
[2021-03-29] MEDS: AMMONIUM LACTATE 12% LOTION 225 GM BOTTLE TP SCH (09:02)
[2021-03-29] MEDS: NICOTINE 7 MG/24 HOURS TOPICAL PATCH TD SCH (09:03)
[2021-03-29] MEDS: POLYETHYLENE GLYCOL (HEALTHYLAX) 3350 17 GM PACKET PO SCH (09:03)
[2021-03-29] MEDS: PRENATAL VITAMINS W/ FOLIC ACID TABLET (FP) PO SCH (09:04)
[2021-03-29] MEDS: FLUTICASONE/UMECLIDIN/VILANTER (TRELEGY ELLIPTA 100-62.5-25) INAHLER IH SCH (09:04)
== END 2021-03-29 09:15 | disposition home or self-care (01) | DRG 772 ==
LOC: YASAS 12:57 → Y3E 20:13
PROVIDERS: ADMIT Allergy & Immunology; ATTEND Allergy & Immunology
PROC: HZ42ZZZ Group Counseling for Substance Abuse Treatment, Cognitive-Behavioral (ICD-10-PCS; principal; 2021-03-22)
DX: F10.20 Alcohol dependence, uncomplicated (principal); F11.20 Opioid dependence, uncomplicated; F14.20 Cocaine dependence, uncomplicated; F13.20 Sedative, hypnotic or anxiolytic dependence, uncomplicated; F12.20 Cannabis dependence, uncomplicated; F17.210 Nicotine dependence, cigarettes, uncomplicated; F25.9 Schizoaffective disorder, unspecified; F31.9 Bipolar disorder, unspecified; F41.8 Other specified anxiety disorders; Z21 Asymptomatic human immunodeficiency virus [HIV] infection status; G47.00 Insomnia, unspecified; J44.9 Chronic obstructive pulmonary disease, unspecified; B18.2 Chronic viral hepatitis C; N40.0 Benign prostatic hyperplasia without lower urinary tract symptoms
CPT/HCPCS: 81003; 93005; 93010; C9803; J2794; U0003; U0005